=== PATIENT | male | born 1965 | race Caucasian/White ===

== ENCOUNTER 2018-05-16 11:17 | Day surgery (SDC) | payer OTHER, SELFPAY ==
[2018-05-16 11:58] VITALS: BP 144/80; PULSE 53; RESP 16; TEMP 36.6; O2SAT 100
--- NOTE | 2018-05-16 12:20 | HPE_ITS ---
Date of service: 05/16/18 Time of Service: :18 Assessment and Plan (1) Bladder cancer: Current visit: Yes Status: Acute We will plan on cystoscopy with transurethral resection of any visible bladder tumor. Given his reaction to mitomycin-C, we will not plan on instilling the medication postop. As long as there is no tumor near the left ureteral orifice, we will do flexible ureteroscopy and address his stone as well. (2) Calculus of left kidney: Current visit: Yes Status: Acute History of Present Illness Chief Complaint: Bladder cancer Narrative: This is a 53-year-old gentleman who has a history of noninvasive urothelial cell carcinoma. Some of his lesions have been high-grade but no muscularis invasion has been identified. He presents for surveillance cystoscopy and possible transurethral resection of any visible tumor. He has been unable to tolerate postoperative mitomycin being instilled into the bladder. He does have a history of kidney stones. He has a known nonobstructing stone up in the left kidney he is interested in having the stone treated ureteroscopically if possible. He has occasional left-sided flank pain. He has no gross hematuria. He has no fever or chills. Review of Systems Constitutional Denies chills and Denies fever(s) Eyes Denies change in vision ENT Denies dysphagia Cardiovascular Denies chest pain, Denies syncope and Denies irregular heart rhythm Respiratory Denies cough Gastrointestinal Denies dysphagia, Denies nausea and Denies vomiting Musculoskeletal Reports arthralgias Neurologic Denies syncope Hematologic/Lymphatic Denies easy bleeding and Denies easy bruising PFSH Medical History Dysuria Hesitancy of micturition History of testicular cancer Malignant neoplasm of posterior wall of urinary bladder Social History Smoking/Tobacco Use Status: Current every day Surgical History Status post radical unilateral orchiectomy (Acute) Meds Home Medications Medication Instructions Recorded Confirmed Type aspirin 81 mg PO HS tab-cap 07/24/16 05/16/18 History atorvastatin 20 mg PO HS tab-cap 07/24/16 05/16/18 History metoprolol succinate 100 mg PO HS tab-cap 07/24/16 05/16/18 History Allergies Allergy/AdvReac Type Severity Reaction Status Date / Time sildenafil citrate Allergy Severe Anaphylaxsi Verified 05/16/18 11:54 [From Viagra] s ciprofloxacin [From Cipro] Allergy Intermediate Other (See Verified 05/16/18 11: 54 Comment) Penicillins Allergy Intermediate Rash, Verified 05/16/18 11:54 itching, hives mitomycin AdvReac Severe Pain, Verified 05/16/18 11:54 created bladder stones per pt. oxybutynin AdvReac Severe dry mouth, Verified 05/16/18 11:54 mouth sores, pain oxycodone HCl [From Percocet] AdvReac Intermediate Mood Verified 05/16/18 11:54 behavior Exam Narrative Exam Narrative: He is in no current distress. He does not appear septic or toxic. His neck is supple. His chest wall motion is normal. He does not appear short of breath at rest. His lungs are clear. His heart is regular with no murmurs. His abdomen is soft. There is a left inguinal incision that is well-healed. He has no guarding or rebound tenderness. There is no edema in the lower extremities. No amputations or deformities are found. He is awake, alert and oriented.
[2018-05-16] MEDS: Lactated Ringers 1,000 ML 80 ML IV (12:23)
--- NOTE | 2018-05-16 13:21 | DI.RAD_ITS ---
SYMPTOMS/DIAGNOSIS: LEFT KIDNEY STONE RETROGRADE IN THE OR: Fluoroscopy Time: 16.3 sec Fluoroscopy was utilized by Dr. Quintero during the retrograde evaluation of the left renal collecting system. Please refer to the procedure report for complete details.
[2018-05-16] MEDS: GENTAMICIN 120 MG in Normal Saline 100 ML 200 MG IVPB (13:44)
[2018-05-16] MEDS: Bupivacaine LIPOSOME/PF 133 MG/10 ML VIAL IJ (13:50)
[2018-05-16] MEDS: Bupivacaine 0.25% Pres-Free 30 ML VIAL (13:50)
[2018-05-16] MEDS: IOHEXOL 50 ML (14:18)
--- NOTE | 2018-05-16 14:38 | BLADDER_PTH ---
PATIENT: Florentin Castillo LOC: [facility] U#:[id number] AGE/SX: 53/M ROOM: RE05/16/[address]: Jeremy Quintero MD : 1965 BED: DIS: 05/16/2018 SPEC #: [id number] RECD: 05/16/18 18:23 STATUS: BRANDI REQ #: [id number] RICO: 05/16/18 14:[address]: Jeremy Quintero DEPT: Surgical Specimen RECD BY: Yusra Malik ENTERED: 05/16/18 18:24 SP TYPE: Bladder OTHR DR: Sanjeev Wei Tissues: 1 - BLADDER BIOPSY Procedures: GROSS AND MICRO LEVEL 4 Comments: [id number]
[2018-05-16] MEDS: Lidocaine 2% Jelly 6 ML SYR (15:00)
--- NOTE | 2018-05-16 15:07 | W.PM.DSUDISC ---
Discharge Plan Disposition Patient Disposition: HOME Condition: Stable Discharge Details Reason For Visit: (L) BLADDER CA /(L) KIDNEY STONE Attending Provider: Jeremy Quintero Primary Care Provider: Sanjeev Wei Home Meds and New Rx's Prescriptions: New ketorolac 10 mg tablet 10 mg PO Q6H PRN (Reason: pain) Qty: 12 RF: 0 Continue atorvastatin 40 MG tablet 20 mg PO HS RF: 0 metoprolol succinate 100 MG tablet extended release 24 hr 100 mg PO HS RF: 0 aspirin 81 MG tablet,chewable 81 mg PO HS RF: 0 Discharge Instructions Additional Instructions: No straining/lifting over 10 pounds for 48 hours OK to shower No followup appt needed but ask pt and to call in 1 to 2 weeks for pathology results - his F/U will depend on pathology No need to strain urine Activity:: Activity as Tolerated Diet:: As Tolerated Discharge Orders Discharge Orders: Discharge Order (Routine); Ordered 05/16/18 Ordered By: Jreemy Quintero DS: Diagnosis Discharge Diagnosis (1) Bladder cancer: Status: Acute (2) Calculus of left kidney: Status: Acute
[2018-05-16 15:25] VITALS: BP 168/72; PULSE 61; RESP 20; TEMP 35.3; O2SAT 95
[2018-05-16] MEDS: Phenazopyridine 200 MG TAB PO (15:55)
[2018-05-16 15:59] VITALS: BP 178/79; PULSE 62; RESP 20; TEMP 35.1; O2SAT 96
[2018-05-16 16:18] VITALS: BP 180/86; PULSE 64; TEMP 35; O2SAT 96
--- NOTE | 2018-05-16 16:28 | ROE_ITS ---
DATE OF PROCEDURE: May 16, 2018 PREOPERATIVE DIAGNOSIS: 1. Bladder cancer. 2. Left kidney stone. POSTOPERATIVE DIAGNOSIS: Same. PROCEDURE: Cystoscopy; bladder biopsy with fulguration of biopsy sites; left flexible ureteroscopy w ith holmium laser of stone and stone evacuation. SURGEON: Jeremy Quintero M.D. ANESTHESIA: General. ESTIMATED BLOOD LOSS: Minimal. COMPLICATIONS: None. HISTORY: This is a 53-year-old gentleman who has a history of urothelial cell carcinoma of the blad kannan. He has not had any signs of invasion, but he's not been able to tolerate instillations of chemo therapy into the bladder. He presents for a cystoscopy with possible transurethral resection. He has been identified as having a nonobstructing stone in the left kidney. He will have intermitten t symptoms on that side. He would like to have that stone addressed as well. OPERATIVE REPORT: The patient was brought to the operating room on 05/16/18. After successful induct ion of general anesthesia he was placed in the dorsal lithotomy position. His genitalia was prepped and draped sterilely. A 22 Georgian rigid cystoscope was passed through the urethra into the bladder. The urethra and bladde r were inspected with a 30-degree lens. The pendulous, bulbous and membranous urethras all appeared normal with no strictures. The prostatic urethra showed lateral lobe enlargement. The bladder neck was entered and the bladder mucosa was in spected. Both ureteral orifices appeared normal. No blood was seen coming from either side. There were a total of five <2 cm papillary lesions on the left side of the bladder. These had the ty pical appearance of a low-grade, noninvasive urothelial cell carcinoma. Each of these areas was biop sied using the cold cup biopsy forceps. The biopsy sites were then cauterized with the bipolar Bugbe e. Once hemostasis had been obtained, we turned our attention to the left renal stone. We passed a 6 Fr ench access catheter through the cystoscope and maneuvered it into the left ureteral orifice. A retr ograde film was obtained by injecting Omnipaque through the access catheter under fluoroscopic guidan ce. This allowed us to outline the upper pole calyx where the stone had been identified. We placed a guidewire up through the access catheter and removed the catheter and cystoscope. We then passed a dual-lumen catheter over the wire and positioned a second wire. We chose one of the wires as a working wire and the other as a safety wire. We passed a ureteral access sheath over the working wire, leaving the safety wire in place. We then passed the flexible ureteroscope up through the ureteral access sheath. We were able to visu harjinder the stone in the upper pole calyx. The stone was treated with the 272 micron holmium laser fib er. We used dusting settings of a rate of 8 and a power of 200. Once the stones were fragmented int o small enough pieces, we switched to a ZeroTip stone basket and removed the fragments and sent them for chemical analysis. Prior to the surgery he had expressed concern about having a ureteral stent in place. We honored his wishes and left the stent out. All wires and scopes were then removed. Mr. Castillo tolerated this procedure well with no complications. There was no appreciable blood loss. cc: Sanjeev Wei M.D.
[2018-05-16] MEDS: fentaNYL 100 MCG/2 ML VIAL 50 MCG IVP (16:38)
[2018-05-16] MEDS: Normal Saline Flush 10 ML SYR IV (16:41)
[2018-05-16] MEDS: traMADol 50 MG TAB 100 MG PO (16:43)
[2018-05-16 16:44] VITALS: BP 163/91; PULSE 74; RESP 20; TEMP 35.9; O2SAT 97
[2018-05-16 16:58] VITALS: BP 145/81; PULSE 73; RESP 18; TEMP 35.8; O2SAT 97
[2018-05-20 08:24] LABS: Source: Left Kidney
== END 2018-05-16 17:26 | disposition home or self-care (01) ==
PROVIDERS: PCP Family Medicine; Visit Provider Urology
PROC: 0TBB8ZZ Excision of Bladder, Via Natural or Artificial Opening Endoscopic (ICD-10-PCS; CPT 52234; principal; 2018-05-16 12:45)
PROC: (CPT 52234; 2018-05-16 12:45)
DX: C67.9 Malignant neoplasm of bladder, unspecified (principal); N20.0 Calculus of kidney; I10 Essential (primary) hypertension
CPT/HCPCS: 52234; 52353; 76942; 88305; NC; 74420; 82360; J0131; J1100; J1580; J1885; J2250; J3010; Q9967

== ENCOUNTER 2018-06-20 00:33 | Outpatient (CLI) | payer OTHER, SELFPAY ==
--- NOTE | 2018-06-20 08:56 | DI.US_ITS ---
SYMPTOM/DIAGNOSIS: F/U AFTER PROCEDURE, CALCULUS LT KIDNEY, N20.0 RENAL ULTRASOUND: Routine examination. Comparison CT scan is 08/04/17. The right kidney measures 10.2 cm. long. There is a tiny 0.7 cm. cyst at the anterior mid right kidney. This was present on the CT scan from 2017. No renal calculi or obstruction are identified. There is normal blood flow to the right kidney. The left kidney measures 10.4 cm. long. There is a small 4 mm. echogenic focus with shadowing in the superior pole of the left kidney. This may represent a tiny stone. No hydronephrosis is seen. No solid renal mass is present. There is normal blood flow to the left kidney. The prevoid urinary bladder volume is 250 cc's. There does appear to be mild thickening of the wall of the urinary bladder. No definite discrete mass or intraluminal mass is lizabeth. The postvoid urinary bladder volume is 27 cc's. Both ureteral jets were visualized. There is increased echogenicity of the liver suggesting hepatic steatosis. Prostatic volume is 30 cc's. IMPRESSION: 1. Non obstructing left renal calculus. 2. Mild urinary bladder wall thickening.
== END 2018-06-20 00:53 ==
PROVIDERS: PCP Family Medicine; Visit Provider Urology
DX: N20.0 Calculus of kidney (principal); N32.9 Bladder disorder, unspecified
CPT/HCPCS: 76770

== ENCOUNTER 2018-08-18 08:15 | Day surgery (SDC) | payer OTHER, SELFPAY ==
[2018-08-18 08:33] VITALS: BP 128/68; PULSE 55; RESP 16; TEMP 36.2; O2SAT 99
[2018-08-18] MEDS: Lactated Ringers 1,000 ML 80 ML IV (09:02)
--- NOTE | 2018-08-18 09:25 | W.PM.HP.N ---
Date of service: 08/18/18 Time of Service: 09:25 Assessment and Plan (1) Malignant neoplasm of posterior wall of urinary bladder: Current visit: No Status: Acute For surveillance cystoscopy and possible TURBT^ History of Present Illness Chief Complaint: Bladder cancer Narrative: This is a 53-year-old gentleman who has a history of urothelial cell carcinoma of the bladder. His last cystoscopy was 3 months ago. At that time, he had a lesion of low malignant potential. He comes in for surveillance cystoscopy. He has no gross hematuria. He does have a history of kidney stones. He is not having any flank pain at this point in time Review of Systems Constitutional Denies chills and Denies fever(s) Eyes Denies loss of vision ENT Denies sore throat Cardiovascular Denies chest pain, Denies syncope and Denies irregular heart rhythm Respiratory Denies cough Gastrointestinal Denies nausea and Denies vomiting Musculoskeletal Reports arthralgias Neurologic Denies syncope and Denies loss of vision Hematologic/Lymphatic Denies easy bleeding and Denies easy bruising PFSH Medical History Dysuria Hesitancy of micturition History of testicular cancer Malignant neoplasm of posterior wall of urinary bladder Surgical History Status post radical unilateral orchiectomy (Acute) Social History Smoking/Tobacco Use Status: Current every day Meds Home Medications Medication Instructions Recorded Confirmed Type aspirin 81 mg PO HS tab-cap 07/24/16 08/18/18 History atorvastatin 20 mg PO HS tab-cap 07/24/16 08/18/18 History metoprolol succinate 100 mg PO HS tab-cap 07/24/16 08/18/18 History Allergies Allergy/AdvReac Type Severity Reaction Status Date / Time sildenafil citrate Allergy Severe Anaphylaxsi Verified 08/18/18 08:27 [From Viagra] s ciprofloxacin [From Cipro] Allergy Intermediate Other (See Verified 08/18/18 08:27 Comment) Penicillins Allergy Intermediate Rash, Verified 08/18/18 08:27 itching, hives mitomycin AdvReac Severe Pain, Verified 08/18/18 08:27 created bladder stones per pt. oxybutynin AdvReac Severe dry mouth, Verified 08/18/18 08:27 mouth sores, pain oxycodone HCl [From Percocet] AdvReac Intermediate Mood Verified 08/18/18 08:27 behavior Exam Const General: cooperative, comfortable, no acute distress and well developed Neck Neck: supple Resp Auscultation: clear to auscultation bilaterally Cardio Rate: regular rate Rhythm: regular rhythm GI Palpation: soft and no masses Neuro General: alert, awake and oriented x3 Results Last Vital Signs Temp 36.2 C L 08/18/18 08:33 Pulse 55 L 08/18/18 08:33 Resp 16 08/18/18 08:33 BP 128/68 08/18/18 08:33 Pulse Ox 99 08/18/18 08:33
[2018-08-18] MEDS: GENTAMICIN 120 MG in Normal Saline 100 ML 206 MG IVPB (09:32)
[2018-08-18] MEDS: Lidocaine 2% Jelly 6 ML SYR (10:00)
--- NOTE | 2018-08-18 10:03 | BLADDER_PTH ---
PATIENT: Florentin Castillo LOC: [facility] U#:[id number] AGE/SX: 53/M ROOM: RE08/18/[address]: Jeremy Quintero MD : 1965 BED: DIS: 08/18/2018 SPEC #: [id number] RECD: 08/18/18 12:08 STATUS: BRANDI REMaricarmen #: [id number] RICO: 08/18/18 10:[address]: Jeremy Quintero DEPT: Surgical Specimen RECD BY: Yusra Malik ENTERED: 08/18/18 12:09 SP TYPE: Bladder OTHR DR: Sanjeev Wei Tissues: 1 - BLADDER BIOPSY Procedures: GROSS AND MICRO LEVEL 4 Comments: [id number]
--- NOTE | 2018-08-18 10:12 | W.PM.DSUDISC ---
Discharge Plan Disposition Patient Disposition: HOME Condition: Stable Discharge Details Reason For Visit: BLADDER CA Attending Provider: Jeremy Quintero Primary Care Provider: Sanjeev Wei Home Meds and New Rx's Prescriptions: No Action atorvastatin 40 MG tablet 20 mg PO HS RF: 0 metoprolol succinate 100 MG tablet extended release 24 hr 100 mg PO HS RF: 0 aspirin 81 MG tablet,chewable 81 mg PO HS RF: 0 Discharge Instructions Additional Instructions: call 1 to 2 weeks for pathology results - his next cystoscopy (3 versus 6 months) will depend on his pathology findings Stand Alone Forms: [facility] Buffy Smith ([facility]) Activity:: Activity as Tolerated Diet:: As Tolerated Discharge Orders Discharge Orders: Discharge Order (Routine); Ordered 08/18/18 Ordered By: Jeremy Quintero DS: Diagnosis Discharge Diagnosis (1) Malignant neoplasm of posterior wall of urinary bladder: Status: Acute
[2018-08-18 10:17] VITALS: BP 142/82; PULSE 50; RESP 13; TEMP 36.4; O2SAT 97
[2018-08-18 10:22] VITALS: BP 144/74; PULSE 49; RESP 10; TEMP 36.5; O2SAT 99
[2018-08-18 10:27] VITALS: BP 136/79; PULSE 52; RESP 14; TEMP 36.4; O2SAT 99
[2018-08-18 10:41] VITALS: BP 144/78; PULSE 50; RESP 12; TEMP 36.4; O2SAT 97
[2018-08-18] MEDS: Phenazopyridine 200 MG TAB PO (11:02)
[2018-08-18 11:20] VITALS: BP 134/77; PULSE 54; RESP 18; TEMP 36; O2SAT 98
--- NOTE | 2018-08-18 17:48 | ROE_ITS ---
DATE OF OPERATION: August 18, 2018 PREOPERATIVE DIAGNOSIS: Bladder cancer. POSTOPERATIVE DIAGNOSIS: Bladder cancer with pathology pending. PROCEDURE: Cystoscopy, transurethral resection of small bladder tumor. SURGEON: Jeremy Quintero M.D. ANESTHESIA: General. COMPLICATIONS: None. ESTIMATED BLOOD LOSS: Minimal. HISTORY: This is a 55-year-old gentleman who has a history of bladder cancer. He comes in for surve illance cystoscopy and possible transurethral resection. OPERATIVE REPORT: The patient was brought to the Operating Room on 08/18/18. He was given general a nesthesia and placed in the dorsal lithotomy position. His genitalia was prepped and draped. A 22 Djiboutian rigid cystoscope was passed through the urethra into the bladder. The urethra and bladde r were inspected using the 30-degree lens. The pendulous, bulbous, and membranous urethras all appeared normal. The prostatic urethra appeared normal as well. The bladder neck was then entered. The right ureteral orifice and right bladder wall appeared normal. The left orifice appeared normal but just behind the orifice there was a less than 2-cm papillary lesion. There was a scar up toward the dome in the bladder but no additional lesions were seen. We then switched to a 24 Djiboutian resectoscope sheath and resected the visible lesion. That lesion was sent to pathology for permanent section. The surrounding area was then cauterized using the coagula tion current. The patient tolerated this procedure well, with no complications. His follow-up will depend on his s urgical pathology. cc: Sanjeev Wei M.D.
== END 2018-08-18 11:35 | disposition home or self-care (01) ==
PROVIDERS: PCP Family Medicine; Visit Provider Urology
PROC: 0TBB8ZZ Excision of Bladder, Via Natural or Artificial Opening Endoscopic (ICD-10-PCS; CPT 52234; principal; 2018-08-18 10:30)
DX: C67.4 Malignant neoplasm of posterior wall of bladder (principal)
CPT/HCPCS: 52234; 88305; NC; J1100; J1580; J2405

== ENCOUNTER 2019-02-09 09:00 | Day surgery (SDC) | payer OTHER, SELFPAY ==
[2019-02-09 09:14] VITALS: BP 146/84; PULSE 47; RESP 15; TEMP 36.6; O2SAT 98
[2019-02-09] MEDS: Lactated Ringers 1,000 ML 80 ML IV (09:56)
--- NOTE | 2019-02-09 09:56 | W.PM.HP.N ---
Date of service: 02/09/19 Time of Service: 10:48 Assessment and Plan (1) Bladder cancer: Current visit: No Status: Acute We will proceed with cystoscopy and transurethral resection of any visible tumor oriented we will not be placing intravesical chemotherapy (even if the tumor is resected) given his previous reaction to the intravesical compound. History of Present Illness Chief Complaint: Bladder cancer Narrative: This is a 53-year-old gentleman who has a history of high grade, noninvasive bladder cancer diagnosed in 2016. He has had multiple transurethral resections. He is been unable to tolerate intravesical chemotherapy due to severe pain He comes in for surveillance cystoscopy and possible transurethral resection of any visible tumor. His last tumor recurrence was a low grade tumor of low malignant potential in July of 2018. He has no current gross hematuria. He does have a history of kidney stones. He has no flank pain. Review of Systems Review of Systems No fevers or chills No vision change or dysphasia No diabetes or thyroid dysfunction No shortness of breath, cough or hemoptysis No chest pain or palpitations Recent hospitalization for abdominal pain No seizures, strokes No bleeding disorders or anemia No gout PFSH Social History Smoking/Tobacco Use Status: Current every day Tobacco Type: cigarettes Tobacco: How many years used: 30 Alcohol Intake: former Drug use: Never Substance use type: does not use Do you feel safe at home: Yes Do you feel safe in your relationship?: Yes Meds Home Medications Medication Instructions Recorded Confirmed Type aspirin 81 mg PO HS tab-cap 07/24/16 02/08/19 History atorvastatin 20 mg PO HS tab-cap 07/24/16 02/09/19 History metoprolol succinate 100 mg PO HS tab-cap 07/24/16 02/09/19 History Allergies Allergy/AdvReac Type Severity Reaction Status Date / Time sildenafil citrate Allergy Severe Anaphylaxsi Verified 02/09/19 09:50 [From Viagra] s ciprofloxacin [From Cipro] Allergy Intermediate Other (See Verified 02/09/19 09:50 Comment) Penicillins Allergy Intermediate Rash, Verified 02/09/19 09:50 itching, hives mitomycin AdvReac Severe Pain, Verified 02/09/19 09:50 created bladder stones per pt. oxybutynin AdvReac Severe dry mouth, Verified 02/09/19 09:50 mouth sores, pain oxycodone HCl [From Percocet] AdvReac Intermediate Mood Verified 02/09/19 09:50 behavior Exam Narrative Exam Narrative: He is in no obvious distress. He is cooperative. He does not appear septic or toxic His vital signs are documented elsewhere His neck is supple with no masses His lungs are clear Cardiac exam reveals a regular rate and rhythm His abdomen is soft there is a left lower quadrant scar which is well-healed He is awake, alert and oriented Results Last Vital Signs Temp 36.6 C 02/09/19 09:14 Pulse 47 L 02/09/19 09:14 Resp 15 02/09/19 09:14 BP 146/84 H 02/09/19 09:14 Pulse Ox 98 02/09/19 09:14
[2019-02-09] MEDS: GENTAMICIN 120 MG in Normal Saline 100 ML 200 MG IVPB (11:30)
--- NOTE | 2019-02-09 11:30 | BLADDER_PTH ---
PATIENT: Florentin Castillo LOC: [facility] U#:[id number] AGE/SX: 53/M ROOM: RE02/09/[address]: Jeremy Quintero MD : 1965 BED: DIS: 02/09/2019 SPEC #: [id number] RECD: 02/09/19 13:23 STATUS: BRANDI REQ #: [id number] RICO: 02/09/19 11:[address]: Jeremy Quintero DEPT: Surgical Specimen RECD BY: Yusra Malik ENTERED: 02/09/19 13:23 SP TYPE: Bladder OTHR DR: Sanjeev Wei Tissues: 1 - BLADDER CURRETTINGS Procedures: GROSS AND MICRO LEVEL 5 Comments: [id number]
[2019-02-09] MEDS: Lidocaine 2% Jelly 6 ML SYR (11:45)
[2019-02-09] MEDS: Bupivacaine LIPOSOME/PF 133 MG/10 ML VIAL IJ (12:01)
[2019-02-09] MEDS: Bupivacaine 0.25% Pres-Free 30 ML VIAL (12:01)
--- NOTE | 2019-02-09 12:01 | W.PM.DSUDISC ---
Discharge Plan Disposition Patient Disposition: HOME Condition: Stable Discharge Details Attending Provider: Jeremy Quintero Primary Care Provider: Sanjeev Wei Home Meds and New Rx's Prescriptions: No Action atorvastatin 40 MG tablet 20 mg PO HS RF: 0 metoprolol succinate 100 MG tablet extended release 24 hr 100 mg PO HS RF: 0 aspirin 81 MG tablet,chewable 81 mg PO HS RF: 0 Discharge Instructions Additional Instructions: No followup visit to schedule, but ask pt and to call in 1 week for pathology results - the timing for his next cysto will depend on the pathology Stand Alone Forms: [facility] Post op Instructions, Buffy Crouch ([facility]) Activity:: Activity as Tolerated Shower/Bathe:: 24 hours Diet:: As Tolerated Discharge Orders Discharge Orders: Discharge Order (Routine); Ordered 02/09/19 Ordered By: Jeremy Quintero DS: Diagnosis Discharge Diagnosis (1) Bladder cancer: Status: Acute
[2019-02-09] MEDS: Phenazopyridine 200 MG TAB PO (13:00)
[2019-02-09 13:20] VITALS: BP 157/91; PULSE 55; RESP 14; TEMP 36.3; O2SAT 96
--- NOTE | 2019-02-10 08:45 | ROE_ITS ---
REPORT OF OPERATIVE PROCEDURE DATE OF PROCEDURE February 09, 2019 PREOPERATIVE DIAGNOSIS Bladder cancer. POSTOPERATIVE DIAGNOSIS Bladder cancer. PROCEDURE Cystoscopy with transurethral resection of multiple small bladder tumors. SURGEON Jeremy Quintero M.D. ANESTHESIA General. FINDINGS Multiple small (less than 2-cm papillary lesions throughout the bladder. HISTORY This is a 53-year-old gentleman who has a history of testicular cancer. He was diagnosed with a secon d primary tumor of urothelial cell carcinoma of the bladder back in 2016. At that time, his tumor was high grade. He was treated with transurethral resection. He has never had intravesical BCG. He has multiple recurrences and on at least one of those occurrences, we instilled mitomycin C into h is bladder. He was unable to tolerate the medication so we had not utilized intravesical chemotherapy since then. He presents for surveillance cystoscopy with possible transurethral resection. PROCEDURE DESCRIPTION The patient was brought to the Operating Room on 02/09/2019. After successful induction of General ane sthesia, he was placed in the dorsal lithotomy position. His genitalia was prepped and draped. 2% Xylocaine jelly was instilled into the urethra to act as a local anesthetic. A #24-Jordanian resecto scope sheath was passed through the urethra into the bladder. The urethra and bladder were inspected with the 30-degree lens. The pendulous, bulbous and membranous urethras all appeared normal with no strictures. The bladder ne ck was slightly elevated. No papillary lesions were seen on the prosthetic mucosa. The bladder neck was entered and the bladder mucosa was inspected. We did identify multiple small pap illary lesions throughout the bladder. These locations included on both sides of the trigone, the pos terior bladder wall, the left lateral bladder wall, and the right lateral bladder wall. We then utilized the Idea2 resectoscope to excise some of these lesions. The excised tissue was se nt to Pathology for permanent section. We then switched to a plasma button and cauterized the resecti on sites and cauterized any remaining visible tumors. At the completion of the procedure, no active bleeding was seen. The bladder was emptied and the cyst oscope was withdrawn. The patient tolerated the procedure well. There were no complications. CC: Sanjeev Wei M.D.
== END 2019-02-09 13:50 | disposition home or self-care (01) ==
PROVIDERS: PCP Family Medicine; Visit Provider Urology
PROC: 0TBB8ZZ Excision of Bladder, Via Natural or Artificial Opening Endoscopic (ICD-10-PCS; CPT 52234; principal; 2019-02-09 11:30)
DX: C67.0 Malignant neoplasm of trigone of bladder (principal); C67.4 Malignant neoplasm of posterior wall of bladder; C67.2 Malignant neoplasm of lateral wall of bladder; G89.18 Other acute postprocedural pain; Z85.47 Personal history of malignant neoplasm of testis
CPT/HCPCS: 52234; 76942; 88305; NC; 88307; J1580; J2250; J3010

== ENCOUNTER 2019-04-06 14:36 | Outpatient (REF) | payer OTHER, SELFPAY ==
[2019-04-06 14:39] LABS: Bilirubin Negative (Negative); Blood Negative (Negative); Clarity Clear (Clear); Glucose Negative (Negative); Ketones Negative (Negative); Leukocyte Esterase Negative (Negative); Nitrite Negative (Negative); Specific Gravity 1.015 (1.005-1.025); Urobilinogen 0.2 EU/dL (Up TO 0.2); pH 5.5 (5-8)
== END 2019-04-06 14:56 ==
LOC: LBN 14:36
PROVIDERS: PCP Family Medicine; Visit Provider Urology
DX: C67.9 Malignant neoplasm of bladder, unspecified (principal); R31.0 Gross hematuria
CPT/HCPCS: 81003; 87086

== ENCOUNTER 2019-05-22 10:46 | Outpatient (CLI) | payer OTHER, SELFPAY ==
--- NOTE | 2019-05-22 12:00 | DI.US_ITS ---
EXAM: US RENAL CLINICAL HISTORY: flank pain w/ hx of stones, lt kidney calculus, N20.0. TECHNIQUE: Duran scale, color and spectral Doppler were used. COMPARISON: US renal from 06/20/2018 FINDINGS: Renal size in cm: Right: 9.8 cm left: 10.1 cm Echogenicity: Normal Hydronephrosis: No Cyst or mass: No Nephrolithiasis: 0.6 cm shadowing, echogenic focus in the superior pole of the left kidney. This is consistent with a calculus. Bladder:The bladder wall appears smooth. No intraluminal mass is present. The left ureteral jet was visualized. The right ureteral jet was not visualized. Prevoid vol:129 cc Postvoid vol:39 cc DOPPLER FINDINGS: There is normal and symmetric blood flow to the kidneys. IMPRESSION: Left nephrolithiasis. No evidence of obstructive uropathy.
== END 2019-05-22 11:06 ==
PROVIDERS: PCP Family Medicine; Visit Provider Nurse Practitioner Gerontology
DX: N20.0 Calculus of kidney (principal); R10.32 Left lower quadrant pain
CPT/HCPCS: 76770

== ENCOUNTER 2019-05-30 11:59 | Outpatient (CLI) | payer OTHER, SELFPAY ==
--- NOTE | 2019-05-30 09:35 | DI.CT_ITS ---
EXAM: CT ABDOMEN PELVIS WO CLINICAL HISTORY: left abdominal and flank pain, calculus of lt kidney, N20.0. TECHNIQUE: Noncontrast COMPARISON: ABD/PELVIS WO W CONTRAST from 08/04/2017 FINDINGS: Nodules are again noted in the right lung. Non-obstructing left renal calculi are again noted. Ther e are no ureteral calculi or evidence of hydronephrosis. There are surgical clips in the para-aortic region. Prostate is slightly enlarged. Again noted is diffuse bladder wall thickening. No focal bl adder mass or bladder calcification is seen. There is no bowel dilatation or inflammatory change. T he appendix appears normal. IMPRESSION: Nonobstructing left renal calculi. Stable diffuse bladder wall thickening. No acute abnormality.
== END 2019-05-30 12:19 ==
PROVIDERS: PCP Family Medicine; Visit Provider Urology
DX: R10.32 Left lower quadrant pain (principal); N32.89 Other specified disorders of bladder; N20.0 Calculus of kidney; Z85.47 Personal history of malignant neoplasm of testis
CPT/HCPCS: 74176

== ENCOUNTER 2019-06-01 12:52 | Day surgery (SDC) | payer OTHER, SELFPAY ==
[2019-06-01] MEDS: Lactated Ringers 1,000 ML 80 ML IV (13:26)
[2019-06-01 13:39] VITALS: BP 151/79; PULSE 52; RESP 16; TEMP 36; O2SAT 99
--- NOTE | 2019-06-01 14:28 | DI.RAD_ITS ---
EXAM: XR RETROGRADE IN OR INDICATION: Left Kidney Stone. COMPARISON: No exams were available for comparison TECHNIQUE: 2D digital imaging was performed. FINDINGS: C-arm fluoroscopy was used utilized by Dr. Quintero during retrograde cannulation of the upper urinary t ract on left. Please see Dr. uQintero procedure note. IMPRESSION:
[2019-06-01] MEDS: GENTAMICIN 120 MG in Normal Saline 100 ML 206 MG IVPB (14:46)
[2019-06-01] MEDS: Lidocaine 2% Jelly 6 ML SYR (15:00)
[2019-06-01] MEDS: Omnipaque 300 MG/ML 50 ML BTL (15:05)
--- NOTE | 2019-06-01 15:05 | BLADDER_PTH ---
PATIENT: Florentin Castillo LOC: [facility] U#:[id number] AGE/SX: 54/M ROOM: RE06/01/[address]: Jeremy Quintero MD : 1965 BED: DIS: 06/01/2019 SPEC #: [id number] RECD: 06/01/19 18:06 STATUS: BRANDI REMaricarmen #: [id number] RICO: 06/01/19 15:[address]: Jeremy Quintero DEPT: Surgical Specimen RECD BY: Yusra Malik ENTERED: 06/01/19 18:07 SP TYPE: Bladder OTHR DR: Sanjeev Wei Tissues: 1 - BLADDER BIOPSY Procedures: GROSS AND MICRO LEVEL 4 Comments: [id number]
--- NOTE | 2019-06-01 15:33 | W.PM.DSUDISC ---
Discharge Plan Disposition Patient Disposition: HOME Condition: Stable Discharge Details Reason For Visit: (L) KIDNEY STONE Attending Provider: Jeremy Quintero Primary Care Provider: Sanjeev Wei Home Meds and New Rx's Prescriptions: No Action tamsulosin [Flomax] 0.4 mg capsule 0.4 mg PO DAILY Qty: 14 RF: 0 cyclobenzaprine 10 mg tablet 10 mg PO Q8H PRN (Reason: muscle spasm) Qty: 10 RF: 0 ketorolac 10 mg tablet 10 mg PO TID PRN (Reason: pain) 5 Days Qty: 15 RF: 0 atorvastatin 40 MG tablet 20 mg PO HS RF: 0 metoprolol succinate 100 MG tablet extended release 24 hr 100 mg PO HS RF: 0 aspirin 81 MG tablet,chewable 81 mg PO HS RF: 0 Discharge Instructions Additional Instructions: Followup 4 to 6 weeks with renal US Pt has script for Toradol at home already He will not need his scheduled cysto in the OR next month (please cancel if still on the books) No need to strain urine Activity:: Activity as Tolerated Shower/Bathe:: 24 hours Diet:: As Tolerated Discharge Orders Discharge Orders: Discharge Order (Routine); Ordered 06/01/19 Ordered By: Jeremy Quintero Discharge Data Discharge Comment: order for renal US placed DS: Diagnosis Discharge Diagnosis (1) Bladder cancer: Status: Acute (2) Calculus of left kidney: Status: Acute
[2019-06-01 15:40] VITALS: BP 97/53; PULSE 53; RESP 18; TEMP 36.5; O2SAT 95
[2019-06-01 15:45] VITALS: BP 94/50; PULSE 53; RESP 19; TEMP 36.5; O2SAT 95
[2019-06-01 15:50] VITALS: BP 99/51; PULSE 52; RESP 18; TEMP 36.5; O2SAT 96
[2019-06-01 16:04] VITALS: BP 145/70; PULSE 52; RESP 13; TEMP 36.5; O2SAT 98
[2019-06-01] MEDS: Phenazopyridine 200 MG TAB PO (16:26)
[2019-06-01 16:56] VITALS: BP 148/83; PULSE 56; RESP 16; TEMP 36.3; O2SAT 97
[2019-06-01] MEDS: Cyclobenzaprine 10 MG TAB PO (17:08)
--- NOTE | 2019-06-02 10:38 | ROE_ITS ---
DATE OF PROCEDURE: June 01, 2019 PREOPERATIVE DIAGNOSIS: 1. Left kidney stone. 2. History of bladder cancer. POSTOPERATIVE DIAGNOSIS: 1. Left kidney stone. 2. History of bladder cancer. PROCEDURE: Cystoscopy; bladder biopsy with fulguration of bladder lesion; left retrograde pyelogram; left flexible ureteroscopy with stone extraction. SURGEON: Jeremy Quintero M.D. ANESTHESIA: General. COMPLICATIONS: None. ESTIMATED BLOOD LOSS: Minimal. HISTORY: This is a 54-year-old gentleman who has a history of both testicular and bladder cancer. Josefa fernandez also has a history of kidney stones. He recently has been having severe left flank pain. He has been evaluated with a renal ultrasound an d CT scan, which demonstrate an upper pole stone on the left. No hydronephrosis was found, but no ad ditional causes for his pain were identified. He presents now for a cystoscopy, ureteroscopy and sto ne manipulation. With his history of bladder cancer, we decided to do a biopsy or transurethral rese ction should any suspicious areas be identified. OPERATIVE REPORT: The patient was brought to the Operating Room on 06/01/19. He was given a dose of IV Gentamicin. After successful induction of general anesthesia, he was placed in the dorsal lithotomy position. Hi s genitalia was prepped and draped. A 22 Emir[place] rigid cystoscopy was passed through the urethra into the bladder. The urethra and bladde r were inspected with the 30-degree lens. The pendulous, bulbous and membranous urethras all appeared normal. No strictures were identified. The bladder neck was entered and the bladder mucosa was inspected. Both ureteral orifices were ident ified. They appeared normal. Clear urine was seen coming from each side. There was a < 1 cm papill alfred lesion on the right posterior bladder wall. A few small stone particles were adherent to this le marlon. We went ahead and biopsied the lesion using a cold cup biopsy forceps. We then cauterized the biopsy site using bipolar cautery. The remainder of the bladder showed no additional papillary lesions. We then passed a 6 Emir[place] access catheter through the cystoscope into the left ureteral orifice. A r etrograde film was obtained by injecting Omnipaque through the access catheter under fluoroscopic steve dance. No filling defects were identified, but we were able to outline his calyces. We knew that hi s stone was most-recently found in one of the upper pole calyces. I then passed a guidewire through the access catheter and removed the catheter, leaving the wire in p lace. A dual-lumen catheter was then advanced and a second wire was positioned. We chose one of the wires as a working wire and the other as a safety wire. We removed the dual-lumen catheter and pass ed the ureteral access sheath over the working wire, leaving the safety wire in place. The flexible ureteroscope was then introduced through the access sheath up to the renal pelvis. We i nspected the upper pole calyces and were able to visualize a stone in one of the calyces. Initially the stone seemed adherent to the mucosa, but we were able to break it free and grasp it in a Zero Tip stone basket. The stone was then removed in its entirety. We passed the 6 Emirati access catheter back over the safety wire and injected Omnipaque through the a ccess catheter. This ensured there was no ureteral injury during our procedure. Based on the lack o f extravasation and lack of injury, we decided not to place a ureteral stent. All catheters and wires were then removed. The bladder was drained. The bladder biopsy and stone were sent to Pathology separately. The biopsy was sent for permanent se ction. The stone was sent for chemical analysis. At the completion of the procedure the patient was transferred to the recovery room. cc: Sanjeev Wei M.D.
[2019-06-07 18:48] LABS: Source: Kidney
== END 2019-06-01 17:35 | disposition home or self-care (01) ==
PROVIDERS: PCP Family Medicine; Visit Provider Urology
PROC: (CPT 52352; principal; 2019-06-01 14:00)
PROC: 0VT08ZZ Resection of Prostate, Via Natural or Artificial Opening Endoscopic (ICD-10-PCS; CPT 52601; 2019-06-01 14:00)
DX: C67.4 Malignant neoplasm of posterior wall of bladder (principal); N20.0 Calculus of kidney; Z85.51 Personal history of malignant neoplasm of bladder; Z85.47 Personal history of malignant neoplasm of testis; Z87.442 Personal history of urinary calculi; F17.210 Nicotine dependence, cigarettes, uncomplicated
CPT/HCPCS: 52352; 52234; 88305; 74420; 82365; J1580; Q9967

== ENCOUNTER 2019-06-26 01:26 | Outpatient (CLI) | payer OTHER, SELFPAY ==
--- NOTE | 2019-06-26 15:20 | DI.US_ITS ---
EXAM: US RENAL CLINICAL HISTORY: r/o hydronephrosis after ureteroscopy, calculus of lt kidney, N20.0 TECHNIQUE: Ultrasound performed using standard protocol. COMPARISON: CT ABDOMEN PELVIS WO from 05/30/2019 XR RETROGRADE IN OR from 06/01/2019 FINDINGS: The right kidney measures 10.7 cm. In length. The left kidney measures 10.1 cm in length. No stones or hydronephrosis is seen. There is no perinephric collection. The prevoid bladder volume measured 95 cc's. Both ureteral jets were visualized. There is an elevated postvoid residual of 29 cc's. IMPRESSION: No evidence of hydronephrosis. Mildly elevated postvoid residual.
== END 2019-06-26 01:46 ==
PROVIDERS: PCP Family Medicine; Visit Provider Urology
DX: N20.0 Calculus of kidney (principal); R33.9 Retention of urine, unspecified
CPT/HCPCS: 76770

== ENCOUNTER 2019-10-12 08:07 | Day surgery (SDC) | payer OTHER, SELFPAY ==
[2019-10-12 08:22] VITALS: BP 142/89; PULSE 58; RESP 18; TEMP 36.4; O2SAT 99
[2019-10-12] MEDS: Lactated Ringers 1,000 ML 80 ML IV (08:48)
--- NOTE | 2019-10-12 10:24 | W.PM.HP.N ---
Date of service: 10/12/19 Time of Service: 10:24 Assessment and Plan Assessment and plan (1) Bladder cancer: Status: Acute Assessment and plan: We will perform surveillance cystoscopy and remove any visible tumor that is found. History of Present Illness History of Present Illness Chief Complaint: History of bladder cancer Narrative: This is a 54-year-old gentleman who has a history of testicular cancer. He also has a history of urothelial cell carcinoma of the bladder. He presents today for surveillance cystoscopy. He has no gross hematuria. He has no new voiding symptoms. He does have some flank pain but it is not overly suggestive of his previous renal colic pain. Review of Systems Narrative: No fevers or chills No vision change or dysphasia. He complains of a scratchy throat No diabetes or thyroid No shortness of breath, cough or hemoptysis No chest pain or palpitations No nausea, vomiting, hepatitis, ulcers, jaundice, diarrhea or constipation No seizures, strokes or peripheral neuropathy No bleeding disorders or anemia No gout. Has had flareups of flank pain [facility] Medical History Dysuria Hesitancy of micturition High cholesterol (Chronic) History of kidney stones (Acute) History of postoperative nausea and vomiting (Acute) History of retroperitoneal fibrosis (Acute) History of testicular cancer Hypertension (Chronic) Malignant neoplasm of posterior wall of urinary bladder Surgical History (Updated 10/12/19 @ 08:26 by Chapincito Rea) History of ankle surgery (Acute) Left History of arthroscopic knee surgery (Chronic) Right History of colonoscopy (Chronic) Hx of bladder repair surgery (Chronic) 06/01/10: Tumors removed, not bladder repair surgery, per pt. -BR 10/10/19: -BR Hx of lithotripsy (Acute) Hx of transurethral resection of prostate (Acute) 06/01/10: Pt denies dx. -BR 10/10/19: Pt denies dx. -BR 10/11/19-pt. denies dx-JW Status post radical unilateral orchiectomy (Acute) Social History Smoking/Tobacco Use Status: Current every day Tobacco Type: cigarettes Alcohol Intake: former Drug use: Never Substance use type: does not use Do you feel safe at home: Yes Do you feel safe in your relationship?: Yes Meds Home Medications and Allergies Home Medications Medication Instructions Recorded Confirmed Type aspirin 81 mg PO HS tab-cap 07/24/16 10/10/19 History atorvastatin 20 mg PO HS tab-cap 07/24/16 10/10/19 History metoprolol succinate 100 mg PO HS tab-cap 07/24/16 10/10/19 History tamsulosin 0.4 mg capsule 0.4 mg PO DAILY #14 cap 05/22/19 10/10/19 Rx cyclobenzaprine 10 mg tablet 10 mg PO Q8H PRN #10 tab 05/30/19 10/10/19 Rx phenazopyridine 200 mg tablet 200 mg PO TID PRN #10 tab 06/01/19 10/12/19 Rx Allergies Allergy/AdvReac Type Severity Reaction Status Date / Time sildenafil citrate Allergy Severe Anaphylaxsi Verified 10/12/19 08:29 [From Viagra] s ciprofloxacin [From Cipro] Allergy Intermediate Other (See Verified 10/12/19 08:29 Comment) Penicillins Allergy Intermediate Rash, Verified 10/12/19 08:29 itching, hives mitomycin AdvReac Severe Pain, Verified 10/12/19 08:29 created bladder stones per pt. oxybutynin AdvReac Severe dry mouth, Verified 10/12/19 08:29 mouth sores, pain oxycodone HCl [From Percocet] AdvReac Intermediate Mood Verified 10/12/19 08:29 behavior Exam Narrative Exam Narrative: He is in no current distress. He is cooperative. His vital signs are documented elsewhere His chest wall motion is normal. His lungs are clear on auscultation Cardiac exam shows a regular rate and rhythm His abdomen is soft with no masses There is no edema in the lower extremities. No amputations or deformities are found. He is awake and alert Results Last Vital Signs Temp 36.4 C L 10/12/19 08:22 Pulse 58 L 10/12/19 08:22 Resp 18 10/12/19 08:22 BP 142/89 H 10/12/19 08:22 Pulse Ox 99 10/12/19 08:22
[2019-10-12] MEDS: GENTAMICIN 120 MG in Normal Saline 100 ML 206 MG IVPB (10:51)
[2019-10-12] MEDS: Lidocaine 2% Jelly 6 ML SYR (10:59)
--- NOTE | 2019-10-12 11:05 | BLADDER_PTH ---
PATIENT: Florentin Castillo LOC: [facility] U#:[id number] AGE/SX: 54/M ROOM: RE10/12/[address]: Jeremy Quintero MD : 1965 BED: DIS: 10/12/2019 SPEC #: [id number] RECD: 10/12/19 12:17 STATUS: BRANDI REMaricarmen #: [id number] RICO: 10/12/19 11:[address]: Jeremy Quintero DEPT: Surgical Specimen RECD BY: Yusra Malik ENTERED: 10/12/19 12:17 SP TYPE: Bladder OTHR DR: Sanjeev Wei Tissues: 1 - BLADDER BIOPSY Procedures: GROSS AND MICRO LEVEL 4 Comments: [id number]
--- NOTE | 2019-10-12 11:21 | W.PM.DSUDISC ---
Discharge Plan Disposition Patient Disposition: HOME Condition: Stable Discharge Details Attending Provider: Jeremy Quintero Primary Care Provider: Sanjeev Wei Home Meds and New Rx's Prescriptions: No Action tamsulosin [Flomax] 0.4 mg capsule 0.4 mg PO DAILY Qty: 14 RF: 0 cyclobenzaprine 10 mg tablet 10 mg PO Q8H PRN (Reason: muscle spasm) Qty: 10 RF: 0 phenazopyridine [Pyridium] 200 mg tablet 200 mg PO TID PRN (Reason: pain) Qty: 10 RF: 0 atorvastatin 40 MG tablet 20 mg PO HS RF: 0 metoprolol succinate 100 MG tablet extended release 24 hr 100 mg PO HS RF: 0 aspirin 81 MG tablet,chewable 81 mg PO HS RF: 0 Discharge Instructions Additional Instructions: call in 1 to 2 weeks to discuss pathology results depending on biopsy results, we will arrange cystoscopy in either 3 or 6 months Stand Alone Forms: [facility]y Smith ([facility]) Activity:: Activity as Tolerated Shower/Bathe:: 24 hours Diet:: As Tolerated Discharge Orders Discharge Orders: Discharge Order (Routine); Ordered 10/12/19 Ordered By: Jeremy Quintero DS: Diagnosis Discharge Diagnosis (1) Bladder cancer: Status: Acute
[2019-10-12 12:02] VITALS: BP 146/76; PULSE 51; RESP 16; TEMP 35.8; O2SAT 100
--- NOTE | 2019-10-13 07:22 | ROE_ITS ---
REPORT OF OPERATIVE PROCEDURE DATE OF SURGERY October 12, 2019 PREOPERATIVE DIAGNOSIS Bladder cancer. POSTOPERATIVE DIAGNOSIS Bladder cancer with Pathology pending. PROCEDURE Cystoscopy with bladder biopsy and fulguration of biopsy site. SURGEON Jeremy Quintero M.D. ANESTHESIA MAC with local. COMPLICATIONS None. HISTORY This is a 54-year-old gentleman who has a history of urothelial cell carcinoma of the bladder. He has been unable to tolerate intravesical mitomycin in the past and is reluctant to utilize intravesical gemcitabine. He presents for cystoscopy, if bladder tumor is identified, he is agreeable to transurethral resectio n of any visible tumor. OPERATIVE REPORT The patient was brought to the Operating Room on 10/12/2019. He was given Monitored Anesthesia Care an d placed in the dorsal lithotomy position. His genitalia was prepped and draped. 2% Xylocaine jelly was instilled into the urethra to act as a local anesthetic. A #22-Yakut rigid cystoscope was passed through the urethra into the bladder. The urethra and bladd er were inspected with a 30-degree lens. The pendulous, bulbous and membranous urethras appeared normal with no strictures. The prostatic uret hra showed no papillary or nodular lesions. The bladder neck was entered and the bladder mucosa was inspected. We identified three small papillar y lesions in the bladder, the first was on the left posterior bladder wall. There were two additional lesions up toward the dome on the right side of the bladder. Both ureteral orifices appeared normal. No blood was seen coming from either side. No additional lesi ons were seen when the bladder was re-inspected with a 70-degree lens. The visible lesions were then biopsied and removed using a cold cup biopsy forceps. Each of the biop sy sites was then cauterized using bipolar Bugbee. No active bleeding was seen. The patient tolerated this procedure well with no complications. Based on the surgical pathology, we will recommended a followup cystoscopy either in three months or in six months.
== END 2019-10-12 12:40 | disposition home or self-care (01) ==
PROVIDERS: PCP Family Medicine; Visit Provider Urology
PROC: 0TBB8ZZ Excision of Bladder, Via Natural or Artificial Opening Endoscopic (ICD-10-PCS; CPT 52204; principal; 2019-10-12 10:15)
DX: C67.4 Malignant neoplasm of posterior wall of bladder (principal); C67.1 Malignant neoplasm of dome of bladder
CPT/HCPCS: 52204; 88305; NC; J1580; J1885; J2001; J2405

== ENCOUNTER 2020-03-29 08:22 | Outpatient (CLI) | payer OTHER, SELFPAY ==
[2020-03-30 18:30] LABS: COVID-19 RT-PCR Result NEGATIVE (Negative)
== END 2020-03-29 08:42 ==
PROVIDERS: PCP Family Medicine; Visit Provider Urology
DX: Z11.59 Encounter for screening for other viral diseases (principal)
CPT/HCPCS: U0003

== ENCOUNTER 2020-10-17 06:07 | Day surgery (SDC) | payer OTHER, SELFPAY ==
--- NOTE | 2020-10-15 17:22 | ANES_ITS ---
Date of service: 10/15/20 Time of Service: 17:23 Anesthesia Note Report Anesthesia Note: Reviewed Florentin's chart. He had a STEMI in March 2020 complicated by VT with AICD placement. He has had no ICD firings/arrhythmias since 08/05/20. He is 7 months Post NE, He is instructed to hold Plavix, but continue aspirin through procedure. His BP has been poorly controlled and cardiology is working on this (at times 200/95). He has had no chest pain since his STEMI. He is ok to proceed for surgeryas he does have active bladder cancer and has been cleared by [facility] Cardiology Dr. Pulido. We will obtain his cardiac cath and Echo report from [facility].
[2020-10-17 06:17] VITALS: BP 130/62; PULSE 66; RESP 18; TEMP 36.7; O2SAT 97
--- NOTE | 2020-10-17 06:42 | W.PM.HP.N ---
Date of service: 10/17/20 Time of Service: 06:42 Assessment and Plan Assessment and plan (1) Bladder cancer: Status: Acute Assessment and plan: For cystoscopy with possible transurethral resection of any visible bladder tumor. He has not been able to tolerate intravesical treatments in the past, so we will not plan on an instillation of mitomycin-C even if the tumor is identified. History of Present Illness History of Present Illness Chief Complaint: Bladder cancer Narrative: This is a 55-year-old gentleman who has a history of low-grade, noninvasive urothelial cell carcinoma of the bladder. He comes in for surveillance cystoscopy. His routine surveillance has been delayed as he had a myocardial infarction and cardiac intervention. He had a cardiac stent placed as well as a defibrillator. He discontinued his Plavix prior to the surgery. He continues on a low-dose of aspirin. He has not seen any gross hematuria. He does have a history of kidney stones, but has not had any flank pain. Review of Systems Narrative: No fevers or chills No vision change or dysphasia No diabetes or thyroid No shortness of breath, cough or hemoptysis No chest pain or palpitations No hepatitis, ulcers, jaundice, diarrhea or constipation No seizures, strokes or peripheral neuropathy No anemia No gout PFSH Medical History CAD (coronary artery disease) x1 Dysuria Ex-smoker 03/2020 Hesitancy of micturition High cholesterol History of chemotherapy 2017 History of kidney stones History of postoperative nausea and vomiting History of retroperitoneal fibrosis History of ST elevation myocardial infarction (STEMI) History of testicular cancer Hx of ventricular tachycardia Hypertension 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 of posterior wall of urinary bladder SOB (shortness of breath) SOB (shortness of breath) on exertion Surgical History (Updated 10/17/20 @ 06:48 by Jeremy Quintero MD) History of ankle surgery Left History of arthroscopic knee surgery Right History of colonoscopy Hx of lithotripsy S/P bladder tumor excision with fulguration Status post radical unilateral orchiectomy Social History Smoking/Tobacco Use Status: Former Tobacco Use Quit Date: 03/23/20 Smoking risk assessment performed?: Yes Alcohol Intake: former Drug use: Never Substance use type: does not use Do you feel safe at home: Yes Do you feel safe in your relationship?: Yes Meds Home Medications and Allergies Home Medications Medication Instructions Recorded Confirmed Type aspirin 81 mg PO HS tab-cap 07/24/16 10/17/20 History atorvastatin 20 mg PO HS tab-cap 07/24/16 10/17/20 History clopidogrel 75 mg tablet 75 mg PO DAILY 10/04/20 10/17/20 History lisinopril 20 mg tablet 20 mg PO DAILY 10/04/20 10/17/20 History metoprolol succinate 100 mg 50 mg PO DAILY tab-cap 10/04/20 10/17/20 History tablet,extended release 24 hr metoprolol succinate 25 mg 25 mg PO HS 10/04/20 10/17/20 History tablet,extended release 24 hr mirtazapine 15 mg tablet 15 mg PO QHS 10/04/20 10/17/20 History Allergies Allergy/AdvReac Type Severity Reaction Status Date / Time sildenafil citrate Allergy Severe Anaphylaxsi Verified 10/17/20 06:24 [From Viagra] s ciprofloxacin [From Cipro] Allergy Intermediate Other (See Verified 10/17/20 06:24 Comment) Penicillins Allergy Intermediate Rash, Verified 10/17/20 06:24 itching, hives mitomycin AdvReac Severe Pain, Verified 10/17/20 06:24 created bladder stones per pt. oxybutynin AdvReac Severe dry mouth, Verified 10/17/20 06:24 mouth sores, pain oxycodone HCl [From Percocet] AdvReac Intermediate Mood Verified 10/17/20 06:24 behavior Exam Const General: cooperative, comfortable and no acute distress Neck Neck: supple Resp Effort & Inspection: normal respiratory effort Auscultation: clear to auscultation bilaterally Cardio Rate: regular rate Rhythm: regular rhythm GI Palpation: soft and no masses Neuro General: patient alert, patient awake and patient oriented x3 Results Last Vital Signs Temp 36.7 C 10/17/20 06:17 Pulse 66 10/17/20 06:17 Resp 18 10/17/20 06:17 BP 130/62 10/17/20 06:17 Pulse Ox 97 10/17/20 06:17 COVID-19 Screening Have you, or household traveled for leisure in last 14 days?: No Had IN PERSON contact w/suspected or confirmed C-19 person: No
[2020-10-17] MEDS: Lactated Ringers 1,000 ML 80 ML IV (06:56)
[2020-10-17] MEDS: Lidocaine 2% Jelly 6 ML SYR (07:40)
--- NOTE | 2020-10-17 08:00 | BLADDER_PTH ---
PATIENT: Florentin Castillo LOC: [facility] U#:[id number] AGE/SX: 55/M ROOM: RE10/17/[address]: Jeremy Quintero MD : 1965 BED: DIS: 10/17/2020 SPEC #: [id number] RECD: 10/17/20 12:54 STATUS: BRANDI REQ #: [id number] RICO: 10/17/20 08:[address]: Jeremy Quintero DEPT: Surgical Specimen RECD BY: Yusra Malik ENTERED: 10/17/20 12:54 SP TYPE: Bladder OTHR DR: Sanjeev Wei Tissues: 1 - BLADDER CURRETTINGS Procedures: GROSS AND MICRO LEVEL 5 Comments: [id number]
--- NOTE | 2020-10-17 08:02 | W.PM.DSUDISC ---
Discharge Plan Disposition Patient Disposition: HOME Condition: Stable Discharge Details Reason For Visit: bladder cancer Attending Provider: Jeremy Quintero Primary Care Provider: Sanjeev Wei Home Meds and New Rx's Prescriptions: No Action atorvastatin 40 MG tablet 20 mg PO HS RF: 0 aspirin 81 MG tablet,chewable 81 mg PO HS RF: 0 clopidogrel [Plavix] 75 mg tablet 75 mg PO DAILY RF: 0 metoprolol succinate 100 mg tablet extended release 24 hr 50 mg PO DAILY RF: 0 lisinopril 20 mg tablet 20 mg PO DAILY RF: 0 metoprolol succinate 25 mg tablet extended release 24 hr 25 mg PO HS RF: 0 mirtazapine [Remeron] 15 mg tablet 15 mg PO QHS RF: 0 Discharge Instructions Additional Instructions: OK to restart Plavix on 10/18/2020 Followup visit @ 2 weeks for pathology discussion - can be done by phone with this patient and his Activity:: Activity as Tolerated Shower/Bathe:: 24 hours Diet:: As Tolerated Discharge Orders Discharge Orders: Discharge Order (Routine); Ordered 10/17/20 Ordered By: Jeremy Quintero DS: Diagnosis Discharge Diagnosis (1) Bladder cancer: Status: Acute
--- NOTE | 2020-10-17 08:07 | ROE_ITS ---
Date of service: 10/17/20 Time of Service: 08:07 Operative Note Operative Note DATE OF PROCEDURE: 10/17/20 PRE-OP DIAGNOSIS: Bladder cancer POST-OP DIAGNOSIS: same PROCEDURE: cystoscopy, transurethral resection of bladder tumors, fulguration of bladder tumors SURGEON: Jeremy Quintero ANESTHESIA TYPE: General LMA/ETT Refer to Anesthesia Record ESTIMATED BLOOD LOSS: 25 PATHOLOGY: other (bladder tumors) COMPLICATIONS: None Patient was transported to: PACU Patient's condition: stable Indications: This is a 55-year-old gentleman who has a history of low-grade noninvasive urothelial cell carcinoma of the bladder. He has been unable to tolerate intravesical bladder installations. He has been treated with transurethral resection alone. He presents now for surveillance cystoscopy. Findings: multiple small (less than 2 cm) papillary lesions Procedure Description: The patient was brought to the operating room on 10/17/2020. He was given a dose of preoperative IV antibiotics. After successful induction of general anesthesia, he was placed in the dorsal lithotomy position. His genitalia was prepped and draped sterilely. 2% Xylocaine jelly was instilled into the urethra to act as a local anresthetic. A 24 [place]ian resectoscope sheath was passed through the urethra into the bladder. The urethra and bladder were inspected with the 30 degree lens and visual obturator The pendulous, bulbous membranous urethra was all appeared normal with no s trictures. The prostatic urethra showed no papillary lesions. The bladder neck was then entered and the bladder mucosa was inspected. Multiple small papillary lesions were seen on the bladder mucosa. They were predominantly located on the left side of the bladder towards the bladder neck. Some additional lesions were seen anteriorly just inside the bladder neck. No significant tumors were seen on the right lateral wall of the bladder. A small tumor was seen posteriorly. We then used bipolar cautery and an [employer] resectoscope to perform transurethral resection of visible tumor at the bladder neck these tumors that were resected were sent to pathology for permanent section. It continued to be papillary lesions in the bladder but we decided to treat these with fulguration alone. I again used the resectoscope loop with the coagulation current and cauterize all remaining visible tumors. Both ureteral orifice ease remained intact at the completion of the procedure. All resected tissue was evacuated and sent to pathology for permanent section. No active bleeding was seen at the end of the procedure. The bladder was drained and the resectoscope was removed. He will follow up in 2 weeks for a pathology discussion. His follow-up visit/cystoscopy will be decided based on the pathology.
[2020-10-17 08:10] VITALS: BP 129/73; PULSE 62; RESP 16; TEMP 36.6; O2SAT 97
[2020-10-17 08:15] VITALS: BP 136/66; PULSE 60; RESP 15; TEMP 36.6; O2SAT 96
[2020-10-17 08:20] VITALS: BP 140/85; PULSE 62; RESP 19; TEMP 36.6; O2SAT 96
[2020-10-17 08:35] VITALS: BP 130/78; PULSE 57; RESP 12; TEMP 36.6; O2SAT 97
[2020-10-17] MEDS: Phenazopyridine 200 MG TAB PO (08:41)
[2020-10-17 09:24] VITALS: BP 108/70; PULSE 54; RESP 18; TEMP 36.3; O2SAT 96
== END 2020-10-17 10:20 | disposition home or self-care (01) ==
PROVIDERS: PCP Family Medicine; Visit Provider Urology
PROC: 0TBB8ZZ Excision of Bladder, Via Natural or Artificial Opening Endoscopic (ICD-10-PCS; CPT 52234; principal; 2020-10-17 07:30)
DX: C67.9 Malignant neoplasm of bladder, unspecified (principal); I10 Essential (primary) hypertension; I25.10 Atherosclerotic heart disease of native coronary artery without angina pectoris; E78.00 Pure hypercholesterolemia, unspecified; Z87.891 Personal history of nicotine dependence
CPT/HCPCS: 52234; NC; 88307; J1100; J1580; J1885; J2001; J2405

== ENCOUNTER 2021-09-23 01:56 | Outpatient (CLI) | payer BC, SELFPAY ==
[2021-09-23 13:03] LABS: Source Nasal/Nares
[2021-09-23 16:35] LABS: COVID-19 PCR Positive (Negative)
== END 2021-09-23 01:57 | disposition home or self-care (01) ==
PROVIDERS: PCP Family Medicine; Visit Provider Urology
DX: Z20.822 Contact with and (suspected) exposure to COVID-19 (principal)
CPT/HCPCS: 87635

== ENCOUNTER 2021-11-07 01:24 | Outpatient (CLI) | payer BC, SELFPAY ==
[2021-11-09 17:08] LABS: Source Nasal/Nares
[2021-11-09 20:07] LABS: COVID-19 PCR Negative (Negative)
== END 2021-11-07 01:25 | disposition home or self-care (01) ==
LOC: LBO 01:24
PROVIDERS: PCP Family Medicine; Visit Provider Urology
DX: Z20.822 Contact with and (suspected) exposure to COVID-19 (principal)
CPT/HCPCS: 87635

== ENCOUNTER 2021-11-10 06:07 | Day surgery (SDC) | payer BC, SELFPAY ==
[2021-11-10] VITALS (12 sets, daily range): BP systolic 110–144; BP diastolic 58–81; PULSE 54–61; RESP 15–22; TEMP 35.9–36.6; O2SAT 95–100
--- NOTE | 2021-11-10 06:33 | ANES.PREOP_ITS ---
General Info Date of Service Date Performed: 11/10/21 Height: 5 ft 8 in Weight: 89.7 kg Body Mass Index (BMI): 30.0 Surgical Procedure: Operation Date: 11/10/21 07:40 Proposed Procedure Side Surgeon brenda charles, ?Transurethral Resection Bladder Tumor Jeremy Quintero MD Meds Allergies and Home Medications Allergies Allergy/AdvReac Type Severity Reaction Status Date / Time sildenafil citrate Allergy Severe Anaphylaxsi Verified 11/10/21 06:33 [From Viagra] s ciprofloxacin [From Cipro] Allergy Intermediate Other (See Verified 11/10/21 06:33 Comment) Penicillins Allergy Intermediate Rash, Verified 11/10/21 06:33 itching, hives mitomycin AdvReac Severe Pain, Verified 11/10/21 06:33 created bladder stones per pt. oxybutynin AdvReac Severe dry mouth, Verified 11/10/21 06:33 mouth sores, pain oxycodone HCl [From Percocet] AdvReac Intermediate Mood Verified 11/10/21 06:33 behavior Home Medication Medication Instructions Recorded aspirin 81 mg chewable tablet 81 mg PO HS tab-cap 07/24/16 atorvastatin 40 mg tablet 20 mg PO HS tab-cap 07/24/16 clopidogrel 75 mg tablet (Plavix) 75 mg PO DAILY 10/04/20 lisinopril 20 mg tablet 20 mg PO DAILY 10/04/20 metoprolol succinate 100 mg 50 mg PO DAILY tab-cap 10/04/20 tablet,extended release 24 hr metoprolol succinate 25 mg 25 mg PO HS 10/04/20 tablet,extended release 24 hr mirtazapine 15 mg tablet (Remeron) 15 mg PO QHS 10/04/20 Current Visit Medications: Current Medications Generic Name Dose Route Start Last Admin Trade Name Freq PRN Reason Stop Dose Admin Gentamicin Sulfate 120 mg/ 103 mls @ 206 mls/hr 11/10/21 06:00 Sodium Chloride IVPB 11/10/21 23:59 PREOP KEYSHAWN Ringer's Solution 1,000 mls @ 80 mls/hr 11/10/21 06:00 IV 12/07/21 23:59 INFUSION KEYSHAWN IV Miscellaneous Supplies 1 each 11/10/21 06:00 Iv Access IV 12/07/21 23:59 DIRECTED KEYSHAWN Sodium Chloride 0 ml 11/10/21 06:00 Normal Saline Flush 10 Ml Syr IV 12/07/21 23:59 PRN PRN Sodium Chloride 0 ml 11/10/21 06:00 Normal Saline 10 Ml Vial IJ 12/07/21 23:59 DIRECTED PRN Sterile Water 0 ml 11/10/21 06:00 Water,Injection,Sterile 10 Ml Vial IJ 12/07/21 23:59 DIRECTED PRN PFSH Active Problems Active Problems: Problem Status Onset Code Bladder mass N32.89 Bladder cancer C67.9 Calculus of left kidney N20.0 Malignant neoplasm of posterior wall of urinary bladder 08/19/16 C67.4 History of testicular cancer 07/24/16 Z85.47 Hesitancy of micturition 08/19/16 R39.11 Dysuria 06/07/17 R30.0 Medical History Medical History CAD (coronary artery disease) x1 Dysuria Ex-smoker 03/2020 Hesitancy of micturition High cholesterol History of chemotherapy 2017 History of kidney stones History of postoperative nausea and vomiting History of retroperitoneal fibrosis History of ST elevation myocardial infarction (STEMI) 03/2020 History of testicular cancer Hx of ventricular tachycardia Hypertension 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 of posterior wall of urinary bladder SOB (shortness of breath) on exertion Surgical History Surgical History H/O cardiac catheterization History of ankle surgery Left History of arthroscopic knee surgery Right History of cardiac radiofrequency ablation 05/30/2020 @ [facility] for V-Tach (status: successful at time of procedure) History of colonoscopy Hx of lithotripsy S/P bladder tumor excision with fulguration Status post radical unilateral orchiectomy Tobacco Smoking/Tobacco Use Status: Former Tobacco Use Alcohol Alcohol Intake: former Substance Use Substance use: Never Substance use type: does not use Vital Signs and Lab Results Vital Signs Most Recent Vital Signs in EMR: Temp Pulse Resp BP Pulse Ox 36.6 C 55 L 16 138/59 L 98 11/10/21 06:33 11/10/21 06:33 11/10/21 06:33 11/10/21 06:33 11/10/21 06:33 Lab Results Blood Type / Crossmatch: No Data to Display Complete Blood Count: No Data to Display Complete Metabolic Panel: No Data to Display Liver Function Panel: No Data to Display Coagulation Panel: No Data to Display Cardiac Panel: No Data to Display Arterial Blood Gas: No Data to Display Venous Blood Gas: No Data to Display Pancreas Panel: No Data to Display Thyroid Panel: No Data to Display Infectious Disease: Coronavirus (COVID-19)(PCR) Negative (Negative) 11/07/21 08:48 11/07/21 Coronavirus 2019 Source Nasal/Nares 11/07/21 08:48 11/07/21 Blood Cultures: No Data to Display Toxicology Panel: No Data to Display Imaging and Studies Imaging and Studies Study information below may be from another EMR and interpreted by another provider. Please see original notes in EMR for more complete details. Echocardiogram Summary: 01/2021: LVEF 45-50%, hypokinesis of the inferolateral wall and inferior wall, mild MR. Anesthesia Assessment and Plan Anesthesia History Personal History: PONV Family History: No Family History of Anesthesia Complications Exercise Tolerance Exercise Tolerance: Metabolic Equivalents>4 Cardiac & Pulmonary Exam Cardiac Exam: Normal S1/S2 Heart Sounds Pulmonary Exam: Clear Bilateral Breath Sounds Implantable Cardiac Device Does patient have a Pacemaker or an ICD?: Yes Device Early Childhood Teacher Assistant:: Reglarea MRI XT [id number] Reason for Placement:: V-TACH Date of Last Device Interrogation:: 09/12/21 Airway Exam Known Difficult Airway: No Mallampati Class: 3 Mouth Opening: Narrow (< 3cm) Thyromental Distance: Greater than 3 cm Neck Range of Motion: Full ROM Neck Circumference: Normal Teeth Condition: Normal Dentition and Removable Dentures/Plates Upper ASA Classification ASA Score: ASA 3 Emergency Case?: No NPO Status NPO Status: NPO Clears >2 hours, Solids >8 hours Anesthesia Plan Resuscitation Status: Full Code Anesthesia Technique: General Anesthesia Airway Planned: LMA Monitors Used: Standard Monitors Preoperative Comments:: 56 yo male for cysto/turbt for bladder CA. Sig PMHx: CAD with left circ stemi 03/2020 with arrest and stent placement (clopidogrel/aspirin), cardioverter defibrillator (last checked 09/12/21), anxiety, DM, SOB/emphesema. Previous Anes: LMA 4, 5, GA no airway, mac 3 grade 1, easy mask.
--- NOTE | 2021-11-10 07:00 | HPE_ITS ---
Date of service: 11/10/21 Time of Service: 07:00 Assessment and Plan Assessment and plan (1) Bladder cancer: Status: Acute Assessment and plan: For surveillance cystoscopy and possible TURBT. The patient has had adverse reactions to intravesical treatments previously, so we have chosen not to instill Mitomycin C or Gemcitabine into the bladder regardless of our cystoscopic findings. History of Present Illness History of Present Illness Chief Complaint: Bladder cancer Narrative: This is a 56-year-old gentleman who has a history of low-grade, noninvasive urothelial cell carcinoma of the bladder.? He comes in for surveillance cystoscopy.? His routine surveillance has been delayed as he had a positive Covid test.? He had no symptoms that would be attributable to Covid 19. He has a previous DC. He had a cardiac stent placed as well as a defibrillator.? He discontinued his Plavix prior to the surgery.? He continues on a low-dose of aspirin. He has not seen any gross hematuria.? He does have a history of kidney stones, but has not had any flank pain. Review of Systems Narrative: No fevers or chills No vision change or dysphasia No diabetes or thyroid No shortness of breath, cough or hemoptysis No chest pain or palpitations No nausea, vomiting, hepatitis, ulcers, jaundice No seizures, strokes or peripheral neuropathy No bleeding disorders or anemia No gout PFSH All Active Problems Bladder mass (Acute) Bladder cancer (Acute) Calculus of left kidney (Acute) Malignant neoplasm of posterior wall of urinary bladder (Acute 08/19/16) History of testicular cancer (Acute 07/24/16) Hesitancy of micturition (Acute 08/19/16) Dysuria (Acute 06/07/17) Medical History CAD (coronary artery disease) x1 Dysuria Ex-smoker 03/2020 Hesitancy of micturition High cholesterol History of chemotherapy 2017 History of kidney stones History of postoperative nausea and vomiting History of retroperitoneal fibrosis History of ST elevation myocardial infarction (STEMI) 03/2020 History of testicular cancer Hx of ventricular tachycardia Hypertension 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 of posterior wall of urinary bladder SOB (shortness of breath) on exertion Surgical History H/O cardiac catheterization History of ankle surgery Left History of arthroscopic knee surgery Right History of cardiac radiofrequency ablation 05/30/2020 @ [facility] for V-Tach (status: successful at time of procedure) History of colonoscopy Hx of lithotripsy S/P bladder tumor excision with fulguration Status post radical unilateral orchiectomy Social History Smoking/Tobacco Use Status: Former Tobacco Use Quit Date: 03/23/20 Smoking risk assessment performed?: Yes Alcohol Intake: former Drug use: Never Substance use type: does not use Do you feel safe at home: Yes Do you feel safe in your relationship?: Yes Meds Allergies and Home Medications Allergies Allergy/AdvReac Type Severity Reaction Status Date / Time sildenafil citrate Allergy Severe Anaphylaxsi Verified 11/10/21 06:33 [From Viagra] s ciprofloxacin [From Cipro] Allergy Intermediate Other (See Verified 11/10/21 06: 33 Comment) Penicillins Allergy Intermediate Rash, Verified 11/10/21 06:33 itching, hives mitomycin AdvReac Severe Pain, Verified 11/10/21 06:33 created bladder stones per pt. oxybutynin AdvReac Severe dry mouth, Verified 11/10/21 06:33 mouth sores, pain oxycodone HCl [From Percocet] AdvReac Intermediate Mood Verified 11/10/21 06:33 behavior Home Medications Medication Instructions Recorded Confirmed Type aspirin 81 mg chewable tablet 81 mg PO HS tab-cap 07/24/16 11/10/21 History atorvastatin 40 mg tablet 20 mg PO HS tab-cap 07/24/16 11/10/21 History clopidogrel 75 mg tablet (Plavix) 75 mg PO DAILY 10/04/20 11/10/21 History lisinopril 20 mg tablet 20 mg PO DAILY 10/04/20 11/10/21 History metoprolol succinate 100 mg 50 mg PO DAILY tab-cap 10/04/20 11/10/21 History tablet,extended release 24 hr metoprolol succinate 25 mg 25 mg PO HS 10/04/20 11/10/21 History tablet,extended release 24 hr mirtazapine 15 mg tablet (Remeron) 15 mg PO QHS 10/04/20 11/10/21 History Exam Const General: cooperative and well developed Neck Neck: supple Resp Effort & Inspection: normal respiratory effort Auscultation: clear to auscultation bilaterally Cardio Rate: regular rate Rhythm: regular rhythm GI Palpation: soft and no masses Neuro General: patient alert, patient awake and patient oriented x3 Results Last Vital Signs Temp 36.6 C 11/10/21 06:33 Pulse 55 L 11/10/21 06:33 Resp 16 11/10/21 06:33 BP 138/59 L 11/10/21 06:33 Pulse Ox 98 11/10/21 06:33
[2021-11-10] MEDS: Lactated Ringers 1,000 ML 80 ML IV (07:27)
[2021-11-10] MEDS: GENTAMICIN 120 MG in Normal Saline 100 ML 206 MG IVPB (07:36)
[2021-11-10] MEDS: Lidocaine 2% Jelly 6 ML SYR (07:55)
--- NOTE | 2021-11-10 08:00 | BLADDER_PTH ---
PATIENT: Florentin Castillo LOC: [facility] U#:[id number] AGE/SX: 56/M ROOM: RE11/10/[address]: Jeremy Quintero MD : [id number] BED: DIS: 11/10/2021 SPEC #: [id number] RECD: 11/10/21 12:49 STATUS: BRANDI REQ #: [id number] RICO: 11/10/21 08:[address]: Jeremy Quintero DEPT: Surgical Specimen RECD BY: Yusra Malik ENTERED: 11/10/21 12:49 SP TYPE: Bladder OTHR DR: Sanjeev Wei Tissues: 1 - BLADDER BIOPSY Procedures: GROSS AND MICRO LEVEL 4 Comments: [id number]
--- NOTE | 2021-11-10 08:20 | W.PM.DSUDISC ---
Discharge Plan Disposition Patient Disposition: HOME Condition: Stable Discharge Details Reason For Visit: bladder cancer Attending Provider: Jeremy Quintero Primary Care Provider: Sanjeev Wei Home Meds and New Rx's Prescriptions: No Action atorvastatin 40 MG tablet 20 mg PO HS 0RF aspirin 81 MG tablet,chewable 81 mg PO HS 0RF clopidogrel [Plavix] 75 mg tablet 75 mg PO DAILY 0RF metoprolol succinate 100 mg tablet extended release 24 hr 50 mg PO DAILY 0RF lisinopril 20 mg tablet 20 mg PO DAILY 0RF metoprolol succinate 25 mg tablet extended release 24 hr 25 mg PO HS 0RF mirtazapine [Remeron] 15 mg tablet 15 mg PO QHS 0RF Discharge Instructions Additional Instructions: may restart Plavix in 24 hours if urine remains clear - if urine still blood tinged, wait until urine clears before restarting Plavix followup @ 2 weeks for pathology results no lifting over 20 pounds for @ 1 week Shower/Bathe:: 24 hours Diet:: As Tolerated Discharge Orders Discharge Orders: Discharge Order (Routine); Ordered 11/10/21 Ordered By: Jeremy Quintero DS: Diagnosis Discharge Diagnosis (1) Bladder cancer: Status: Acute
--- NOTE | 2021-11-10 08:23 | ROE_ITS ---
Date of service: 11/10/21 Time of Service: 08:23 Operative Note Operative Note DATE OF PROCEDURE: 11/10/21 PRE-OP DIAGNOSIS: Bladder cancer PROCEDURE: Cystoscopy, TUR Bladder tumor with fulguration of additional tumors SURGEON: Jeremy Quintero ANESTHESIA TYPE: General LMA/ETT Refer to Anesthesia Record ESTIMATED BLOOD LOSS: 25 PATHOLOGY: other (Bladder biopsies) COMPLICATIONS: None Patient was transported to: PACU Patient's condition: stable Implants: None Indications: This is a 56-year-old gentleman who has a history of noninvasive urothelial cell carcinoma of the bladder. All of his previous tumors have been low-grade. He presents for cystoscopy and possible transurethral resection. Findings: Multiple small papillary bladder tumors, the largest of which measured approximately 2 cm Procedure Description: The patient was given preoperative antibiotics and brought to the operating room on 11/10/2021. After successful induction of general anesthesia, he was placed in the dorsal lithotomy position. His genitalia was prepped and draped sterilely. 2% Xylocaine jelly was instilled into the urethra to act as a local anesthetic. The 22 [place]ian rigid cystoscope was passed through the urethra and into the bladder. The urethra and bladder were inspected with a 30 degree lens. The pendulous, bulbar and membranous urethra's appeared normal with no strictures. The prostatic urethra showed some lateral lobe enlargement as well and has some papillary tissue at the bladder neck. This tissue was most prominent at the 12 o'clock position. The bladder neck was then entered and the bladder mucosa was inspected using both a 30 and 70 degree lens. Multiple small papillary lesions were present on the bladder mucosa. The largest of these lesions was up towards the dome and measured approximately 2 cm. Both ureteral orifices appeared normal. No blood was seen coming from either side. No tumor was adjacent to the orifices. The cystoscope was withdrawn and a 24 [place]ian resectoscope sheath was passed through the urethra into the bladder. We utilized bipolar cautery and an Whitten resectoscope to resect some of the bladder tumor. The resected tissue was evacuated and sent to pathology for permanent section. The remainder of the visible tumor was cauterized using the coagulation current. At the completion of the procedure, no remaining visible tumor was seen. Bimanual examination revealed a mobile bladder with no pelvic wall fixation. The resectoscope was removed. A belladonna and opium suppository was then inserted to help with postop spasms. The patient tolerated the procedure well with no complications. He was taken to the recovery room in stable condition.
--- NOTE | 2021-11-10 08:51 | W.ANESPOSTOP ---
Postoperative Evaluation Date, Time and Location Date Performed: 11/10/21 Time Performed: 08:51 Patient Location: Day Surgery Unit Vital Signs Most Recent Imported Vital Signs: Most Recent Vital Signs Temp Pulse Resp BP Pulse Ox 36.2 C L 57 L 15 141/81 H 95 11/10/21 08:42 11/10/21 08:42 11/10/21 08:42 11/10/21 08:42 11/10/21 08:42 Pain Score Most Recent Pain Score: Most Recent Pain Score Pain Level 0 11/10/21 08:38 Assessment Mental Status: Awake (Alert & Oriented to Patient Baseline) Airway and Respiratory Function: Patent airway with normal (patient baseline) respiratory exam Cardiovascular Function: Hemodynamically Stable Hydration Status: Adequately Hydrated Nausea & Vomiting: No Nausea or Vomiting Pain: Pain is tolerable per patient Peripheral Nerve Block: Patient did not receive a nerve block
[2021-11-10] MEDS: Phenazopyridine 200 MG TAB PO (09:16)
--- NOTE | 2021-11-10 09:33 | W.PM.DSUDISC ---
Discharge Plan Disposition Patient Disposition: HOME Condition: Stable Discharge Details Reason For Visit: bladder cancer Attending Provider: Jeremy Quintero Primary Care Provider: Sanjeev Wei Home Meds and New Rx's Prescriptions: New phenazopyridine [Pyridium] 200 mg tablet 200 mg PO TID PRN (Reason: dysuria) Qty: 20 0RF No Action atorvastatin 40 MG tablet 20 mg PO HS 0RF aspirin 81 MG tablet,chewable 81 mg PO HS 0RF clopidogrel [Plavix] 75 mg tablet 75 mg PO DAILY 0RF metoprolol succinate 100 mg tablet extended release 24 hr 50 mg PO DAILY 0RF lisinopril 20 mg tablet 20 mg PO DAILY 0RF metoprolol succinate 25 mg tablet extended release 24 hr 25 mg PO HS 0RF mirtazapine [Remeron] 15 mg tablet 15 mg PO QHS 0RF Discharge Instructions Additional Instructions: may restart Plavix in 24 hours if urine remains clear - if urine still blood tinged, wait until urine clears before restarting Plavix followup @ 2 weeks for pathology results no lifting over 20 pounds for @ 1 week Shower/Bathe:: 24 hours Diet:: As Tolerated Discharge Orders Discharge Orders: Discharge Order (Routine); Ordered 11/10/21 Ordered By: Jeremy Quintero DS: Diagnosis Discharge Diagnosis (1) Bladder cancer: Status: Acute
[2021-11-10] MEDS: Tamsulosin 0.4 MG CAPCR PO (12:45)
== END 2021-11-10 13:15 | disposition home or self-care (01) ==
PROVIDERS: PCP Family Medicine; Visit Provider Urology
PROC: 0TBB8ZZ Excision of Bladder, Via Natural or Artificial Opening Endoscopic (ICD-10-PCS; CPT 52235; principal; 2021-11-10 07:30)
DX: C67.9 Malignant neoplasm of bladder, unspecified (principal); I25.10 Atherosclerotic heart disease of native coronary artery without angina pectoris; I25.2 Old myocardial infarction; Z95.810 Presence of automatic (implantable) cardiac defibrillator
CPT/HCPCS: 52235; 52224; 88305; J1100; J1580; J1885; J2001; J2405; J2704

== ENCOUNTER 2021-11-30 12:57 | Observation (INO) | payer BC, SELFPAY ==
[2021-11-30 13:15] VITALS: BP 168/82; PULSE 79; RESP 18; TEMP 36.6
--- NOTE | 2021-11-30 13:34 | ED.GENADUL_ITS ---
Discharge Plan Disposition Patient Disposition: [facility] INPATIENT Condition: Stable Discharge Details Chief Complaint: Urinary Clinical Impression: Malignant neoplasm of posterior wall of urinary bladder Primary Care Provider: Sanjeev Wei ED Provider: Luis Harden Home Meds and New Rx's Prescriptions: No Action atorvastatin 40 MG tablet 20 mg PO HS 0RF aspirin 81 MG tablet,chewable 81 mg PO HS 0RF clopidogrel [Plavix] 75 mg tablet 75 mg PO DAILY 0RF metoprolol succinate 100 mg tablet extended release 24 hr 50 mg PO DAILY 0RF lisinopril 20 mg tablet 20 mg PO DAILY 0RF metoprolol succinate 25 mg tablet extended release 24 hr 25 mg PO HS 0RF mirtazapine [Remeron] 15 mg tablet 15 mg PO QHS 0RF Medical Decision Making 56-year-old male presents from home. He has a history of low-grade, noninvasive urothelial cell carcinoma of the bladder.? He has been treated with transurethral resections. He underwent an uneventful transurethral resection of bladder tumor with Dr. Quintero on November 10. He reports he has now had 3 days of stuttering episodes of difficulty initiating a good stream of urine with sense of incomplete voiding. Now with lower abdomen distention and hematuria at home this morning. Patient denies back pain or fever, he has otherwise recently been well. IV access established, screening laboratories and urinalysis obtained. Post void residual obtained at 115 cc. Labs no white count of 8, hematocrit 38, platelets 275. Chemistries reassuring with BUN 18, creatinine 1.3. PT is 10, INR 1.0 . urinalysis with large blood present, microscopic urinalysis obscured by red blood cells. While in the emergency department patient again had urinary obstruction and requested obrien catheter placement. An [address] catheter was placed. CT imaging obtained: There is new hyperdense material within the bladder lumen suggesting acute blood clot. Bladder neoplasm not excluded. There is decrease in size of focal fatty lesion along the left anterior wall of the bladder. No hydronephrosis appreciated. Unable to clear the patient's blood clots and he will require continuous bladder irrigation. HPI General Mode of arrival: ambulatory . Date/Time Provider Initiated Documentation: 11/30/21 12:58 . Limitations to Documentation: no limitations . Information obtained by: patient . History of Present Illness 56 year old M presents to the emergency department with the chief complaint of Urinary hesitancy, retention, hematuria, described as moderate and similar to prior ep isodes, Quality is described as dull and constant, and is localized to the abdomen, pelvis and genitals. Patient reports no radiation. Patient started experiencing this day(s) and it has been intermittent. improves with No relieving factors improve symptom(s), No exacerbating factors reported . Patient notes denies diaphoresis, fever/chills, loss of appetite and nausea/vomiting. Patient did receive the following treatments prior to arrival, none Related Data Home Medications Medication Instructions Recorded Confirmed aspirin 81 mg chewable tablet 81 mg PO HS tab-cap 07/24/16 11/30/21 atorvastatin 40 mg tablet 20 mg PO HS tab-cap 07/24/16 11/30/21 clopidogrel 75 mg tablet (Plavix) 75 mg PO DAILY 10/04/20 11/30/21 lisinopril 20 mg tablet 20 mg PO DAILY 10/04/20 11/30/21 metoprolol succinate 100 mg 50 mg PO DAILY tab-cap 10/04/20 11/30/21 tablet,extended release 24 hr metoprolol succinate 25 mg 25 mg PO HS 10/04/20 11/30/21 tablet,extended release 24 hr mirtazapine 15 mg tablet (Remeron) 15 mg PO QHS 10/04/20 11/30/21 Allergies Allergy/AdvReac Type Severity Reaction Status Date / Time sildenafil citrate Allergy Severe Anaphylaxsi Verified 11/30/21 13:21 [From Viagra] s ciprofloxacin [From Cipro] Allergy Intermediate Other (See Verified 11/30/21 13:21 Comment) Penicillins Allergy Intermediate Rash, Verified 11/30/21 13:21 itching, hives mitomycin AdvReac Severe Pain, Verified 11/30/21 13:21 created bladder stones per pt. oxybutynin AdvReac Severe dry mouth, Verified 11/30/21 13:21 mouth sores, pain oxycodone HCl [From Percocet] AdvReac Intermediate Mood Verified 11/30/21 13:21 behavior General Stated Complaint: Urinary NATALIE: 3 Review of Systems Narrative: No back pain, fever, vomiting. Otherwise well. Follows with Dr. Quintero. 8 systems were reviewed and otherwise negative PFSH All Active Problems (Updated 11/30/21 @ 18:43 by Luis Harden MD) Bladder cancer (Acute) Calculus of left kidney (Acute) Malignant neoplasm of posterior wall of urinary bladder (Acute 08/19/16) History of testicular cancer (Acute 07/24/16) Hesitancy of micturition (Acute 08/19/16) Dysuria (Acute 06/07/17) Medical History CAD (coronary artery disease) x1 Dysuria Ex-smoker 03/2020 Hesitancy of micturition High cholesterol History of chemotherapy 2017 History of kidney stones History of postoperative nausea and vomiting History of retroperitoneal fibrosis History of ST elevation myocardial infarction (STEMI) 03/2020 History of testicular cancer Hx of ventricular tachycardia Hypertension 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 of posterior wall of urinary bladder SOB (shortness of breath) on exertion Surgical History H/O cardiac catheterization History of ankle surgery Left History of arthroscopic knee surgery Right History of cardiac radiofrequency ablation 05/30/2020 @ [facility] for V-Tach (status: successful at time of procedure) History of colonoscopy Hx of lithotripsy S/P bladder tumor excision with fulguration Status post radical unilateral orchiectomy Social History Smoking/Tobacco Use Status: Former Tobacco Use Quit Date: 03/23/20 Smoking risk assessment performed?: Yes Alcohol Intake: former Drug use: Never Substance use type: does not use Do you feel safe at home: Yes Do you feel safe in your relationship?: Yes Exam Narrative Exam Narrative: GEN: awake, alert, oriented 3. Pleasant, well groomed, interactive. HEAD: Normocephalic, atraumatic ENT: Mucous membranes moist, oropharynx unremarkable, External ear exam unremarkable EYES: PERRL, EOMI NECK: Full ROM, no DONALD, no menigismus CHEST/RESP: Nontender, clear to auscultation bilateral, no wheeze/rhonchi/rales CARDIOVASCULAR: RRR, no murmur, rub leilani. 2+ Rad pulse bilateral ABDOMEN: Soft, suprapubic tenderness, no mass. +Bowel sounds EXT: Full ROM, no edema, no rash Neuro: Grossly normal neurologic exam, conversant, interactive. Psych: Speech fluent, thoughts congruent, affect normal Course Vital Signs Vital signs: Vital Signs Temperature 36.6 C 11/30/21 13:15 Pulse 79 11/30/21 13:15 Respiratory Rate 18 11/30/21 13:15 Blood Pressure 168/82 H 11/30/21 13:15 Temperature 36.6 C 11/30/21 13:15 Temperature Source Temporal Artery Scan 11/30/21 13:15 Pulse 79 11/30/21 13:15 Respiratory Rate 18 11/30/21 13:15 Respiratory Effort Non-Labored 11/30/21 13:19 Blood Pressure 168/82 H 11/30/21 13:15 Blood Pressure Position Sitting 11/30/21 13:15 Oxygen Delivery Method Room Air 11/30/21 13:15 Oxygen Flow Rate 0 11/30/21 13:15 Pain Level 7 11/30/21 13:15
--- NOTE | 2021-11-30 13:46 | NUR.NOTE ---
Referral to Urology for Urinary retention and hematuria is needed within 2 days for pt. Noted and faxed.
[2021-11-30 13:53] LABS: Bilirubin Negative (Negative); Blood Large (Negative); Clarity Cloudy (Clear); Glucose 100 mg/dL (Negative); Ketones Negative (Negative); Leukocyte Esterase Negative (Negative); Nitrite Negative (Negative); Specific Gravity >= 1.030 (1.005-1.025); Urobilinogen 0.2 EU/dL (Up TO 0.2)
[2021-11-30 13:55] LABS: RBC >50 HPF (0-2)
[2021-11-30 13:56] LABS: C & S Indicated? No
[2021-11-30 14:00] LABS: Abs Immature Grans 0.02 10^3/uL (0.0-0.06); Absolute Basophil Count 0.06 10^3/uL (0.0-0.2); Absolute Lymphocyte Count 1.53 10^3/uL (1.2-3.4); Absolute Monocyte Count 0.61 10^3/uL (0.1-0.8); Absolute Neutrophil Count 6.07 10^3/uL (1.2-6.7); Basophils % 0.7; Eosinophils % 1.2; HCT 38.4 % (40.0-50.0); Immature Grans % 0.2; Lymphocytes % 18.2; MCH 31.9 pg (27.0-33.0); MCHC 33.9 % (32.0-36.0); MCV 94.1 fL (80-95); MPV 9.4 fL (8.0-11.0); Monocytes % 7.3; Neutrophils % 72.4; Nucleated RBC 0 %; Platelet Count 275 10^3/uL (130-400); RBC 4.08 10^6/uL (4.36-5.78); RDW 12.3 % (11.8-14.1); WBC 8.39 10^3/uL (4.4-10.8)
[2021-11-30 14:07] LABS: Anion Gap 11.8 mmol/L (3-11); BUN 18 mg/dL (7-18); CO2 23.2 mmol/L (21.0-32.0); CREATININE 1.3 mg/dL (0.70-1.30); Chloride 105 mmol/L (98-107); Glucose 126 mg/dL (74-106); Potassium 4.3 mmol/L (3.5-5.1); Sodium 140 mmol/L (136-145)
[2021-11-30 14:19] LABS: Prothrombin Time 10.4 sec (9.3-11.0)
[2021-11-30] MEDS: Lidocaine 2% Jelly 11 ML SYR UR (15:56)
--- NOTE | 2021-11-30 16:15 | DI.CT_ITS ---
Exam(s) CT ABDOMEN PELVIS WO EXAM: CT ABDOMEN PELVIS WO CLINICAL HISTORY: Urinary retention, hx bladder mass, no IV. TECHNIQUE: Imaging Protocol: Axial computed tomography images with coronal and sagittal reformatted images were created and reviewed. Oral: no COMPARISON: CT CT ABDOMEN PELVIS WO from 05/30/2019 FINDINGS: ABDOMEN: Lung Bases: Normal where visualized. Mildly enlarged heart. Pacemaker leads. Stable circumscribed t iny nodules right lung base. Liver: Moderate to severe fatty infiltration. No measurable mass. Gallbladder and biliary tract: No radiodense calculus or dilation. Pancreas: Normal density, no abnormal calcifications or inflammatory process. Spleen: Normal. Kidneys: Normal size, contour and axis. No radiodense stones or obstructive uropathy. No masses seen. Adrenal glands: No masses seen. Lymph nodes: Within normal limits. Abdominal Aorta: Abdominal portion non-dilated. Mild atherosclerotic changes. Surgical clips in the para-aortic region. PELVIS: Bladder: Laguerre catheter seen within the bladder. High-density material consistent with hemorrhage. Bladder mildly distended. Diffuse wall thickening. No focal mass visible. Bowel: Mild diverticulosis junction. Appendix normal. Descending and sigmoid colon. No obstruction or bowel wall thickening. Peritoneal cavity: No ascites, collection or mesenteric inflammatory response. Reproductive organs: Prostate not enlarged. Bones: Within normal limits. IMPRESSION: Laguerre catheter is seen within the bladder. High-density material seen within the bladder consistent with hemorrhage. Diffuse bladder wall thickening. No focal mass or stone is visible. No hydronephr osis or renal calculi. RADIATION DOSE DELIVERED: 804.13mGy.cm Total DLP DATA REPOSITORY: All CT scans at this facility are submitted to the National Radiology Data Registry (NRDR) Dose Index Registry (DIR) with the [employer] (A[employer]). RADIATION OPTIMIZATION: All CT scans at this facility use at least one of these dose optimization te chniques: automated exposure control; mA and/or kV adjustment per patient size (includes targeted exa ms where dose is matched to clinical indication); or iterative reconstruction.
--- NOTE | 2021-11-30 17:37 | DI.VRAD_ITS ---
PROCEDURE INFORMATION: Exam: CT Abdomen And Pelvis Without Contrast Exam date and time: 11/30/2021 4:51 PM Age: 56 years old Clinical indication: Other: Urinary retention, HX bladder mass, no iv TECHNIQUE: Imaging protocol: Computed tomography of the abdomen and pelvis without contrast. COMPARISON: CT ABDOMEN PELVIS WO 05/30/2019 9:29 AM FINDINGS: Lungs: There are 4 small subcentimeter basilar right lower lobe pulmonary nodules, all of which are stable to decreased in size since prior study, consistent with benignity. Liver: The liver parenchyma demonstrates diffusely decreased attenuation, suggesting fatty infiltration. Gallbladder and bile ducts: Normal. No calcified stones. No ductal dilation. Pancreas: The pancreas is mildly atrophic, but otherwise appears unremarkable without focal lesion or evidence of acute inflammation. Spleen: Normal. No splenomegaly. Adrenal glands: Normal. No mass. Kidneys and ureters: No renal or ureteral stones are identified. There is no hydronephrosis or hydroureter. Stomach and bowel: There is no evidence of small or large bowel inflammation. There is no evidence for bowel obstruction. There is mild distal colonic diverticulosis without evidence for acute diverticulitis. There is mild fatty proliferation around the rectum and sigmoid colon which can be seen as sequela of prior inflammation. Appendix: The appendix is well visualized and appears normal. Intraperitoneal space: There is no free intraperitoneal air. There is no evidence of free intraperitoneal fluid. Arteries: The aorta and iliac arteries demonstrate moderate atherosclerotic calcification without aneurysm formation. Lymph nodes: Unremarkable. No enlarged lymph nodes. Urinary bladder: There is a new Laguerre catheter within the bladder. There is new hyperdense material within the bladder lumen suggesting acute blood clot. Findings suggest at least mild irregular diffuse bladder wall thickening, although this is not well evaluated on this exam due to lack of bladder distension as well as hyperdense material within the bladder lumen. There is there is a 1.3 x 1.6 cm fat density lesion with a soft tissue rim along the left anterior wall the bladder on image 691, series 5. On prior study, this lesion measured 2.1 x 1.9 cm. There is increased mild platelike in wedge-shaped soft tissue density within the fat in this region, which may represent fibrosis, but focal tumor infiltration cannot be excluded. No defined bladder stones are identified, although evaluation is limited due to the hyperdense material within the bladder lumen. Reproductive: Unremarkable as visualized. Bones/joints: Unremarkable. No acute fracture. Soft tissues: See Urinary bladder finding. IMPRESSION: 1. New hyperdense material within the bladder lumen suggesting acute blood clot. There appears to be some degree of diffuse irregular bladder wall thickening, although evaluation is limited due to lack of bladder distention. Cannot exclude bladder neoplasm on this exam. Recommend consultation with urology service with correlation with cystoscopy. 2. Decrease in size of focal fatty lesion along the left anterior wall the bladder, may represent sequela of prior fibrosis or fat necrosis. There is increased mild platelike and wedge-shaped soft tissue within the fat adjacent to the bladder wall in this region which could represent fibrosis but focal tumor infiltration cannot be excluded. Recommend clinical correlation. 3. No hydronephrosis. No urinary tract stones identified. 4. Hepatic steatosis. Dictated and Authenticated by: Regis Ching MD. Ordering:DAREN Smith MD
[2021-11-30] MEDS: ACETAMINOPHEN 1,000 MG/100 ML BTL 400 MG IVPB (18:55)
[2021-11-30] MEDS: HYDROmorphone 2 MG/ML VIAL 0.5 MG IVP (18:56)
--- NOTE | 2021-11-30 19:04 | W.PM.HP.N ---
Date of service: 11/30/21 Time of Service: 19:04 Assessment and Plan Assessment and plan (1) Hematuria: Status: Acute Assessment and plan: Hematuria. Most likely related to known bladder CA. No signs infection. Will maintain CBI and await . Will provisionally place NPO after midnight in anticipation of possible OR. Usual meds as is except will hold ASA/Plavix in light of ongoing bleeding. History of Present Illness History of Present Illness Chief Complaint: hematuria Narrative: 56 male with h/o low grade urolthelial carcinoma of bladder, s/p multiple TURB, last 3 weeks [employer] -- here with 1-2 days of progressive urinary urgency, hesitation and then jose hematuria today with inability to void and abdominal discomfort. In ER urinary retention noted, Laguerre placed and irrigation of clot begun. Due to failure to clear he is admitted for continuos bladder irrigation pending urological intervention. Note that not available today but will be here tomorrow. W/u further of note for absence of fever, white count 8, Hct 38,urinalysis showing packed RBC, CT showing clot in bladder and nonspecific bladder wall changes, cannot exclude CA. Patient states he has obtained symptom relief with flushing of bladder. Review of Systems Narrative: per HPI PFSH All Active Problems (Updated 11/30/21 @ 19:13 by Sanjeev Johnson MD) Hematuria (Acute) Bladder cancer (Acute) Calculus of left kidney (Acute) Malignant neoplasm of posterior wall of urinary bladder (Acute 08/19/16) History of testicular cancer (Acute 07/24/16) Hesitancy of micturition (Acute 08/19/16) Dysuria (Acute 06/07/17) Medical History CAD (coronary artery disease) x1 Dysuria Ex-smoker 03/2020 Hesitancy of micturition High cholesterol History of chemotherapy 2017 History of kidney stones History of postoperative nausea and vomiting History of retroperitoneal fibrosis History of ST elevation myocardial infarction (STEMI) 03/2020 History of testicular cancer Hx of ventricular tachycardia Hypertension 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 of posterior wall of urinary bladder SOB (shortness of breath) on exertion Surgical History H/O cardiac catheterization History of ankle surgery Left History of arthroscopic knee surgery Right History of cardiac radiofrequency ablation 05/30/2020 @ [facility] for V-Tach (status: successful at time of procedure) History of colonoscopy Hx of lithotripsy S/P bladder tumor excision with fulguration Status post radical unilateral orchiectomy Social History Smoking/Tobacco Use Status: Former Tobacco Use Quit Date: 03/23/20 Smoking risk assessment performed?: Yes Alcohol Intake: former Drug use: Never Substance use type: does not use Do you feel safe at home: Yes Do you feel safe in your relationship?: Yes Meds Allergies and Home Medications Allergies Allergy/AdvReac Type Severity Reaction Status Date / Time sildenafil citrate Allergy Severe Anaphylaxsi Verified 11/30/21 13:21 [From Viagra] s ciprofloxacin [From Cipro] Allergy Intermediate Other (See Verified 11/30/21 13:21 Comment) Penicillins Allergy Intermediate Rash, Verified 11/30/21 13:21 itching, hives mitomycin AdvReac Severe Pain, Verified 11/30/21 13:21 created bladder stones per pt. oxybutynin AdvReac Severe dry mouth, Verified 11/30/21 13:21 mouth sores, pain oxycodone HCl [From Percocet] AdvReac Intermediate Mood Verified 11/30/21 13:21 behavior Home Medications Medication Instructions Recorded Confirmed Type aspirin 81 mg chewable tablet 81 mg PO HS tab-cap 07/24/16 11/30/21 History atorvastatin 40 mg tablet 20 mg PO HS tab-cap 07/24/16 11/30/21 History clopidogrel 75 mg tablet (Plavix) 75 mg PO DAILY 10/04/20 11/30/21 History lisinopril 20 mg tablet 20 mg PO DAILY 10/04/20 11/30/21 History metoprolol succinate 100 mg 50 mg PO DAILY tab-cap 10/04/20 11/30/21 History tablet,extended release 24 hr metoprolol succinate 25 mg 25 mg PO HS 10/04/20 11/30/21 History tablet,extended release 24 hr mirtazapine 15 mg tablet (Remeron) 15 mg PO QHS 10/04/20 11/30/21 History Exam Narrative Exam Narrative: 166/82, 79, 36.8, 18. HEENT atraumatic; neck supple; lungs clear; heart RRR; back neg CVAT; abdomen soft and NT; s/p left orchiectomy, Laguerre in place draining red blood; extremities w/o edema; neuro Ox3, lucid, moves all 4s Results Labs Result diagrams: 11/30/21 13:49 11/30/21 13:49 Labs: Laboratory Results - last 24 hr 11/30/21 11/30/21 11/30/21 13:29 13:49 13:49 WBC 8.39 RBC 4.08 L Hgb 13.0 L Hct 38.4 L MCV 94.1 MCH 31.9 MCHC 33.9 RDW 12.3 Plt Count 275 MPV 9.4 Immature Gran % 0.2 Neutrophils % 72.4 Lymphocytes % 18.2 Monocytes % 7.3 Eosinophils % 1.2 Basophils % 0.7 Nucleated RBC % 0 Absolute Neutrophils 6.07 Absolute Lymphocytes 1.53 Absolute Monocytes 0.61 Absolute Eosinophils 0.10 Absolute Basophils 0.06 PT INR APTT Sodium 140 Potassium 4.3 Chloride 105 Carbon Dioxide 23.2 Anion Gap 11.8 H BUN 18 Creatinine 1.3 Estimated GFR/1.73 m2 57.10 Glucose 126 H Calcium 9.0 Urine Color Red Urine Clarity Cloudy Urine pH 7.0 Ur Specific [place] >= 1.030 H Urine Protein >=300 H Urine Ketones Negative Urine Blood Large H Urine Nitrite Negative Urine Bilirubin Negative Urine Urobilinogen 0.2 Ur Leukocyte Esterase Negative Urine RBC >50 H Urine WBC Ur Epithelial Cells Urine Crystals Urine Bacteria Urine Casts Urine Mucus Ur Culture Indicated? No Urine Glucose 100 11/30/21 13:49 WBC RBC Hgb Hct MCV MCH MCHC RDW Plt Count MPV Immature Gran % Neutrophils % Lymphocytes % Monocytes % Eosinophils % Basophils % Nucleated RBC % Absolute Neutrophils Absolute Lymphocytes Absolute Monocytes Absolute Eosinophils Absolute Basophils PT 10.4 INR 1.0 APTT 23.0 Sodium Potassium Chloride Carbon Dioxide Anion Gap BUN Creatinine Estimated GFR/1.73 m2 Glucose Calcium Urine Color Urine Clarity Urine pH Ur Specific [place] Urine Protein Urine Ketones Urine Blood Urine Nitrite Urine Bilirubin Urine Urobilinogen Ur Leukocyte Esterase Urine RBC Urine WBC Ur Epithelial Cells Urine Crystals Urine Bacteria Urine Casts Urine Mucus Ur Culture Indicated? Urine Glucose Last Vital Signs Temp 36.6 C 11/30/21 13:15 Pulse 79 11/30/21 13:15 Resp 18 11/30/21 13:15 BP 168/82 H 11/30/21 13:15
[2021-11-30 20:39] VITALS: BP 138/72; PULSE 84; RESP 18; O2SAT 97
--- OUTSIDE RECORDS SUMMARY | 2021-11-30 21:42 | XMS_ITS ---
:1965 Author Care Team Providers Name Role Phone AL QUIGLEY General Surgeon [phone] PEDRO LUIS FLANNERY MD Primary Care Provider [phone] Allergies Code Code Name Reaction Severity Status Onset System 87494 RxNorm Atorvastatin Other ? Active ? 351650 RxNorm Chantix ? ? Active ? 2551 RxNorm Ciprofloxacin Rash Moderate Active ? 2670 RxNorm Codeine ? ? Active ? 64669 RxNorm Oxybutynin ? ? Active ? 7980 RxNorm Penicillin g ? ? Active ? 59394 RxNorm Percocet ? ? Active ? 155795 RxNorm Viagra ? ? Active ? 7407 RxNorm Nicotine ? ? Deactivated ? Medications Name Status Start Date Stop Date ? ? aspirin 81 mg tablet,delayed release Active ? Not available TAKE ONE TABLET BY MOUTH EVERY DAY Asprin Ec Low Dose 81 mg tablet,delayed release Completed 04/15/2020 05/22/2020 Take 1 tablet every day by oral route. atorvastatin 10 mg tablet Completed ? 2019 atorvastatin 40 mg tablet Completed ? 2020 Take 1 tablet every day by oral route for 90 days. azithromycin 250 mg tablet Completed ? 06/26 Bromatapp 12 mg-75 mg tablet,extended release Completed 06/08/2013 1 Tablet ER 12HR: in the morning Cardizem CD 120 mg capsule,extended release Completed 05/2306/08/2013 half - 1 Capsule ER 24HR: daily cefpodoxime 200 mg tablet Completed 11/20/20162016 1 (one) Tablet: every twelve hours Cipro 500 mg tablet Completed 03/05/2016 07/03/2016 1 (one) Tablet: take after Cystoscopy clopidogrel 75 mg tablet Active ? Not lavern ilable TAKE ONE TABLET BY MOUTH EVERY DAY Crestor 20 mg tablet Completed 12/07/2013 12/07/2013 1 (one) Tablet: qd - daily cyclobenzaprine 10 mg tablet Completed ? 11/2018 Cymbalta 30 mg capsule,delayed release Completed 2 07/11/2012 1 Capsule Part: daily dextromethorphan-guaifenesin 20 mg-400 mg tablet Completed 10/02/2015 10/12/2015 1 (one) Tablet: q 6 hours prn cough diazepam 5 mg tablet Completed 01/05/2012 07/11/2012 1 Tablet: Every 4 to 6 hours as needed doxycycline monohydrate 100 mg Completed ? 1 capsule Eliquis 5 mg tablet Completed ? 07/01/2020 folic acid 1 mg tablet Active ? Not avail able Take 5 tablets every day by oral route as directed for 90 days. furosemide 20 mg tablet Completed ? 05/13/20 21 Take 1 tablet every day by oral route. hydrocodone 5 mg-acetaminophen Completed ? 1 08/26/2018 325 mg tablet hydrocodone 5 mg-acetaminophen 500 mg tablet Completed 04/201210/30/2011 half -1 Tablet: as needed after PT & at bedtime hydrocodone 7.5 mg-acetaminophen Completed ? 07/27/2018 325 mg tablet ibuprofen 600 mg tablet Completed 01/05/2012 07/11/20 12 see comments Tablet: See comments isosorbide mononitrate ER 30 mg tablet,extended release 24 hr Co mpleted ? 04/30/2020 Take 1 tablet every day by oral route in the morning for [address] Flannery to write refills ketorolac 10 mg tablet Completed ? 0 take one 10 mg tablet every 6 hours as needed lisinopril 20 mg tablet Active ? Not avai lable Take 1 tablet every day by oral route for 90 days. metoprolol succinate ER 100 mg Completed ? 0 04/04/2020 tablet,extended release 24 hr metoprolol succinate ER 25 mg tablet,extended release 24 hr Acti ve ? Not available Take 1 tablet every day by oral route as directed for 90 days. metoprolol succinate ER 50 mg tablet,extended release 24 hr Acti ve ? Not available Take 1 tablet every day by oral route as directed for 90 days. metoprolol tartrate 50 mg tablet Completed ? 04/15/2020 Take 1 tablet every day by oral route. mirtazapine 15 mg tablet Active ? Not lavern ilable Take 1 tablet every day by oral route at bedtime for 90 days. mometasone 0.1 % topical cream Completed 10/30/2011 1 09/10/2011 apply Cream: tid - three times a day to eczema Nicoderm CQ 14 mg/24 hr daily transdermal patch Completed ? 09/23/2020 Apply 1 patch every day by transdermal route for 28 days. Nicoderm CQ 7 mg/24 hr daily transdermal patch Completed ? 09/23/2020 Apply 1 patch every day by transdermal route for 28 days. nicotine 21 mg/24 hr daily Completed ? 09/23 transdermal patch nitroglycerin 0.4 mg sublingual tablet Active ? Not available Place 1 tablet as needed by sublingual route as directed for 90 days. NOT to exceed 3 tabs in a 15-minute int erval. CALL 911 if a second NTG tab needs to be taken to address chest pain. Dr. Flannery to write refills omeprazole 40 mg capsule,delayed release Completed 011 08/25/[address]: daily prednisone 20 mg tablet Completed ? 06/26/20 19 ProAir HFA 90 mcg/actuation aerosol inhaler Active ? Not available Inhale 2 puffs every 3 hours by inhalation route as needed for 90 days. Pyridium 200 mg tablet Active 11/10/2021 Not avail able Take 1 tablet 3 times a day by oral route as needed. rosuvastatin 40 mg tablet Active ? Not av ailable Take 1 tablet every day by oral route for 90 days. Seroquel 50 mg tablet Completed 01/05/2012 01/05/2012 2 (two) Tablet: daily simvastatin 40 mg tablet Completed ? 020 Take 1 tablet every day by oral route. sulfamethoxazole 800 Completed ? 06/26/2019 mg-trimethoprim 160 mg tablet Symbicort 160 mcg-4.5 mcg/actuation HFA aerosol inhaler Active ? Not available Inhale 2 puffs twice a day by inhalation route as directed for 90 days. tamsulosin 0.4 mg capsule Completed 10/29/20202020 Take 1 capsule every day by oral route for 14 days. terbinafine HCl 1 % topical cream Completed 02/25/2010 09/19/2010 Apply sparingly Cream: two times daily torsemide 20 mg tablet Completed 04/15/2020 0 Take 0.5 tablets every day by oral route. tramadol 50 mg tablet Completed ? 07/27/2018 valsartan 40 mg tablet Completed ? 0 Take 1 tablet every day by oral route as directed for 30 days. Wellbutrin SR 150 mg tablet, 12 hr sustained-release Completed 09/09/2016 11/27/2016 1 (one) Tablet Tablet: daily Zofran 4 mg tablet Completed ? 06/26/2019 Take 1 tablet every 4-6 hours by oral route as needed. Notes: Med Rec updated 1 Problems Name Status Onset Date Source ? Painless Rectal Bleeding Active 07/08/2018 ? Pain in Pelvis Active 06/26/2019 ? Acute ST Segment Elevation Myocardial Active 03/30/2020 ? Infarction History of Cardiac Arrest Active 03/30/2020 ? Anemia Active 04/18/2020 ? Ventricular Tachycardia Active 04/22/2020 ? Angina Pectoris Unknown 04/23/2020 ? Insomnia Active 04/30/2020 ? Fatigue Active 05/13/2021 ? Dyspnea on Exertion Active 05/13/2021 ? Chronic Obstructive Lung Disease Active 06/12/2021 ? Malignant Tumor of Urinary Bladder Active 11/10/2021 ? Primary Malignant Neoplasm of Bladder Active ? History Disorder of Endocrine Testis Active ? His tory Hyperlipidemia Active ? History Impotence Active ? History Tobacco User Active ? History Depressive Disorder Active ? History Essential Hypertension Active ? History Hypertensive Disorder Active ? History Lobar Pneumonia Unknown ? History Calculus of Kidney and Ureter Active ? Hi story Urinary Bladder Stone Active ? History Urinary Tract Obstruction Active ? Histor y Blood in Urine Active ? History Microscopic Hematuria Active ? History Benign Prostatic Hyperplasia Active ? His tory Epididymitis Active ? History Arthralgia of the Ankle And/or Foot Active ? History Chest Pain Active ? History Lower Urinary Tract Symptoms Active ? His tory Impaired Glucose Tolerance Active ? Histo ry David Lesion of Lung Active ? History Traumatic or Non-traumatic Injury Active ? History Adult Health Examination Unknown ? History Procedure by Method Unknown ? History Procedure by Method Unknown ? History Inflammatory Dermatosis Active ? History Primary Malignant Neoplasm of Active ? Hi story Descended Testis Procedures Date Name Performed by ? 11/10/2021 Cystoscopy Information not avai lable Notes: TUR bladder tumor with fulgura tion of additional tumors 10/17/2020 Cystoscopy Information not avai lable 05/30/2020 Ventricular Tachycardia Ablation Informa tion not available 04/23/2020 Implantation of Internal Cardiac Defibri llator Information not available Notes: dual chamber 04/23/2020 Catheterization of Left Heart Informatio n not available 03/30/2020 Catheterization of Left Heart Informatio n not available Notes: with stent 10/12/2019 Cystoscopy Information not avai lable 06/01/2019 Cystoscopy Information not avai lable Notes: Removal left kidney stone. 02/20/2019 Cystoscopy Information not avai lable Notes: with transurethral resection o f multiple small bladder tumors. 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 Retro-peritoneal lymph node dissection. 2cm left georgette-renal lymph node. ? Knee Surgery Information not avai lable Notes: right 06/26/2019 MRI, Pelvis, W/wo Contrast [facility] (Internal) [address] [place] [address] (Work Place) 06/28/2019 MRI, Pelvis, W/o Contrast [facility] (Internal) [address] [place] [id number] (Work Place) 07/05/2019 XR, Eye, for Foreign Body [facility] (Internal) [address] [place] [id number] (Work Place) 04/15/2020 Event Monitor [facility] Cardio pulmonary [address] [place] [address] [id number] (Work Place) 05/13/2021 CT, Chest, W/o Contrast [facility] Rad[facility] (Internal) [address] [place] [id number] (Work Place) 06/12/2021 LDCT, Chest, for Lung Cancer [facility] (Internal) Screening [address] [place] [address] [id number] (Work Place) 07/18/2021 LDCT, Chest, for Lung Cancer [facility] (Internal) Screening [address] [place] [address] (Work Place) Results Lab Results Date Name Specimen Result Interpretation Description Value Range Status Address ? 10/22/2021 CMP, Serum S High g/r 168 mg/dL 74-106 Final [place] or Plasma mg/dL [facility] (Internal) : [address] t ? ? S ? Bun 17 mg/dL 7-18 Final [place] mg/dL [facility] (Internal) : [address] ? ? S ? Crea 1.3 mg/dL 0.7-1.3 Final [place] mg/dL [facility] (Internal) : [address] ? ? S ? Ca 8.7 mg/dL 8.5-10.1 Final [place] mg/dL [facility] (Internal) : [address] ? ? S ? Na 141 mmol/L 136-145 Final [place] mmol/L [facility] (Internal) : [address] ? ? S ? K 4.6 mmol/L 3.5-5.1 Final [place] mmol/L [facility] (Internal) : [address] t ? ? S ? Cl 105 mmol/l 98-107 Final [place] mmol/l [facility] (Internal) : [address] ? ? S ? Tco2 27.8 21.0-32.0 Final [place] mmol/L mmol/L [facility] (Internal) : [address] ? ? S ? Tp 6.9 g/dL 6.4-8.2 Final [place] g/dL [facility] (Internal) : [address] ? ? S ? Alb 3.8 g/dL 3.4-5.0 Final [place] g/dL [facility] (Internal) : [address] ? ? S ? Tbil 0.70 mg/dL 0.20-1.00 Final [place] mg/dL [facility] (Internal) : [address] ? ? S ? Alp 81 U/L 50-136 Final [place] U/L [facility] (Internal) : [address] ? ? S ? Alt 52 U/L 16-63 U/L Final [place] (Sgpt) [facility] (Internal) : [address] ? ? S ? Ast 20 U/L 15-37 U/L Final [place] (Sgot) [facility] (Internal) : [address] 10/22/2021 Lipid Panel, S ? Chol 121 mg/dL 0-200 Sarah l [place] Serum mg/dL [facility] (Internal) : [address] t ? ? S High Trig 193 mg/dL 0-150 Final [place] mg/dL [facility] (Internal) : [address] ? ? S Low Hdl 32 mg/dL 40-60 Final [place] mg/dL [facility] (Internal) : [address] ? ? S ? Ldl 50 mg/dL 0-130 Final [place] mg/dL [facility] (Internal) : [address] 10/22/2021 CBC W/ Auto BLD ? Wbc 9.0 5.0-10.0 Final [place] Diff 10*3/uL 10*3/uL [facility] (Internal) : [address] ? ? BLD Low Rbc 4.27 4.60-6.00 Final [place] 10*6/uL 10*6/uL [facility] (Internal) : [address] ? ? BLD Low Hgb 13.4 g/dL 14.0-18.0 Final Nort h g/dL [facility] (Internal) : [address] ? ? BLD Low Hct 40.2 % 41.0-51.0 Final [place] % [facility] (Internal) : [address] ? ? BLD ? Mcv 94.1 fL 80.0-96.0 Final [place] fL [facility] (Internal) : [address] ? ? BLD ? Mch 31.4 pg 26.0-32.0 Final [place] pg [facility] (Internal) : [address] ? ? BLD ? Mchc 33.3 g/dL 31.0-35.0 Final [place] g/dL [facility] (Internal) : [address] [place] ? ? BLD ? Rdw 12.8 % 11.5-14.5 Final [facility] (Internal) : [address] ? ? BLD ? Plt 217 130-450 Final [place] 10*3/uL 10*3/uL [facility] (Internal) : [address] [place] ? ? BLD ? Anc 5.79 ? Final [place] 10*3/uL [facility] (Internal) : [address] [place] ? ? BLD ? Nlr 2.64 0.00-3.20 Final [facility] ab (Internal) : [address] [place] ? ? BLD ? Neutro 64.3 % 40.0-75.0 Final [facility] (Internal) : [address] [place] ? ? BLD ? Lymph 24.3 % 20.0-50.0 Final [facility] (Internal) : [address] [place] ? ? BLD ? [place] 8.6 % 2.0-10.0 Final [facility] (Internal) : [address] [place] ? ? BLD ? Eos 1.8 % 1.0-6.0 % Final [facility] (Internal) : [address] [place] ? ? BLD ? Baso 0.8 % 0.0-1.0 % Final [facility] (Internal) : [address] [place] ? ? BLD ? Ig 0.2 % 0.0-0.9 % Final [facility] (Internal) : [address] 10/22/2021 Venipuncture ? Location Right ? ? P_nc Primary Antecubita Care l [place] [place]: [address], [place] ? ? ? Needle 21g ? ? P_nc Prim alfred Vacutainer Care [place] [place]: [address], [place] ? ? ? Number 1 ? ? P_nc Prim alfred of Care Attempts [place]: [address], [place] ? ? ? Successf Yes ? ? P_nc Pr imary ul Care [place]: [address], [place] ? ? ? Dressing Pressure ? ? P_nc Primary Band-aid Care Applied [place]: [address], [place] ? ? ? Initials hj ? ? P_nc Pr imary Care [place] [place]: [address], [place] 05/14/2021 Venipuncture ? Location Right ? ? P_nc Primary Antecubita Care l [place]: [address], [place] ? ? ? Needle 21g ? ? P_nc Prim alfred Vacutainer Care [place] [facility]: [address], [place] ? ? ? Number 1 ? ? P_nc Prim alfred of Care Attempts [place] rlea ns: [address], [place] ? ? ? Successf Yes ? ? P_nc Pr imary ul Care [place] [place]: [address], [place] ? ? ? Dressing Pressure ? ? P_nc Primary Band-aid Care Applied [place]: [address], [place] ? ? ? Initials hj ? ? P_nc Pr imary Care [place] ns: [address], [place] 05/13/2021 CBC W/ Auto BLD ? Wbc 9.4 5.0-10.0 Final [place] Diff 10*3/uL 10*3/uL [facility] (Internal) : [address] ? ? BLD Low Rbc 4.00 4.60-6.00 Final [place] 10*6/uL 10*6/uL [facility] (Internal) : [address] ? ? BLD Low Hgb 13.4 g/dL 14.0-18.0 Final Nort h g/dL [facility] (Internal) : [address] ? ? BLD Low Hct 38.0 % 41.0-51.0 Final [facility] (Internal) : [address] ? ? BLD ? Mcv 95.0 fL 80.0-96.0 Final [place] fL [facility] (Internal) : [address] [place] ? ? BLD High Mch 33.5 pg 26.0-32.0 Final [facility] (Internal) : [address] [place] ? ? BLD High Mchc 35.3 g/dL 31.0-35.0 Final Nort h g/dL [facility] (Internal) : [address] [place] ? ? BLD ? Rdw 12.8 % 11.5-14.5 Final [facility] (Internal) : [address] [place] ? ? BLD ? Plt 237 130-450 Final [place] 10*3/uL 10*3/uL [facility] (Internal) : [address] [place] ? ? BLD ? Anc 5.57 ? Final [place] 10*3/uL [facility] (Internal) : [address] [place] ? ? BLD ? Nlr 2.15 0.00-3.20 Final [facility] (Internal) : [address] [place] ? ? BLD ? Neutro 59.7 % 40.0-75.0 Final [facility] (Internal) : [address] [place] ? ? BLD ? Lymph 27.7 % 20.0-50.0 Final [facility] (Internal) : [address] [place] ? ? BLD ? [place] 9.9 % 2.0-10.0 Final [facility] (Internal) : [address] [place] ? ? BLD ? Eos 1.9 % 1.0-6.0 % Final [facility] (Internal) : [address] [place] ? ? BLD ? Baso 0.6 % 0.0-1.0 % Final [facility] (Internal) : [address] [place] ? ? BLD ? Ig 0.2 % 0.0-0.9 % Final [facility] (Internal) : [address] 05/13/2021 HbA1C BLD ? Ha1C 5.8 % 4.0-6.0 % Final [place] (Hemoglobin Count ry a1C), Blood Hospi [facility] Lab (Internal) : [address] t 05/13/2021 BNP (B-type S High Nt-bnp 300 pg/mL 0-125 Sarah l [place] Natriuretic pg/mL Count ry Peptide), Hospita l Lab Prohormone (Inter nal): N-terminal, [address], [place] Immunoassay, Blood 05/13/2021 CMP, Serum S ? g/r 102 mg/dL 74-106 Final [place] or Plasma mg/dL [facility] (Internal) : [address] t ? ? S ? Bun 17 mg/dL 7-18 Final [place] mg/dL [facility] (Internal) : [address] t ? ? S High Crea 1.4 mg/dL 0.7-1.3 Final [place] mg/dL [facility] (Internal) : [address] t ? ? S ? Ca 9.1 mg/dL 8.5-10.1 Final [place] mg/dL [facility] (Internal) : [address] ? ? S ? Na 140 mmol/L 136-145 Final [place] mmol/L [facility] (Internal) : [address] t ? ? S ? K 4.4 mmol/L 3.5-5.1 Final [place] mmol/L [facility] (Internal) : [address] t ? ? S ? Cl 105 mmol/l 98-107 Final [place] mmol/l [facility] (Internal) : [address] t ? ? S ? Tco2 27.9 21.0-32.0 Final [place] mmol/L mmol/L [facility] (Internal) : [address] t ? ? S ? Tp 7.3 g/dL 6.4-8.2 Final [place] g/dL [facility] (Internal) : [address] t ? ? S ? Alb 4.1 g/dL 3.4-5.0 Final [place] g/dL [facility] (Internal) : [address] t ? ? S ? Tbil 0.70 mg/dL 0.20-1.00 Final [place] mg/dL [facility] [address] [facility] ? ? S ? Alp 86 U/L 50-136 Final [place] U/L [facility] (Internal) : [address] t ? ? S ? Alt 41 U/L 16-63 U/L Final [place] (Sgpt) [facility] (Internal) : [address] t ? ? S ? Ast 22 U/L 15-37 U/L Final [place] (Sgot) [facility] (Internal) : [address] [facility] 05/13/2021 ESR BLD ? Esr 4 mm/h 0-20 mm/h Final [place] (Erythrocyte Coun try Sedimentatio Hosp ital Lab n Rate), (Interna l): Blood [address] [facility] 05/13/2021 Iron, Serum SERUM ? Iron 98 ug/dL 65-175 Final [place] ug/dL [facility] (Internal) : [address] [facility] 05/13/2021 Ferritin, S ? Ferr 380 NG/mL 26-388 Final [place] Serum or NG/mL [facility] L ab (Internal) : [address] [facility] 05/13/2021 Folate, S Low Folate 3.90 NG/mL 8.60-58.9 Sarah [facility] Serum 0 NG/mL [facility] ab (Internal) : [address] [facility] 05/13/2021 Thyroid S ? Tsh 1.83 0.36-3.74 Final No rth [place], uIU/mL uIU/mL [facility] Serum [facility] L ab (Internal) : [address] [facility] 05/13/2021 CRP, High S High Rcrp 3.04 mg/L 0.00-3.00 [facility] Sensitivity, mg/L Coun try Serum or Hospital Lab Plasma (Internal) : [address] [facility] 05/13/2021 Vitamin B12, S ? Vit B12 370.0 193.0-986 Fi nal [place] Serum pg/mL .0 pg/mL [facility] (Internal) : [address] 09/12/2020 Lipid Panel, S ? Chol 143 mg/dL 50-200 Sarah l [place] Serum mg/dL [facility] (Internal) : [address] ? ? S High Trig 258 mg/dL 10-150 Final [place] mg/dL [facility] (Internal) : [address] t ? ? S Low Hdl 31 mg/dL 40-60 Final [place] mg/dL [facility] (Internal) : [address] t ? ? S ? Ldl 60 mg/dL 0-130 Final [place] mg/dL [facility] (Internal) : [address] 08/06/2020 CBC W/ Auto BLD ? Wbc 10.0 5.0-10.0 Final [place] Diff 10*3/uL 10*3/uL [facility] (Internal) : [address] ? ? BLD ? Rbc 4.73 4.60-6.00 Final [place] 10*6/uL 10*6/uL [facility] (Internal) : [address] ? ? BLD ? Hgb 14.9 g/dL 14.0-18.0 Final Nort h g/dL [facility] (Internal) : [address] ? ? BLD ? Hct 43.1 % 41.0-51.0 Final [facility] (Internal) : [address] ? ? BLD ? Mcv 91.1 fL 80.0-96.0 Final [facility] (Internal) : [address] ? ? BLD ? Mch 31.5 pg 26.0-32.0 Final [place] pg [facility] (Internal) : [address] ? ? BLD ? Mchc 34.6 g/dL 31.0-35.0 Final Nort h g/dL [facility] (Internal) : [address] ? ? BLD ? Rdw 12.8 % 11.5-14.5 Final [place] % [facility] (Internal) : [address] ? ? BLD ? Plt 241 130-450 Final [place] 10*3/uL 10*3/uL [facility] (Internal) : [address] ? ? BLD ? Anc 5.61 ? Final [place] 10*3/uL [facility] (Internal) : [address] ? ? BLD ? Nlr 1.94 0.00-3.20 Final [facility] (Internal) : [address] ? ? BLD ? Neutro 56.2 % 40.0-75.0 Final [facility] (Internal) : [address] ? ? BLD ? Lymph 29.0 % 20.0-50.0 Final [facility] (Internal) : [address] ? ? BLD High [place] 11.7 % 2.0-10.0 Final [facility] (Internal) : [address] ? ? BLD ? Eos 2.4 % 1.0-6.0 % Final [facility] (Internal) : [address] ? ? BLD ? Baso 0.5 % 0.0-1.0 % Final [facility] (Internal) : [address] ? ? BLD ? Ig 0.2 % 0.0-0.9 % Final [facility] (Internal) : [address] 08/06/2020 CMP, Serum S High g/r 119 mg/dL 74-106 Final [place] or Plasma mg/dL [facility] (Internal) : [address] ? ? S ? Bun 15 mg/dL 9-20 Final [place] mg/dL [facility] (Internal) : [address] ? ? S ? Crea 1.10 mg/dL 0.66-1.25 Final [place] mg/dL [facility] (Internal) : [address] ? ? S ? Ca 9.7 mg/dL 8.4-10.2 Final [place] mg/dL [facility] (Internal) : [address] ? ? S ? Na 142 mmol/L 137-145 Final [place] mmol/L [facility] (Internal) : [address] ? ? S ? K 4.1 mmol/L 3.5-5.1 Final [place] mmol/L [facility] (Internal) : [address] ? ? S ? Cl 105 mmol/L 98-107 Final [place] mmol/L [facility] (Internal) : [address] ? ? S ? Tco2 29.0 22.0-30.0 Final [place] mmol/L mmol/L [facility] (Internal) : [address] ? ? S ? Tp 7.4 g/dL 6.3-8.2 Final [place] g/dL [facility] (Internal) : [address] ? ? S ? Alb 4.6 g/dL 3.5-5.0 Final [place] g/dL [facility] (Internal) : [address] ? ? S ? Tbil 1.0 mg/dL 0.2-1.3 Final [place] mg/dL [facility] (Internal) : [address] ? ? S ? Alp 88 U/L 50-136 Final [place] U/L [facility] (Internal) : [address] ? ? S ? Alt 42 U/L 21-72 U/L Final [place] (Sgpt) [facility] (Internal) : [address] ? ? S ? Ast 36 U/L 17-59 U/L Final [place] (Sgot) [facility] L ab (Internal) : [address] t 08/06/2020 Magnesium, S ? mg 2.0 mg/dL 1.6-2.3 Final [place] QN, Serum or mg/dL [facility] (Internal) : [address] t 08/06/2020 Troponin I, S ? Trop <0.06 0.00-0.06 Final [place] Serum or NG/mL NG/mL [facility] (Internal) : [address] t 08/06/2020 BNP (B-type S High Nt-probn 925 pg/mL 0-125 Fi nal [place] Natriuretic p pg/mL Count ry Peptide), Hospita l Lab Prohormone (Inter nal): N-terminal, [address] [place] Immunoassay, Blood 08/06/2020 EKG Done by ? No ? ? ? [facility] (Parts Sales Advisor al): [address] 08/06/2020 Troponin I, S ? Trop <0.06 0.00-0.06 Final [place] Serum or NG/mL NG/mL [facility] (Internal) : [address] 08/06/2020 EKG Done by ? No ? ? ? [facility]. (Parts Sales Advisor al): [address] 05/21/2020 Iron, Serum SERUM ? Iron 80 ug/dL 49-181 Final [place] ug/dL [facility] (Internal) : [address] 05/21/2020 HbA1C BLD ? Ha1C 5.7 % 4.0-6.0 % Final [place] th (Hemoglobin Count ry a1C), Blood Hospi rachael Lab (Internal) : [address] 05/21/2020 Ferritin, S ? Ferr 196 NG/mL 18-464 Final [place] Serum or NG/mL [facility] (Internal[facility] : [address] [facility] Vitamin B12, S ? Vit B12 414.0 239.0-931 Fi nal [place] Serum pg/mL .0 pg/mL [facility] (Internal) : [address] 05/21/2020 Folate, S ? Folate 4.25 NG/mL 2.76-20.0 Sarah l [place] Serum 0 NG/mL [facility] (Internal) : [address] 05/21/2020 Lipid Panel, S ? Chol 124 mg/dL 50-200 Sarah l [place] Serum mg/dL [facility] (Internal) : [address] t ? ? S ? Trig 142 mg/dL 10-150 Final [place] mg/dL [facility] (Internal) : [address] t ? ? S Low Hdl 32 mg/dL 40-60 Final [place] mg/dL [facility] (Internal) : [address] ? ? S ? Ldl 64 mg/dL 0-130 Final [place] mg/dL [facility] (Internal) : [address] t 05/21/2020 CMP, Serum S High g/r 131 mg/dL 74-106 Final [place] or Plasma mg/dL [facility] (Internal) : [address] t ? ? S ? Bun 16 mg/dL 9-20 Final [place] mg/dL [facility] (Internal) : [address] t ? ? S ? Crea 1.10 mg/dL 0.66-1.25 Final [facility] mg/dL [facility] (Internal) : [address] t ? ? S ? Ca 9.8 mg/dL 8.4-10.2 Final [place] mg/dL [facility] (Internal) : [address] t ? ? S ? Na 144 mmol/L 137-145 Final [place] mmol/L [facility] (Internal) : [address] t ? ? S ? K 4.4 mmol/L 3.5-5.1 Final [place] mmol/L [facility] (Internal) : [address] t ? ? S ? Cl 105 mmol/L 98-107 Final [place] mmol/L [facility] (Internal) : [address] t ? ? S ? Tco2 25.0 22.0-30.0 Final [place] mmol/L mmol/L [facility] (Internal) : [address] t ? ? S ? Tp 6.9 g/dL 6.3-8.2 Final [place] g/dL [facility] (Internal) : [address] t ? ? S ? Alb 4.3 g/dL 3.5-5.0 Final [place] g/dL [facility] (Internal) : [address] t ? ? S ? Tbil 1.0 mg/dL 0.2-1.3 Final [place] mg/dL [facility] (Internal) : [address] t ? ? S ? Alp 92 U/L 50-136 Final [place] U/L [facility] (Internal) : [address] t ? ? S ? Alt 24 U/L 21-72 U/L Final [facility] (Sgpt) [facility] (Internal) : [address] t ? ? S ? Ast 23 U/L 17-59 U/L Final [place] (Sgot) [facility] L [facility] (Internal) : [address] t 04/21/2020 CBC W/ Auto BLD High Wbc 10.3 5.0-10.0 Final [place] Diff 10*3/uL 10*3/uL [facility] L [facility] (Internal) : [address] t ? ? BLD Low Rbc 4.28 4.60-6.00 Final [place] 10*6/uL 10*6/uL [facility] (Internal) : [address] t ? ? BLD ? Hgb 14.0 g/dL 14.0-18.0 Final Nort h g/dL [facility] (Internal) : [address] t ? ? BLD Low Hct 40.6 % 41.0-51.0 Final [facility] L ab (Internal) : [address] t ? ? BLD ? Mcv 94.9 fL 80.0-96.0 Final [facility] L ab (Internal) : [address] t ? ? BLD High Mch 32.7 pg 26.0-32.[address] [facility] L ab (Internal) : [address] t ? ? BLD ? Mchc 34.5 g/dL 31.0-35.0 Final Nort h g/dL [facility] L ab (Internal) : [address] t ? ? BLD ? Rdw 12.6 % 11.5-14.5 Final [facility] L ab (Internal) : [address] t ? ? BLD ? Plt 261 130-450 Final [place] 10*3/uL 10*3/uL [facility] L [facility] (Internal) : [address] t ? ? BLD ? Anc 7.05 ? Final [place] 10*3/uL [facility] L ab (Internal) : [address] t ? ? BLD High Nlr 3.28 0.00-3.20 Final [facility] L ab (Internal) : [address] t ? ? BLD ? Neutro 68.5 % 40.0-75.0 Final [facility] % [facility] (Internal) : [address] ? ? BLD ? Lymph 20.9 % 20.0-50.0 Final [facility] % [facility] (Internal) : [address] ? ? BLD ? [place] 6.9 % 2.0-10.0 Final [facility] % [facility] (Internal) : [address] ? ? BLD ? Eos 2.8 % 1.0-6.0 % Final [facility] L ab (Internal) : [address] ? ? BLD ? Baso 0.6 % 0.0-1.0 % Final [facility] L ab (Internal) : [address] t ? ? BLD ? Ig 0.3 % 0.0-0.9 % Final [facility] L [facility] (Internal) : [address] t 04/21/2020 CMP, Serum S High g/r 153 mg/dL 74-106 Final [place] or Plasma mg/dL [facility] (Internal) : [address] t ? ? S ? Bun 19 mg/dL 9-20 Final [place] mg/dL [facility] (Internal) : [address] t ? ? S ? Crea 1.20 mg/dL 0.66-1.25 Final [facility] mg/dL [facility] (Internal) : [address] t ? ? S ? Ca 10.0 mg/dL 8.4-10.2 Final Nort h mg/dL [facility] (Internal) : [address] t ? ? S ? Na 140 mmol/L 137-145 Final [place] mmol/L [facility] (Internal) : [address] ? ? S ? K 4.2 mmol/L 3.5-5.1 Final [place] mmol/L [facility] (Internal) : [address] ? ? S ? Cl 100 mmol/L 98-107 Final [place] mmol/L [facility] (Internal) : [address] ? ? S ? Tco2 30.0 22.0-30.0 Final [place] mmol/L mmol/L [facility] (Internal) : [address] ? ? S ? Tp 7.6 g/dL 6.3-8.2 Final [place] g/dL [facility] L [facility] (Internal) : [address] ? ? S ? Alb 4.6 g/dL 3.5-5.0 Final [place] g/dL [facility] L [facility] (Internal) : [address] ? ? S ? Tbil 1.0 mg/dL 0.2-1.3 Final [place] mg/dL [facility] (Internal) : [address] ? ? S ? Alp 90 U/L 50-136 Final [place] U/L [facility] (Internal) : [address] t ? ? S ? Alt 27 U/L 21-72 U/L Final [place] (Sgpt) [facility] (Internal) : [address] t ? ? S ? Ast 27 U/L 17-59 U/L Final [place] (Sgot) [facility] (Internal) : [address] 04/21/2020 Troponin I, S High Trop 0.30 NG/mL 0.00-0.06 F inal [place] Serum or NG/mL [facility] (Internal) : [address] 04/21/2020 Magnesium, S ? mg 2.2 mg/dL 1.6-2.3 Final [place] QN, Serum or mg/dL [facility] L [facility] (Internal) : [address] 04/21/2020 EKG Done by ? No ? ? ? N orth ED observati [facility] on Hospital L ab recorded. (Parts Sales Advisor al): [address] 04/15/2020 CBC W/ Auto BLD High Wbc 10.1 5.0-10.0 Final [place] Diff 10*3/uL 10*3/uL [facility] (Internal) : [address] t ? ? BLD Low Rbc 4.10 4.60-6.00 Final [place] 10*6/uL 10*6/uL [facility] L [facility] (Internal) : [address] t ? ? BLD Low Hgb 13.2 g/dL 14.0-18.0 Final Nort h g/dL [facility] L ab (Internal) : [address] ? ? BLD Low Hct 39.6 % 41.0-51.0 Final [facility] Hospital L ab (Internal) : [address] ? ? BLD High Mcv 96.6 fL 80.0-96.0 Final [facility] Hospital L ab (Internal) : [address] ? ? BLD High Mch 32.2 pg 26.0-32.[address] [facility] Hospital L ab (Internal) : [address] ? ? BLD ? Mchc 33.3 g/dL 31.0-35.0 Final Nort h g/dL [facility] L [facility] (Internal) : [address] ? ? BLD ? Rdw 12.2 % 11.5-14.5 Final [facility] L ab (Internal) : [address] ? ? BLD ? Plt 314 130-450 Final [place] 10*3/uL 10*3/uL [facility] L [facility] (Internal) : [address] ? ? BLD ? Anc 6.43 ? Final [place] 10*3/uL [facility] L [facility] (Internal) : [address] ? ? BLD ? Nlr 2.72 0.00-3.20 Final [facility] L ab (Internal) : [address] ? ? BLD ? Neutro 63.8 % 40.0-75.0 Final [facility] L ab (Internal) : [address] ? ? BLD ? Lymph 23.5 % 20.0-50.0 Final [facility] Hospital L ab (Internal) : [address] ? ? BLD ? [place] 7.6 % 2.0-10.0 Final [facility] L ab (Internal) : [address] ? ? BLD ? Eos 3.9 % 1.0-6.0 % Final [facility] L ab (Internal) : [address] ? ? BLD ? Baso 0.9 % 0.0-1.0 % Final [facility] L ab (Internal) : [address] t ? ? BLD ? Ig 0.3 % 0.0-0.9 % Final [facility] L ab (Internal) : [address] 04/15/2020 BMP, Serum S High g/r 119 mg/dL 74-106 Final [place] or Plasma mg/dL [facility] L [facility] (Internal) : [address] t ? ? S ? Bun 17 mg/dL 9-20 Final [place] mg/dL [facility] (Internal) : [address] t ? ? S ? Crea 1.20 mg/dL 0.66-1.25 Final [place] mg/dL [facility] (Internal) : [address] t ? ? S ? Ca 9.0 mg/dL 8.4-10.2 Final [place] mg/dL [facility] L [facility] (Internal) : [address] t ? ? S ? Na 139 mmol/L 137-145 Final [place] mmol/L [facility] (Internal) : [address] t ? ? S High K 5.2 mmol/L 3.5-5.1 Final [place] mmol/L [facility] (Internal) : [address] t ? ? S ? Cl 106 mmol/L 98-107 Final [place] mmol/L [facility] (Internal) : [address] t ? ? S ? Tco2 28.0 22.0-30.0 Final [place] mmol/L mmol/L [facility] (Internal) : [address] [facility] 04/15/2020 Troponin I, S CRITICAL Trop 1.10 NG/mL 0.00-0.06 Final [place] Serum or HIGH NG/mL [facility] L ab (Internal) : [address] [facility] 04/15/2020 Partial BLD ? PTT (Ip) 26 s 22-35 s Final N orth Thromboplast Coun try in Time Hospital Lab (Internal) : [address] [facility] 04/15/2020 Prothrombin BLD ? Pt 10.3 S 9.1-11.7 Final [place] Time [facility] L ab (Internal) : [address] t ? ? BLD ? Inr 1.0 ? Final [facility] L ab (Internal) : [address] 04/15/2020 Troponin I, S CRITICAL Trop 0.92 NG/mL 0.00-0.06 Final [place] Serum or HIGH NG/mL [facility] L [facility] (Internal) : [address] 04/14/2020 CBC W/ Auto BLD High Wbc 10.8 5.0-10.0 Final [place] Diff 10*3/uL 10*3/uL [facility] L [facility] (Internal) : [address] ? ? BLD ? Rbc 4.73 4.60-6.00 Final [place] 10*6/uL 10*6/uL [facility] L ab (Internal) : [address] ? ? BLD ? Hgb 15.6 g/dL 14.0-18.0 Final Nort h g/dL [facility] L [facility] (Internal) : [address] t ? ? BLD ? Hct 45.3 % 41.0-51.0 Final [facility] L ab (Internal) : [address] t ? ? BLD ? Mcv 95.8 fL 80.0-96.0 Final [facility] L ab (Internal) : [address] ? ? BLD High Mch 33.0 pg 26.0-32.0 Final [facility] L ab (Internal) : [address] ? ? BLD ? Mchc 34.4 g/dL 31.0-35.0 Final Nort h g/dL [facility] L ab (Internal) : [address] ? ? BLD ? Rdw 12.0 % 11.5-14.5 Final [facility] L ab (Internal) : [address] ? ? BLD ? Plt 388 130-450 Final [place] 10*3/uL 10*3/uL [facility] L ab (Internal) : [address] ? ? BLD ? Anc 6.89 ? Final [place] 10*3/uL [facility] L [facility] (Internal) : [address] ? ? BLD ? Nlr 2.60 0.00-3.20 Final [facility] L ab (Internal) : [address] ? ? BLD ? Neutro 64.0 % 40.0-75.0 Final [facility] L ab (Internal) : [address] ? ? BLD ? Lymph 24.6 % 20.0-50.0 Final [facility] L ab (Internal) : [address] ? ? BLD ? [place] 7.0 % 2.0-10.0 Final [place] % [facility] L [facility] (Internal) : [address] ? ? BLD ? Eos 3.3 % 1.0-6.0 % Final [facility] L ab (Internal) : [address] ? ? BLD ? Baso 0.8 % 0.0-1.0 % Final [facility] L ab (Internal) : [address] ? ? BLD ? Ig 0.3 % 0.0-0.9 % Final [facility] L ab (Internal) : [address] t 04/14/2020 CMP, Serum S High g/r 129 mg/dL 74-106 Final [place] or Plasma mg/dL [facility] (Internal) : [address] t ? ? S ? Bun 18 mg/dL 9-20 Final [place] mg/dL [facility] (Internal) : [address] t ? ? S High Crea 1.40 mg/dL 0.66-1.25 Final [place] [facility] mg/dL [facility] (Internal) : [address] t ? ? S ? Ca 10.1 mg/dL 8.4-10.2 Final Nort h mg/dL [facility] (Internal) : [address] ? ? S ? Na 142 mmol/L 137-145 Final [facility] mmol/L [facility] (Internal) : [address] ? ? S ? K 4.5 mmol/L 3.5-5.1 Final [place] mmol/L [facility] L [facility] (Internal) : [address] ? ? S ? Cl 100 mmol/L 98-107 Final [place] mmol/L [facility] (Internal) : [address] ? ? S ? Tco2 30.0 22.0-30.0 Final [place] mmol/L mmol/L [facility] (Internal) : [address] ? ? S ? Tp 8.0 g/dL 6.3-8.2 Final [place] g/dL [facility] (Internal) : [address] ? ? S ? Alb 4.5 g/dL 3.5-5.0 Final [place] g/dL [facility] (Internal) : [address] ? ? S ? Tbil 0.6 mg/dL 0.2-1.3 Final [place] mg/dL [facility] (Internal) : [address] ? ? S ? Alp 100 U/L 50-136 Final [place] U/L [facility] L [facility] (Internal) : [address] ? ? S ? Alt 39 U/L 21-72 U/L Final [place] (Sgpt) [facility] L [facility] (Internal) : [address] ? ? S ? Ast 35 U/L 17-59 U/L Final [place] (Sgot) [facility] L [facility] (Internal) : [address] 04/14/2020 BNP (B-type S High Nt-probn 2950 pg/mL 0-125 F inal [place] Natriuretic p pg/mL Count ry Peptide), Hospita l Lab Prohormone (Inter nal): N-terminal, [address] [place] Immunoassay, Blood 04/14/2020 Troponin I, S CRITICAL Trop 1.23 NG/mL 0.00-0.06 Final [place] Serum or HIGH NG/mL [facility] (Internal) : [address] 04/14/2020 Troponin I, S CRITICAL Trop 1.14 NG/mL 0.00-0.06 Final [place] Serum or HIGH NG/mL [facility] L ab (Internal) : [address] 04/14/2020 EKG Done by ? No ? ? ? N orth ED observati [facility] on [facility] L ab recorded. (Parts Sales Advisor al): [address] 04/14/2020 Respiratory FLUID ? Final microbiolo ? Sarah justin [place] Virus Panel gy results C [facility] L ab (Internal) : [address] 04/14/2020 SARS CoV 2 SWAB ? 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 ? SWAB ? Performi the broad ? Final Nort h ng Lab institute [facility] L ab (Internal) : [address] 03/30/2020 CBC W/ Auto BLD High Wbc 13.1 5.0-10.0 Final [place] Diff 10*3/uL 10*3/uL [facility] L ab (Internal) : [address] ? ? BLD ? Rbc 5.10 4.60-6.00 Final [place] 10*6/uL 10*6/uL [facility] L ab (Internal) : [address] ? ? BLD ? Hgb 16.5 g/dL 14.0-18.0 Final Nort h g/dL [facility] L ab (Internal) : [address] ? ? BLD ? Hct 48.3 % 41.0-51.0 Final [facility] L ab (Internal) : [address] ? ? BLD ? Mcv 94.7 fL 80.0-96.0 Final [facility] L ab (Internal) : [address] ? ? BLD High Mch 32.4 pg 26.0-32.0 Final [place] pg [facility] L ab (Internal) : [address] ? ? BLD ? Mchc 34.2 g/dL 31.0-35.0 Final Nort h g/dL [facility] L ab (Internal) : [address] ? ? BLD ? Rdw 12.5 % 11.5-14.5 Final [facility] L ab (Internal) : [address] ? ? BLD ? Plt 280 130-450 Final [place] 10*3/uL 10*3/uL [facility] L ab (Internal) : [address], [place] ? ? BLD ? Anc 6.53 ? Final [place] 10*3/uL [facility] (Internal) : [address] [place] ? ? BLD ? Nlr 1.27 0.00-3.20 Final [facility] L ab (Internal) : [address] [place] ? ? BLD ? Neutro 49.9 % 40.0-75.0 Final [facility] L ab (Internal) : [address] [place] ? ? BLD ? Lymph 39.4 % 20.0-50.0 Final [facility] L ab (Internal) : [address] [place] ? ? BLD ? [place] 8.3 % 2.0-10.0 Final [facility] L ab (Internal) : [address], [place] ? ? BLD ? Eos 1.7 % 1.0-6.0 % Final [facility] L ab (Internal) : [address], [place] ? ? BLD ? Baso 0.5 % 0.0-1.0 % Final [facility] L ab (Internal) : [address], [place] ? ? BLD ? Ig 0.2 % 0.0-0.9 % Final [facility] L ab (Internal) : [address] 03/30/2020 EKG Done by ? No ? ? ? N orth ED observati [facility] on [facility] L ab recorded. (Parts Sales Advisor al): [address] 03/30/2020 EKG Done by ? No ? ? ? N orth ED observati [facility] on Hospital L ab recorded. (Parts Sales Advisor al): [address] 03/30/2020 EKG Done by ? No ? ? ? N orth ED observati [facility] on Hospital L ab recorded. (Parts Sales Advisor al): [address] 03/30/2020 CMP, Serum S High g/r 193 mg/dL 74-106 Final [place] or Plasma mg/dL [facility] (Internal) : [address] ? ? S ? Bun 20 mg/dL 9-20 Final [place] mg/dL [facility] (Internal) : [address] ? ? S High Crea 1.40 mg/dL 0.66-1.25 Final [place] [facility] mg/dL [facility] (Internal) : [address] ? ? S ? Ca 9.9 mg/dL 8.4-10.2 Final [place] mg/dL [facility] (Internal) : [address] t ? ? S ? Na 142 mmol/L 137-145 Final [place] mmol/L [facility] L [facility] (Internal) : [address] t ? ? S ? K 4.7 mmol/L 3.5-5.1 Final [place] mmol/L [facility] L [facility] (Internal) : [address] t ? ? S ? Cl 103 mmol/L 98-107 Final [place] mmol/L [facility] L [facility] (Internal) : [address] t ? ? S ? Tco2 27.0 22.0-30.0 Final [place] mmol/L mmol/L [facility] (Internal) : [address] t ? ? S ? Tp 7.3 g/dL 6.3-8.2 Final [place] g/dL [facility] L [facility] (Internal) : [address] ? ? S ? Alb 4.2 g/dL 3.5-5.0 Final [place] g/dL [facility] L [facility] (Internal) : [address] ? ? S ? Tbil 0.8 mg/dL 0.2-1.3 Final [place] mg/dL [facility] L [facility] (Internal) : [address] t ? ? S ? Alp 100 U/L 50-136 Final [place] U/L [facility] L [facility] (Internal) : [address] t ? ? S ? Alt 55 U/L 21-72 U/L Final [place] (Sgpt) [facility] L [facility] (Internal) : [address] ? ? S High Ast 64 U/L 17-59 U/L Final [place] (Sgot) [facility] L [facility] (Internal) : [address] t 03/30/2020 Troponin I, S ? Trop <0.06 0.00-0.06 Final [place] Serum or NG/mL NG/mL [facility] L [facility] (Internal) : [address], [address] 03/30/2020 Magnesium, S ? mg 2.3 mg/dL 1.6-2.3 Final [place] QN, Serum or mg/dL Coun [facility] L ab (Internal) : [address] 09/12/2019 CBC W/ Auto BLD - Wbc 9.3 5.0-10.0 Final [place] Diff 10*3/uL 10*3/uL [facility] L ab (Internal) : [address] ? ? BLD - Rbc 5.13 4.60-6.00 Final [place] 10*6/uL 10*6/uL [facility] L ab (Internal) : [address] jagdish ? ? BLD - Hgb 16.7 g/dL 14.0-18.0 Final Nort h g/dL [facility] L ab (Internal) : [address] ? ? BLD - Hct 49.0 % 41.0-51.0 Final [facility] L ab (Internal) : [address] ? ? BLD - Mcv 95.5 fL 80.0-96.0 Final [facility] L ab (Internal) : [address] ? ? BLD High Mch 32.6 pg 26.0-32.0 Final [place] pg [facility] L ab (Internal) : [address] jagdish ? ? BLD - Mchc 34.1 g/dL 31.0-35.0 Final Nort h g/dL [facility] L ab (Internal) : [address] ? ? BLD - Rdw 12.2 % 11.5-14.5 Final [facility] L ab (Internal) : [address] ? ? BLD - Plt 258 130-450 Final [place] 10*3/uL 10*3/uL [facility] L ab (Internal) : [address] jagdish ? ? BLD - Anc 6.10 ? Final [place] 10*3/uL [facility] L ab (Internal) : [address] jagdish ? ? BLD - Neutro 65.9 % 40.0-75.0 Final [facility] L ab (Internal) : [address] ? ? BLD - Lymph 23.1 % 20.0-50.0 Final [facility] (Internal) : [address] ? ? BLD - [place] 7.7 % 2.0-10.0 Final [facility] (Internal) : [address] ? ? BLD - Eos 2.2 % 1.0-6.0 % Final [facility] L ab (Internal) : [address] ? ? BLD - Baso 0.9 % 0.0-1.0 % Final [facility] L ab (Internal) : [address] ? ? BLD - Ig 0.2 % 0.0-0.9 % Final [facility] L ab (Internal) : [address] 09/12/2019 Lipid Panel, S - Chol 162 mg/dL 50-200 Sarah l [place] Serum mg/dL [facility] (Internal) : [address] ? ? S High Trig 171 mg/dL 10-150 Final [place] mg/dL [facility] (Internal) : [address] ? ? S Low Hdl 35 mg/dL 40-60 Final [place] mg/dL [facility] (Internal) : [address] ? ? S - Ldl 93 mg/dL 0-130 Final [place] mg/dL [facility] (Internal) : [address] 09/12/2019 CMP, Serum S High g/r 114 mg/dL 74-106 Final [place] or Plasma mg/dL [facility] L [facility] (Internal) : [address] ? ? S - Bun 17 mg/dL 9-20 Final [place] mg/dL [facility] (Internal) : [address] ? ? S - Crea 1.10 mg/dL 0.66-1.25 Final [facility] mg/dL [facility] L [facility] (Internal) : [address] ? ? S - Ca 9.9 mg/dL 8.4-10.2 Final [place] mg/dL [facility] L [facility] (Internal) : [address] ? ? S - Na 141 mmol/L 137-145 Final [place] mmol/L [facility] L ab (Internal) : [address] ? ? S - K 4.5 mmol/L 3.5-5.1 Final [place] mmol/L [facility] L ab (Internal) : [address] ? ? S - Cl 105 mmol/L 98-107 Final [place] mmol/L [facility] L ab (Internal) : [address] ? ? S - Tco2 28.0 22.0-30.0 Final [place] mmol/L mmol/L [facility] L ab (Internal) : [address] ? ? S - Tp 7.7 g/dL 6.3-8.2 Final [place] g/dL [facility] L ab (Internal) : [address] ? ? S - Alb 4.6 g/dL 3.5-5.0 Final [place] g/dL [facility] L ab (Internal) : [address] ? ? S - Tbil 0.7 mg/dL 0.2-1.3 Final [place] mg/dL [facility] L ab (Internal) : [address] ? ? S - Alp 82 U/L 50-136 Final [place] U/L [facility] L ab (Internal) : [address] ? ? S - Alt 31 U/L 21-72 U/L Final [place] (Sgpt) [facility] L ab (Internal) : [address] ? ? S - Ast 28 U/L 17-59 U/L Final [place] (Sgot) [facility] L ab (Internal) : [address] 09/12/2019 TSH, Serum S - Tsh 2.58 0.47-4.68 Final [place] or Plasma u[IU]/mL u[IU]/mL [facility] L ab (Internal) : [address] 09/12/2019 Testosterone S - Testoste 363 NG/dL 229-902 Final [place] , Free + mary lou NG/dL [place] Total, Serum Hosp ital Lab (Internal) : [address] t ? ? S - Sex 44.5 21.6-113. Final [place] Hormone nmol/L 1 nmol/L [facility] Globulin (Interna l): [address] ? ? S - Free 6.0 NG/dL 3.8-13.8 Final [place] Testoster NG/dL [facility] L ab (Internal) : [address] 02/03/2019 CBC W/ Auto BLD - Wbc 9.1 5.0-10.0 Final [place] Diff 10*3/uL 10*3/uL [facility] ab (Internal) : [address] ? ? BLD - Rbc 5.08 4.60-6.00 Final [place] 10*6/uL 10*6/uL [facility] ab (Internal) : [address] jagdish ? ? BLD - Hgb 16.5 g/dL 14.0-18.0 Final [place] g/dL [facility] L ab (Internal) : [address] jagdish ? ? BLD - Hct 48.7 % 41.0-51.0 Final [facility] L ab (Internal) : [address] ? ? BLD - Mcv 95.9 fL 80.0-96.0 Final [facility] L ab (Internal) : [address] ? ? BLD High Mch 32.5 pg 26.0-32.0 Final [facility] L ab (Internal) : [address] ? ? BLD - Mchc 33.9 g/dL 31.0-35.0 Final [place] g/dL [facility] L ab (Internal) : [address] ? ? BLD - Rdw 12.6 % 11.5-14.5 Final [facility] L ab (Internal) : [address] jagdish ? ? BLD - Plt 238 130-450 Final [place] 10*3/uL 10*3/uL [facility] L ab (Internal) : [address] jagdish ? ? BLD - Anc 5.68 ? Final [place] 10*3/uL [facility] L ab (Internal) : [address] t ? ? BLD - Neutro 62.7 % 40.0-75.0 Final [facility] (Internal) : [address] t ? ? BLD - Lymph 28.7 % 20.0-50.0 Final [facility] L ab (Internal) : [address] t ? ? BLD - [place] 6.0 % 2.0-10.0 Final [facility] L ab (Internal) : [address] t ? ? BLD - Eos 1.7 % 1.0-6.0 % Final [facility] L ab (Internal) : [address] t ? ? BLD - Baso 0.7 % 0.0-1.0 % Final [facility] L ab (Internal) : [address] t ? ? BLD - Ig 0.2 % 0.0-0.9 % Final [facility] L ab (Internal) : [address] 02/03/2019 Urinalysis, UR - UA-color yellow pale Final [place] Dipstick, yellow [facility] Lab (Internal) : [address] t ? ? UR - UA-appea clear clear Final [place] r [facility] L [facility] (Internal) : [address] t ? ? UR - UA-spec 1.015 1.003-1.0 Final [place] Grav 35 [facility] L ab (Internal) : [address] t ? ? UR - UA-pH 6.0 [pH] 4.6-8.0 Final [place] [pH] [facility] (Internal) : [address] t ? ? UR - UA-leuk negative negative Final [place] Est [facility] ab (Internal) : [address] t ? ? UR - UA-nitri negative negative Final Nor th te [facility] ab (Internal) : [address] t ? ? UR - UA-prot negative negative Final Nort [facility] ab (Internal) : [address] t ? ? UR - UA-gluc negative negative Final [place] [facility] ab (Internal) : [address] t ? ? UR - UA-keton negative negative Final Nor th e [facility] L ab (Internal) : [address] t ? ? UR - UA-urobi normal normal Final [place] l [facility] ab (Internal) : [address] t ? ? UR - UA-bili negative negative Final Nort h [facility] ab (Internal) : [address] t ? ? UR - UA-blood negative negative Final [facility] L ab (Internal) : [address] 02/03/2019 CMP, Serum S High g/r 136 mg/dL 74-106 Final [place] or Plasma mg/dL [facility] (Internal) : [address] t ? ? S - Bun 12 mg/dL 9-20 Final [place] mg/dL [facility] (Internal) : [address] t ? ? S - Crea 1.00 mg/dL 0.66-1.25 Final [facility] th mg/dL [facility] (Internal) : [address] t ? ? S - Ca 9.6 mg/dL 8.4-10.2 Final [place] mg/dL [facility] (Internal) : [address] t ? ? S - Na 140 mmol/L 137-145 Final [place] mmol/L [facility] (Internal) : [address] t ? ? S - K 4.2 mmol/L 3.5-5.1 Final [place] mmol/L [facility] (Internal) : [address] t ? ? S - Cl 103 mmol/L 98-107 Final [place] mmol/L [facility] (Internal) : [address] t ? ? S High Tco2 32.0 22.0-30.0 Final [place] mmol/L mmol/L [facility] (Internal) : [address] t ? ? S - Tp 7.4 g/dL 6.3-8.2 Final [place] g/dL [facility] (Internal) : [address] t ? ? S - Alb 4.4 g/dL 3.5-5.0 Final [place] g/dL [facility] (Internal) : [address] t ? ? S - Tbil 0.6 mg/dL 0.2-1.3 Final [place] mg/dL [facility] (Internal) : [address] ? ? S - Alp 84 U/L 50-136 Final [place] U/L [facility] (Internal) : [address] ? ? S Low Alt 17 U/L 21-72 U/L Final [place] (Sgpt) [facility] (Internal) : [address] t ? ? S - Ast 26 U/L 17-59 U/L Final [place] (Sgot) [facility] (Internal) : [address] 09/06/2018 Wbc, Auto, ? Wbc ? ? ? Blood 09/06/2018 Wbc, Auto, ? Wbc ? ? ? Blood 09/04/2018 CBC W/ Auto BLD High Wbc 14.0 5.0-10.0 Final [place] Diff 10*3/uL 10*3/uL [facility] (Internal) : [address] t ? ? BLD - Rbc 4.85 4.60-6.00 Final [place] 10*6/uL 10*6/uL [facility] (Internal) : [address] t ? ? BLD - Hgb 15.8 g/dL 14.0-18.0 Final [place] g/dL [facility] (Internal) : [address] ? ? BLD - Hct 45.7 % 41.0-51.0 Final [facility] L ab (Internal) : [address] ? ? BLD - Mcv 94.2 fL 80.0-96.0 Final [facility] L ab (Internal) : [address] ? ? BLD High Mch 32.6 pg 26.0-32.0 Final [place] pg [facility] (Internal) : [address] ? ? BLD - Mchc 34.6 g/dL 31.0-35.0 Final [place] g/dL [facility] (Internal) : [address] ? ? BLD - Rdw 12.2 % 11.5-14.5 Final [facility] L ab (Internal) : [address] t ? ? BLD - Plt 238 130-450 Final [place] 10*3/uL 10*3/uL [facility] (Internal) : [address] jagdish ? ? BLD - Anc 9.45 ? Final [place] 10*3/uL [facility] ab (Internal) : [address] ? ? BLD - Neutro 67.4 % 40.0-75.0 Final [facility] L ab (Internal) : [address] ? ? BLD - Lymph 23.9 % 20.0-50.0 Final [facility] L ab (Internal) : [address] ? ? BLD - [place] 6.3 % 2.0-10.0 Final [facility] L ab (Internal) : [address] t ? ? BLD - Eos 1.6 % 1.0-6.0 % Final [facility] L ab (Internal) : [address] ? ? BLD - Baso 0.4 % 0.0-1.0 % Final [facility] L ab (Internal) : [address] jagdish ? ? BLD - Ig 0.4 % 0.0-0.9 % Final [facility] L ab (Internal) : [address] 09/04/2018 CMP, Serum S High g/r 109 mg/dL 74-106 Final [place] or Plasma mg/dL [facility] ab (Internal) : [address] ? ? S High Bun 23 mg/dL 9-20 Final [place] mg/dL [facility] ab (Internal) : [address] ? ? S - Crea 1.20 mg/dL 0.66-1.25 Final [place] mg/dL [facility] (Internal) : [address] ? ? S - Ca 9.4 mg/dL 8.4-10.2 Final [place] mg/dL [facility] ab (Internal) : [address] ? ? S - Na 141 mmol/L 137-145 Final [place] mmol/L [facility] ab (Internal) : [address] ? ? S - K 4.2 mmol/L 3.5-5.1 Final [place] mmol/L [facility] (Internal) : [address] t ? ? S - Cl 105 mmol/L 98-107 Final [place] mmol/L [facility] (Internal) : [address] t ? ? S - Tco2 25.0 22.0-30.0 Final [place] mmol/L mmol/L [facility] (Internal) : [address] t ? ? S - Tp 7.0 g/dL 6.3-8.2 Final [place] g/dL [facility] (Internal) : [address] t ? ? S - Alb 4.1 g/dL 3.5-5.0 Final [place] g/dL [facility] (Internal) : [address] ? ? S - Tbil 0.5 mg/dL 0.2-1.3 Final [place] mg/dL [facility] (Internal) : [address] ? ? S - Alp 74 U/L 50-136 Final [place] U/L [facility] (Internal) : [address] ? ? S - Alt 26 U/L 21-72 U/L Final [place] (Sgpt) [facility] (Internal) : [address] ? ? S - Ast 29 U/L 17-59 U/L Final [place] (Sgot) [facility] (Internal) : [address] 09/04/2018 Troponin I, S - Trop <0.06 0.00-0.06 Final [place] Serum or NG/mL NG/mL [facility] L ab (Internal) : [address] 09/04/2018 Rapid Flu NASAL - Final microbiolo ? Final [place] (A+B) gy results [facility] (Internal) : [address] 08/22/2018 Venipuncture ? Location Left ? ? P_nc Primary [facility] l [place] [place]: [address], [place] ? ? ? Needle 21g ? ? P_nc Prim alfred Vacutainer Care [place]: [address], [place] ? ? ? Number 1 ? ? P_nc Prim alfred of Care Attempts [place]: [address], [place] ? ? ? Successf Yes ? ? P_nc Pr imary ul Care [place] [place]: [address], [place] ? ? ? Dressing Pressure ? ? P_nc Primary Band-aid Care Applied [place]: [address], [place] ? ? ? Initials kk ? ? P_nc Pr imary Care [place]: [address], [place] 08/03/2018 Pathology TISS - Report results ? Final N orth Study below [facility] L ab (Internal) : [address] 07/08/2018 CBC W/ Auto BLD High Wbc 10.3 5.0-10.0 Final [place] Diff 10*3/uL 10*3/uL [facility] ab (Internal) : [address] ? ? BLD - Rbc 5.05 4.60-6.00 Final [place] 10*6/uL 10*6/uL [facility] (Internal) : [address] ? ? BLD - Hgb 16.6 g/dL 14.0-18.0 Final [place] g/dL [facility] L ab (Internal) : [address] ? ? BLD - Hct 47.9 % 41.0-51.0 Final [facility] L ab (Internal) : [address] ? ? BLD - Mcv 94.9 fL 80.0-96.0 Final [facility] L ab (Internal) : [address] ? ? BLD High Mch 32.9 pg 26.0-32.0 Final [place] pg [facility] L ab (Internal) : [address] ? ? BLD - Mchc 34.7 g/dL 31.0-35.0 Final [place] g/dL [facility] L ab (Internal) : [address] ? ? BLD - Rdw 12.4 % 11.5-14.5 Final [facility] L ab (Internal) : [address] ? ? BLD - Plt 254 130-450 Final [place] 10*3/uL 10*3/uL [facility] (Internal) : [address] ? ? BLD - Anc 6.67 ? Final [place] 10*3/uL [facility] (Internal) : [address] ? ? BLD - Neutro 64.9 % 40.0-75.0 Final [facility] L ab (Internal) : [address] t ? ? BLD - Lymph 24.4 % 20.0-50.0 Final [facility] L ab (Internal) : [address], Leah t ? ? BLD - [place] 7.4 % 2.0-10.0 Final [facility] L ab (Internal) : [address], Leah t ? ? BLD - Eos 2.4 % 1.0-6.0 % Final [facility] L ab (Internal) : [address], [place] jagdish ? ? BLD - Baso 0.7 % 0.0-1.0 % Final [facility] L ab (Internal) : [address], Leah t ? ? BLD - Ig 0.2 % 0.0-0.9 % Final [facility] L ab (Internal) : [address] 07/08/2018 Prothrombin BLD - Pt 9.9 S 9.1-11.7 Final [place] Time S [facility] ab (Internal) : [address] ? ? BLD - Inr 1.0 ? Final [facility] L ab (Internal) : [address] 07/08/2018 CMP, Serum S High g/r 121 mg/dL 74-106 Final [place] or Plasma mg/dL [facility] ab (Internal) : [address] t ? ? S - Bun 13 mg/dL 9-20 Final [place] mg/dL [facility] ab (Internal) : [address] t ? ? S - Crea 1.00 mg/dL 0.66-1.25 Final [place] mg/dL [facility] ab (Internal) : [address] t ? ? S - Ca 9.6 mg/dL 8.4-10.2 Final [place] mg/dL [facility] (Internal) : [address] ? ? S - Na 144 mmol/L 137-145 Final [place] mmol/L [facility] (Internal) : [address] ? ? S - K 3.9 mmol/L 3.5-5.1 Final [place] mmol/L [facility] (Internal) : [address] ? ? S - Cl 105 mmol/L 98-107 Final [place] mmol/L [facility] (Internal) : [address] t ? ? S - Tco2 29.0 22.0-30.0 Final [place] mmol/L mmol/L [facility] (Internal) : [address] ? ? S - Tp 7.3 g/dL 6.3-8.2 Final [place] g/dL [facility] (Internal) : [address] ? ? S - Alb 4.2 g/dL 3.5-5.0 Final [place] g/dL [facility] (Internal) : [address] ? ? S - Tbil 0.5 mg/dL 0.2-1.3 Final [place] mg/dL [facility] (Internal) : [address] ? ? S - Alp 88 U/L 50-136 Final [place] U/L [facility] ab (Internal) : [address] ? ? S - Alt 26 U/L 21-72 U/L Final [place] (Sgpt) [facility] (Internal) : [address] ? ? S - Ast 32 U/L 17-59 U/L Final [place] (Sgot) [facility] (Internal) : [address] 08/12/2017 Culture, UR ? Final microbiolo ? Final [place] Urine gy results [facility] (Internal) : [address] 07/20/2017 Culture, UR ? Final microbiolo ? Final [place] Urine gy results [facility] (Internal) : [address] 07/20/2017 Urinalysis, UR ABNORMAL UA-WBC 25-50 0-3 [hpf] Fi nal [place] Microscopic [hpf] [facility] (Internal) : [address] ? ? UR ABNORMAL UA-RBC 3-5 [hpf] 0-2 [hpf] Final N orth [facility] ab (Internal) : [address] ? ? UR ABNORMAL UA-bacte few [hpf] none seen Final [place] jeanette [hpf] [facility] ab (Internal) : [address] ? ? UR ? UA-epith rare [hpf] none seen Final [place] elial [hpf] [facility] ab (Internal) : [address] ? ? UR ABNORMAL UA-mucus few [hpf] none seen Final [place] [hpf] [facility] ab (Internal) : [address] ? ? UR ? Ca Ox rare [hpf] ? Final [place] Cryst [facility] ab (Internal) : [address] 07/20/2017 Urinalysis, UR ? UA-color yellow pale Final [place] Dipstick, yellow [facility] (Internal) : [address] ? ? UR ABNORMAL UA-appea hazy clear Final [facility] ab (Internal) : [address] t ? ? UR ? UA-spec >=1.030 1.003-1.0 Final Nort h Grav 35 [facility] ab (Internal) : [address] ? ? UR ? UA-pH 6.0 [pH] 4.6-8.0 Final [place] [pH] [facility] ab (Internal) : [address] ? ? UR ABNORMAL UA-leuk small negative Final Nort [place] Est [facility] ab (Internal) : [address] ? ? UR ? UA-nitri negative negative Final Nor th te [facility] ab (Internal) : [address] ? ? UR ABNORMAL UA-prot trace negative Final Nort h [facility] ab (Internal) : [address] ? ? UR ? UA-gluc negative negative Final Nort h [facility] ab (Internal) : [address] ? ? UR ? UA-keton negative negative Final Nor th e [facility] ab (Internal) : [address] ? ? UR ? UA-urobi normal normal Final [place] l [facility] ab (Internal) : [address] ? ? UR ? UA-bili negative negative Final Nort h [facility] ab (Internal) : [address] ? ? UR ABNORMAL UA-blood moderate negative Final [facility] orth [facility] (Internal) : [address] t 07/20/2017 CMP, Serum S High g/r 113 mg/dL 74-106 Final [place] or Plasma mg/dL [facility] (Internal) : [address] ? ? S ? Bun 20 mg/dL 9-20 Final [place] mg/dL [facility] (Internal) : [address] ? ? S ? Crea 0.90 mg/dL 0.66-1.25 Final [place] mg/dL [facility] (Internal) : [address] t ? ? S ? Ca 9.6 mg/dL 8.4-10.2 Final [place] mg/dL [facility] (Internal) : [address] ? ? S ? Na 140 mmol/L 137-145 Final [place] mmol/L [facility] (Internal) : [address] ? ? S ? K 3.9 mmol/L 3.5-5.1 Final [place] mmol/L [facility] (Internal) : [address] ? ? S ? Cl 105 mmol/L 98-107 Final [place] mmol/L [facility] (Internal) : [address] ? ? S ? Tco2 25.0 22.0-30.0 Final [place] mmol/L mmol/L [facility] (Internal) : [address] t ? ? S ? Tp 7.0 g/dL 6.3-8.2 Final [place] g/dL [facility] (Internal) : [address] t ? ? S ? Alb 4.2 g/dL 3.5-5.0 Final [place] g/dL [facility] (Internal) : [address] ? ? S ? Tbil 0.5 mg/dL 0.2-1.3 Final [place] mg/dL [facility] ab (Internal) : [address] ? ? S ? Alp 93 U/L 50-136 Final [place] U/L [facility] (Internal) : [address] ? ? S ? Alt 39 U/L 21-72 U/L Final [place] (Sgpt) [facility] (Internal) : [address] ? ? S ? Ast 25 U/L 17-59 U/L Final [place] (Sgot) [facility] (Internal) : [address] t 07/20/2017 CBC W/ Auto BLD High Wbc 12.1 5.0-10.0 Final [place] Diff 10*3/uL 10*3/uL [facility] (Internal) : [address] ? ? BLD Low Rbc 4.59 4.60-6.00 Final [place] 10*6/uL 10*6/uL [facility] (Internal) : [address] ? ? BLD ? Hgb 14.9 g/dL 14.0-18.0 Final Nort [facility] g/dL [facility] (Internal) : [address] ? ? BLD ? Hct 43.2 % 41.0-51.0 Final [facility] L ab (Internal) : [address] ? ? BLD ? Mcv 94.1 fL 80.0-96.0 Final [facility] L ab (Internal) : [address] ? ? BLD High Mch 32.5 pg 26.0-32.0 Final [place] pg [facility] ab (Internal) : [address] ? ? BLD ? Mchc 34.5 g/dL 31.0-35.0 Final Nort [place] g/dL [facility] ab (Internal) : [address] ? ? BLD ? Rdw 12.3 % 11.5-14.5 Final [facility] L ab (Internal) : [address] ? ? BLD ? Plt 309 130-450 Final [place] 10*3/uL 10*3/uL [facility] (Internal) : [address], [place] ? ? BLD ? Anc 7.18 ? Final [place] 10*3/uL [facility] ab (Internal) : [address], [place] ? ? BLD ? Neutro 59.2 % 40.0-75.0 Final [facility] ab (Internal) : [address], [place] ? ? BLD ? Lymph 28.4 % 20.0-50.0 Final [facility] ab (Internal) : [address], [place] ? ? BLD ? [place] 8.2 % 2.0-10.0 Final [facility] ab (Internal) : [address], [place] ? ? BLD ? Eos 3.5 % 1.0-6.0 % Final [facility] ab (Internal) : [address], [place] ? ? BLD ? Baso 0.5 % 0.0-1.0 % Final [facility] ab (Internal) : [address], [place] ? ? BLD ? Ig 0.2 % 0.0-0.9 % Final [facility] ab (Internal) : [address] 07/20/2017 Culture, UR ? Final microbiolo ? Final [place] Urine gy results [facility] ab (Internal) : [address] 07/20/2017 Urinalysis, UR ABNORMAL UA-WBC 5-10 [hpf] 0-3 [hpf ] Final [place] Microscopic Count [facility] ab (Internal) : [address] ? ? UR ? UA-RBC 0-2 [hpf] 0-2 [hpf] Final [facility] ab (Internal) : [address], [place] ? ? UR ? UA-bacte rare [hpf] none seen Final [place] jeanette [hpf] [facility] ab (Internal) : [address], [place] ? ? UR ? UA-epith none seen none seen Final N nina elial [hpf] [hpf] [facility] ab (Internal) : [address], [place] ? ? UR ? UA-mucus none seen none seen Final N orth [hpf] [hpf] [facility] ab (Internal) : [address] ? ? UR ? Amorph many [hpf] ? Final [facility] ab (Internal) : [address] ? ? UR ? Ca Ox few [hpf] ? Final [facility] ab (Internal) : [address] 07/20/2017 Urinalysis, UR ? UA-color yellow pale Final [place] Dipstick, yellow [facility] (Internal) : [address] ? ? UR ABNORMAL UA-appea cloudy clear Final [facility] ab (Internal) : [address] ? ? UR ? UA-spec >=1.030 1.003-1.[address] ab (Internal) : [address] ? ? UR ? UA-pH 5.5 [pH] 4.6-8.0 Final [place] [pH] [facility] ab (Internal) : [address] ? ? UR ABNORMAL UA-leuk small negative Final [facility] ab (Internal) : [address] ? ? UR ? UA-nitri negative negative Final [facility] ab (Internal) : [address] ? ? UR ABNORMAL UA-prot trace negative Final [facility] ab (Internal) : [address] ? ? UR ? UA-gluc negative negative Final [facility] ab (Internal) : [address] ? ? UR ? UA-keton negative negative Final [facility] (Internal) : [address] ? ? UR ? UA-urobi normal normal Final [facility] ab (Internal) : [address] ? ? UR ? UA-bili negative negative Final [facility] ab (Internal) : [address] ? ? UR ABNORMAL UA-blood large negative Final [facility] ab (Internal) : [address] t 07/02/2017 Venipuncture BLD ? Venpn* ? ? Final [facility] ab (Internal) : [address] 07/02/2017 Culture, UR ? Final microbiolo ? Final [place] Urine gy results [facility] (Internal) : [address] 07/02/2017 Urinalysis, UR ABNORMAL UA-WBC 5-10 [hpf] 0-3 [hpf ] Final [place] Microscopic Count [facility] ab (Internal) : [address] ? ? UR ABNORMAL UA-RBC 10-25 0-2 [hpf] Final Nort h [hpf] [facility] ab (Internal) : [address] ? ? UR ABNORMAL UA-bacte few [hpf] none seen Final [place] jeanette [hpf] [facility] (Internal) : [address] ? ? UR ABNORMAL UA-epith few [hpf] none seen Final [place] elial [hpf] [facility] (Internal) : [address] ? ? UR ABNORMAL UA-mucus few [hpf] none seen Final [place] [hpf] [facility] ab (Internal) : [address] ? ? UR ? Amorph moderate ? Final [place] [facility] [hpf] [facility] (Internal) : [address] 07/02/2017 Urinalysis, UR ABNORMAL UA-color pink pale Fin al [place] Dipstick, yellow [facility] (Internal) : [address] t ? ? UR ABNORMAL UA-appea hazy clear Final [facility] (Internal) : [address] t ? ? UR ? UA-spec <=1.005 1.003-1.0 Final Nort h Grav 35 [facility] (Internal) : [address] t ? ? UR ? UA-pH 6.0 [pH] 4.6-8.0 Final [place] [pH] [facility] (Internal) : [address] t ? ? UR ABNORMAL UA-leuk small negative Final Nort [facility] Est [facility] (Internal) : [address] t ? ? UR ? UA-nitri negative negative Final Nor th te [facility] (Internal) : [address] t ? ? UR ABNORMAL UA-prot 1+ negative Final [facility] ([facility] : [address] t ? ? UR ? UA-gluc negative negative Final Nort h [facility] (Internal) : [address] t ? ? UR ? UA-keton negative negative Final Nor th e [facility] (Internal) : [address] t ? ? UR ? UA-urobi normal normal Final [facility] (Internal) : [address] t ? ? UR ? UA-bili negative negative Final Nort [facility] (Internal) : [address] t ? ? UR ABNORMAL UA-blood large negative Final [facility] (Internal) : [address] 07/02/2017 Culture, BLD ? Final microbiolo ? Final [place] Blood [facility] (Internal) : [address] 07/02/2017 Influenza NASAL ? Final microbiolo ? Final [place] (A+B) Ag, gy results Cou ntry Qual, Rapid, Hosp [facility] N[facility] (Internal) : [address] t 07/02/2017 Culture, BLD ? Final microbiolo ? Final [place] Blood gy results [facility] (Internal) : [address] 07/02/2017 Lactic Acid, S ? La 1.0 mmol/L 0.7-2.1 Fi nal [place] Blood mmol/L [facility] (Internal) : [address] 07/02/2017 CMP, Serum S High g/r 118 mg/dL 74-106 Final [place] or Plasma mg/dL [facility] (Internal) : [address] t ? ? S ? Bun 15 mg/dL 9-20 Final [place] mg/dL [facility] (Internal) : [address] t ? ? S ? Crea 0.90 mg/dL 0.66-1.25 Final [facility] th mg/dL [facility] (Internal) : [address] t ? ? S ? Ca 9.6 mg/dL 8.4-10.2 Final [place] mg/dL [facility] (Internal) : [address] t ? ? S ? Na 138 mmol/L 137-145 Final [place] mmol/L [facility] ([facility]) : [address] t ? ? S ? K 4.2 mmol/L 3.5-5.1 Final [place] mmol/L [facility] (Internal) : [address] t ? ? S ? Cl 101 mmol/L 98-107 Final [place] mmol/L [facility] (Internal) : [address] t ? ? S ? Tco2 26.0 22.0-30.0 Final [place] mmol/L mmol/L [facility] (Internal) : [address] t ? ? S ? Tp 7.6 g/dL 6.3-8.2 Final [place] g/dL [facility] (Internal) : [address] t ? ? S ? Alb 4.6 g/dL 3.5-5.0 Final [place] g/dL [facility] (Internal) : [address] t ? ? S ? Tbil 1.0 mg/dL 0.2-1.3 Final [place] mg/dL [facility] (Internal[facility] : [address] t ? ? S ? Alp 96 U/L 50-136 Final [place] U/L [facility] (Internal) : [address] t ? ? S ? Alt 33 U/L 21-72 U/L Final [place] (Sgpt) [facility] (Internal[facility] : [address] t ? ? S Low Ast 16 U/L 17-59 U/L Final [place] (Sgot) [facility] (Internal) : [address] t 07/02/2017 CBC W/ Auto BLD High Wbc 13.6 5.0-10.0 Final [place] Diff 10*3/uL 10*3/uL [facility] (Internal) : [address] t ? ? BLD ? Rbc 4.77 4.60-6.00 Final [place] 10*6/uL 10*6/uL [facility] (Internal) : [address] t ? ? BLD ? Hgb 15.7 g/dL 14.0-18.0 Final Nort h g/dL [facility] (Internal) : [address] ? ? BLD ? Hct 45.3 % 41.0-51.0 Final [facility] (Internal) : [address] ? ? BLD ? Mcv 95.0 fL 80.0-96.0 Final [facility] (Internal) : [address] ? ? BLD High Mch 32.9 pg 26.0-32.[address] [facility] (Internal) : [address] ? ? BLD ? Mchc 34.7 g/dL 31.0-35.0 Final Nort h g/dL [facility] (Internal) : [address] ? ? BLD ? Rdw 12.3 % 11.5-14.5 Final [facility] (Internal) : [address] ? ? BLD ? Plt 243 130-450 Final [place] 10*3/uL 10*3/uL [facility] (Internal) : [address] ? ? BLD ? Anc 9.76 ? Final [place] 10*3/uL [facility] (Internal) : [address] ? ? BLD ? Neutro 71.8 % 40.0-75.0 Final [facility] (Internal) : [address] ? ? BLD Low Lymph 17.1 % 20.0-50.0 Final [facility] (Internal) : [address] ? ? BLD ? [place] 6.6 % 2.0-10.0 Final [facility] (Internal) : [address] ? ? BLD ? Eos 3.8 % 1.0-6.0 % Final [facility] (Internal) : [address] ? ? BLD ? Baso 0.4 % 0.0-1.0 % Final [facility] (Internal) : [address] ? ? BLD ? Ig 0.3 % 0.0-0.9 % Final [facility] (Internal) : [address] 11/23/2016 Venipuncture BLD ? Venpn* ? ? Final [facility] (Internal) : [address] 11/23/2016 CBC W/ Auto BLD High Wbc 14.7 5.0-10.0 Final [place] Diff 10*3/uL 10*3/uL [facility] (Internal) : [address] t ? ? BLD ? Rbc 5.17 4.60-6.00 Final [place] 10*6/uL 10*6/uL [facility] (Internal) : [address] t ? ? BLD ? Hgb 16.7 g/dL 14.0-18.0 Final Nort h g/dL [facility] (Internal) : [address] t ? ? BLD ? Hct 47.9 % 41.0-51.0 Final [facility] (Internal) : [address] t ? ? BLD ? Mcv 92.6 fL 80.0-96.0 Final [facility] (Internal) : [address] t ? ? BLD High Mch 32.3 pg 26.0-32.0 Final [facility] (Internal) : [address] t ? ? BLD ? Mchc 34.9 g/dL 31.0-35.0 Final Nort h g/dL [facility] (Internal) : [address] t ? ? BLD ? Rdw 12.9 % 11.5-14.5 Final [facility] (Internal) : [address] t ? ? BLD ? Plt 244 130-450 Final [place] 10*3/uL 10*3/uL [facility] (Internal) : [address] t ? ? BLD ? Anc 10.93 ? Final [place] 10*3/uL [facility] (Internal) : [address] t ? ? BLD ? Neutro 74.5 % 40.0-75.0 Final [facility] (Internal) : [address] t ? ? BLD Low Lymph 16.7 % 20.0-50.0 Final [facility] (Internal) : [address], [place] ? ? BLD ? [place] 6.4 % 2.0-10.0 Final [facility] (Internal) : [address], [place] ? ? BLD ? Eos 1.8 % 1.0-6.0 % Final [facility] (Internal) : [address], [place] ? ? BLD ? Baso 0.3 % 0.0-1.0 % Final [facility] (Internal) : [address], [place] ? ? BLD ? Ig 0.3 % 0.0-0.9 % Final [facility] (Internal) : [address], [place] ? Venipuncture ? Location Right ? ? P _nc Primary [facility] [place]: [address], [place] ? ? ? Needle 21g ? ? P_nc Prim alfred [facility] [place]: [address], [place] ? ? ? Number 1 ? ? P_nc Prim alfred of Care Attempts [place]: [address], [place] ? ? ? Successf Yes ? ? P_nc Pr imary ul Care [place]: [address], [place] ? ? ? Dressing Pressure ? ? P_nc Primary Band-aid Care Applied [place]: [address], [place] ? ? ? Initials hj ? ? P_nc Pr imary Care [place]: [address], [place] ? Venipuncture ? Location Right ? ? P _nc Primary [facility] [place] [facility] [place]: [address], [place] ? ? ? Needle 21g ? ? P_nc Prim alfred [facility] [place]: [address], [place] ? ? ? Number 1 ? ? P_nc Prim alfred of Care Attempts [place]: [address], [place] ? ? ? Successf Yes ? ? P_nc Pr imary ul Care [place] [facility]: [address], [place] ? ? ? Dressing Pressure ? ? P_nc Primary Band-aid Care Applied [place]: [address], [place] ? ? ? Initials hj ? ? P_nc Pr imary Care [place] [facility]: [address], [place] ? Venipuncture ? Location Right ? ? P _nc Primary [facility] [place] [facility]: [address], [place] ? ? ? Needle 21g ? ? P_nc Prim alfred [facility]ut[facility] [place] [facility]: [address], [place] ? ? ? Number 1 ? ? P_nc Prim alfred of Care Attempts [place]: [address], [place] ? ? ? Successf Yes ? ? P_nc Pr imary ul Care [place]: [address], [place] ? ? ? Dressing Pressure ? ? P_nc Primary Band-aid Care Applied [place]: [address], [place] ? ? ? Initials hj ? ? P_nc Pr imary Care [place] [facility]: [address], [place] ? Venipuncture ? Location Right ? ? P _nc Primary [facility] [place] [facility]: [address], [place] ? ? ? Needle 21g ? ? P_nc Prim alfred [facility] [place] [facility]: [address], [place] ? ? ? Number 1 ? ? P_nc Prim alfred of Care Attempts [place]: [address], [place] ? ? ? Successf Yes ? ? P_nc Pr imary ul Care [place] [facility]: [address], [place] ? ? ? Dressing Pressure ? ? P_nc Primary Band-aid Care Applied [place]: [address], [place] ? ? ? Initials hj ? ? P_nc Pr imary Care [place] [facility]: [address], [place] Past Encounters 11/04/2021 Insomnia; Acute ST Segment Elevation Tr cardial Infarction; Anemia; Essential Hypertension; Hypertensive Disorder; Chronic Obstructive Lung Disease; Hyperlipidemia Pedro Luis Flannery MD: [address], [place] [address], Ph. 10/22/2021 Anemia; Essential Hypertension; Hyperlip idemia Pedro Luis Flannery MD: [address] [place] [address], [place] [address], Ph. 06/12/2021 Chronic Obstructive Lung Disease; Dyspne a on Exertion; Tobacco User; Anemia; Active or Passive Immunization Pedro Luis Flannery MD: [address] [place] [address], [place] [address], Ph. 05/13/2021 Dyspnea on Exertion; Fatigue; Anemia; Im paired Glucose Tolerance Pedro Luis Flannery MD: [address] [place] [address], [place] [address], Ph. 09/23/2020 Essential Hypertension; Acute ST Segment Elevation Myocardial Infarction; Hyperlipidemia; Insomnia Pedro Luis Flannery MD: [address] [place] [address], [place] [address], Ph. 09/12/2020 Hyperlipidemia Pedro Luis Flannery MD: [address] [place] [address], [place] [address], Ph. 07/01/2020 Ventricular Tachycardia; Insomnia; Tobac co User Pedro Luis Flannery MD: [address] [place] [address], [place] [address], Ph. Social History Tobacco Smoking Status Former Smoker Notes: Quit in March 2020, He is currently using rupa tene patches. Vaccine List Vaccine Type COVID-19, mRNA, LNP-S, PF, 100 mcg/0.5 m L dose (Moderna) 11/11/2020 12/09/2020 influenza, injectable, quadrivalent, pre servative free 07/08/2018?0.5 mL 06/26/2019 05/21/2020 06/12/2021?0.5 mL Tdap 08/23/2007 Plan of Care Patient Instructions Follow-up as scheduled. Follow-up as scheduled. Reminders Provider Appointments None recorded. ? ? Lab None recorded. ? ? Referral None recorded. ? ? Procedures None recorded. ? ? Surgeries None recorded. ? ? Imaging None recorded. ? ? Vitals 11/04/2021 08:00AM Follow Up 20 Height Weight BMI Blood Pressure 172.72 cm 95.93 kg 32.2 kg/m2 124/78 mm[Hg] 06/12/2021 08:20AM Follow Up 20 Height Weight BMI Blood Pressure 172.72 cm 92.49 kg 31 kg/m2 120/68 mm[Hg] 05/13/2021 02:40PM Follow Up 20 Height Weight BMI Blood Pressure 172.72 cm 91.63 kg 30.7 kg/m2 126/72 mm[Hg] 09/23/2020 03:20PM Follow Up 20 Height Weight BMI Blood Pressure 172.72 cm 90.26 kg 30.3 kg/m2 140/80 mm[Hg] 07/01/2020 03:20PM Follow Up 20 Height Weight BMI Blood Pressure 172.72 cm 83.46 kg 28 kg/m2 120/76 mm[Hg] 05/28/2020 11:00AM Follow Up 20 Height Weight BMI Blood Pressure 172.72 cm 78.61 kg 26.4 kg/m2 116/68 mm[Hg] 05/23/2020 01:20PM Acute 20 Height Weight BMI Blood Pressure 172.72 cm 78.61 kg 26.4 kg/m2 126/68 mm[Hg] 04/30/2020 04:00PM Follow Up 20 Height Weight BMI Blood Pressure 172.72 cm 79.38 kg 26.6 kg/m2 130/80 mm[Hg] 04/18/2020 02:40PM Follow Up 20 Height Weight BMI Blood Pressure 172.72 cm 79.49 kg 26.6 kg/m2 110/74 mm[Hg] 09/19/2019 09:40AM Follow Up 20 Height Weight BMI Blood Pressure 172.72 cm 81.19 kg 27.2 kg/m2 148/68 mm[Hg] 06/26/2019 08:40AM Follow Up 20 Height Blood Pressure 172.72 cm 146/86 mm[Hg] 09/07/2018 12:45PM Office 15 Height 172.72 cm 09/01/2018 03:20PM Follow Up 40 Height Weight BMI Blood Pressure 172.72 cm 82.1 kg 27.5 kg/m2 118/62 mm[Hg] 07/08/2018 02:40PM Acute 20 Weight Blood Pressure 81.19 kg 140/70 mm[Hg] 07/19/2017 Weight Blood Pressure 78.47 kg 122/70 mm[Hg] 12/22/2016 Height Weight Blood Pressure 171.45 cm 76.88 kg 126/66 mm[Hg] 11/27/2016 Weight Blood Pressure 76.66 kg 138/78 mm[Hg] 11/20/2016 Height Weight Blood Pressure 170.18 cm 77.11 kg 136/84 mm[Hg] 10/07/2016 Height Weight Blood Pressure 170.18 cm 76.2 kg 138/82 mm[Hg] 09/09/2016 Height Weight Blood Pressure 170.18 cm 77.11 kg 118/76 mm[Hg] 07/03/2016 Weight Blood Pressure 78.93 kg 134/74 mm[Hg] 01/29/2016 Weight Blood Pressure 77.56 kg 120/70 mm[Hg] 12/24/2015 Height Weight Blood Pressure 170.18 cm 77.56 kg 120/70 mm[Hg] 10/02/2015 Height Weight Blood Pressure 170.18 cm 79.83 kg 162/84 mm[Hg] 09/06/2015 Weight Blood Pressure 79.83 kg 130/80 mm[Hg] 07/12/2015 Weight Blood Pressure 78.02 kg 130/80 mm[Hg] 03/16/2014 Height Weight Blood Pressure 170.18 cm 77.56 kg 136/84 mm[Hg] 12/07/2013 Height Weight Blood Pressure 170.18 cm 77.11 kg 152/70 mm[Hg] 06/08/2013 Height Weight Blood Pressure 170.18 cm 78.47 kg 162/76 mm[Hg] 04/19/2013 Blood Pressure 154/76 mm[Hg] 03/30/2013 Height Weight Blood Pressure 170.18 cm 78.47 kg 158/82 mm[Hg] 01/24/2013 Height Weight Blood Pressure 170.18 cm 78.02 kg 166/94 mm[Hg] 11/28/2012 Height Weight Blood Pressure 170.18 cm 77.56 kg 138/78 mm[Hg] 08/29/2012 Height Weight Blood Pressure 170.18 cm 78.02 kg 132/88 mm[Hg] 07/25/2012 Height Weight Blood Pressure 170.18 cm 75.3 kg 160/98 mm[Hg] 07/11/2012 Height Weight Blood Pressure 144.78 cm 71.21 kg 154/80 mm[Hg] 01/05/2012 Weight Blood Pressure 73.03 kg 176/80 mm[Hg] 12/25/2011 Blood Pressure 184/92 mm[Hg] 11/19/2011 Weight Blood Pressure 78.93 kg 130/70 mm[Hg] 10/30/2011 Weight Blood Pressure 78.93 kg 140/82 mm[Hg] 10/27/2011 Height Weight Blood Pressure 172.72 cm 77.11 kg 148/88 mm[Hg] 10/01/2011 Height Weight Blood Pressure 172.72 cm 79.83 kg 118/74 mm[Hg] 09/10/2011 Height Weight Blood Pressure 172.72 cm 79.83 kg 142/86 mm[Hg] 08/25/2011 Height Weight Blood Pressure 172.72 cm 78.93 kg 136/80 mm[Hg] 08/20/2011 Height Weight Blood Pressure 172.72 cm 78.93 kg 138/90 mm[Hg] 09/19/2010 Weight Blood Pressure 80.74 kg 142/84 mm[Hg] 05/19/2010 Weight Blood Pressure 77.56 kg 130/60 mm[Hg] 03/18/2010 Weight Blood Pressure 75.3 kg 138/68 mm[Hg] 02/25/2010 Weight Blood Pressure 75.3 kg 130/78 mm[Hg] 12/17/2009 Weight Blood Pressure 78.02 kg 138/86 mm[Hg] 10/09/2008 Height Weight 172.72 cm 74.84 kg
--- OUTSIDE RECORDS SUMMARY | 2021-11-30 21:42 | XMS_ITS | Encounter Summary ---
:1965 Author Care Team Providers Name Role Phone Sanjeev Wei MD Primary Care Provider [phone] Lucian Haji General Surgeon [phone] Reason for Visit lab follow-up Assessment and Plan 1. Anemia Recent hospitalization reveale d a drop in his hemoglobin and will follow up with anemia profile and supplement as needed. 06/12/2021: Patient does have folate def iciency with mild anemia with folate supplement to be added to his medical regimen. ? CBC w/ auto diff ? venipuncture 2. Essential hypertension Near goal on therapy with melanie ent to work harder on lifestyle changes. His systolic is elevated today. No change in medical therapy. Consider advancing therapy with ARB or REE inhibitor with his insulin resistance. 09/23/2020: Patient stable on present medi mary regimen and will follow up with cardiology at [facility]. His systolic blood pressure could be decreased somewhat he will work on a truncal weight with diet and exer cise to further reduce systolic blood pr essure. Continue lisinopril and follow- up labs. ? CMP, serum or plasma 3. Hyperlipidemia Patient does have worsening of triglycerides and HDL with truncal weight gain and will work on lifestyle changes for truncal weight loss. Continue present medical regimen for now but consider adv ancing. Consider treatment for insulin resistance if needed. ? lipid panel, serum Discussion Note: None recorded.Patient educational handouts: No information available. Plan of Care Reminders Provider Appointments Follow up 20 Deniz Wei, 02/09/2022 8:40AM Lab CBC W/ Auto [place] Diff 10/22/2021 Hospital Lab (Internal) ? CMP, Serum or [facility] Plasma 10/22/2021 Hospital Lab (Internal) ? [facility], [facility] Serum 10/22/2021 Hospital Lab (Internal) ? Venipuncture P_nc Primary 10/22/2021 Care [facility] Referral None recorded. ? ? Procedures None recorded. ? ? Surgeries None recorded. ? ? Imaging None recorded. ? ? Medications Name Start Date ? ? aspirin 81 mg tablet,delayed release ? TAKE ONE TABLET BY MOUTH EVERY DAY clopidogrel 75 mg tablet ? TAKE ONE TABLET BY MOUTH EVERY DAY folic acid 1 mg tablet ? Take 5 tablets every day by oral route as directed fo r 90 days. lisinopril 20 mg tablet ? Take 1 tablet every day by oral route for 90 days. metoprolol succinate ER 25 mg tablet,extended release 24 hr ? Take 1 tablet every day by oral route as directed for 90 days. metoprolol succinate ER 50 mg tablet,extended release 24 hr ? Take 1 tablet every day by oral route as directed for 90 days. mirtazapine 15 mg tablet ? Take 1 tablet every day by oral route at bedtime for 90 days. nitroglycerin 0.4 mg sublingual tablet ? Place 1 tablet as needed by sublingual route as direc eric for 90 days. NOT to exceed 3 tabs in a 15-minute int erval. CALL 911 if a second NTG tab needs to be taken to address chest pain. Dr. Wei to write refills ProAir HFA 90 mcg/actuation aerosol inhaler ? Inhale 2 puffs every 3 hours by inhalation route as n eeded for 90 days. Pyridium 200 mg tablet 11/10/2021 Take 1 tablet 3 times a day by oral route as needed. rosuvastatin 40 mg tablet ? Take 1 tablet every day by oral route for 90 days. Symbicort 160 mcg-4.5 mcg/actuation HFA aerosol inhale r ? Inhale 2 puffs twice a day by inhalation route as dir ected for 90 days. Notes: Med Rec updated Medications Administered None recorded. Vitals None recorded. Results Lab Results Date Name Specimen Result Interpretation Description Value Range Status Address ? 10/22/2021 CMP, Serum or S High g/r 168 mg/dL 74-106 Fin al [place] Plasma mg/dL [facility] (Internal) : [address] ? ? S ? Bun 17 mg/dL 7-18 Final North mg/dL [facility] (Internal) : [address] t ? ? S ? Crea 1.3 mg/dL 0.7-1.3 Final [place] mg/dL [facility] (Internal) : [address] t ? ? S ? Ca 8.7 mg/dL 8.5-10. Final North 1 mg/dL [facility] ([facility]) : [...] t ? ? S ? Tco2 27.8 mmol/L 21.0-32 Final Nort h .0 [facility] mmol/L Hospital [facility] (Internal) : [address] ? ? S ? Tp 6.9 g/dL 6.4-8.2 Final [facility] g/dL [facility] ([facility] : [address] ? ? S ? Alb 3.8 g/dL 3.4-5.0 Final [facility] g/dL [facility] ([facility] : [address] ? ? S ? Tbil 0.70 mg/dL 0.20-1. Final North 00 [facility] mg/dL Hospital L [facility] (Internal) : [address] ? ? S ? Alp 81 U/L 50-136 Final North U/L [facility] (Internal) : [address] ? ? S ? Alt (Sgpt) 52 U/L 16-63 Final North U/L [facility] (Internal) : [address] ? ? S ? Ast (Sgot) 20 U/L 15-37 Final [facility] U/L [facility] ([facility] : [address] 10/22/2021 Lipid Panel, S ? Chol 121 mg/dL 0-200 Sarah l [facility] Serum mg/dL [facility] ([facility] : [address] ? ? S High Trig 193 mg/dL 0-150 Final [facility] mg/dL [facility] ([facility] : [address] ? ? S Low Hdl 32 mg/dL 40-60 Final [facility] mg/dL [facility] ([facility] : [address] [place] ? ? S ? Ldl 50 mg/dL 0-130 Final [facility] mg/dL [facility] ([facility] : [address] 10/22/2021 CBC W/ Auto BLD ? Wbc 9.0 10*3/uL 5.0-10. Fi nal [place] Diff 0 [facility] 10*3/uL Hospital Lab (Internal) : [address] ? ? BLD Low Rbc 4.27 10*6/uL 4.60-6. Final Nor th 00 [facility] 10*6/uL Hospital Lab (Internal) : [address] ? ? BLD Low Hgb 13.4 g/dL 14.0-18 Final North .0 g/dL [facility] ([facility] : [address] ? ? BLD Low Hct 40.2 % 41.0-51 Final North .0 % [facility] (Internal[facility] : [address] ? ? BLD ? Mcv 94.1 fL 80.0-96 Final North .0 fL [facility] ([facility] : [address], [place] ? ? BLD ? Mch 31.4 pg 26.0-32 Final North .0 pg [facility] ([facility] : [address], [place] ? ? BLD ? Mchc 33.3 g/dL 31.0-35 Final North .0 g/dL [facility] ([facility] : [address], [place] ? ? BLD ? Rdw 12.8 % 11.5-14 Final North .5 % [facility] (Internal[facility] : [address] ? ? BLD ? Plt 217 10*3/uL 130-450 Final Nort h 10*3/uL [facility] (Internal[facility] : [address] ? ? BLD ? Anc 5.79 10*3/uL ? Final Nort h [facility] (Internal) : [address] ? ? BLD ? Nlr 2.64 0.00-3. Final North 20 [facility] ([facility] : [address], [place] ? ? BLD ? Neutro 64.3 % 40.0-75 Final North .0 % [facility] ([facility] : [address] [place] ? ? BLD ? Lymph 24.3 % 20.0-50 Final North .0 % [facility] (Internal[facility] : [address] , [place] ? ? BLD ? Rains 8.6 % 2.0-10. Final North 0 % [facility] ([facility] : [address] [place] ? ? BLD ? Eos 1.8 % 1.0-6.0 Final North % [facility] (Internal[facility] : [address] [place] ? ? BLD ? Baso 0.8 % 0.0-1.0 Final North % [facility] (Internal[facility] : [address] , [place] ? ? BLD ? Ig 0.2 % 0.0-0.9 Final North % [facility] ([facility] : [address], [place] 10/22/2021 Venipuncture ? Location Right ? ? P_nc Primary Antecubital [facility]: [address], [place] ? ? ? Needle 21g ? ? P_nc Prim alfred Vacutainer [facility]: [address], [place] ? ? ? Number of 1 ? ? P_nc P rimary Attempts Care [facility]: [address], [place] ? ? ? Successful Yes ? ? P_nc Primary Care [facility]: [address], [place] ? ? ? Dressing Pressure ? ? P_nc Primary Band-aid Care Applied [facility]: [address], [place] ? ? ? Initials hj ? ? P_nc Pr imary Care [facility]: [address], [place] Allergies Code Code System Name Reaction Severity Onset 29434 RxNorm Atorvastatin Other ? ? 505460 RxNorm Chantix ? ? ? 2551 RxNorm Ciprofloxacin Rash Moderate ? 2670 RxNorm Codeine ? ? ? 06800 RxNorm Oxybutynin ? ? ? 7180 RxNorm Penicillin g ? ? ? 39261 RxNorm Percocet ? ? ? 430694 RxNorm Viagra ? ? ? Problems Name Status Onset Date Source ? Painless Rectal Bleeding Active 07/08/2018 ? Pain in Pelvis Active 06/26/2019 ? Acute ST Segment Elevation Myocardial Active 03/30/2020 ? Infarction History of Cardiac Arrest Active 03/30/2020 ? Anemia Active 04/18/2020 ? Ventricular Tachycardia Active 04/22/2020 ? Insomnia Active 04/30/2020 ? Fatigue Active [...] ? History Hypertensive Disorder Active ? History Calculus of Kidney and Ureter [...] Impaired Glucose Tolerance Active ? Histo ry [place] Lesion of Lung Active ? History Traumatic or Non-traumatic Injury Active ? History Inflammatory Dermatosis Active ? History Primary Malignant Neoplasm of Descended Active ? History Testis Procedures Date Name Performed by ? [...] Surgery Information not avai lable Notes: right Vaccine List Vaccine Type COVID-19, mRNA, LNP-S, PF, 100 mcg/0.5 m L dose (Moderna) 11/11/2020 12/09/2020 influenza, injectable, quadrivalent, pre servative free 07/08/2018?0.5 mL 06/26/2019 05/21/2020 06/12/2021?0.5 mL Tdap 08/23/2007 Social History Tobacco Smoking Status Former Smoker Notes: Quit in March 2020, He is currently usin g nicotene patches. What is your code status? 0 How much tobacco do you chew? none Animal exposure? Y Did the fall result in an injury? N What was the date of your most 05/13/2021 recent tobacco screening? Do you have an advanced N directive? What is your exercise level? None Live alone or with others? with others Notes: Wif e Are you currently employed? Y What is your level of alcohol None consumption? Education 8 Are you passively exposed to Y smoke? Have you used IV drugs? N Are you blind or do you have N Notes: r eading glasses difficulty seeing? Do you feel safe at home? Y How many years have you smoked 40 Notes: 1.5 PPD tobacco? Which of your hands is dominant? Right Language Difficulties No Notes: moldovan Hard of hearing or deaf in one or N both ears? What is your level of caffeine Moderate Notes: 4-5 cups of coffee consumption? 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 Functional Status No Impairment. Past Encounters 10/22/2021 Anemia; Essential Hypertension; Hyperlip idemia Sanjeev Wei MD: [address] [place] [phone], Ph. History of Present Illness None recorded. Review of Systems None recorded. Physical Exam None recorded.
--- OUTSIDE RECORDS SUMMARY | 2021-11-30 21:42 | XMS_ITS | Encounter Summary ---
:1965 Author Care Team Providers Name Role Phone Sanjeev Wei MD Primary Care Provider [phone] Lucian Haji General Surgeon [phone] Reason for Visit chronic care management Assessment and Plan Assessment Note This is a 56-year-old gentleman her e for 1 year medication management. Overall things are stable. No change in medical regimen and follow-up specialty care as scheduled. 1. Insomnia Associated with probable chron ic depression now with patient probably more anxious off nicotine. Start Remeron 15 mg each night and could advance to 30 mg for mood as well. Gently increase exe rcise. Consider counseling. Patient has poor insight into his mood disorder. His is concerned about his depression long-term. He is not suicidal but more in denial. He has an adult child of an alco holic which would respond to better insi ght with counseling. I did discuss this with the and the patient. 07/01/2020: Patient states Remeron is hel ping with sleep and he will continue the same with trial of Benadryl 25 mg and or melatonin 10 mg at night to initiate sleep. We will review this as scheduled early 2020. 11/04/2021: Patient doing well with low-d ose Remeron without change. This could be continued indefinitely with patient having history of depression in the past. No need to advance therapy. ? mirtazapine [address] segment elevation my ocardial infarction Acute Inferoposterolateral NJ with left circumflex stented and loss of left ventricular ejection fraction down to ~40% with CHF now stabilizing on diuretics. He had recurrent discomfort with r adiation of chest pain into his left jaw and arm as he had with his initial NJ and reported to the local ED for evaluation. He was found to have a continued elevation of his troponin but thought that th is would be trending down and represente d his initial event.He also has slight elevation in his creatinine and responded to treatment. He was started on Imdur which will be continued until cardiology re evaluation soon. He does have dyspnea wh ich is slightly worsening but also he is anxious. He did stop smoking after this heart attack in early March and does not plan to restart. He will continue on hi s present medical regimen with cardiolog y follow-up and follow-up at this office as scheduled and sooner if needed. He may need to go through cardiac rehab before returning to work. He needs to work on his financial stressors to decrease and needed stress in his recovery. 04/30/2020: Patient not having recurrent i schemic symptoms but has a ventricular dysrhythmia now treated with defibrillator/pacemaker and patient off of valsartan and torsemide. He will follow-up with car diology as scheduled but mostly electrop hysiologist will be seeing him because of his recent sustained ventricular tachycardia 11/04/2021: Continue present medical ther apy with follow-up [facility] cardiology. ? clopidogrel 75 mg tablet ? nitroglycerin 0.4 mg subli ngual tablet 3. Anemia Recent hospitalization reveale d a drop in his hemoglobin and will follow up with anemia profile and supplement as needed. 06/12/2021: Patient does have folate def iciency with mild anemia with folate supplement to be added to his medical regimen. 11/04/2021: Patient continues to have fol ate deficiency and folic acid will be advanced to 5 mg daily. Follow-up level and adjust accordingly and also consider hemoglobin electrophoresis to evaluate for possible thalassemia. ? folic acid 1 mg tablet ? folate, serum 4. Essential hypertension Near goal on therapy with melanie ent to work harder on lifestyle changes. His systolic is elevated today. No change in medical therapy. Consider advancing therapy with ARB or REE inhibitor with his insulin resistance. 09/23/2020: Patient stable on present medi mary regimen and will follow up with cardiology at [facility]. His systolic blood pressure could be decreased somewhat he will work on a truncal weight with diet and exer cise to further reduce systolic blood pr essure. Continue lisinopril and follow- up labs. 11/04/2021: Patient is at goal even with his truncal weight but still could work on exercise and weight loss. No change in medical therapy. ? lisinopril 20 mg tablet 5. Hypertensive disorder At goal on present medical reg imen without change. Follow-up lab. Continue lifestyle maintenance and continue tobacco cessation. 04/30/2020: Patient blood pressure is slig htly elevated today and he will monitor at home with reinitiation of valsartan if his systolic blood pressure is consistently above 130-135 with monitoring afterw ards to at least keep systolic blood pre ssure above 110. He is off torsemide. 11/04/2021: Patient is at goal on present medical regimen with metoprolol alone. He continues off diuretics. ? metoprolol succinate ER 25 mg tablet,extended release 24 hr ? metoprolol succinate ER 50 mg tablet,extended release 24 hr 6. Chronic obstructive lung dise ase Patient is a smoker now at dys pnea with exertion and most likely having emphysema with some elements of COPD which did respond to bronchodilator. He will be started on controller therapy and rescue therapy per refer to pulmonology at [facility]. 11/04/2021: Patient has not smoked for 2 years but continues to follow with pulmonology as needed and continues inhalers. ? ProAir HFA 90 mcg/actuatio n aerosol inhaler ? Symbicort 160 mcg-4.5 mcg/ actuation HFA aerosol inhaler 7. Hyperlipidemia Patient does have worsening of triglycerides and HDL with truncal weight gain and will work on lifestyle changes for truncal weight loss. Continue present medical regimen for now but consider advancing. Consider treatment for insuli n resistance if needed 11/04/2021: Lipids are at goal with eleva eric triglycerides. Continue statin without change but work on truncal obesity and most likely prediabetic state. ? rosuvastatin 40 mg tablet Discussion Note: None recorded.Patient educational handouts: No information available. Plan of Care Reminders Provider Appointments Follow up 02/09/2022 Sanjeev Wei, 20 8:40AM Lab Folate, 11/04/2021 [facility] Lab (Internal) Referral None ? ? recorded. Procedures None ? ? recorded. Surgeries None ? ? recorded. Imaging None ? ? recorded. Medications Name Start Date ? ? aspirin [...] Rec updated Medications Administered None recorded. Vitals Height Weight BMI Blood Pressure 5 ft 8 in 211 lbs 8 oz 32.2 kg/m2 124/78 mm[Hg] Results Lab Results None recorded. Allergies Code Code System Name Reaction Severity Onset 62322 RxNorm Atorvastatin Other ? ? 440241 RxNorm Chantix ? ? ? 2551 RxNorm Ciprofloxacin Rash Moderate ? 2670 RxNorm Codeine ? ? ? 83646 RxNorm Oxybutynin ? ? ? 5880 RxNorm Penicillin g ? ? ? 69582 RxNorm Percocet ? ? ? 010213 RxNorm Viagra ? ? ? Problems Name [...] Impaired Glucose Tolerance Active ? Histo ry [place] Lesion of Lung Active ? History Traumatic [...] He is currently usin g nicotene patches. Are you currently employed? Y Have you used IV drugs? N Are you blind or do you have N Notes: r eading glasses difficulty seeing? What is your code status? 0 How much tobacco do you chew? none What was the date of your most 05/13/2021 recent tobacco screening? Do you have an advanced N directive? Do you feel safe at home? Y What is your exercise level? None How many years have you smoked 40 Notes: 1.5 PPD tobacco? Did the fall result in an injury? N Live alone or with others? with others Notes: Wif e What is your level of alcohol None consumption? Which of your hands is dominant? Right Animal exposure? Y Education 8 Language Difficulties No Notes: greenlandic Hard of hearing or deaf in one or N both ears? Are you passively exposed to Y smoke? What is your level of caffeine Moderate Notes: 4-5 cups of coffee consumption? 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 Functional Status No Impairment. Past Encounters 11/04/2021 Insomnia; Acute ST Segment Elevation Tr cardial Infarction; Anemia; Essential Hypertension; Hypertensive Disorder; Chronic Obstructive Lung Disease; Hyperlipidemia Sanjeev Wei MD: [address] [place] [phone], Ph. 10/22/2021 Anemia; Essential Hypertension; Hyperlip idemia Sanjeev Wei MD: [address] [place] [phone], Ph. History of Present Illness ? Hyperlipidemia Reported By: Patient HPI: Control: worsening. Current Therapy: currently taking:, last cholesterol level: 121 date:, last LDL l evel: 50 date:, last triglyceride level: 193 date:, last HDL level: 32 da te:. Compliance: noncompliant. Risk Factors: positive family history of p remature arteriosclerotic cardiovascular disease ? Hypertension F/U Reported By: Patient HPI: Medications: taking medicati ons as directed, no side effects from medication; gets checked at cardiac rehab every couple of days. Lifestyle: regular exercise, limiting/avoiding salt. Associated Symptoms: no dizziness, no l ightheadedness, no chest pain, no palpitations, no edema, no c armando pain with exertion, no headache, shortness of breath; does weinberg ve ringing in his ears that comes and goes Note: <div>This is a 56-year-old male here to see provider for chronic care management/medication management..</div>Review of Systems: ROS as noted in the HPI Review of Systems ? Notes: <div>13 point review of syst ems otherwise unrevealing or stable.</div> Physical Exam ? Notes: <p>General Mental Status - A lert. General Appearance - Slightly anxious, Not in acute distress. Orientati on - Oriented X3. Build & Nutrition - Muscular, Obese especially over trunk and Well developed. Posture - Stooped posture. Gait - Mildly antalgic. Stre ngth - Uses hands to rise up from chair. Hydration - Well hydrated. Voice - Sumaya rse.</p><p>Skin General Color - Normal color and Red. Moisture - Dry. Tempera ture - Warm. Texture - Rough. Thickness - Normal thickness. Mobility & Turgor - Normal turgor. Rashes - No Rashes.</p><p>HEENT Head Shape - Normocephalic. Eye Eyeball - Bilateral - No Nystagmus. Sclera/Conjunctiva - Bilater al - Conjunctiva are pink, Not Yellow. Pupil - Bilateral - Direct reaction to light normal, Equal and Round. Nose & Sinuses Nose - Normal.</p><p>Neck Ca rotid Arteries - normal upstroke, No Bruits Present. Neck - Non Tender, Supple, No Masses. Thyroid Gland - Normal size and consistency.</p><p>Chest and Lung Exam reveals - normal excursion with symmetric chest nuñez and no rmal resonance, no flatness or dullness. Inspection Shape - Normal. M ovements - Symmetrical. Accessory muscles - No use of accessory muscles in harmony thing. Palpation of the chest reveals - nontender subcutaneous implanted pacem fidelina/defibrillator left upper chest. Auscultation Breath sounds - Decreased - Both Lung Solis. Bronchovesicular - Both Lung Solis. Adventitious sounds - No Adventitious sounds. Normal expiratory phase with no expiratory wheeze.</ p><p>Cardiovascular Auscultation Rhythm - Regular with normal rate. Heart Soun ds - S1 WNL and S2 WNL, No S3, No S4, no Summation Gallop. Murmurs & Other Hear t Sounds - Auscultation of the heart reveals - No Murmurs.</p><p>Abdomen Inspe ction reveals - No Hernias and No distention. Contour - Obese. Palpation/P ercussion Palpation and Percussion of the abdomen reveal - No palpable hernias , Soft, Non-Tender and No hepatosplenomegaly and No Palpable abdominal masses . Auscultation of the abdomen reveals - Bowel sounds normal and No Abdomin al bruits.</p><p>Peripheral Vascular Upper Extremity Inspection - Bilat eral - Normal - No Clubbing, No Cyanosis, No Edema, Pulses Intact. Lower Extremity Inspection - Bilateral - Loss of hair and Shiny atrophic skin, No Ulcerations, No Varicose veins. Palpation - Dorsalis pedis pulse - Bilat eral - 2+. Posterior tibial pulse - Bilateral - 2+. Edema - Bilateral - No e susan.</p><p>Neurologic evaluation reveals - normal coordination, upper and lowe r extremity deep tendon reflexes intact bilaterally, Muscle Strength is normal and Muscle tone is normal. Cranial Nerves II through XII - Mu sly intact. Sensory Limon Julio Monofilament Testing - Intact (L) and Int act (R) previous exam.</p><p>Neuropsychiatric The patient's mood and affec t are described as - Slight anxious, stable and not depressed. Judgment and Insight - the patient displays appropriate judgment regarding every day activities, judgment is appropriate in social situations, there is a lack of insight concerning matters relevant to self. Speech - monotonous and slow . Thought Processes/Cognitive Function - pressured and appropriate fund of know ledge, no impairment of mcfp memory, no impairment of short term mem ory.</p><p>Musculoskeletal General Movements - Patient has adequate range o f motion. Joints and Muscles - Normal joints and muscles.</p><p>Spine - Loss of lordotic curve but full range of motion no tenderness over the lumbar s pine but slight tenderness over the left SI joint area with some crepitus but no effusion.</p><p>Ankle/Foot Ankle - Movements - Bilateral - No pain and full range of motion right with decreased range of motion left. Deformities - L eft - No deformities (surgical scars well healed).</p><p>Lymphatic Gen eral Description - No Generalized lymphadenopathy.</p>
[2021-11-30 21:54] VITALS: BP 116/63; PULSE 62; O2SAT 98
[2021-11-30 21:55] VITALS: O2SAT 98
[2021-11-30 22:51] VITALS: PULSE 62; TEMP 36.5
[2021-11-30 23:00] VITALS: RESP 16; TEMP 36.5
[2021-11-30] MEDS: HYDROmorphone 2 MG/ML SYR 1 MG IVP (23:34)
[2021-12-01] VITALS (16 sets, daily range): BP systolic 111–127; BP diastolic 61–77; PULSE 61–81; RESP 14–120; TEMP 36.3–36.8; O2SAT 94–100; BMI 30.3
[2021-12-01] MEDS: Lactated Ringers 1,000 ML 100 ML IV ×3 (00:26→20:08)
[2021-12-01] MEDS: Atorvastatin 40 MG TAB 20 MG PO ×2 (00:30→21:27)
[2021-12-01] MEDS: Acetaminophen 325 MG TAB 650 MG PO ×2 (00:31→06:06)
[2021-12-01] MEDS: Metoprolol CR 25 MG TABCR PO ×2 (00:31→21:29)
[2021-12-01] MEDS: Ondansetron 4 MG/2 ML VIAL IVP (00:32)
[2021-12-01] MEDS: Mirtazapine 15 MG TAB PO ×2 (00:33→21:29)
[2021-12-01] MEDS: HYDROmorphone 2 MG/ML SYR 1 MG IVP ×4 (01:09→21:29)
[2021-12-01 02:19] LABS: Source Nasal/Nares
[2021-12-01 02:57] LABS: COVID-19 PCR Negative (Negative)
[2021-12-01 06:52] LABS: HCT 34.9 % (40.0-50.0); HGB 11.6 g/dL (13.5-17.5); MCH 32.2 pg (27.0-33.0); MCHC 33.2 % (32.0-36.0); MCV 96.9 fL (80-95); MPV 9.7 fL (8.0-11.0); Platelet Count 246 10^3/uL (130-400); RDW 12.6 % (11.8-14.1); RDW-SD 44.7 fL
[2021-12-01 07:06] LABS: WBC 14.09 10^3/uL (4.4-10.8)
[2021-12-01 07:31] LABS: Anion Gap 5.6 mmol/L (3-11); CO2 28.4 mmol/L (21.0-32.0); CREATININE 1.4 mg/dL (0.70-1.30); Calcium 8.9 mg/dL (8.5-10.1); Chloride 104 mmol/L (98-107); Estimated GFR 52.42 (mL/min/1.73m2); Glucose 154 mg/dL (74-106); Potassium 4.4 mmol/L (3.5-5.1); Sodium 138 mmol/L (136-145)
[2021-12-01 07:32] LABS: BUN 27 mg/dL (7-18)
[2021-12-01] MEDS: Lisinopril 20 MG TAB PO (08:48)
[2021-12-01] MEDS: Metoprolol CR 50 MG TABCR PO (08:48)
--- NOTE | 2021-12-01 09:11 | INITIAL_ITS ---
- If Service Date Differs Date of service: 12/01/21 Time of Service: 09:11 Care Management Initial Assess REASON FOR HOSPITALIZATION:: Hematuria PAST MEDICAL HISTORY/PAST SURGICAL HISTORY:: All Active Problems (Updated 11/30/21 @ 19:13 by Sanjeev Johnson MD). Hematuria (Acute). Bladder cancer (Acute). Calculus of left kidney (Acute). Malignant neoplasm of posterior wall of urinary bladder (Acute 08/19/16). History of testicular cancer (Acute 07/24/16). Hesitancy of micturition (Acute 08/19/16). Dysuria (Acute 06/07/17). Medical History . CAD (coronary artery disease). x1. Dysuria. Ex-smoker. 03/2020. Hesitancy of micturition. High cholesterol. History of chemotherapy. 2017. History of kidney stones. History of postoperative nausea and vomiting. History of retroperitoneal fibrosis. History of ST elevation myocardial infarction (STEMI). 03/2020. History of testicular cancer. Hx of ventricular tachycardia. Hypertension. ICD (implantable cardioverter-defibrillator) in place. Becky gnant neoplasm of posterior wall of urinary bladder. SOB (shortness of breath) on exertion. Surgical History . H/O cardiac catheterization. History of ankle surgery. Left. History of arthroscopic knee surgery. Right. History of cardiac radiofrequency ablation. 05/30/2020 @ [facility] for V-Tach (status: successful at time of procedure). History of colonoscopy. Hx of lithotripsy. S/P bladder tumor excision with fulguration. Status post radical unilateral orchiectomy PREVIOUS FUNCTIONAL STATUS/SOCIAL/FAMILY SUPPORTS:: Florentin lives in [place] with his Mirela. 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 He drives and is independent at baseline. CURRENT FUNCTIONAL STATUS:: Florentin was lying in bed when JOSE met with him. He is planning on going to the OR later today. Florentin shares that he's been out of work for 3 weeks, and today was supposed to be his first day back. His has been in contact with his employer, and he will need a letter for work. JOSE recommended that he contact his employers HR department to discuss FMLA or other leave options, to alleviate some of Florentin's worries for missing work. ADVANCE DIRECTIVES:: None on file, CM will offer forms. Has patient been provided with info about the portal/API?: Yes Did the patient sign up for the portal?: No CODE STATUS:: Full Code INSURANCE COVERAGE / FINANCIAL ISSUES:: [employer] CURRENT HOME/COMMUNITY SERVICES/EQUIPMENT:: None PRIMARY CARE PHYSICIAN:: Sanjeev Wei POTENTIAL DISCHARGE NEEDS:: Outpatient follow up appointments with PCP and Cam devlin PATIENT/FAMILY EDUCATION NEEDS:: Review discharge instructions, medications, limitations and plan to follow up with community providers. ask me three. ANTICIPATED BARRIERS TO DISCHARGE:: None identified at this time. TRANSPORTATION:: via private vehicle with family. PLAN:: Florentin requires inpatient admission for close monitoring, pain management and surgical intervention. Anticipate Florentin will discharge home via private vehicle with family when medically ready. He will follow up with urology and PCP and discharge plan of care as prescribed.
--- NOTE | 2021-12-01 09:13 | UCONE_ITS ---
Date of service: 12/01/21 Time of Service: 09:14 Assessment and Plan Assessment and plan (1) Clot retention of urine: Status: Acute Assessment and plan: His hematuria and clot retention are related to his postoperative state and anticoagulants. We will go to the OR today for clot evacuation and possible fulguration of any bleeding sites. 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 He underwent TURBT about 3 weeks ago. He is on Plavix chronically and restarted his anticoagulant once his urine cleared postoperatively. He presented to the ED yesterday with gross hematuria and an inability to urinate. A CT scan demonstrated a large amount of clot within the bladder. An irrigating catheter was placed and CBI was begun. the catheter has become occluded several times. Review of Systems Constitutional Constitutional: Denies chills and Denies fever(s) Cardiovascular Cardiovascular: Denies chest pain Respiratory Respiratory: Denies cough and Denies hemoptysis Gastrointestinal Gastrointestinal: Reports abdominal pain Neurologic Neurologic: Denies convulsions and Denies seizure-like activity PFSH All Active Problems (Updated 12/01/21 @ 09:21 by Jeremy Quintero MD) Clot retention of urine (Acute) Hematuria (Acute) Bladder cancer (Acute) Calculus of left kidney (Acute) Malignant neoplasm of posterior wall of urinary bladder (Acute 08/19/16) History of testicular cancer (Acute 07/24/16) Hesitancy of micturition (Acute 08/19/16) Dysuria (Acute 06/07/17) Medical History CAD (coronary artery disease) x1 Dysuria Ex-smoker 03/2020 Hesitancy of micturition High cholesterol History of chemotherapy 2017 History of kidney stones History of postoperative nausea and vomiting History of retroperitoneal fibrosis History of ST elevation myocardial infarction (STEMI) 03/2020 History of testicular cancer Hx of ventricular tachycardia Hypertension 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 of posterior wall of urinary bladder SOB (shortness of breath) on exertion Surgical History H/O cardiac catheterization History of ankle surgery Left History of arthroscopic knee surgery Right History of cardiac radiofrequency ablation 05/30/2020 @ [facility] for V-Tach (status: successful at time of procedure) History of colonoscopy Hx of lithotripsy S/P bladder tumor excision with fulguration Status post radical unilateral orchiectomy Social History Smoking/Tobacco Use Status: Former Tobacco Use Quit Date: 03/23/20 Smoking risk assessment performed?: Yes Alcohol Intake: former Drug use: Never Substance use type: does not use Do you feel safe at home: Yes Do you feel safe in your relationship?: Yes Exam Const General: anxious Other: obrien with pink tinged CBI Neuro General: patient alert, patient awake and patient oriented x3 Results Last Vital Signs Temp 36.3 C L 12/01/21 03:24 Pulse 74 12/01/21 03:24 Resp 16 12/01/21 03:24 BP 123/70 12/01/21 03:24 Pulse Ox 96 12/01/21 03:25 Labs Result diagrams: 12/01/21 06:21 12/01/21 06:21 Labs: Laboratory Results - last 24 hr 11/30/21 11/30/21 11/30/21 13:29 13:49 13:49 WBC 8.39 RBC 4.08 L Hgb 13.0 L Hct 38.4 L MCV 94.1 MCH 31.9 MCHC 33.9 RDW 12.3 Plt Count 275 MPV 9.4 Immature Gran % 0.2 Neutrophils % 72.4 Lymphocytes % 18.2 Monocytes % 7.3 Eosinophils % 1.2 Basophils % 0.7 Nucleated RBC % 0 Absolute Neutrophils 6.07 Absolute Lymphocytes 1.53 Absolute Monocytes 0.61 Absolute Eosinophils 0.10 Absolute Basophils 0.06 PT INR APTT Sodium 140 Potassium 4.3 Chloride 105 Carbon Dioxide 23.2 Anion Gap 11.8 H BUN 18 Creatinine 1.3 Estimated GFR/1.73 m2 57.10 Glucose 126 H Calcium 9.0 Urine Color Red Urine Clarity Cloudy Urine pH 7.0 Ur Specific [place] >= 1.030 H Urine Protein >=300 H Urine Ketones Negative Urine Blood Large H Urine Nitrite Negative Urine Bilirubin Negative Urine Urobilinogen 0.2 Ur Leukocyte Esterase Negative Urine RBC >50 H Urine WBC Ur Epithelial Cells Urine Crystals Urine Bacteria Urine Casts Urine Mucus Ur Culture Indicated? No Urine Glucose 100 COVID-19 Source SARS-CoV-2 (PCR) 11/30/21 12/01/21 12/01/21 13:49 01:20 06:21 WBC RBC Hgb Hct MCV MCH MCHC RDW Plt Count MPV Immature Gran % Neutrophils % Lymphocytes % Monocytes % Eosinophils % Basophils % Nucleated RBC % Absolute Neutrophils Absolute Lymphocytes Absolute Monocytes Absolute Eosinophils Absolute Basophils PT 10.4 INR 1.0 APTT 23.0 Sodium 138 Potassium 4.4 Chloride 104 Carbon Dioxide 28.4 Anion Gap 5.6 BUN 27 H D Creatinine 1.4 H Estimated GFR/1.73 m2 52.42 Glucose 154 H Calcium 8.9 Urine Color Urine Clarity Urine pH Ur Specific [place] Urine Protein Urine Ketones Urine Blood Urine Nitrite Urine Bilirubin Urine Urobilinogen Ur Leukocyte Esterase Urine RBC Urine WBC Ur Epithelial Cells Urine Crystals Urine Bacteria Urine Casts Urine Mucus Ur Culture Indicated? Urine Glucose COVID-19 Source Nasal/Nares SARS-CoV-2 (PCR) Negative 12/01/21 06:21 WBC 14.09 H D RBC 3.60 L Hgb 11.6 L Hct 34.9 L MCV 96.9 H MCH 32.2 MCHC 33.2 RDW 12.6 Plt Count 246 MPV 9.7 Immature Gran % Neutrophils % Lymphocytes % Monocytes % Eosinophils % Basophils % Nucleated RBC % Absolute Neutrophils Absolute Lymphocytes Absolute Monocytes Absolute Eosinophils Absolute Basophils PT INR APTT Sodium Potassium Chloride Carbon Dioxide Anion Gap BUN Creatinine Estimated GFR/1.73 m2 Glucose Calcium Urine Color Urine Clarity Urine pH Ur Specific [place] Urine Protein Urine Ketones Urine Blood Urine Nitrite Urine Bilirubin Urine Urobilinogen Ur Leukocyte Esterase Urine RBC Urine WBC Ur Epithelial Cells Urine Crystals Urine Bacteria Urine Casts Urine Mucus Ur Culture Indicated? Urine Glucose COVID-19 Source SARS-CoV-2 (PCR)
--- NOTE | 2021-12-01 11:36 | W.ANESPRE ---
General Info Date of Service Date Performed: 12/01/21 Height: 5 ft 8 in Weight: 90.4 kg Body Mass Index (BMI): 30.3 Surgical Procedure: Operation Date: 12/01/21 11:40 Proposed Procedure Side Surgeon p Cystoscopy? Clot Evacuation/ Poss. Fulgration Jeremy Quintero MD Actual Procedure Side Surgeon p Cystoscopy W/Clot Evacuation Not Applicable Jeremy Quintero MD Pre-Op Diagnosis Post-Op Diagnosis Clot retention of urine Clot retention of urine Meds Allergies and Home Medications Allergies Allergy/AdvReac Type Severity Reaction Status Date / Time sildenafil citrate Allergy Severe Anaphylaxsi Verified 11/30/21 13:21 [From Viagra] s ciprofloxacin [From Cipro] Allergy Intermediate Other (See Verified 11/30/21 13:21 Comment) Penicillins Allergy Intermediate Rash, Verified 11/30/21 13:21 itching, hives mitomycin AdvReac Severe Pain, Verified 11/30/21 13:21 created bladder stones per pt. oxybutynin AdvReac Severe dry mouth, Verified 11/30/21 13:21 mouth sores, pain oxycodone HCl [From Percocet] AdvReac Intermediate Mood Verified 11/30/21 13:21 behavior Home Medication Medication Instructions Recorded aspirin 81 mg chewable tablet 81 mg PO HS tab-cap 07/24/16 atorvastatin 40 mg tablet 20 mg PO HS tab-cap 07/24/16 clopidogrel 75 mg tablet (Plavix) 75 mg PO DAILY 10/04/20 lisinopril 20 mg tablet 20 mg PO DAILY 10/04/20 metoprolol succinate 100 mg 50 mg PO DAILY tab-cap 10/04/20 tablet,extended release 24 hr metoprolol succinate 25 mg 25 mg PO HS 10/04/20 tablet,extended release 24 hr mirtazapine 15 mg tablet (Remeron) 15 mg PO QHS 10/04/20 Current Visit Medications: Current Medications Generic Name Dose Route Start Last Admin Trade Name Freq PRN Reason Stop Dose Admin Acetaminophen 650 mg 11/30/21 19:16 12/01/21 06:06 Acetaminophen 325 Mg Tab PO 650 mg Q4H PRN PRN Administration Atorvastatin Calcium 20 mg 11/30/21 22:00 12/01/21 00:30 Atorvastatin 40 Mg Tab PO 20 mg HS KEYSHAWN Administration Dimethicone/Zinc Oxide 0 gm 11/30/21 19:16 Chavez Protect Cream 142 Gm Tube TP PRN PRN Hydromorphone HCl 1 mg 11/30/21 22:42 12/01/21 09:11 Hydromorphone 2 Mg/Ml Syr IVP 1 mg Q4H PRN PRN Administration Sodium Chloride 500 mls @ 0 mls/hr 11/30/21 13:22 Saline 500ml Bag IV PRN PRN As Directed Sodium Chloride 500 mls @ 0 mls/hr 11/30/21 17:42 Saline 500ml Bag IV PRN PRN As Directed Ringer's Solution 1,000 mls @ 100 mls/hr 11/30/21 19:30 12/01/21 09:11 IV 100 mls/hr INFUSION KEYSHAWN Administration IV Miscellaneous Supplies 1 each 11/30/21 13:30 Iv Access IV DIRECTED KEYSHAWN IV Miscellaneous Supplies 1 each 11/30/21 17:45 Iv Access IV DIRECTED KEYSHAWN Lisinopril 20 mg 12/01/21 08:30 12/01/21 08:48 Lisinopril 20 Mg Tab PO 20 mg DAILY KEYSHAWN Administration Metoprolol Succinate 25 mg 11/30/21 22:00 12/01/21 00:31 Metoprolol Cr 25 Mg Tabcr PO 25 mg HS KEYSHAWN Administration Metoprolol Succinate 50 mg 12/01/21 08:30 12/01/21 08:48 Metoprolol Cr 50 Mg Tabcr PO 50 mg DAILY KEYSHAWN Administration Mirtazapine 15 mg 11/30/21 22:00 12/01/21 00:33 Mirtazapine 15 Mg Tab PO 15 mg HS KEYSHAWN Administration Ondansetron HCl 4 mg 11/30/21 22:44 12/01/21 00:32 Ondansetron 4 Mg/2 Ml Vial IVP 4 mg Q4H PRN PRN Administration Sodium Chloride 0 ml 11/30/21 13:22 Normal Saline Flush 10 Ml Syr IVP PRN PRN Sodium Chloride 0 ml 11/30/21 17:42 Normal Saline Flush 10 Ml Syr IVP PRN PRN Zolpidem Tartrate 5 mg 11/30/21 19:16 Zolpidem 5 Mg Tab PO HS PRN MAY REPEAT X1 PRN PFSH Active Problems Active Problems: Problem Status Onset Code Clot retention of urine R33.8 Hematuria R31.9 Bladder cancer C67.9 Calculus of left kidney N20.0 Malignant neoplasm of posterior wall of urinary bladder 08/19/16 C67.4 History of testicular cancer 07/24/16 Z85.47 Hesitancy of micturition 08/19/16 R39.11 Dysuria 06/07/17 R30.0 Medical History Medical History CAD (coronary artery disease) x1 Dysuria Ex-smoker 03/2020 Hesitancy of micturition High cholesterol History of chemotherapy 2017 History of kidney stones History of postoperative nausea and vomiting History of retroperitoneal fibrosis History of ST elevation myocardial infarction (STEMI) 03/2020 History of testicular cancer Hx of ventricular tachycardia Hypertension 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 of posterior wall of urinary bladder SOB (shortness of breath) on exertion Medical History Comments:: Top full plate. pt will remove prior to surgery. Pt reports he had a delayed recovery from a previous anesthesia. ICD in place Surgical History Surgical History H/O cardiac catheterization History of ankle surgery Left History of arthroscopic knee surgery Right History of cardiac radiofrequency ablation 05/30/2020 @ [facility] for V-Tach (status: successful at time of procedure) History of colonoscopy Hx of lithotripsy S/P bladder tumor excision with fulguration Status post radical unilateral orchiectomy Tobacco Smoking/Tobacco Use Status: Former Tobacco Use Alcohol Alcohol Intake: former Substance Use Substance use: Never Substance use type: does not use Vital Signs and Lab Results Vital Signs Most Recent Vital Signs in EMR: Most Recent Vital Signs Temp Pulse Resp BP Pulse Ox 36.3 C L 74 16 123/70 96 12/01/21 03:24 12/01/21 03:24 12/01/21 03:24 12/01/21 03:24 12/01/21 03:25 Lab Results Result Diagrams: 12/01/21 06:21 12/01/21 06:21 Blood Type / Crossmatch: No Data to Display Complete Blood Count: White Blood Count 14.09 10^3/uL (4.4-10.8) H 12/01/21 06:21 12/01/21 Red Blood Count 3.60 10^6/uL (4.36-5.78) L 12/01/21 06:12/01/21 Hemoglobin 11.6 g/dL (13.5-17.5) L 12/01/21 06:12/01/21 Hematocrit 34.9 % (40.0-50.0) L 12/01/21 06:12/01/21 Platelet Count 246 10^3/uL (130-400) 12/01/21 06:21 12/01/21 Complete Metabolic Panel: Sodium Level 138 mmol/L (136-145) 12/01/21 06:21 12/01/21 Potassium Level 4.4 mmol/L (3.5-5.1) 12/01/21 06:12/01/21 Chloride Level 104 mmol/L (98-107) 12/01/21 06:12/01/21 Carbon Dioxide Level 28.4 mmol/L (21.0-32.0) 12/01/21 06:12/01/21 Blood Urea Nitrogen 27 mg/dL (7-18) H 12/01/21 06:21 12/01/21 Creatinine 1.4 mg/dL (0.70-1.30) H 12/01/21 06:12/01/21 Estimated GFR/1.73 m2 52.42 (mL/min/1.73m2) 12/01/21 06:21 12/01/21 Calcium Level 8.9 mg/dL (8.5-10.1) 12/01/21 06:12/01/21 Glucose Level 154 mg/dL (74-106) H 12/01/21 06:21 12/01/21 Liver Function Panel: No Data to Display Coagulation Panel: INR International Normalized Ratio 1.0 (0.9-1.1) 11/30/21 13:49 11/30/21 Prothrombin Time 10.4 sec (9.3-11.0) 11/30/21 13:49 11/30/21 Activated Partial Thromboplast Time 23.0 sec (21.0-27.5) 11/30/21 13:49 11/30/21 Cardiac Panel: No Data to Display Arterial Blood Gas: No Data to Display Venous Blood Gas: No Data to Display Pancreas Panel: No Data to Display Thyroid Panel: No Data to Display Infectious Disease: Coronavirus (COVID-19)(PCR) Negative (Negative) 12/01/21 01:20 12/01/21 Coronavirus 2019 Source Nasal/Nares 12/01/21 01:20 12/01/21 Blood Cultures: No Data to Display Toxicology Panel: No Data to Display Imaging and Studies Imaging and Studies Study information below may be from another EMR and interpreted by another provider. Please see original notes in EMR for more complete details. Echocardiogram Summary: 01/2021: LVEF 45-50%, hypokinesis of the inferolateral wall and inferior wall, mild MR. Anesthesia Assessment and Plan Anesthesia History Personal History: PONV Family History: No Family History of Anesthesia Complications Exercise Tolerance Exercise Tolerance: Metabolic Equivalents>4 Pertinent Negatives Pertinent Negatives: No Symptoms of GERD, No Major Cardiovascular Symptoms or Complaints, No Major Pulmonary Symptoms or Complaints and No History of CVA/TIA Cardiac & Pulmonary Exam Cardiac Exam: Normal S1/S2 Heart Sounds Pulmonary Exam: Clear Bilateral Breath Sounds Implantable Cardiac Device Does patient have a Pacemaker or an ICD?: Yes Device Shearer Helper:: Intact Medical MRI XT [id number] Reason for Placement:: V tach Date of Last Device Interrogation:: None Airway Exam Known Difficult Airway: No Mallampati Class: 3 Mouth Opening: Narrow (< 3cm) Thyromental Distance: Greater than 3 cm Neck Range of Motion: Full ROM Neck Circumference: Normal Teeth Condition: Normal Dentition and Removable Dentures/Plates Upper ASA Classification ASA Score: ASA 2 Emergency Case?: No NPO Status NPO Status: NPO Clears >2 hours, Solids >8 hours Anesthesia Plan Resuscitation Status: Full Code Anesthesia Technique: General Anesthesia Airway Planned: Natural Airway Monitors Used: Standard Monitors
[2021-12-01] MEDS: GENTAMICIN 120 MG in Normal Saline 100 ML 200 MG IVPB (12:02)
[2021-12-01] MEDS: Lactated Ringers 1,000 ML 30 ML IV (12:02)
[2021-12-01] MEDS: Lidocaine 2% Jelly 6 ML SYR (12:17)
--- NOTE | 2021-12-01 12:36 | W.PM.OP ---
Date of service: 12/01/21 Time of Service: 12:36 Operative Note Operative Note DATE OF PROCEDURE: 12/01/21 PRE-OP DIAGNOSIS: Clot retention POST-OP DIAGNOSIS: same PROCEDURE: cystoscopy with clot evacuation SURGEON: Jeremy Quintero ANESTHESIA TYPE: General:No Airway Refer to Anesthesia Record ESTIMATED BLOOD LOSS: 5 PATHOLOGY: none sent COMPLICATIONS: None Patient was transported to: PACU Patient's condition: stable Implants: 18 Moroccan irrigating catheter with 10 cc sterile water in balloon Indications: This is a 56-year-old gentleman who has a history of low-grade, noninvasive urothelial cell carcinoma of the bladder. He had undergone a cystoscopy and transurethral resection of bladder tumors approximately 4 weeks ago. He is on Plavix chronically and he restarted the Plavix once his urine became clear following the procedure. He presented to the emergency department with urinary retention. On CT scan, he was found to have a large amount of clot within the bladder. The clots could not be cleared with continuous bladder irrigation. He presents for cystoscopy. Findings: large amount of clot in bladder no active bleeding Procedure Description: Philip was brought to the operating room on 12/01/2021. He was given a dose of preoperative IV antibiotics. After successful induction of general anesthesia without intubation, his indwelling catheter was removed. His genitalia was prepped and draped. 2% Xylocaine jelly was instilled into the urethra to act as a local anesthetic. A 24 Moroccan resectoscope sheath was then passed through the urethra into the bladder. We utilized a visual obturator and a 30 degree lens to inspect the urethral and bladder mucosa. The pendulous, bulbar and membranous urethra appeared normal with no strictures and no active bleeding. The prostatic urethra showed some lateral lobe enlargement but again no active bleeding and no prominent blood vessels. The bladder neck was entered and the large amount of clot was seen within the bladder. The clot was evacuated using a Becki syringe. Once the clot was evacuated, we reinspected the bladder. There was an area on the left lateral wall that was healing from his previous transurethral resection. There was some necrotic tissue adherent but no blood product. No active bleeding was seen throughout the remainder of the bladder. Once all clot had been evacuated, the bladder was filled with irrigant. The resectoscope was removed. An 18 Moroccan irrigating catheter was passed through the urethra into the bladder. The catheter balloon was inflated with 10 cc of sterile water. Continuous bladder irrigation with saline was begun. He was taken to the recovery room in stable condition.
--- NOTE | 2021-12-01 13:18 | W.ANESPOSTOP ---
Postoperative Evaluation Date, Time and Location Date Performed: 12/01/21 Time Performed: 13:20 Patient Location: Intensive Care Unit Vital Signs Most Recent Imported Vital Signs: Most Recent Vital Signs Temp Pulse Resp BP Pulse Ox 36.3 C L 61 16 111/64 100 12/01/21 09:00 12/01/21 12:47 12/01/21 09:00 12/01/21 12:47 12/01/21 09:00 Pain Score Most Recent Pain Score: Most Recent Pain Score Pain Level [bladder spasms\] 6 11/30/21 23:00 Pain Level 7 12/01/21 09:11 Assessment Mental Status: Awake (Alert & Oriented to Patient Baseline) Airway and Respiratory Function: Patent airway with normal (patient baseline) respiratory exam Cardiovascular Function: Hemodynamically Stable Hydration Status: Adequately Hydrated Nausea & Vomiting: No Nausea or Vomiting Pain: Pain is Moderate or Severe Postoperative Pain Management: Pain being addressed with medication Peripheral Nerve Block: Patient did not receive a nerve block
--- NOTE | 2021-12-01 13:47 | W.PM.PROGNOT ---
Date of Service Date of service: 12/01/21 Time of Service: 13:48 Assessment and Plan Assessment and plan (1) Hematuria: Status: Acute Assessment and plan: Hematuria with clots; placed on CBI at time of admission Now s/p cystoscopy; no active bleeding noted. Urine now only with slight tinge of pink. (2) Malignant neoplasm of posterior wall of urinary bladder: Status: Acute Assessment and plan: s/p TURB 3 weeks ago. See hematuria. (3) CAD (coronary artery disease): Assessment and plan: Holding ASA and Plavix. Will d/w Urology regarding restarting. No CP reported. Subjective Subjective Patient reports: no new complaints, feels better, pain is less (suprapubic) and afebrile; denies nausea, vomiting or shortness of breath Exam Const General: cooperative and no acute distress Nutritional Appearance: overweight Orientation: alert and oriented x3 Eyes General: appearance normal, both eyes and all related structures Sclera: sclerae normal Resp Effort & Inspection: normal respiratory effort Auscultation: clear to auscultation bilaterally Cardio Rate: regular rate Rhythm: regular rhythm Heart Sounds: S1 normal and S2 normal GI Palpation: soft, not firm, no guarding and nontender Auscultation: normal bowel sounds Extrem General: no pedal edema and no calf tenderness Objective Last Vital Signs Temp 36.3 C L 12/01/21 09:00 Pulse 61 12/01/21 12:47 Resp 16 12/01/21 09:00 BP 111/64 12/01/21 12:47 Pulse Ox 100 12/01/21 09:00 Laboratory Results - last 24 hr 11/30/21 11/30/21 11/30/21 13:29 13:49 13:49 WBC 8.39 RBC 4.08 L Hgb 13.0 L Hct 38.4 L MCV 94.1 MCH 31.9 MCHC 33.9 RDW 12.3 Plt Count 275 MPV 9.4 Immature Gran % 0.2 Neutrophils % 72.4 Lymphocytes % 18.2 Monocytes % 7.3 Eosinophils % 1.2 Basophils % 0.7 Nucleated RBC % 0 Absolute Neutrophils 6.07 Absolute Lymphocytes 1.53 Absolute Monocytes 0.61 Absolute Eosinophils 0.10 Absolute Basophils 0.06 PT INR APTT Sodium 140 Potassium 4.3 Chloride 105 Carbon Dioxide 23.2 Anion Gap 11.8 H BUN 18 Creatinine 1.3 Estimated GFR/1.73 m2 57.10 Glucose 126 H Calcium 9.0 Urine Color Red Urine Clarity Cloudy Urine pH 7.0 Ur Specific [place] >= 1.030 H Urine Protein >=300 H Urine Ketones Negative Urine Blood Large H Urine Nitrite Negative Urine Bilirubin Negative Urine Urobilinogen 0.2 Ur Leukocyte Esterase Negative Urine RBC >50 H Urine WBC Ur Epithelial Cells Urine Crystals Urine Bacteria Urine Casts Urine Mucus Ur Culture Indicated? No Urine Glucose 100 COVID-19 Source SARS-CoV-2 (PCR) 11/30/21 12/01/21 12/01/21 13:49 01:20 06:21 WBC RBC Hgb Hct MCV MCH MCHC RDW Plt Count MPV Immature Gran % Neutrophils % Lymphocytes % Monocytes % Eosinophils % Basophils % Nucleated RBC % Absolute Neutrophils Absolute Lymphocytes Absolute Monocytes Absolute Eosinophils Absolute Basophils PT 10.4 INR 1.0 APTT 23.0 Sodium 138 Potassium 4.4 Chloride 104 Carbon Dioxide 28.4 Anion Gap 5.6 BUN 27 H D Creatinine 1.4 H Estimated GFR/1.73 m2 52.42 Glucose 154 H Calcium 8.9 Urine Color Urine Clarity Urine pH Ur Specific [place] Urine Protein Urine Ketones Urine Blood Urine Nitrite Urine Bilirubin Urine Urobilinogen Ur Leukocyte Esterase Urine RBC Urine WBC Ur Epithelial Cells Urine Crystals Urine Bacteria Urine Casts Urine Mucus Ur Culture Indicated? Urine Glucose COVID-19 Source Nasal/Nares SARS-CoV-2 (PCR) Negative 12/01/21 06:21 WBC 14.09 H D RBC 3.60 L Hgb 11.6 L Hct 34.9 L MCV 96.9 H MCH 32.2 MCHC 33.2 RDW 12.6 Plt Count 246 MPV 9.7 Immature Gran % Neutrophils % Lymphocytes % Monocytes % Eosinophils % Basophils % Nucleated RBC % Absolute Neutrophils Absolute Lymphocytes Absolute Monocytes Absolute Eosinophils Absolute Basophils PT INR APTT Sodium Potassium Chloride Carbon Dioxide Anion Gap BUN Creatinine Estimated GFR/1.73 m2 Glucose Calcium Urine Color Urine Clarity Urine pH Ur Specific [place] Urine Protein Urine Ketones Urine Blood Urine Nitrite Urine Bilirubin Urine Urobilinogen Ur Leukocyte Esterase Urine RBC Urine WBC Ur Epithelial Cells Urine Crystals Urine Bacteria Urine Casts Urine Mucus Ur Culture Indicated? Urine Glucose COVID-19 Source SARS-CoV-2 (PCR)
[2021-12-01] MEDS: Loperamide 2 MG CAP PO (19:53)
[2021-12-02] MEDS: Lactated Ringers 1,000 ML 100 ML IV (01:44)
[2021-12-02 04:19] VITALS: BP 117/66; PULSE 70
[2021-12-02 04:20] VITALS: BP 117/66; PULSE 73; RESP 18; TEMP 36.6; O2SAT 98
--- NOTE | 2021-12-02 07:11 | NUR.NOTE ---
at 2300, pt stated 5/10 relief from the dilaudid given at 2200 hours.he was happy with 5/10 and wanted to go to sleep. urine was lt yellow clot free all night with irrigation running slow. at 0645, pt stated he felt some clots go through his bladder and urine was found to have small blood clot and urine was pink. The irrigation was sped up and urine cleared and irrigation decreased to a slow rate.
[2021-12-02 07:16] VITALS: BP 122/71; PULSE 68
[2021-12-02 07:35] LABS: HCT 32.4 % (40.0-50.0)
[2021-12-02 07:41] LABS: Anion Gap 6.2 mmol/L (3-11); BUN 27 mg/dL (7-18); CO2 26.8 mmol/L (21.0-32.0); CREATININE 1.3 mg/dL (0.70-1.30); Calcium 8.8 mg/dL (8.5-10.1); Chloride 108 mmol/L (98-107); Glucose 154 mg/dL (74-106); Potassium 4.5 mmol/L (3.5-5.1); Sodium 141 mmol/L (136-145)
[2021-12-02 07:43] VITALS: RESP 16; TEMP 36.4; O2SAT 98
--- NOTE | 2021-12-02 08:36 | PDOC.CMPRO ---
- If Service Date Differs Date of service: 12/02/21 Time of Service: 08:36 Care Management Progress Note S/O: A: 56 year old male admitted to [facility] for Hematuria with surgical intervention P: Florentin requires inpatient admission for close monitoring, pain management and surgical intervention. Anticipate Florentin will discharge home via private vehicle with family when medically ready. He will follow up with urology and PCP and discharge plan of care as prescribed.
[2021-12-02 09:00] VITALS: TEMP 36.2
[2021-12-02] MEDS: Lisinopril 20 MG TAB PO (09:07)
[2021-12-02] MEDS: Metoprolol CR 50 MG TABCR PO (09:07)
[2021-12-02] MEDS: Normal Saline Flush 10 ML SYR IVP (09:08)
[2021-12-02] MEDS: HYDROmorphone 2 MG/ML SYR 1 MG IVP (09:08)
--- NOTE | 2021-12-02 09:15 | NUR.NOTE ---
Nursing Note: Patient reports feeling cold and shaky and tired this morning. This nurse checked glucose level, it was 156 and patient's temperature was 36.2.
--- NOTE | 2021-12-02 09:20 | NUR.NOTE ---
Nursing Note: Patient was covered with several blankets, shade was pull, lights off and door closed so he could get some rest.
--- NOTE | 2021-12-02 10:22 | W.PM.PROGNOT ---
Date of Service Date of service: 12/02/21 Time of Service: 10:23 Assessment and Plan Assessment and plan (1) Clot retention of urine: Status: Acute Assessment and plan: His urine is now clear. I went ahead and removed his catheter to give him a voiding trial. As long as he is able to void, I would expect that he can go home later today. I will ask our hospitalist colleagues to double check and make sure there are no cardiac issues causing his morning jitteriness Subjective Subjective Interval history since last seen: The patient tells me that he feels jittery this morning. He is not having any chest pain or shortness of breath. Exam Narrative Exam Narrative: He is not febrile. His vital signs are stable His irrigation is clear, so I discontinued the irrigant and removed his Laguerre catheter He is awake and alert Objective Last Vital Signs Temp 36.2 C L 12/02/21 09:00 Pulse 68 12/02/21 07:16 Resp 16 12/02/21 07:43 BP 122/71 12/02/21 07:16 Pulse Ox 98 12/02/21 07:43 Laboratory Results - last 24 hr 12/02/21 12/02/21 07:30 07:30 Hgb 11.0 L Hct 32.4 L Sodium 141 Potassium 4.5 Chloride 108 H Carbon Dioxide 26.8 Anion Gap 6.2 BUN 27 H Creatinine 1.3 Estimated GFR/1.73 m2 57.10 Glucose 154 H Calcium 8.8
--- NOTE | 2021-12-02 10:32 | DSE_ITS ---
Date of service: 12/02/21 Time of Service: 10:33 DS: Diagnosis Discharge Diagnosis (1) Clot retention of urine: Status: Acute Discharge Plan Disposition Patient Disposition: HOME Condition: Stable Discharge Details Reason For Visit: Hematuria Admit Date/Time: 11/30/21 19:17 Admit Provider: Sanjeev Johnson Attending Provider: Jeremy Quintero Primary Care Provider: Sanjeev Wei Hospital Course Hospital Course: The patient was admitted with clot retention. Initially, an irrigating catheter was placed and continuous bladder irrigation was maintained. We were unable to clear his clots with bladder irrigation, so he was taken to the operating room on 12/01/2021. He underwent cystoscopy and clot evacuation. No active bleeding was seen. Once the clots were evacuated, and the catheter was replaced and bladder irrigation was maintained overnight. By the following morning, his irrigant remained clear and his catheter was removed. He will be discharged to home as long as he is voiding with no difficulty. Home Meds and New Rx's Prescriptions: New hydromorphone [Dilaudid] 2 mg tablet 2 - 4 mg PO Q6H MDD 8 PRN (Reason: pain) Qty: 15 0RF phenazopyridine [Pyridium] 200 mg tablet 200 mg PO TID PRN (Reason: pain) Qty: 15 0RF No Action atorvastatin 40 MG tablet 20 mg PO HS 0RF aspirin 81 MG tablet,chewable 81 mg PO HS 0RF clopidogrel [Plavix] 75 mg tablet 75 mg PO DAILY 0RF metoprolol succinate 100 mg tablet extended release 24 hr 50 mg PO DAILY 0RF lisinopril 20 mg tablet 20 mg PO DAILY 0RF metoprolol succinate 25 mg tablet extended release 24 hr 25 mg PO HS 0RF mirtazapine [Remeron] 15 mg tablet 15 mg PO QHS 0RF Discharge Instructions Additional Instructions: hold Plavix for 1 to 2 days to make sure urine remains clear - then restart Plavix at previous dose no lifting over 10 pounds for 1 week call my office with progress report in @ 2 weeks - no in person appt needed Activity:: no lifting over 10 pounds Equipment/Supplies:: No Equipment Needed Diet:: As Tolerated Discharge Orders Discharge Orders: Discharge Order (Routine); Ordered 12/02/21 Ordered By: Jeremy Quintero Discharge Data Discharge Comment: please make sure discharge is OK with hospitalists DS: Summary Time Spent with Patient providing and/or coordinating discharge services: Greater than 30 minutes Status at Discharge Functional status at discharge: independent ambulation Overall status at discharge: patient is progressing back to baseline Mental Status: mental status grossly normal Speech and Movement: speech and movement normal Mood: congruent mood Affect: normal affect Exam Narrative Exam Narrative: On the morning of discharge, the patient does not appear septic or toxic His vital signs are documented elsewhere His lungs are clear His abdomen is soft with no guarding or rebound tenderness He is awake and alert His catheter is been successfully removed. Psych Mental Status: mental status grossly normal Speech and Movement: speech and movement normal Mood: congruent mood Affect: normal affect DS: Data Vitals/I&O Vitals and I&O: Vital Signs Temperature 36.2 C L 12/02/21 09:00 Temperature Source Temporal Artery Scan 12/02/21 09:00 Pulse 68 12/02/21 07:16 Pulse Rhythm Regular 12/02/21 07:30 Respiratory Rate 16 12/02/21 07:43 Respiratory Effort Non-Labored 12/02/21 07:30 Respiratory Depth Normal 12/02/21 07:30 Respiratory Pattern Normal 12/02/21 07:30 Blood Pressure 122/71 12/02/21 07:16 Blood Pressure Mean 83 12/02/21 07:16 Blood Pressure Position Supine 12/01/21 19:00 Pulse Oximetry 98 12/02/21 07:43 Oxygen Delivery Method Room Air 12/02/21 07:43 Oxygen Flow Rate 0 12/02/21 07:43 Pain Level 4 12/02/21 10:08 Intake & Output 12/01/21 12/01/21 12/02/21 11:59 23:59 11:59 Intake Total 1183.333 / 2470.000 1286.667 / 2470.000 1652 / 1652 Output Total 575 / 1500 925 / 1500 1775 / 1775 Balance 608.333 / 970.000 361.667 / 970.000 -123 / -123 Weight 90.4 kg 84.7 kg Intake: IV 1123.333 / 2410.000 1286.667 / 2410.000 1412 / 1412 Oral 60 / 60 240 / 240 Output: Urine 575 / 1500 925 / 1500 1775 / 1775 Other: Urine Color Cesar [place]avez Pale Cesar [place] Yellow Urine Appearance Clear Clear Hematuria Clots Comment pain controlled with Dilaudid 2mg two very small (approx 0.25cm) clots noted in bag Patient did care by himself due to pain. Stool Occult Blood Negative Stool Size Moderate Stool Characteristics Liquid Data Completed and Pending Labs on day of discharge: Labs from last 24 hours 12/02/21 12/02/21 07:30 07:30 Hgb 11.0 L Hct 32.4 L Sodium 141 Potassium 4.5 Chloride 108 H Carbon Dioxide 26.8 Anion Gap 6.2 BUN 27 H Creatinine 1.3 Estimated GFR/1.73 m2 57.10 Glucose 154 H Calcium 8.8 PFSH All Active Problems Clot retention of urine (Acute) Hematuria (Acute) Bladder cancer (Acute) Calculus of left kidney (Acute) Malignant neoplasm of posterior wall of urinary bladder (Acute 08/19/16) History of testicular cancer (Acute 07/24/16) Hesitancy of micturition (Acute 08/19/16) Dysuria (Acute 06/07/17) Medical History CAD (coronary artery disease) x1 Dysuria Ex-smoker 03/2020 Hesitancy of micturition High cholesterol History of chemotherapy 2017 History of kidney stones History of postoperative nausea and vomiting History of retroperitoneal fibrosis History of ST elevation myocardial infarction (STEMI) 03/2020 History of testicular cancer Hx of ventricular tachycardia Hypertension 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 of posterior wall of urinary bladder SOB (shortness of breath) on exertion Surgical History H/O cardiac catheterization History of ankle surgery Left History of arthroscopic knee surgery Right History of cardiac radiofrequency ablation 05/30/2020 @ [facility] for V-Tach (status: successful at time of procedure) History of colonoscopy Hx of lithotripsy S/P bladder tumor excision with fulguration Status post radical unilateral orchiectomy Social History Smoking/Tobacco Use Status: Former Tobacco Use Quit Date: 03/23/20 Smoking risk assessment performed?: Yes Alcohol Intake: former Drug use: Never Substance use type: does not use Do you feel safe at home: Yes Do you feel safe in your relationship?: Yes
--- NOTE | 2021-12-02 11:12 | PDOC.CMDIS ---
- If Service Date Differs Date of service: 12/02/21 Time of Service: 11:12 LACE Index Scoring Tool - Questions: Length of Stay (in days): 2 Acuity (Admit via E.D.?): Yes Comorbidities: Previous M.I., Any Tumor, Metastatic Solid Tumor E.D. Visits: 1 - Answers: Total Score: 11 Risk of Readmission: High Risk Care Management Discharge Reason for Hospitalization: Hematuria Discharge Plan: Discharge home via private vehicle with family. Follow up with community providers and discharge plan of care as prescribed. Dr. Quintero provided pt with a return to work letter, which outlines return to work date, limitations and restrictions. No [facility] services are indicated at this time. Patient/Family Education Needs: Review discharge instructions, limitations, medications and plan to follow up with PCP and Urology. ask me three.
== END 2021-12-02 13:55 | disposition home or self-care (01) ==
LOC: ER 18:43 → ICU 22:27
PROVIDERS: Family Medicine; Admitting Provider General Practice; Emergency Provider Emergency Medicine; PCP Family Medicine; Visit Provider Urology
PROC: 0TBB8ZZ Excision of Bladder, Via Natural or Artificial Opening Endoscopic (ICD-10-PCS; CPT 52001; principal; 2021-12-01 11:30)
DX: R31.0 Gross hematuria; R33.9 Retention of urine, unspecified; N32.89 Other specified disorders of bladder; C67.4 Malignant neoplasm of posterior wall of bladder; Z20.822 Contact with and (suspected) exposure to COVID-19; Z85.47 Personal history of malignant neoplasm of testis; I25.10 Atherosclerotic heart disease of native coronary artery without angina pectoris; Z87.891 Personal history of nicotine dependence; E78.00 Pure hypercholesterolemia, unspecified; N20.0 Calculus of kidney; I10 Essential (primary) hypertension; Z95.810 Presence of automatic (implantable) cardiac defibrillator; Z79.01 Long term (current) use of anticoagulants
CPT/HCPCS: 52001; 36415; 36416; 51701; 80048; 82962; 85027; 87635; 96365; 96366; 96374; 96375; 96376; 99285; 74176; 81003; 81015; 85014; 85018; 85025; 85610; 85730; 99219; 99225; G0378; J0131; J1100; J1170; J1580; J1885; J2001; J2405

== ENCOUNTER 2021-12-30 19:54 | Outpatient (REF) | payer BC, SELFPAY | END 2021-12-30 19:55 | disposition home or self-care (01) | LOC: LBN 19:54 | PROVIDERS: PCP Family Medicine; Visit Provider Urology | DX: R30.0 Dysuria (principal); C67.9 Malignant neoplasm of bladder, unspecified | CPT/HCPCS: 87086 ==

== ENCOUNTER 2022-08-10 07:15 | Day surgery (SDC) | payer BC, SELFPAY ==
[2022-08-10 07:32] VITALS: BP 142/78; PULSE 53; RESP 18; TEMP 36.6; O2SAT 98
--- NOTE | 2022-08-10 07:57 | ANES.PREOP_ITS ---
General Info Date of Service Date Performed: 08/10/22 Height: 5 ft 8 in Weight: 93.9 kg Body Mass Index (BMI): 31.4 Surgical Procedure: Operation Date: 08/10/22 08:55 Proposed Procedure Side Surgeon p Cystoscopy w/Transurethral Resection Bladder Tumor Jeremy Quintero MD Meds Allergies and Home Medications Allergies Allergy/AdvReac Type Severity Reaction Status Date / Time sildenafil citrate Allergy Severe Anaphylaxsi Verified 08/10/22 07:26 [From Viagra] s ciprofloxacin [From Cipro] Allergy Intermediate Other (See Verified 08/10/22 07:26 Comment) Penicillins Allergy Intermediate Rash, Verified 08/10/22 07:26 itching, hives mitomycin AdvReac Severe Pain, Verified 08/10/22 07:26 created bladder stones per pt. oxybutynin AdvReac Severe dry mouth, Verified 08/10/22 07:26 mouth sores, pain oxycodone HCl [From Percocet] AdvReac Intermediate Mood Verified 08/10/22 07:26 behavior Home Medication Medication Instructions Recorded aspirin 81 mg chewable tablet 81 mg PO HS 07/24/16 clopidogrel 75 mg tablet (Plavix) 75 mg PO DAILY 10/04/20 lisinopril 20 mg tablet 20 mg PO DAILY 10/04/20 metoprolol succinate 100 mg 50 mg PO DAILY 10/04/20 tablet,extended release 24 hr metoprolol succinate 25 mg 25 mg PO HS 10/04/20 tablet,extended release 24 hr mirtazapine 15 mg tablet (Remeron) 15 mg PO QHS 10/04/20 mirabegron 25 mg tablet,extended 25 mg PO DAILY #28 tabs 12/30/21 release 24 hr (Myrbetriq) sulfamethoxazole 800 1 tab PO Q12H #14 tabs 12/30/21 mg-trimethoprim 160 mg tablet rosuvastatin 40 mg tablet 40 tab PO DAILY 08/06/22 Current Visit Medications: Current Medications Generic Name Dose Route Start Last Admin Trade Name Freq PRN Reason Stop Dose Admin Ringer's Solution 1,000 mls @ 80 mls/hr 08/10/22 06:00 IV 09/06/22 23:59 INFUSION KEYSHAWN Gentamicin Sulfate 120 mg/ 103 mls @ 206 mls/hr 08/10/22 06:00 Sodium Chloride IVPB 08/10/22 18:00 PREOP KEYSHAWN IV Miscellaneous Supplies 1 each 08/10/22 06:00 Iv Access IV 09/06/22 23:59 DIRECTED KEYSHAWN Sodium Chloride 0 ml 08/10/22 06:00 Normal Saline Flush 10 Ml Syr IV 09/06/22 23:59 PRN PRN Sodium Chloride 0 ml 08/10/22 06:00 Normal Saline 10 Ml Vial IJ 09/06/22 23:59 DIRECTED PRN Sterile Water 0 ml 08/10/22 06:00 Water,Injection,Sterile 10 Ml Vial IJ 09/06/22 23:59 DIRECTED PRN PFSH Active Problems Active Problems: Problem Status Onset Code Bladder cancer C67.9 Calculus of left kidney N20.0 History of testicular cancer 07/24/16 Z85.47 Hesitancy of micturition 08/19/16 R39.11 Dysuria 06/07/17 R30.0 Medical History Medical History CAD (coronary artery disease) x1 Dysuria Ex-smoker 03/2020 Hesitancy of micturition High cholesterol History of chemotherapy 2017 History of kidney stones History of postoperative nausea and vomiting History of retroperitoneal fibrosis History of ST elevation myocardial infarction (STEMI) 03/2020 History of testicular cancer Hx of ventricular tachycardia Hypertension 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 of posterior wall of urinary bladder SOB (shortness of breath) on exertion Medical History Comments:: Top full plate. pt will remove prior to surgery. Pt reports he had a delayed recovery from a previous anesthesia. ICD in place Surgical History Surgical History H/O cardiac catheterization History of ankle surgery Left History of arthroscopic knee surgery Right History of cardiac radiofrequency ablation 05/30/2020 @ [facility] for V-Tach (status: successful at time of procedure) History of colonoscopy Hx of lithotripsy S/P bladder tumor excision with fulguration Status post radical unilateral orchiectomy Tobacco Smoking/Tobacco Use Status: Former Tobacco Use Alcohol Alcohol Intake: former Substance Use Substance use: Never Substance use type: does not use Vital Signs and Lab Results Vital Signs Most Recent Vital Signs in EMR: Most Recent Vital Signs Temp Pulse Resp BP Pulse Ox 36.6 C 53 L 18 142/78 H 98 08/10/22 07:32 08/10/22 07:32 08/10/22 07:32 08/10/22 07:32 08/10/22 07:32 Lab Results Blood Type / Crossmatch: No Data to Display Complete Blood Count: No Data to Display Complete Metabolic Panel: No Data to Display Liver Function Panel: No Data to Display Coagulation Panel: No Data to Display Cardiac Panel: No Data to Display Arterial Blood Gas: No Data to Display Venous Blood Gas: No Data to Display Pancreas Panel: No Data to Display Thyroid Panel: No Data to Display Infectious Disease: No Data to Display Blood Cultures: No Data to Display Toxicology Panel: No Data to Display Imaging and Studies Imaging and Studies Study information below may be from another EMR and interpreted by another provider. Please see original notes in EMR for more complete details. Echocardiogram Summary: 01/2021: LVEF 45-50%, hypokinesis of the inferolateral wall and inferior wall, mild MR. Anesthesia Assessment and Plan Anesthesia History Personal History: PONV Family History: No Family History of Anesthesia Complications Exercise Tolerance Exercise Tolerance: Metabolic Equivalents>4 Pertinent Negatives Pertinent Negatives: No Symptoms of GERD, No Major Cardiovascular Symptoms or Complaints, No Major Pulmonary Symptoms or Complaints and No History of CVA/TIA Cardiac & Pulmonary Exam Cardiac Exam: Normal S1/S2 Heart Sounds Pulmonary Exam: Clear Bilateral Breath Sounds Implantable Cardiac Device Does patient have a Pacemaker or an ICD?: Yes Device Public Aid Eligibility Assistant:: [employer] Reason for Placement:: [employer] Date of Last Device Interrogation:: 07/2021 Airway Exam Known Difficult Airway: No Mallampati Class: 3 Mouth Opening: Narrow (< 3cm) Thyromental Distance: Greater than 3 cm Neck Range of Motion: Full ROM Neck Circumference: Normal Teeth Condition: Normal Dentition and Removable Dentures/Plates Upper ASA Classification ASA Score: ASA 2 Emergency Case?: No NPO Status NPO Status: NPO Clears >2 hours, Solids >8 hours Anesthesia Plan Resuscitation Status: Full Code Anesthesia Technique: General Anesthesia Airway Planned: Natural Airway Monitors Used: Standard Monitors Preoperative Comments:: Hx of chronic pain post procedures. Occasionally requires left TAP block for post op pain. Consented for rescue block PRN
--- NOTE | 2022-08-10 08:24 | HPE_ITS ---
Date of service: 08/10/22 Time of Service: 08:24 Assessment and Plan Assessment and plan (1) Bladder cancer: Status: Acute Assessment and plan: We will plan a cystoscopy and TUR bladder tumor. We will no instill chemotherapy as he has been unable to tolerate these treatments previously. History of Present Illness History of Present Illness Chief Complaint: Bladder cancer Narrative: This is a 57 year old man who has a history of urothelial cell carcinoma of the bladder. His initial diagnosis was made in 2016. His tumors have been noninvasive. Most recently, his tumors have been low- grade. He has been unable to tolerate intravesical chemotherapy. He presents f or cystoscopy with transurethral resection of any visible tumor. He has no dysuria or gross hematuria. Review of Systems Narrative: No fevers or chills No vision change or dysphasia No diabetes or thyroid No shortness of breath, cough or hemoptysis No chest pain or palpitations No nausea, vomiting, hepatitis, ulcers, jaundice, diarrhea or constipation No seizures, strokes or peripheral neuropathy No bleeding disorders or anemia No gout PFSH All Active Problems Bladder cancer (Acute) Calculus of left kidney (Acute) History of testicular cancer (Acute 07/24/16) Hesitancy of micturition (Acute 08/19/16) Dysuria (Acute 06/07/17) Medical History CAD (coronary artery disease) x1 Dysuria Ex-smoker 03/2020 Hesitancy of micturition High cholesterol History of chemotherapy 2017 History of kidney stones History of postoperative nausea and vomiting History of retroperitoneal fibrosis History of ST elevation myocardial infarction (STEMI) 03/2020 History of testicular cancer Hx of ventricular tachycardia Hypertension 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 of posterior wall of urinary bladder SOB (shortness of breath) on exertion Surgical History H/O cardiac catheterization History of ankle surgery Left History of arthroscopic knee surgery Right History of cardiac radiofrequency ablation 05/30/2020 @ [facility] for V-Tach (status: successful at time of procedure) History of colonoscopy Hx of lithotripsy S/P bladder tumor excision with fulguration Status post radical unilateral orchiectomy Social History Smoking/Tobacco Use Status: Former Tobacco Use Quit Date: 03/23/20 Smoking risk assessment performed?: Yes Alcohol Intake: former Drug use: Never Substance use type: does not use Do you feel safe at home: Yes Do you feel safe in your relationship?: Yes Meds Allergies and Home Medications Allergies Allergy/AdvReac Type Severity Reaction Status Date / Time sildenafil citrate Allergy Severe Anaphylaxsi Verified 08/10/22 07:26 [From Viagra] s ciprofloxacin [From Cipro] Allergy Intermediate Other (See Verified 08/10/22 07:26 Comment) Penicillins Allergy Intermediate Rash, Verified 08/10/22 07:26 itching, hives mitomycin AdvReac Severe Pain, Verified 08/10/22 07:26 created bladder stones per pt. oxybutynin AdvReac Severe dry mouth, Verified 08/10/22 07:26 mouth sores, pain oxycodone HCl [From Percocet] AdvReac Intermediate Mood Verified 08/10/22 07:26 behavior Home Medications Medication Instructions Recorded Confirmed Type aspirin 81 mg chewable tablet 81 mg PO HS 07/24/16 08/10/22 History clopidogrel 75 mg tablet (Plavix) 75 mg PO DAILY 10/04/20 08/10/22 History lisinopril 20 mg tablet 20 mg PO DAILY 10/04/20 08/10/22 History metoprolol succinate 100 mg 50 mg PO DAILY 10/04/20 08/10/22 History tablet,extended release 24 hr metoprolol succinate 25 mg 25 mg PO HS 10/04/20 08/10/22 History tablet,extended release 24 hr mirtazapine 15 mg tablet (Remeron) 15 mg PO QHS 10/04/20 08/10/22 History mirabegron 25 mg tablet,extended 25 mg PO DAILY #28 tabs 12/30/21 12/30/21 Rx release 24 hr (Myrbetriq) sulfamethoxazole 800 1 tab PO Q12H #14 tabs 22 12/30/21 Rx mg-trimethoprim 160 mg tablet rosuvastatin 40 mg tablet 40 tab PO DAILY 08/06/22 08/10/22 History Exam Const General: cooperative Neck Neck: supple Resp Effort & Inspection: normal respiratory effort Auscultation: clear to auscultation bilaterally Cardio Rate: regular rate Rhythm: regular rhythm GI Inspection: normal to inspection Palpation: soft Neuro General: patient alert, patient awake and patient oriented x3 Results Last Vital Signs Temp 36.6 C 08/10/22 07:32 Pulse 53 L 08/10/22 07:32 Resp 18 08/10/22 07:32 BP 142/78 H 08/10/22 07:32 Pulse Ox 98 08/10/22 07:32
[2022-08-10] MEDS: Lactated Ringers 1,000 ML 80 ML IV (08:35)
[2022-08-10] MEDS: GENTAMICIN 120 MG in Normal Saline 100 ML 206 MG IVPB (08:58)
[2022-08-10] MEDS: Lidocaine 2% Jelly 6 ML SYR (09:00)
[2022-08-10 09:10] VITALS: BMI 31.4
--- NOTE | 2022-08-10 09:15 | BLADDER_PTH ---
PATIENT: Florentin Castillo LOC: [facility] U#:[id number] AGE/SX: 57/M ROOM: RE08/10/[address]: Jeremy Quintero MD : 1965 BED: DIS: 08/10/2022 SPEC #: [id number] RECD: 08/10/22 12:15 STATUS: BRANDI REQ #: [id number] RICO: 08/10/22 09:[address]: Jeremy Quintero DEPT: Surgical Specimen RECD BY: Yusra Malik ENTERED: 08/10/22 12:16 SP TYPE: Bladder OTHR DR: Sanjeev Wei Tissues: 1 - BLADDER BIOPSY Procedures: GROSS AND MICRO LEVEL 4 Comments: [id number]
--- NOTE | 2022-08-10 09:24 | W.PM.DSUDISC ---
Date of service: 08/10/22 Time of Service: 09:25 Discharge Plan Disposition Patient Disposition: Home Condition: Good Discharge Details Reason For Visit: cystoscopy Attending Provider: Jeremy Quintero Primary Care Provider: Sanjeev Wei Home Meds and New Rx's Prescriptions: No Action sulfamethoxazole-trimethoprim 800-160 mg tablet 1 tab PO Q12H Qty: 14 0RF Myrbetriq 25 mg tablet extended release 24 hr 25 mg PO DAILY Qty: 28 0RF aspirin 81 MG tablet,chewable 81 mg PO HS clopidogrel [Plavix] 75 mg tablet 75 mg PO DAILY metoprolol succinate 100 mg tablet extended release 24 hr 50 mg PO DAILY lisinopril 20 mg tablet 20 mg PO DAILY metoprolol succinate 25 mg tablet extended release 24 hr 25 mg PO HS mirtazapine [Remeron] 15 mg tablet 15 mg PO QHS rosuvastatin 40 mg tablet 40 tab PO DAILY Label Comments: TAKE ONE TABLET BY MOUTH EVERY DAY Discharge Instructions Additional Instructions: followup 1 to 2 weeks for pathology result (can be done by phone) OK to restart all home meds 08/11 Activity:: Activity as Tolerated Shower/Bathe:: 24 hours Diet:: As Tolerated Discharge Orders Discharge Orders: Discharge Order (Routine); Ordered 08/10/22 Ordered By: Jeremy Quintero DS: Diagnosis Discharge Diagnosis (1) Bladder cancer: Status: Acute
--- NOTE | 2022-08-10 09:26 | ROE_ITS ---
Date of service: 08/10/22 Time of Service: 09:27 Operative Note Operative Note DATE OF PROCEDURE: 08/10/22 PRE-OP DIAGNOSIS: Bladder cancer POST-OP DIAGNOSIS: same PROCEDURE: cystoscopy, TUR bladder tumor SURGEON: Jeremy Quintero ANESTHESIA TYPE: General:No Airway Refer to Anesthesia Record ESTIMATED BLOOD LOSS: 10 PATHOLOGY: other (bladder tumor) COMPLICATIONS: None Patient was transported to: same day Patient's condition: stable Indications: This is a 57-year-old gentleman who has a history of noninvasive urothelial cell carcinoma of the bladder. His most recent lesions have been low-grade. He presents for surveillance cystoscopy Findings: multiple papillary bladder tumors up toward dome of bladder Procedure Description: The patient was given preoperative IV antibiotics. He was brought to the operating room on 08/10/2022. After successful induction of general anesthesia, he was placed in the dorsal lithotomy position. His genitalia was prepped and draped. A 24 [place] resectoscope sheath was passed through the urethra into the bladder. The urethra and bladder were inspected using the visual obturator and a 30 degree lens. The pendulous, bulbar and membranous urethra's appeared normal with no strictures. The prostatic urethra appeared normal with no papillary lesions on the mucosa. The bladder neck was entered and the bladder mucosa was inspected. Multiple scars were seen throughout the bladder from previous resections. Up toward the dome of the bladder, multiple papillary lesions were seen. These areas were resected using an Whitten resectoscope and bipolar cautery. The resected tissue was evacuated and sent to pathology for permanent section. Any remaining papillary lesions were treated with bipolar cautery. Once all lesions had been addressed, the bladder was emptied. The patient tolerated this procedure well with no complications. As long as his pathology shows low-grade, noninvasive urothelial cell carcinoma, we will plan on a surveillance cystoscopy in 1 year.
[2022-08-10 09:35] VITALS: BP 117/69; PULSE 57; RESP 12; TEMP 36.3; O2SAT 97
[2022-08-10 10:02] VITALS: BP 118/68; PULSE 52; RESP 18; TEMP 36.3; O2SAT 98
[2022-08-10 10:34] VITALS: BP 118/71; PULSE 52; RESP 18; TEMP 36.3; O2SAT 100
--- NOTE | 2022-08-10 10:38 | W.ANESPOSTOP ---
Postoperative Evaluation Date, Time and Location Date Performed: 08/10/22 Time Performed: 10:17 Patient Location: Day Surgery Unit Vital Signs Most Recent Imported Vital Signs: Most Recent Vital Signs Temp Pulse Resp BP Pulse Ox 36.3 C L 52 L 18 118/68 98 08/10/22 10:02 08/10/22 10:02 08/10/22 10:02 08/10/22 10:02 08/10/22 10:02 Pain Score Most Recent Pain Score: Most Recent Pain Score Pain Level 2 08/10/22 10:18 Assessment Mental Status: Awake (Alert & Oriented to Patient Baseline) Airway and Respiratory Function: Patent airway with normal (patient baseline) respiratory exam Cardiovascular Function: Hemodynamically Stable Hydration Status: Adequately Hydrated Nausea & Vomiting: No Nausea or Vomiting Pain: Pain is tolerable per patient Peripheral Nerve Block: Patient did not receive a nerve block
[2022-08-10 11:16] VITALS: BP 110/60; PULSE 54; RESP 17; TEMP 36.4; O2SAT 100
[2022-08-10 12:04] VITALS: BP 128/71; PULSE 59; RESP 18; TEMP 36.3; O2SAT 100
== END 2022-08-10 07:16 | disposition home or self-care (01) ==
PROVIDERS: PCP Family Medicine; Visit Provider Urology
PROC: 0TBB8ZZ Excision of Bladder, Via Natural or Artificial Opening Endoscopic (ICD-10-PCS; CPT 52235; principal; 2022-08-10 08:45)
DX: C67.1 Malignant neoplasm of dome of bladder (principal)
CPT/HCPCS: 52235; 88305; J1100; J1580; J1885; J2405

== ENCOUNTER 2023-03-20 10:34 | Emergency (ER) | payer BC, SELFPAY ==
[2023-03-20 10:38] VITALS: BP 179/77; PULSE 63; RESP 18; TEMP 37.4; O2SAT 96
[2023-03-20 11:21] LABS: Bilirubin Negative (Negative); Blood Large (Negative); Clarity Sl Cloudy (Clear); Glucose Negative (Negative); Ketones Negative (Negative); Leukocyte Esterase Small (Negative); Nitrite Positive (Negative); Specific Gravity >= 1.030 (1.005-1.025)
[2023-03-20 11:38] LABS: Bacteria Moderate HPF (Negative); C & S Indicated? Yes; Casts 3-5 Hyaline LPF (Negative); Crystals Negative HPF (Negative); Epithelial Cells Few HPF (Negative); Mucus Negative (Negative); WBC >50 HPF (0-5)
[2023-03-20 11:52] LABS: Abs Immature Grans 0.03 10^3/uL (0.0-0.06); Absolute Eosinophil Count 0.05 10^3/uL (0.0-0.7); Absolute Lymphocyte Count 1.52 10^3/uL (1.2-3.4); Absolute Monocyte Count 1.27 10^3/uL (0.1-0.8); Basophils % 0.4; Eosinophils % 0.3; HCT 37.8 % (40.0-50.0); HGB 13.4 g/dL (13.5-17.5); Immature Grans % 0.2; Lymphocytes % 9.3; MCH 33.3 pg (27.0-33.0); MCHC 35.4 % (32.0-36.0); MCV 94 fL (80-95); MPV 9.7 fL (8.0-11.0); Monocytes % 7.8; Platelet Count 199 10^3/uL (130-400); RBC 4.03 10^6/uL (4.36-5.78); RDW 12.6 % (11.8-14.1); RDW-SD 43.4 fL; WBC 16.34 10^3/uL (4.4-10.8)
[2023-03-20 11:55] LABS: Absolute Basophil Count 0.07 10^3/uL (0.0-0.2)
--- NOTE | 2023-03-20 11:58 | W.ED.GENAD ---
Discharge Plan Disposition Patient Disposition: Home Discharge Details Clinical Impression: Urinary tract infection, Dehydration Primary Care Provider: Jeremy Quintero ED Provider: Davian Beltrán Home Meds and New Rx's Prescriptions: New sulfamethoxazole-trimethoprim [Bactrim DS] 800-160 mg tablet 1 tab PO BID Qty: 10 0RF phenazopyridine [Pyridium] 100 mg tablet 100 mg PO TID PRNQty: 6 0RF Continued aspirin 81 MG tablet,chewable 81 mg PO HS clopidogrel [Plavix] 75 mg tablet 75 mg PO DAILY metoprolol succinate 100 mg tablet extended release 24 hr 50 mg PO DAILY lisinopril 20 mg tablet 20 mg PO DAILY metoprolol succinate 25 mg tablet extended release 24 hr 25 mg PO HS mirtazapine [Remeron] 15 mg tablet 15 mg PO QHS rosuvastatin 40 mg tablet 20 tab PO DAILY Patient Comments: TAKE ONE TABLET BY MOUTH EVERY DAY Discontinued sulfamethoxazole-trimethoprim 800-160 mg tablet 1 tab PO BID Qty: 20 0RF Patient Comments: finished script Myrbetriq 25 mg tablet extended release 24 hr 25 mg PO DAILY Qty: 28 0RF Patient Comments: does not take anymore Discharge Instructions Instructions: Dehydration (ED), Urinary Tract Infection in Men (ED) Additional Instructions: Please continue to stay well-hydrated as I do feel this is contributing to some of your symptoms. Take antibiotic as prescribed and please follow-up with the urology office especially if you are not improving after being on the antibiotics for greater than 72 hours. If you have any new or significant worsening of symptoms please return to the emergency department for reassessment and further testing as needed. Referrals: [facility] [Provider Group] - 5 days Discharge Data Discharge Date/Time-TO BE ENTERED AT DEPARTURE: 03/20/23 13:59 Medical Decision Making Patient presenting the emergency department for urinary frequency urgency and difficulty urinating. Patient does state some bladder pressure. Denies fever chills, states mild headache that started today but does state that he has been dehydrated not drinking much water. Physical exam is unremarkable except for mild suprapubic tenderness. Patient does have history of bladder cancer. We will check patient's urinalysis and labs. Patient denies any need of medication pending results as he just took acetaminophen. Review of urinalysis does show that patient is positive for nitrites he has high specific gravity, protein, blood and 10-20 RBCs with greater than 50 WBCs. Also noted was moderate bacteria. Reflexive culture was ordered. I am concerned for urinary tract infection. Review of CBC also does show leukocytosis with anemia that does seem to be improved from patient's baseline, there is elevated neutrophils and monocytes as well. All other labs are nondiagnostic. Discussed findings with patient and high suspicion of urinary tract infection. We will start patient on Bactrim given that he has used this in the past and does have pretty significant allergies to medications. Informed patient that if culture shows resistance we would have to change medication. I am also concerned due to BUN and creatinine that patient may have some dehydration so 1 L of fluids was given along with Pyridium. Given patient's history of bladder cancer did discussed CT imaging versus watchful waiting. After full discussion of risk versus benefit patient states he would prefer to see if the antibiotic clears up the infection before he proceeds with further imaging or investigation if needed. We will plan on referring patient to urology for recheck of bladder discomfort given his history. After discussion of diagnosis and plan of care patient has no further needs, questions, or concerns and states clear understanding to return to the emergency department for any worsening symptoms. This documentation was generated using Wildcard dictation system, please disregard any oddities of phrase or misspellings. Lab Data Lab results reviewed: Yes I reviewed the patient's lab results. HPI General Mode of arrival: ambulatory. Date/Time Provider Initiated Documentation: 03/20/23 10:42. Limitations to Documentation: no limitations. Information obtained by: patient and RN notes reviewed. History of Present Illness 57 year old M presents to the emergency department with the chief complaint of Urinary frequency and difficulty, described as moderate and similar to prior episodes, Quality is described as aching, and is localized to the pelvis. Patient started experiencing this day(s) (1) and it has been constant. No relieving factors improve symptom(s), No exacerbating factors reported . Patient did receive the following treatments prior to arrival, none Related Data Home Medications Medication Instructions Recorded Confirmed aspirin 81 mg chewable tablet 81 mg PO HS 07/24/16 03/20/23 clopidogrel 75 mg tablet (Plavix) 75 mg PO DAILY 10/04/20 03/20/23 lisinopril 20 mg tablet 20 mg PO DAILY 10/04/20 03/20/23 metoprolol succinate 100 mg 50 mg PO DAILY 10/04/20 03/20/23 tablet,extended release 24 hr metoprolol succinate 25 mg 25 mg PO HS 10/04/20 03/20/23 tablet,extended release 24 hr mirtazapine 15 mg tablet (Remeron) 15 mg PO QHS 10/04/20 03/20/23 rosuvastatin 40 mg tablet 20 tab PO DAILY 08/06/22 03/20/23 phenazopyridine 100 mg tablet 100 mg PO TID PRN 6 doses #6 tabs 03/20/23 (Pyridium) sulfamethoxazole 800 1 tab PO BID #10 tabs 03/20/23 mg-trimethoprim 160 mg tablet (Bactrim DS) Previous Rx's Medication Instructions Recorded phenazopyridine 100 mg tablet 100 mg PO TID PRN 6 doses #6 tabs 03/20/23 (Pyridium) sulfamethoxazole 800 1 tab PO BID #10 tabs 03/20/23 mg-trimethoprim 160 mg tablet (Bactrim DS) Allergies Allergy/AdvReac Type Severity Reaction Status Date / Time sildenafil citrate Allergy Severe Anaphylaxsi Verified 03/20/23 10:41 [From Viagra] s ciprofloxacin [From Cipro] Allergy Intermediate Other (See Verified 03/20/23 10:41 Comment) Penicillins Allergy Intermediate Rash, Verified 03/20/23 10:41 itching, hives mitomycin AdvReac Severe Pain, Verified 03/20/23 10:41 created bladder stones per pt. oxybutynin AdvReac Severe dry mouth, Verified 03/20/23 10:41 mouth sores, pain oxycodone HCl [From Percocet] AdvReac Intermediate Mood Verified 03/20/23 10:41 behavior General Stated Complaint: Urinary NATALIE: 3 Review of Systems Constitutional Constitutional: Denies body ache(s), Denies chills, Denies fever(s), Denies malaise and Denies weakness Cardiovascular Cardiovascular: Denies chest pain Respiratory Respiratory: Reports system reviewed and no additional complaints, except as documented Gastrointestinal Gastrointestinal: Denies abdominal pain, Denies nausea and Denies vomiting Genitourinary Genitourinary: Reports as per HPI, Denies hematuria, Reports difficulty urinating, Reports dysuria and Reports urinary urgency Neurologic Neurologic: Denies confusion and Denies weakness Psychiatric Psychiatric: Denies confusion PFSH All Active Problems Urinary tract infection (Acute) Dehydration (Acute) Bladder cancer (Acute) Calculus of left kidney (Acute) History of testicular cancer (Acute 07/24/16) Hesitancy of micturition (Acute 08/19/16) Dysuria (Acute 06/07/17) Medical History CAD (coronary artery disease) x1 Clot retention of urine Dysuria Ex-smoker 03/2020 Hesitancy of micturition High cholesterol History of chemotherapy 2017 History of kidney stones History of postoperative nausea and vomiting History of retroperitoneal fibrosis History of ST elevation myocardial infarction (STEMI) 03/2020 History of testicular cancer Hx of ventricular tachycardia Hypertension 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 of posterior wall of urinary bladder Malignant neoplasm of posterior wall of urinary bladder (08/19/16) SOB (shortness of breath) on exertion Surgical History H/O cardiac catheterization History of ankle surgery Left History of arthroscopic knee surgery Right History of cardiac radiofrequency ablation 05/30/2020 @ [facility] for V-Tach (status: successful at time of procedure) History of colonoscopy Hx of lithotripsy S/P bladder tumor excision with fulguration Status post radical unilateral orchiectomy Social History Smoking/Tobacco Use Status: Former Tobacco Use Quit Date: 03/23/20 Smoking risk assessment performed?: Yes Alcohol Intake: former Drug use: Never Substance use type: does not use Housing: house Do you feel safe at home: Yes Do you feel safe in your relationship?: Yes Exam Const General: cooperative and no acute distress Orientation: alert, awake and oriented x3 Resp Effort & Inspection: normal respiratory effort and able to speak in complete sentences Auscultation: clear to auscultation bilaterally Cardio Rate: regular rate Rhythm: regular rhythm Heart Sounds: S1 normal and S2 normal GI Palpation: tender suprapubicly Back/Spine/Pelvis Back: no CVA tenderness Neuro General: patient alert, patient awake and patient oriented x3 Extrem General: capillary refill normal Course Vital Signs Vital signs: Vital Signs Temperature 37.4 C 03/20/23 10:38 Pulse 63 03/20/23 10:38 Respiratory Rate 18 03/20/23 10:38 Blood Pressure 179/77 H 03/20/23 10:38 Pulse Oximetry 96 03/20/23 10:38 Temperature 37.4 C 03/20/23 10:38 Temperature Source Oral 03/20/23 10:38 Pulse 63 03/20/23 10:38 Respiratory Rate 18 03/20/23 10:38 Respiratory Effort Normal, Non-Labored 03/20/23 11:11 Blood Pressure 179/77 H 03/20/23 10:38 Blood Pressure Position Sitting 03/20/23 10:38 Pulse Oximetry 96 03/20/23 10:38 Oxygen Delivery Method Room Air 03/20/23 10:38 Oxygen Flow Rate 0 03/20/23 10:38 Pain Level 8 03/20/23 11:11 Lab/Test Results Lab/Test Results: 03/20/23 10:45 Urine - Reflex from Ua Urine Culture - Pending Laboratory Tests Range/Units 03/20/23 03/20/23 10:45 11:40 WBC (4.4-10.8) 10^3/uL 16.34 H RBC (4.36-5.78) 10^6/uL 4.03 L Hgb (13.5-17.5) g/dL 13.4 L Hct (40.0-50.0) % 37.8 L MCV (80-95) fL 94 MCH (27.0-33.0) pg 33.3 H MCHC (32.0-36.0) % 35.4 RDW (11.8-14.1) % 12.6 Plt Count (130-400) 10^3/uL 199 MPV (8.0-11.0) fL 9.7 Immature Gran % 0.2 Neutrophils % 82.0 Lymphocytes % 9.3 Monocytes % 7.8 Eosinophils % 0.3 Basophils % 0.4 Nucleated RBC % (0.0-0.3) % 0.0 Absolute Neutrophils (1.2-6.7) 10^3/uL 13.40 H Absolute Lymphocytes (1.2-3.4) 10^3/uL 1.52 Absolute Monocytes (0.1-0.8) 10^3/uL 1.27 H Absolute Eosinophils (0.0-0.7) 10^3/uL 0.05 Absolute Basophils (0.0-0.2) 10^3/uL 0.07 Urine Color (Yellow) Yellow Urine Clarity (Clear) Sl Cloudy Urine pH (5-8) 6.0 Ur Specific [place] (1.005-1.025) >= 1.030 H Urine Protein (Negative) mg/dL >=300 H Urine Ketones (Negative) mg/dL Negative Urine Blood (Negative) Large H Urine Nitrite (Negative) Positive H Urine Bilirubin (Negative) Negative Urine Urobilinogen (Up to 0.2) mg/dL 1.0 H Ur Leukocyte Esterase (Negative) Small H Urine RBC (0-2) HPF 10-20 H Urine WBC (0-5) HPF >50 H Ur Epithelial Cells (Negative) HPF Few Urine Crystals (Negative) HPF Negative Urine Bacteria (Negative) HPF Moderate Urine Casts (Negative) LPF 3-5 Hyaline Urine Mucus (Negative) Negative Ur Culture Indicated? Yes Urine Glucose (Negative) mg/dL Negative
[2023-03-20 12:09] LABS: ALT 54 U/L (16-63); AST 21 U/L (15-37); Albumin 3.9 g/dL (3.4-5.0); Alkaline Phosphatase 84 U/L (46-116); BUN 24 mg/dL (7-18); Bilirubin, Total 1.1 mg/dL (0.2-1.0); CREATININE 1.8 mg/dL (0.70-1.30); Chloride 104 mmol/L (98-107); Estimated GFR 43.36 (mL/min/1.73m2); Glucose 153 mg/dL (74-106); Potassium 4.4 mmol/L (3.5-5.1); Sodium 139 mmol/L (136-145); Total Protein 7.2 g/dL (6.4-8.2)
[2023-03-20] MEDS: Sulfameth/Trimeth DS TAB 1 TAB PO (12:24)
[2023-03-20] MEDS: Phenazopyridine 100 MG TAB PO (12:24)
--- NOTE | 2023-03-20 13:06 | NUR.NOTE ---
Referral to Urology per Néstor Beltrán in 3-4 days in person or by phone is fine per the provider. The patient has a history of bladder cancer and needs to be rechecked for UTI and bladder pain. Nursing Note:
[2023-03-20] MEDS: Normal Saline 1,000 ML 1000 ML IV (13:15)
--- NOTE | 2023-03-22 08:00 | NUR.NOTE ---
Accessed chart to find antibiotic. Nursing Note:
== END 2023-03-20 13:59 | disposition home or self-care (01) ==
PROVIDERS: Emergency Provider Nurse Practitioner Family; PCP Urology
DX: N39.0 Urinary tract infection, site not specified (principal); E86.0 Dehydration; R10.30 Lower abdominal pain, unspecified; I25.10 Atherosclerotic heart disease of native coronary artery without angina pectoris; I25.2 Old myocardial infarction; Z95.810 Presence of automatic (implantable) cardiac defibrillator; C67.9 Malignant neoplasm of bladder, unspecified; Z87.891 Personal history of nicotine dependence
CPT/HCPCS: 36415; 80053; 87077; 99283; 81003; 81015; 83735; 85025; 87086; 87186

== ENCOUNTER 2023-04-02 13:42 | Outpatient (REF) | payer BC, SELFPAY | END 2023-04-02 13:43 | disposition home or self-care (01) | LOC: LBN 13:42 | PROVIDERS: PCP Urology; Visit Provider Urology | DX: N39.0 Urinary tract infection, site not specified (principal) | CPT/HCPCS: 87077; 87086; 87186 ==

== ENCOUNTER 2023-04-30 16:26 | Outpatient (REF) | payer BC, SELFPAY ==
[2023-04-30 17:32] LABS: Bilirubin Negative (Negative); Blood Small (Negative); Clarity Clear (Clear); Glucose 100 mg/dL (Negative); Ketones Negative (Negative); Leukocyte Esterase Negative (Negative); Nitrite Negative (Negative); Specific Gravity >= 1.030 (1.005-1.025); Urobilinogen 0.2 mg/dL (Up to 0.2); pH 5.5 (5-8)
[2023-04-30 18:20] LABS: Bacteria Negative HPF (Negative); C & S Indicated? No; Casts 3-5 Fine Granular LPF (Negative); Crystals Negative HPF (Negative); Epithelial Cells Rare HPF (Negative); Mucus Moderate (Negative); Other Cells Negative (Negative); RBC 0-2 HPF (0-2); WBC 0-2 HPF (0-5)
== END 2023-04-30 16:27 | disposition home or self-care (01) ==
LOC: LBN 16:26
PROVIDERS: PCP Urology; Visit Provider Urology
DX: R31.9 Hematuria, unspecified (principal); N39.0 Urinary tract infection, site not specified; C67.9 Malignant neoplasm of bladder, unspecified
CPT/HCPCS: 81003; 81015; 87086

== ENCOUNTER 2023-08-19 06:14 | Day surgery (SDC) | payer BC, SELFPAY ==
[2023-08-19 06:20] VITALS: BP 143/80; PULSE 53; RESP 16; TEMP 36.6; O2SAT 98
--- NOTE | 2023-08-19 06:49 | W.PM.HP.N ---
Date of service: 08/19/23 Time of Service: 06:49 Assessment and Plan Assessment and plan (1) Bladder cancer: Status: Acute Assessment and plan: For cystoscopy with possible TUR Bladder tumor History of Present Illness History of Present Illness Chief Complaint: Bladder Cancer Narrative: This is a 58 year old man who has a history of urothelial cell carcinoma of the bladder. His initial diagnosis was made in 2015. His most recent occurrance was 07/2022. His tumors have been noninvasive. Most recently, his tumors have been low-grade. He has been unable to tolerate intravesical chemotherapy. He presents for cystoscopy with transurethral resection of any visible tumor. He has no dysuria or gross hematuria. He has had urinary tract infections following some of his invasive procedures. His most recent positive urine culture grew E. coli that was pansensitive. He does have a history of kidney stones, but is not having any flank pain at this time. Review of Systems Narrative: No fevers or chills No vision change or dysphasia No diabetes or thyroid dysfunction Recent pneumonia treated and resolved. SOB with exertion. No cough or hemoptysis Has pacemaker/defibrillator. No chest pain or palpitations No hepatitis, ulcers, jaundice No seizures, strokes or peripheral neuropathy Anticoagulated chronically - stopped Eliquis ahead of this procedure No gout PFSH All Active Problems Dysuria (Acute 06/07/17) Hesitancy of micturition (Acute 08/19/16) History of testicular cancer (Acute 07/24/16) Calculus of left kidney (Acute) Bladder cancer (Acute) Medical History A-fib Clot retention of urine Ex-smoker 03/2020 SOB (shortness of breath) on exertion ICD (implantable cardioverter-defibrillator) in place Med[employer]onic [id number] [facility] XT DR Romeo of ventricular tachycardia History of ST elevation myocardial infarction (STEMI) 03/2020 CAD (coronary artery disease) x1 History of chemotherapy 2016 Hypertension History of postoperative nausea and vomiting History of kidney stones High cholesterol History of retroperitoneal fibrosis Malignant neoplasm of posterior wall of urinary bladder (08/19/16) Hesitancy of micturition Dysuria Malignant neoplasm of posterior wall of urinary bladder History of testicular cancer Surgical History History of cardiac radiofrequency ablation 05/30/2020 @ [facility] for V-Tach (status: successful at time of procedure) H/O cardiac catheterization S/P bladder tumor excision with fulguration History of colonoscopy History of arthroscopic knee surgery Right History of ankle surgery Left Hx of lithotripsy Status post radical unilateral orchiectomy Social History Smoking/Tobacco Use Status: Former Tobacco Use Quit Date: 03/23/20 Smoking risk assessment performed?: Yes Alcohol Intake: former Drug use: Never Substance use type: does not use Housing: house Do you feel safe at home: Yes Additional Social history: unable to assess privately Meds Allergies and Home Medications Allergies Allergy/AdvReac Type Severity Reaction Status Date / Time sildenafil citrate Allergy Severe Anaphylaxsi Verified 08/19/23 06:26 [From Viagra] s ciprofloxacin [From Cipro] Allergy Intermediate Other (See Verified 08/19/23 06:26 Comment) Penicillins Allergy Intermediate Rash, Verified 08/19/23 06:26 itching, hives mitomycin AdvReac Severe Pain, Verified 08/19/23 06:26 created bladder stones per pt. oxybutynin AdvReac Severe dry mouth, Verified 08/19/23 06:26 mouth sores, pain oxycodone HCl [From Percocet] AdvReac Intermediate Mood Verified 08/19/23 06:26 behavior Home Medications Medication Instructions Recorded Confirmed Type aspirin 81 mg chewable tablet 81 mg PO HS 07/24/16 08/19/23 History clopidogrel 75 mg tablet (Plavix) 75 mg PO DAILY 10/04/20 08/18/23 History lisinopril 20 mg tablet 20 mg PO DAILY 10/04/20 08/19/23 History metoprolol succinate 100 mg 50 mg PO DAILY 10/04/20 08/19/23 History tablet,extended release 24 hr metoprolol succinate 25 mg 25 mg PO HS 10/04/20 08/19/23 History tablet,extended release 24 hr mirtazapine 15 mg tablet (Remeron) 15 mg PO QHS 10/04/20 08/19/23 History rosuvastatin 40 mg tablet 20 tab PO DAILY 08/06/22 08/19/23 History acetaminophen 500 mg tablet 500 mg PO Q6H PRN 08/19/23 08/19/23 History (Tylenol Extra Strength) Exam Const General: cooperative Neck Neck: supple Resp Effort & Inspection: normal respiratory effort Auscultation: clear to auscultation bilaterally Cardio Rate: regular rate Rhythm: regular rhythm GI Inspection: normal to inspection Palpation: soft and no masses Neuro General: patient alert, patient awake and patient oriented x3 Results Last Vital Signs Temp 36.6 C 08/19/23 06:20 Pulse 53 L 08/19/23 06:20 Resp 16 08/19/23 06:20 BP 143/80 H 08/19/23 06:20 Pulse Ox 98 08/19/23 06:20 Time Spent Time spent with Patient: <40 minutes Time was spent: other
--- NOTE | 2023-08-19 07:10 | ANES.PREOP_ITS ---
General Info Date of Service Date Performed: 08/19/23 Height: 5 ft 8 in Weight: 97.2 kg Body Mass Index (BMI): 32.5 Surgical Procedure: Operation Date: 08/19/23 07:40 Proposed Procedure Side Surgeon p Cystoscopy w/Possible Transurethral Resection Bladder Tumor Jeremy Quintero MD Meds Allergies and Home Medications Allergies Allergy/AdvReac Type Severity Reaction Status Date / Time sildenafil citrate Allergy Severe Anaphylaxsi Verified 08/19/23 06:26 [From Viagra] s ciprofloxacin [From Cipro] Allergy Intermediate Other (See Verified 08/19/23 06:26 Comment) Penicillins Allergy Intermediate Rash, Verified 08/19/23 06:26 itching, hives mitomycin AdvReac Severe Pain, Verified 08/19/23 06:26 created bladder stones per pt. oxybutynin AdvReac Severe dry mouth, Verified 08/19/23 06:26 mouth sores, pain oxycodone HCl [From Percocet] AdvReac Intermediate Mood Verified 08/19/23 06:26 behavior Home Medication Medication Instructions Recorded aspirin 81 mg chewable tablet 81 mg PO HS 07/24/16 clopidogrel 75 mg tablet (Plavix) 75 mg PO DAILY 10/04/20 lisinopril 20 mg tablet 20 mg PO DAILY 10/04/20 metoprolol succinate 100 mg 50 mg PO DAILY 10/04/20 tablet,extended release 24 hr metoprolol succinate 25 mg 25 mg PO HS 10/04/20 tablet,extended release 24 hr mirtazapine 15 mg tablet (Remeron) 15 mg PO QHS 10/04/20 rosuvastatin 40 mg tablet 20 tab PO DAILY 08/06/22 acetaminophen 500 mg tablet 500 mg PO Q6H PRN 08/19/23 (Tylenol Extra Strength) Current Visit Medications: Current Medications Generic Name Dose Route Start Last Admin Trade Name Freq PRN Reason Stop Dose Admin Gentamicin Sulfate 120 mg/ 103 mls @ 206 mls/hr 08/19/23 06:00 Sodium Chloride IVPB 08/19/23 16:00 PREOP KEYSHAWN Ringer's Solution 1,000 mls @ 80 mls/hr 08/19/23 06:30 IV 09/18/23 06:29 INFUSION [facility] IV Miscellaneous Supplies 1 each 08/19/23 06:00 Iv Access IV 08/22/23 23:59 DIRECTED KEYSHAWN Sodium Chloride 0 ml 08/19/23 06:00 Normal Saline Flush 10 Ml Syr IV 08/22/23 23:59 PRN PRN Sodium Chloride 0 ml 08/19/23 06:00 Normal Saline 10 Ml Vial IJ 08/22/23 23:59 DIRECTED PRN Sterile Water 0 ml 08/19/23 06:00 Water,Injection,Sterile 10 Ml Vial IJ 08/22/23 23:59 DIRECTED PRN PFSH Active Problems Active Problems: Problem Status Onset Code Dysuria 06/07/17 R30.0 Hesitancy of micturition 08/19/16 R39.11 History of testicular cancer 07/24/16 Z85.47 Calculus of left kidney N20.0 Bladder cancer C67.9 Medical History Medical History A-fib Clot retention of urine Ex-smoker 03/2020 SOB (shortness of breath) on exertion ICD (implantable cardioverter-defibrillator) in place [employer] [id number] [facility] XT Hx of ventricular tachycardia History of ST elevation myocardial infarction (STEMI) 03/2020 CAD (coronary artery disease) x1 History of chemotherapy 2016 Hypertension History of postoperative nausea and vomiting History of kidney stones High cholesterol History of retroperitoneal fibrosis Malignant neoplasm of posterior wall of urinary bladder (08/19/16) Hesitancy of micturition Dysuria Malignant neoplasm of posterior wall of urinary bladder History of testicular cancer Medical History Comments:: Top full plate. pt will remove prior to surgery. Pt reports he had a delayed recovery from a previous anesthesia; one time. ICD in place Surgical History Surgical History History of cardiac radiofrequency ablation 05/30/2020 @ [facility] for V-Tach (status: successful at time of procedure) H/O cardiac catheterization S/P bladder tumor excision with fulguration History of colonoscopy History of arthroscopic knee surgery Right History of ankle surgery Left Hx of lithotripsy Status post radical unilateral orchiectomy Tobacco Smoking/Tobacco Use Status: Former Tobacco Use Alcohol Alcohol Intake: former Substance Use Substance use: Never Substance use type: does not use Vital Signs and Lab Results Vital Signs Most Recent Vital Signs in EMR: Most Recent Vital Signs Temp Pulse Resp BP Pulse Ox 36.6 C 53 L 16 143/80 H 98 08/19/23 06:20 08/19/23 06:20 08/19/23 06:20 08/19/23 06:20 08/19/23 06:20 Lab Results Blood Type / Crossmatch: No Data to Display Complete Blood Count: No Data to Display Complete Metabolic Panel: No Data to Display Liver Function Panel: No Data to Display Coagulation Panel: No Data to Display Cardiac Panel: No Data to Display Arterial Blood Gas: No Data to Display Venous Blood Gas: No Data to Display Pancreas Panel: No Data to Display Thyroid Panel: No Data to Display Infectious Disease: No Data to Display Blood Cultures: No Data to Display Toxicology Panel: No Data to Display Imaging and Studies Imaging and Studies Study information below may be from another EMR and interpreted by another provider. Please see original notes in EMR for more complete details. Echocardiogram Summary: 01/2021: LVEF 45-50%, hypokinesis of the inferolateral wall and inferior wall, mild MR. Anesthesia Assessment and Plan Anesthesia History Personal History: PONV Family History: No Family History of Anesthesia Complications and Malignant Hyperthermia Exercise Tolerance Exercise Tolerance: Metabolic Equivalents>4 Pertinent Negatives Pertinent Negatives: No Symptoms of GERD, No Major Cardiovascular Symptoms or Complaints, No Major Pulmonary Symptoms or Complaints and No History of CVA/TIA Cardiac & Pulmonary Exam Cardiac Exam: Normal S1/S2 Heart Sounds Pulmonary Exam: Clear Bilateral Breath Sounds Implantable Cardiac Device Does patient have a Pacemaker or an ICD?: Yes Device [employer] 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:: [employer] Reason for Placement:: Afib/Vtach Date of Last Device Interrogation:: 03/05/23 Airway Exam Known Difficult Airway: No Mallampati Class: 3 Mouth Opening: Narrow (< 3cm) Thyromental Distance: Greater than 3 cm Neck Range of Motion: Full ROM Neck Circumference: Normal Teeth Condition: Normal Dentition and Removable Dentures/Plates Upper ASA Classification ASA Score: ASA 2 Emergency Case?: No NPO Status NPO Status: NPO Clears >2 hours, Solids >8 hours and NPO Formula >6 hours Anesthesia Plan Resuscitation Status: Full Code Anesthesia Technique: General Anesthesia Airway Planned: Natural Airway Pain Management: Surgeon and patient request nerve block (as needed post op) Monitors Used: Standard Monitors Preoperative Comments:: History of post-procedural chronic pain, consented for rescue TAP block prn
[2023-08-19] MEDS: Lactated Ringers 1,000 ML 80 ML IV (07:20)
[2023-08-19 07:25] VITALS: BMI 32.5
[2023-08-19] MEDS: GENTAMICIN 120 MG in Normal Saline 100 ML 206 MG IVPB (07:30)
[2023-08-19] MEDS: Lidocaine 2% Jelly 6 ML SYR (07:45)
--- NOTE | 2023-08-19 07:50 | BLADDER_PTH ---
PATIENT: Florentin Castillo LOC: [facility] U#:[id number] AGE/SX: 58/M ROOM: RE08/19/[address]: Jeremy Quintero MD : 1965 BED: DIS: 08/19/2023 SPEC #: [id number] RECD: 08/19/23 12:50 STATUS: BRANDI REMaricarmen #: [id number] RICO: 08/19/23 07:[address]: Jeremy Quintero DEPT: Surgical Specimen RECD BY: Yusra Malik Tissues: 1 - BLADDER BIOPSY Procedures: GROSS AND MICRO LEVEL 4 Comments: [id number]
--- NOTE | 2023-08-19 08:04 | W.PM.DSUDISC ---
Date of service: 08/19/23 Time of Service: 08:04 Discharge Plan Disposition Condition: Stable Discharge Details Attending Provider: Jeremy Quintero Primary Care Provider: Jeremy Quintero Home Meds and New Rx's Prescriptions: No Action aspirin 81 MG tablet,chewable 81 mg PO HS clopidogrel [Plavix] 75 mg tablet 75 mg PO DAILY metoprolol succinate 100 mg tablet extended release 24 hr 50 mg PO DAILY lisinopril 20 mg tablet 20 mg PO DAILY metoprolol succinate 25 mg tablet extended release 24 hr 25 mg PO HS mirtazapine [Remeron] 15 mg tablet 15 mg PO QHS acetaminophen [Tylenol Extra Strength] 500 mg tablet 500 mg PO Q6H PRN rosuvastatin 40 mg tablet 20 tab PO DAILY Patient Comments: TAKE ONE TABLET BY MOUTH EVERY DAY Discharge Instructions Additional Instructions: May resume Plavix 06/20 followup appt (telehealth is fine) to review surgical pathology @ 2 weeks Activity:: Activity as Tolerated Shower/Bathe:: 24 hours Diet:: As Tolerated DS: Diagnosis Discharge Diagnosis (1) Bladder cancer: Status: Acute
--- NOTE | 2023-08-19 08:09 | ROE_ITS ---
Date of service: 08/19/23 Time of Service: 08:09 Operative Note Operative Note DATE OF PROCEDURE: 08/19/23 PRE-OP DIAGNOSIS: Bladder Cancer POST-OP DIAGNOSIS: same PROCEDURE: cystoscopy, bladder biopsy and fulguration of bladder tumors SURGEON: Jeremy Quintero ANESTHESIA TYPE: Local By Surgeon and General:No Airway Refer to Anesthesia Record ESTIMATED BLOOD LOSS: 5 PATHOLOGY: other (bladder tumors) COMPLICATIONS: None Patient was transported to: same day Patient's condition: stable Implants: none Indications: This is a 58-year-old gentleman who has a history of low-grade, noninvasive urothelial cell carcinomas of the bladder. He is not able to tolerate intravesical chemotherapy and immunotherapy treatments. He presents now for his surveillance cystoscopy and possible transurethral resection of any visible tumors Findings: multiple small papillary bladder tumors Procedure Description: The patient was given preoperative antibiotics and brought to the operating room on 08/19/2023. After successful induction of general anesthesia without intubation, he was placed in the dorsal lithotomy position. His genitalia was prepped and draped. 2% Xylocaine jelly was instilled into the urethra to act as a local anesthetic. A 22 Setswana rigid cystoscope was then passed through the urethra into the bladder. The urethra and bladder were inspected with the 30 degree lens. The pendulous, bulbar and membranous urethra all appeared normal with no strictures. The bladder neck was entered and the bladder mucosa was inspected. Both ureteral orifices appeared normal. No blood was seen coming from either side. In the midline, between the 2 orifices, there was a papillary lesion consistent with recurrent low-grade urothelial cell carcinoma. The lesion measured less than 1 cm in largest dimension. In addition to the lesion along the trigone, 2 additional lesions on the right anterior bladder wall were identified. Each of these clinically had the appearance of a low-grade urothelial cell carcinoma and also measured less than 1 cm in largest dimension. The bladder was reexamined with a 70 degree lens. No additional areas of concern were identified. We then utilized cold cup biopsy forceps to biopsy each area with abnormal mucosa. The biopsies were sent together to the lab for permanent section. Each of the biopsy sites and any remaining abnormal appearing mucosa was cauteri zed using a bipolar Bugbee The patient tolerated this procedure well with no complications. He was taken to the recovery room in stable condition.
[2023-08-19 08:11] VITALS: BP 111/61; PULSE 57; RESP 18; TEMP 36; O2SAT 97
--- NOTE | 2023-08-19 08:31 | W.ANESPOSTOP ---
Postoperative Evaluation Date, Time and Location Date Performed: 08/19/23 Time Performed: 08:31 Patient Location: Day Surgery Unit Vital Signs Most Recent Imported Vital Signs: Most Recent Vital Signs Temp Pulse Resp BP Pulse Ox 36 C L 57 L 18 111/61 97 08/19/23 08:11 08/19/23 08:11 08/19/23 08:11 08/19/23 08:11 08/19/23 08:11 Pain Score Most Recent Pain Score: Most Recent Pain Score Pain Level 0 08/19/23 06:20 Assessment Mental Status: Awake (Alert & Oriented to Patient Baseline) Airway and Respiratory Function: Patent airway with normal (patient baseline) respiratory exam Cardiovascular Function: Hemodynamically Stable Hydration Status: Adequately Hydrated Nausea & Vomiting: No Nausea or Vomiting Pain: Pt. Denies Any Pain Peripheral Nerve Block: Patient did not receive a nerve block
[2023-08-19] MEDS: Phenazopyridine 200 MG TAB PO (08:32)
[2023-08-19 08:42] VITALS: BP 104/65; PULSE 55; RESP 17; TEMP 36.2; O2SAT 97
== END 2023-08-19 09:10 | disposition home or self-care (01) ==
PROVIDERS: PCP Urology; Visit Provider Urology
PROC: 0TBB8ZZ Excision of Bladder, Via Natural or Artificial Opening Endoscopic (ICD-10-PCS; CPT 52234; principal; 2023-08-19 07:30)
DX: C67.9 Malignant neoplasm of bladder, unspecified (principal)
CPT/HCPCS: 52234; 88305; J1100; J1580; J1885; J2001; J2405

== ENCOUNTER 2024-08-21 07:57 | Day surgery (SDC) | payer BC, SELFPAY ==
[2024-08-21] VITALS (20 sets, daily range): BP systolic 108–149; BP diastolic 57–76; PULSE 54–62; RESP 14–24; TEMP 36–36.5; O2SAT 95–99; BMI 31.1
--- NOTE | 2024-08-21 09:23 | W.ANESVAS ---
Peripheral IV Placement Date Performed: 08/21/24 Procedure Time: 09:18 Requesting Provider: Jeremy Quintero Procedure Location: Day Surgery Unit Sedation Given (Indicate Dose Given): No Sedation given Patient Mental Status: Awake Laterality: Left Insertion Site: Cephalic Size & Type: 20 ga. Dressing: IV Dressing Placed and Statlock Applied Ultrasound: Sterile probe cover and gel used Ultrasound Image Saved?: No Number of Attempts (See previous attempts in note section): 2 Procedure Tolerated: No Complications Procedure Outcome: Successful Procedure Comment: attempted top of hand with good blood return, but vessel blew on cath advancement (likely over advanced needle). US US due to mostly just small caliber vessels seen and now 3 attempts. 10 mc 20 ga cath placed left cephalic without difficulty. Lidocaine 1% 0.5 mL utilized. Performed By: Tung Santoyo
[2024-08-21] MEDS: Lactated Ringers 1,000 ML 80 ML IV (09:27)
--- NOTE | 2024-08-21 09:39 | W.ANESPRE ---
General Info Date of Service Date Performed: 08/21/24 Height: 5 ft 8 in Weight: 92.9 kg Body Mass Index (BMI): 31.1 Surgical Procedure: Operation Date: 08/21/24 10:25 Proposed Procedure Side Surgeon p Cystoscopy w/Possible Transurethral Resection Bladder Tumor Jeremy Quintero MD Meds Allergies and Home Medications Allergies Allergy/AdvReac Type Severity Reaction Status Date / Time sildenafil citrate (From Allergy Severe Anaphylaxsi Verified 08/21/24 08:17 Viagra) s ciprofloxacin (From Cipro) Allergy Intermediate Other (See Verified 08/21/24 08:17 Comment) Penicillins Allergy Intermediate Rash, Verified 08/21/24 08:17 itching, hives mitomycin AdvReac Severe Pain, Verified 08/21/24 08:17 created bladder stones per pt. oxybutynin AdvReac Severe dry mouth, Verified 08/21/24 08:17 mouth sores, pain oxycodone HCl (From Percocet) AdvReac Intermediate Mood Verified 08/21/24 08:17 behavior Home Medication ?Medication ?Instructions ?Recorded clopidogrel 75 mg tablet (Plavix) 75 mg PO DAILY 10/04/20 lisinopril 20 mg tablet 20 mg PO DAILY 10/04/20 mirtazapine 15 mg tablet (Remeron) 15 mg PO QHS 10/04/20 acetaminophen 500 mg tablet 500 mg PO Q6H PRN 08/19/23 (Tylenol Extra Strength) apixaban 5 mg tablet (Eliquis) 5 mg PO BID 12/06/23 metoprolol succinate 100 mg 100 mg PO BID 12/06/23 tablet,extended release 24 hr pantoprazole 40 mg tablet,delayed 40 mg PO DAILY 12/06/23 release rosuvastatin 40 mg tablet 40 mg PO DAILY 12/06/23 Current Visit Medications: Current Medications Generic Name Dose Route Start Last Admin Trade Name Freq PRN Reason Stop Dose Admin Ringer's Solution 1,000 mls @ 80 mls/hr 08/21/24 06:00 08/21/24 09:27 IV 08/21/24 23:59 80 mls/hr INFUSION KEYSHAWN Administration Gentamicin Sulfate 120 mg/ 103 mls @ 206 mls/hr 08/21/24 06:00 Sodium Chloride IVPB 08/21/24 23:59 PREOP KEYSHAWN IV Miscellaneous Supplies 1 each 08/21/24 06:00 Iv Access IV 08/21/24 23:59 DIRECTED KEYSHAWN Sodium Chloride 0 ml 08/21/24 06:00 Normal Saline Flush 10 Ml Syr IV 08/21/24 23:59 PRN PRN Sodium Chloride 0 ml 08/21/24 06:00 Normal Saline 10 Ml Vial IJ 08/21/24 23:59 DIRECTED PRN Sterile Water 0 ml 08/21/24 06:00 Water,Injection,Sterile 10 Ml Vial IJ 08/21/24 23:59 DIRECTED PRN PFSH Active Problems Active Problems: Problem Status Onset Code Dysuria Acute 06/07/17 R30.0 Hesitancy of micturition Acute 08/19/16 R39.11 History of testicular cancer Acute 07/24/16 Z85.47 Calculus of left kidney Acute N20.0 Bladder cancer Acute C67.9 Medical History Medical History A-fib Clot retention of urine Ex-smoker 03/2020 SOB (shortness of breath) on exertion ICD (implantable cardioverter-defibrillator) in place [employer] [id number] [facility] XT DR Hx of ventricular tachycardia History of ST elevation myocardial infarction (STEMI) 03/2020 CAD (coronary artery disease) x1 History of chemotherapy 2016 Hypertension History of postoperative nausea and vomiting History of kidney stones High cholesterol History of retroperitoneal fibrosis Malignant neoplasm of posterior wall of urinary bladder (08/19/16) Hesitancy of micturition Dysuria Malignant neoplasm of posterior wall of urinary bladder History of testicular cancer Medical History Comments:: Pt reports he had a delayed recovery from a previous anesthesia; one time. ICD in place Surgical History Surgical History History of cardiac radiofrequency ablation 05/30/2020 @ [facility] for V-Tach (status: successful at time of procedure) H/O cardiac catheterization S/P bladder tumor excision with fulguration History of colonoscopy History of arthroscopic knee surgery Right History of ankle surgery Left Hx of lithotripsy Status post radical unilateral orchiectomy Tobacco Smoking/Tobacco Use Status: Former Tobacco Use Alcohol Alcohol Intake: former Substance Use Substance use: Never Substance use type: does not use Vital Signs and Lab Results Vital Signs Most Recent Vital Signs in EMR: Most Recent Vital Signs Temp Pulse Resp BP Pulse Ox 36.5 C 62 18 149/69 H 99 08/21/24 08:21 08/21/24 08:21 08/21/24 08:21 08/21/24 08:21 08/21/24 08:21 Lab Results Blood Type / Crossmatch: No Data to Display Complete Blood Count: No Data to Display Complete Metabolic Panel: No Data to Display Liver Function Panel: No Data to Display Coagulation Panel: No Data to Display Cardiac Panel: No Data to Display Arterial Blood Gas: No Data to Display Venous Blood Gas: No Data to Display Pancreas Panel: No Data to Display Thyroid Panel: No Data to Display Infectious Disease: No Data to Display Blood Cultures: No Data to Display Toxicology Panel: No Data to Display Imaging and Studies Imaging and Studies Study information below may be from another EMR and interpreted by another provider. Please see original notes in EMR for more complete details. Echocardiogram Summary: 01/2021: LVEF 45-50%, hypokinesis of the inferolateral wall and inferior wall, mild MR. 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:: [employer] Reason for Placement:: [facility] Date of Last Device Interrogation:: 08/07/24 Airway Exam Known Difficult Airway: No Mallampati Class: 3 Mouth Opening: Narrow (< 3cm) Thyromental Distance: Greater than 3 cm Neck Range of Motion: Full ROM Neck Circumference: Normal Teeth Condition: Normal Dentition and Removable Dentures/Plates Upper ASA Classification ASA Score: ASA 2 Emergency Case?: No NPO Status NPO Status: NPO Clears >2 hours, Solids >8 hours Anesthesia Plan Resuscitation Status: Full Code Anesthesia Technique: General Anesthesia Airway Planned: Natural Airway Pain Management: Surgeon and patient request nerve block (hx of post-procedural chronic pain, consented for postop rescue TAP block prn) Monitors Used: Standard Monitors Preoperative Comments:: Pepcid 20mg IV given preop at 1005 due to terrible GERD after last procedure.
--- NOTE | 2024-08-21 10:10 | W.PM.HP.N ---
Date of service: 08/21/24 Time of Service: 10:11 Assessment and Plan Assessment and plan (1) Bladder cancer: Status: Acute Assessment and plan: For cystoscopy with possible TUR bladder tumor (if a bladder tumor is visible) History of Present Illness History of Present Illness Chief Complaint: Bladder cancer Narrative: This is a 59 year old man who has a history of urothelial cell carcinoma of the bladder. His initial diagnosis was made in 2015. His most recent occurrance was 07/2023. His tumors have been noninvasive. Most recently, his tumors have been low-grade. He has been unable to tolerate intravesical chemotherapy. He presents for cystoscopy with transurethral resection of any visible tumor. He has no dysuria or gross hematuria. He has had urinary tract infections following some of his invasive procedures. His most recent positive urine culture grew E. coli that was pansensitive. He does have a history of kidney stones, but is not having any flank pain at this time. Review of Systems Narrative: No fevers or chills No vision change or dysphasia No diabetes or thyroid dysfunction No shortness of breath, cough or hemoptysis Has defibrillator implant. No chest pain or palpitations No hepatitis, ulcers, jaundice No seizures, strokes or peripheral neuropathy Chronically anticoagulated. No gout PFSH All Active Problems Dysuria (Acute 06/07/17) Hesitancy of micturition (Acute 08/19/16) History of testicular cancer (Acute 07/24/16) Calculus of left kidney (Acute) Bladder cancer (Acute) Medical History A-fib Clot retention of urine Ex-smoker 03/2020 SOB (shortness of breath) on exertion ICD (implantable cardioverter-defibrillator) in place Med[employer] [id number] [facility] XT DR Romeo of ventricular tachycardia History of ST elevation myocardial infarction (STEMI) 03/2020 CAD (coronary artery disease) x1 History of chemotherapy 2016 Hypertension History of postoperative nausea and vomiting History of kidney stones High cholesterol History of retroperitoneal fibrosis Malignant neoplasm of posterior wall of urinary bladder (08/19/16) Hesitancy of micturition Dysuria Malignant neoplasm of posterior wall of urinary bladder History of testicular cancer Surgical History History of cardiac radiofrequency ablation 05/30/2020 @ [facility] for V-Tach (status: successful at time of procedure) H/O cardiac catheterization S/P bladder tumor excision with fulguration History of colonoscopy History of arthroscopic knee surgery Right History of ankle surgery Left Hx of lithotripsy Status post radical unilateral orchiectomy Social History Smoking/Tobacco Use Status: Former Tobacco Use Quit Date: 03/23/20 Smoking risk assessment performed?: Yes Alcohol Intake: former Drug use: Never Substance use type: does not use Housing: house Do you feel safe at home: Yes Do you feel safe in your relationship?: Yes Meds Allergies and Home Medications Allergies Allergy/AdvReac Type Severity Reaction Status Date / Time sildenafil citrate (From Allergy Severe Anaphylaxsi Verified 08/21/24 08:17 Viagra) s ciprofloxacin (From Cipro) Allergy Intermediate Other (See Verified 08/21/24 08:17 Comment) Penicillins Allergy Intermediate Rash, Verified 08/21/24 08:17 itching, hives mitomycin AdvReac Severe Pain, Verified 08/21/24 08:17 created bladder stones per pt. oxybutynin AdvReac Severe dry mouth, Verified 08/21/24 08:17 mouth sores, pain oxycodone HCl (From Percocet) AdvReac Intermediate Mood Verified 08/21/24 08:17 behavior Home Medications ?Medication ?Instructions ?Recorded ?Confirmed ?Type clopidogrel 75 mg tablet (Plavix) 75 mg PO DAILY 10/04/20 08/18/24 History lisinopril 20 mg tablet 20 mg PO DAILY 10/04/20 08/21/24 History mirtazapine 15 mg tablet (Remeron) 15 mg PO QHS 10/04/20 08/21/24 History acetaminophen 500 mg tablet 500 mg PO Q6H PRN 08/19/23 08/18/24 History (Tylenol Extra Strength) apixaban 5 mg tablet (Eliquis) 5 mg PO BID 12/06/23 08/18/24 History metoprolol succinate 100 mg 100 mg PO BID 12/06/23 08/21/24 History tablet,extended release 24 hr pantoprazole 40 mg tablet,delayed 40 mg PO DAILY 12/06/23 08/21/24 History release rosuvastatin 40 mg tablet 40 mg PO DAILY 12/06/23 08/21/24 History Exam Const General: cooperative Neck Neck: supple Resp Effort & Inspection: normal respiratory effort Auscultation: clear to auscultation bilaterally Cardio Rate: regular rate Rhythm: regular rhythm GI Palpation: soft and no masses Neuro General: patient alert, patient awake and patient oriented x3 Results Last Vital Signs Temp 36.5 C 08/21/24 08:21 Pulse 62 08/21/24 08:21 Resp 18 08/21/24 08:21 BP 149/69 H 08/21/24 08:21 Pulse Ox 99 08/21/24 08:21 Time Spent Time spent with Patient: <40 minutes Time was spent: other
[2024-08-21] MEDS: GENTAMICIN 120 MG in Normal Saline 100 ML 206 MG IVPB (10:36)
[2024-08-21] MEDS: Lidocaine 2% Jelly 6 ML SYR (10:56)
--- NOTE | 2024-08-21 11:00 | BLADDER_PTH ---
PATIENT: Florentin Castillo LOC: [facility] U#:[id number] AGE/SX: 59/M ROOM: RE08/21/[address]: Jeremy Quintero MD : 1965 BED: DIS: 08/21/2024 SPEC #: [id number] RECD: 08/21/24 13:07 STATUS: BRANDI REMaricarmen #: [id number] RICO: 08/21/24 11:[address]: Jeremy Quintero DEPT: Surgical Specimen RECD BY: Yusra Malik Tissues: 1 - BLADDER BIOPSY Procedures: GROSS AND MICRO LEVEL 5 Comments: [id number]
--- NOTE | 2024-08-21 11:35 | W.PM.DSUDISC ---
Date of service: 08/21/24 Discharge Plan Disposition Patient Disposition: Home Discharge Details Reason For Visit: cystoscopy Attending Provider: Jeremy Quintero Primary Care Provider: Jeremy Quintero Home Meds and New Rx's Prescriptions: No Action Eliquis 5 mg tablet 5 mg PO BID pantoprazole 40 mg tablet,delayed release (DR/EC) 40 mg PO DAILY clopidogrel [Plavix] 75 mg tablet 75 mg PO DAILY lisinopril 20 mg tablet 20 mg PO DAILY mirtazapine [Remeron] 15 mg tablet 15 mg PO QHS metoprolol succinate 100 mg tablet extended release 24 hr 100 mg PO BID acetaminophen [Tylenol Extra Strength] 500 mg tablet 500 mg PO Q6H PRN rosuvastatin 40 mg tablet 40 mg PO DAILY Patient Comments: TAKE ONE TABLET BY MOUTH EVERY DAY Discharge Instructions Additional Instructions: may restart Plavix and Eliquis in 3 days (as long as urine is visibly clear) followup 1 to 2 weeks for pathology results - can be phone visit if easier for patient Discharge Orders Discharge Orders: Discharge Order (Routine); Ordered 08/21/24 Ordered By: Jeremy Quintero DS: Diagnosis Discharge Diagnosis (1) Bladder cancer: Status: Acute
--- NOTE | 2024-08-21 11:37 | W.PM.OP ---
Operative Note Operative Note PRE-OP DIAGNOSIS: Bladder cancer POST-OP DIAGNOSIS: same PROCEDURE: cystoscopy with TUR Bladder tumor SURGEON: Jeremy Quintero ANESTHESIA TYPE: Local By Surgeon and General:No Airway Refer to Anesthesia Record ESTIMATED BLOOD LOSS: 5 PATHOLOGY: other (bladder tumor) COMPLICATIONS: None Patient was transported to: PACU Patient's condition: stable Implants: none Indications: This is a 59-year-old gentleman who has a history of low-grade, noninvasive urothelial cell carcinoma of the bladder. He presents for surveillance cystoscopy and possible transurethral resection of any visible tumor. His last recurrence was about a year ago. Findings: papillary bladder tumors up toward dome of bladder Procedure Description: The patient was given antibiotics and brought to the operating room on 08/21/2024. After successful induction of general anesthesia, he was placed in the dorsal lithotomy position. His genitalia is prepped and draped. 2% Xylocaine jelly was instilled into the urethra to act as a local anesthetic. A 22 Vincentian rigid cystoscope was passed through the urethra into the bladder. The urethra and bladder were inspected with the 30 degree lens. The pendulous, bulbar and membranous urethra's appeared normal with no strictures. The prostatic urethra showed lateral lobe enlargement but no papillary lesions seen along the mucosa. The bladder neck was entered and the bladder mucosa was inspected. Multiple areas of papillary growth was identified. A few small areas were seen on the posterior bladder wall and down towards the trigone. The majority of tumor was seen up toward the dome of the bladder. We then removed the cystoscope and passed a 24 Vincentian resectoscope sheath through the urethra into the bladder. Transurethral resection of the visible tumor was accomplished using an [employer] resectoscope. I then switched to a button electrode to cauterize all the resection site. All resected tumor was evacuated and sent to pathology for permanent section. I did not identify any active bleeding from the surgical site, so I elected not to place a urethral catheter in this gentleman. The bladder was emptied and the cystoscope was withdrawn. The patient tolerated the procedure well with no complications. Date of Procedure: 08/21/24
[2024-08-21] MEDS: Phenazopyridine 200 MG TAB PO (11:57)
[2024-08-21] MEDS: HYDROmorphone 2 MG TAB 4 MG PO (12:42)
--- NOTE | 2024-08-21 12:43 | W.ANESPOSTOP ---
Postoperative Evaluation Date, Time and Location Date Performed: 08/21/24 Time Performed: 12:31 Patient Location: Day Surgery Unit Vital Signs Most Recent Imported Vital Signs: Most Recent Vital Signs Temp Pulse Resp BP Pulse Ox 36.4 C L 54 L 18 111/75 99 08/21/24 12:22 08/21/24 12:22 08/21/24 12:22 08/21/24 11:50 08/21/24 12:22 Pain Score Most Recent Pain Score: Most Recent Pain Score Pain Level 8 08/21/24 12:22 Assessment Mental Status: Awake (Alert & Oriented to Patient Baseline) Airway and Respiratory Function: Patent airway with normal (patient baseline) respiratory exam Cardiovascular Function: Hemodynamically Stable Hydration Status: Adequately Hydrated Nausea & Vomiting: No Nausea or Vomiting Pain: Pain is Moderate or Severe Postoperative Pain Management: Pain being addressed with medication Peripheral Nerve Block: Patient did not receive a nerve block
== END 2024-08-21 14:28 | disposition home or self-care (01) ==
PROVIDERS: PCP Urology; Visit Provider Urology
PROC: 0TBB8ZZ Excision of Bladder, Via Natural or Artificial Opening Endoscopic (ICD-10-PCS; CPT 52234; principal; 2024-08-21 10:15)
DX: C67.1 Malignant neoplasm of dome of bladder (principal); Z85.47 Personal history of malignant neoplasm of testis; I48.91 Unspecified atrial fibrillation; Z95.810 Presence of automatic (implantable) cardiac defibrillator; I10 Essential (primary) hypertension
CPT/HCPCS: 52234; 36410; 88305; 88307; J1100; J1580; J1885; J2405; J2704

== ENCOUNTER 2024-10-05 10:10 | Outpatient (REF) | payer BC, SELFPAY | END 2024-10-05 10:11 | disposition home or self-care (01) | LOC: LBN 10:10 | PROVIDERS: PCP Urology; Visit Provider Urology | DX: N20.0 Calculus of kidney (principal); R30.0 Dysuria; R39.11 Hesitancy of micturition | CPT/HCPCS: 87086 ==

== ENCOUNTER 2024-10-09 06:59 | Day surgery (SDC) | payer BC, SELFPAY ==
[2024-10-09] VITALS (14 sets, daily range): BP systolic 103–141; BP diastolic 54–88; PULSE 55–63; RESP 13–23; TEMP 36–36.6; O2SAT 96–99; BMI 31.4
[2024-10-09] MEDS: Lactated Ringers 1,000 ML 80 ML IV (07:52)
--- NOTE | 2024-10-09 08:11 | HPE_ITS ---
Date of service: 10/09/24 Time of Service: 08:11 Assessment and Plan Assessment and plan (1) Bladder cancer: Status: Acute Assessment and plan: We will plan to do cystoscopy and evacuate any residual debris within the bladder. History of Present Illness History of Present Illness Chief Complaint: Bladder cancer Narrative: This is a 59-year-old gentleman who has a history of noninvasive urothelial cell carcinoma of the bladder. He had a transurethral resection of a large amount of tumor about 6 weeks ago. He is now passing some necrotic tissue and clots and presents for cystoscopy with evacuation of that tissue. He had a urine culture which showed gram-positive wendy and no uropathogens. Review of Systems Narrative: No fevers or chills No vision change or dysphasia No diabetes or thyroid dysfunction No shortness of breath, cough or hemoptysis No chest pain GERD. No nausea, vomiting, hepatitis, ulcers, jaundice No seizures, strokes or peripheral neuropathy On anticoagulants. No gout PFSH All Active Problems Dysuria (Acute 06/07/17) Hesitancy of micturition (Acute 08/19/16) History of testicular cancer (Acute 07/24/16) Calculus of left kidney (Acute) Bladder cancer (Acute) Medical History A-fib Clot retention of urine Ex-smoker 03/2020 SOB (shortness of breath) on exertion ICD (implantable cardioverter-defibrillator) in place [employer] [id number] [facility] MRI XT DR Hx of ventricular tachycardia History of ST elevation myocardial infarction (STEMI) 03/2020 CAD (coronary artery disease) x1 History of chemotherapy 2016 Hypertension History of postoperative nausea and vomiting History of kidney stones High cholesterol History of retroperitoneal fibrosis Malignant neoplasm of posterior wall of urinary bladder (08/19/16) Hesitancy of micturition Dysuria Malignant neoplasm of posterior wall of urinary bladder History of testicular cancer Surgical History History of cardiac radiofrequency ablation 05/30/2020 @ [facility] for V-Tach (status: successful at time of procedure) H/O cardiac catheterization S/P bladder tumor excision with fulguration History of colonoscopy History of arthroscopic knee surgery Right History of ankle surgery Left Hx of lithotripsy Status post radical unilateral orchiectomy Social History Smoking/Tobacco Use Status: Former Tobacco Use Quit Date: 03/23/20 Smoking risk assessment performed?: Yes Alcohol Intake: former Drug use: Never Substance use type: does not use Housing: house Do you feel safe at home: Yes Do you feel safe in your relationship?: Yes Meds Allergies and Home Medications Allergies Allergy/AdvReac Type Severity Reaction Status Date / Time sildenafil citrate (From Allergy Severe Anaphylaxsi Verified 10/09/24 07:34 Viagra) s ciprofloxacin (From Cipro) Allergy Intermediate Other (See Verified 10/09/24 07:34 Comment) Penicillins Allergy Intermediate Rash, Verified 10/09/24 07:34 itching, hives mitomycin AdvReac Severe Pain, Verified 10/09/24 07:34 created bladder stones per pt. oxybutynin AdvReac Severe dry mouth, Verified 10/09/24 07:34 mouth sores, pain oxycodone HCl (From Percocet) AdvReac Intermediate Mood Verified 10/09/24 07:34 behavior Home Medications ?Medication ?Instructions ?Recorded ?Confirmed ?Type clopidogrel 75 mg tablet (Plavix) 75 mg PO DAILY 10/04/20 10/09/24 History lisinopril 20 mg tablet 20 mg PO DAILY 10/04/20 10/09/24 History acetaminophen 500 mg tablet 500 mg PO Q6H PRN 08/19/23 10/09/24 History (Tylenol Extra Strength) apixaban 5 mg tablet (Eliquis) 5 mg PO BID 12/06/23 10/09/24 History metoprolol succinate 100 mg 100 mg PO BID 12/06/23 10/09/24 History tablet,extended release 24 hr pantoprazole 40 mg tablet,delayed 40 mg PO DAILY 12/06/23 10/09/24 History release rosuvastatin 40 mg tablet 40 mg PO DAILY 12/06/23 10/09/24 History hydromorphone 4 mg tablet 4 mg PO Q6H PRN pain #15 tabs 08/21/24 10/09/24 Rx (Dilaudid) mirabegron 50 mg tablet,extended 50 mg PO DAILY #30 tabs 09/04/24 10/09/24 Rx release 24 hr (Myrbetriq) Exam Const General: cooperative Neck Neck: supple Resp Effort & Inspection: normal respiratory effort Auscultation: clear to auscultation bilaterally Cardio Rate: regular rate Rhythm: regular rhythm GI Palpation: no masses Neuro General: patient alert, patient awake and patient oriented x3 Results Last Vital Signs Temp 36.6 C 10/09/24 07:41 Pulse 61 10/09/24 07:41 Resp 16 10/09/24 07:41 BP 141/80 H 10/09/24 07:41 Pulse Ox 99 10/09/24 07:41 Time Spent Time spent with Patient: <40 minutes Time was spent: other
--- NOTE | 2024-10-09 08:22 | W.ANESPRE ---
General Info Date of Service Date Performed: 10/09/24 Height: 5 ft 8 in Weight: 93.9 kg Body Mass Index (BMI): 31.4 Surgical Procedure: Operation Date: 10/09/24 09:10 Proposed Procedure Side Surgeon p Cystoscopy w/Clot Evacuation Jeremy Quintero MD Meds Allergies and Home Medications Allergies Allergy/AdvReac Type Severity Reaction Status Date / Time sildenafil citrate (From Allergy Severe Anaphylaxsi Verified 10/09/24 07:34 Viagra) s ciprofloxacin (From Cipro) Allergy Intermediate Other (See Verified 10/09/24 07:34 Comment) Penicillins Allergy Intermediate Rash, Verified 10/09/24 07:34 itching, hives mitomycin AdvReac Severe Pain, Verified 10/09/24 07:34 created bladder stones per pt. oxybutynin AdvReac Severe dry mouth, Verified 10/09/24 07:34 mouth sores, pain oxycodone HCl (From Percocet) AdvReac Intermediate Mood Verified 10/09/24 07:34 behavior Home Medication ?Medication ?Instructions ?Recorded clopidogrel 75 mg tablet (Plavix) 75 mg PO DAILY 10/04/20 lisinopril 20 mg tablet 20 mg PO DAILY 10/04/20 acetaminophen 500 mg tablet 500 mg PO Q6H PRN 08/19/23 (Tylenol Extra Strength) apixaban 5 mg tablet (Eliquis) 5 mg PO BID 12/06/23 metoprolol succinate 100 mg 100 mg PO BID 12/06/23 tablet,extended release 24 hr pantoprazole 40 mg tablet,delayed 40 mg PO DAILY 12/06/23 release rosuvastatin 40 mg tablet 40 mg PO DAILY 12/06/23 hydromorphone 4 mg tablet 4 mg PO Q6H PRN pain #15 tabs 08/21/24 (Dilaudid) mirabegron 50 mg tablet,extended 50 mg PO DAILY #30 tabs 09/04/24 release 24 hr (Myrbetriq) Current Visit Medications: Current Medications Generic Name Dose Route Start Last Admin Trade Name Freq PRN Reason Stop Dose Admin Ringer's Solution 1,000 mls @ 80 mls/hr 10/09/24 06:00 10/09/24 07:52 IV 10/09/24 23:59 80 mls/hr INFUSION KEYSHAWN Administration Gentamicin Sulfate 160 mg/ 104 mls @ 208 mls/hr 10/09/24 06:00 Sodium Chloride IVPB 10/09/24 23:59 PREOP KEYSHAWN IV Miscellaneous Supplies 1 each 10/09/24 06:00 Iv Access IV 10/09/24 23:59 DIRECTED KEYSHAWN Sodium Chloride 0 ml 10/09/24 06:00 Normal Saline Flush 10 Ml Syr IV 10/09/24 23:59 PRN PRN Sodium Chloride 0 ml 10/09/24 06:00 Normal Saline 10 Ml Vial IJ 10/09/24 23:59 DIRECTED PRN Sterile Water 0 ml 10/09/24 06:00 Water,Injection,Sterile 10 Ml Vial IJ 10/09/24 23:59 DIRECTED PRN PFSH Active Problems Active Problems: Problem Status Onset Code Dysuria Acute 06/07/17 R30.0 Hesitancy of micturition Acute 08/19/16 R39.11 History of testicular cancer Acute 07/24/16 Z85.47 Calculus of left kidney Acute N20.0 Bladder cancer Acute C67.9 Medical History Medical History A-fib Clot retention of urine Ex-smoker 03/2020 SOB (shortness of breath) on exertion ICD (implantable cardioverter-defibrillator) in place [employer] [id number] [facility] MRI XT DR Hx of ventricular tachycardia History of ST elevation myocardial infarction (STEMI) 03/2020 CAD (coronary artery disease) x1 History of chemotherapy 2016 Hypertension History of postoperative nausea and vomiting History of kidney stones High cholesterol History of retroperitoneal fibrosis Malignant neoplasm of posterior wall of urinary bladder (08/19/16) Hesitancy of micturition Dysuria Malignant neoplasm of posterior wall of urinary bladder History of testicular cancer Surgical History Surgical History History of cardiac radiofrequency ablation 05/30/2020 @ [facility] for V-Tach (status: successful at time of procedure) H/O cardiac catheterization S/P bladder tumor excision with fulguration History of colonoscopy History of arthroscopic knee surgery Right History of ankle surgery Left Hx of lithotripsy Status post radical unilateral orchiectomy Tobacco Smoking/Tobacco Use Status: Former Tobacco Use Alcohol Alcohol Intake: former Substance Use Substance use: Never Substance use type: does not use Vital Signs and Lab Results Vital Signs Most Recent Vital Signs in EMR: Most Recent Vital Signs Temp Pulse Resp BP Pulse Ox 36.6 C 61 16 141/80 H 99 10/09/24 07:41 10/09/24 07:41 10/09/24 07:41 10/09/24 07:41 10/09/24 07:41 Lab Results Blood Type / Crossmatch: No Data to Display Complete Blood Count: No Data to Display Complete Metabolic Panel: No Data to Display Liver Function Panel: No Data to Display Coagulation Panel: No Data to Display Cardiac Panel: No Data to Display Arterial Blood Gas: No Data to Display Venous Blood Gas: No Data to Display Pancreas Panel: No Data to Display Thyroid Panel: No Data to Display Infectious Disease: No Data to Display Blood Cultures: No Data to Display Toxicology Panel: No Data to Display Imaging and Studies Imaging and Studies Study information below may be from another EMR and interpreted by another provider. Please see original notes in EMR for more complete details. Echocardiogram Summary: 01/2021: LVEF 45-50%, hypokinesis of the inferolateral wall and inferior wall, mild MR. Anesthesia Assessment and Plan Anesthesia History Personal History: PONV and Delayed Emergence Family History: No Family History of Anesthesia Complications Exercise Tolerance Exercise Tolerance: Metabolic Equivalents>4 Pertinent Negatives Pertinent Negatives: No Symptoms of GERD (Active Heartburn, Pantoprazole BID) Cardiac & Pulmonary Exam Cardiac Exam: Normal S1/S2 Heart Sounds Pulmonary Exam: Clear Bilateral Breath Sounds Implantable Cardiac Device Does patient have a Pacemaker or an ICD?: Yes Device Creative Lead:: [facility] Reason for Placement:: V-tach Date of Last Device Interrogation:: 05/05/24 Airway Exam Known Difficult Airway: No Mallampati Class: 3 Mouth Opening: Narrow (< 3cm) Thyromental Distance: Greater than 3 cm Neck Range of Motion: Full ROM Neck Circumference: Normal Teeth Condition: Normal Dentition and Removable Dentures/Plates Upper ASA Classification ASA Score: ASA 3 Emergency Case?: No NPO Status NPO Status: NPO Clears >2 hours, Solids >8 hours Anesthesia Plan Resuscitation Status: Full Code Anesthesia Technique: General Anesthesia Airway Planned: Endotracheal Tube Monitors Used: Standard Monitors
[2024-10-09] MEDS: GENTAMICIN 160 MG in Normal Saline 100 ML 208 MG IVPB (08:55)
[2024-10-09] MEDS: Lidocaine 2% Jelly 11 ML SYR (09:20)
--- NOTE | 2024-10-09 09:28 | W.PM.DSUDISC ---
Date of service: 10/09/24 Discharge Plan Disposition Patient Disposition: Home Discharge Details Reason For Visit: cystoscopy and clot evacuation Attending Provider: Jeremy Quintero Primary Care Provider: Jeremy Quintero Home Meds and New Rx's Prescriptions: No Action hydromorphone [Dilaudid] 4 mg tablet 4 mg PO Q6H MDD 4 PRN (Reason: pain) Qty: 15 0RF mirabegron [Myrbetriq] 50 mg tablet extended release 24 hr 50 mg PO DAILY Qty: 30 0RF Eliquis 5 mg tablet 5 mg PO BID pantoprazole 40 mg tablet,delayed release (DR/EC) 40 mg PO DAILY clopidogrel [Plavix] 75 mg tablet 75 mg PO DAILY lisinopril 20 mg tablet 20 mg PO DAILY metoprolol succinate 100 mg tablet extended release 24 hr 100 mg PO BID acetaminophen [Tylenol Extra Strength] 500 mg tablet 500 mg PO Q6H PRN rosuvastatin 40 mg tablet 40 mg PO DAILY Patient Comments: TAKE ONE TABLET BY MOUTH EVERY DAY Discharge Instructions Additional Instructions: OK to restart anticoagulants 10/10 followup as previously scheduled Discharge Orders Discharge Orders: Discharge Order (Routine); Ordered 10/09/24 Ordered By: Jeremy Quintero DS: Diagnosis Discharge Diagnosis (1) Bladder cancer: Status: Acute
--- NOTE | 2024-10-09 09:31 | W.PM.OP ---
Operative Note Operative Note PRE-OP DIAGNOSIS: Bladder Cancer POST-OP DIAGNOSIS: same PROCEDURE: Cystoscopy, evacuation of clots, fulguration of bladder tumor SURGEON: Jeremy Quintero ANESTHESIA TYPE: Local By Surgeon and General LMA/ETT Refer to Anesthesia Record ESTIMATED BLOOD LOSS: 5 PATHOLOGY: none sent COMPLICATIONS: None Patient was transported to: PACU Patient's condition: stable Implants: none Indications: This is a 59-year-old gentleman who has a history of urothelial cell carcinoma of the bladder. He underwent a transurethral resection of the large bladder tumor approximately 6 weeks ago. He has recently been passing necrotic debris in the urine. He presents for cystoscopy with clot evacuation. Findings: Necrotic debris within the bladder 2 small papillary lesions in the bladder (less than 2 cm in largest dimension) Procedure Description: The patient was given an IV antibiotics and brought to the operating room on 10/09/2023. After successful induction of general anesthesia, he was placed in the dorsal lithotomy position. His genitalia was prepped and draped. 2% Xylocaine jelly was instilled into the urethra to act as a local anesthetic. The 22 Czech rigid cystoscope was passed through the urethra into the bladder. The urethra and bladder were inspected using a 30 degree lens. The pendulous, bulbar and membranous urethra appeared normal with no strictures. The prostatic urethra showed some lateral lobe enlargement but no significant median lobe. The bladder neck was entered and the bladder mucosa was inspected. A moderate amount of necrotic debris was floating within the lumen of the bladder. The debris was evacuated using a Becki syringe. There appeared to be 1 point of attachment for the debris to the bladder wall up in the right anterior portion of the bladder. I was able to remove the debris from the wall and evacuated in its entirety. I then inspected the remainder of the bladder and identified 2 small papillary lesions up at the left anterior bladder wall. These lesions were cauterized using bipolar Bugbee electrode. The patient tolerated the procedure well with no complications. He was taken to the recovery room in stable condition. Date of Procedure: 10/09/24
[2024-10-09] MEDS: Phenazopyridine 200 MG TAB PO (10:03)
--- NOTE | 2024-10-09 10:31 | W.ANESPOSTOP ---
Postoperative Evaluation Date, Time and Location Date Performed: 10/09/24 Time Performed: 10:36 Patient Location: Day Surgery Unit Vital Signs Most Recent Imported Vital Signs: Most Recent Vital Signs Temp Pulse Resp BP Pulse Ox 36 C L 56 L 16 113/88 98 10/09/24 09:58 10/09/24 09:58 10/09/24 09:58 10/09/24 09:58 10/09/24 09:58 Pain Score Most Recent Pain Score: Most Recent Pain Score Pain Level 0 10/09/24 09:58 Assessment Mental Status: Awake (Alert & Oriented to Patient Baseline) Airway and Respiratory Function: Patent airway with normal (patient baseline) respiratory exam Cardiovascular Function: Hemodynamically Stable Hydration Status: Adequately Hydrated Nausea & Vomiting: No Nausea or Vomiting Pain: Pt. Denies Any Pain Peripheral Nerve Block: Patient did not receive a nerve block
--- NOTE | 2024-10-09 11:13 | W.ANESPOSTOP ---
Postoperative Evaluation Date, Time and Location Date Performed: 10/09/24 Time Performed: 11:13 Patient Location: Day Surgery Unit Vital Signs Most Recent Imported Vital Signs: Most Recent Vital Signs Temp Pulse Resp BP Pulse Ox 36.4 C L 55 L 16 103/70 99 10/09/24 10:30 10/09/24 10:30 10/09/24 10:30 10/09/24 10:30 10/09/24 10:30 Most Recent Vital Signs Temp Pulse Resp BP Pulse Ox 36 C L 56 L 16 113/88 98 10/09/24 09:58 10/09/24 09:58 10/09/24 09:58 10/09/24 09:58 10/09/24 09:58 Pain Score Most Recent Pain Score: Most Recent Pain Score Pain Level 0 10/09/24 10:30 Assessment Mental Status: Awake (Alert & Oriented to Patient Baseline) Airway and Respiratory Function: Patent airway with normal (patient baseline) respiratory exam Cardiovascular Function: Hemodynamically Stable Hydration Status: Adequately Hydrated Nausea & Vomiting: No Nausea or Vomiting Pain: Pt. Denies Any Pain Peripheral Nerve Block: Patient did not receive a nerve block Postoperative Comments:: Sore throat from suctioning. Pharyngeal tissue red and inflamed prior to induction... ? chronic gastric reflux. 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
--- NOTE | 2024-10-12 06:32 | NUR.NOTE ---
Referral placed in chart.
== END 2024-10-09 11:18 | disposition home or self-care (01) ==
PROVIDERS: PCP Urology; Visit Provider Urology
PROC: 0TJB8ZZ Inspection of Bladder, Via Natural or Artificial Opening Endoscopic (ICD-10-PCS; CPT 52000; principal; 2024-10-09 09:00)
DX: C67.3 Malignant neoplasm of anterior wall of bladder (principal); N32.89 Other specified disorders of bladder
CPT/HCPCS: 52234; 52001; J0131; J1100; J1580; J1885; J2003; J2405; J2704; J3010

== ENCOUNTER 2024-10-11 22:32 | Emergency (ER) | payer BC, SELFPAY ==
[2024-10-11 22:35] VITALS: BP 172/84; PULSE 64; RESP 20; O2SAT 98
--- NOTE | 2024-10-11 22:44 | W.EDPROG ---
Medical Decision Making IMPRESSION: Bilateral lower lobe subsegmental atelectatic changes Quality:SDOH Health Related Social Needs: No Data to Display Discharge Plan Discharge Details Chief Complaint: Urinary Primary Care Provider: Jeremy Quintero ED Provider: Sera Jolley Home Meds and New Rx's Prescriptions: No Action hydromorphone [Dilaudid] 4 mg tablet 4 mg PO Q6H MDD 4 PRN (Reason: pain) Qty: 15 0RF mirabegron [Myrbetriq] 50 mg tablet extended release 24 hr 50 mg PO DAILY Qty: 30 0RF Eliquis 5 mg tablet 5 mg PO BID pantoprazole 40 mg tablet,delayed release (DR/EC) 40 mg PO DAILY phenazopyridine [Pyridium] 200 mg tablet 200 mg PO TID PRN (Reason: pain) Qty: 30 0RF clopidogrel [Plavix] 75 mg tablet 75 mg PO DAILY lisinopril 20 mg tablet 20 mg PO DAILY metoprolol succinate 100 mg tablet extended release 24 hr 100 mg PO BID acetaminophen [Tylenol Extra Strength] 500 mg tablet 500 mg PO Q6H PRN Rybelsus 3 mg tablet 3 mg PO Patient Comments: TAKE 1 TABLET BY MOUTH ONCE DAILY. TAKE AT LEAST 30 MINUTES BEFORE FIRST FOOD, BEVERAGE, OR OTHER ORAL MEDS rosuvastatin 40 mg tablet 40 mg PO DAILY Patient Comments: TAKE ONE TABLET BY MOUTH EVERY DAY
--- NOTE | 2024-10-11 23:00 | W.ED.GENAD ---
Discharge Plan Disposition Patient Disposition: Home Condition: Good Discharge Details Clinical Impression: Hematuria Primary Care Provider: Jeremy Quintero ED Provider: Sera Jolley Home Meds and New Rx's Prescriptions: Continued mirabegron [Myrbetriq] 50 mg tablet extended release 24 hr 50 mg PO DAILY Qty: 30 0RF Eliquis 5 mg tablet 5 mg PO BID pantoprazole 40 mg tablet,delayed release (DR/EC) 40 mg PO DAILY phenazopyridine [Pyridium] 200 mg tablet 200 mg PO TID PRN (Reason: pain) Qty: 30 0RF clopidogrel [Plavix] 75 mg tablet 75 mg PO DAILY lisinopril 20 mg tablet 20 mg PO DAILY metoprolol succinate 100 mg tablet extended release 24 hr 100 mg PO BID acetaminophen [Tylenol Extra Strength] 500 mg tablet 500 mg PO Q6H PRN Rybelsus 3 mg tablet 3 mg PO Patient Comments: TAKE 1 TABLET BY MOUTH ONCE DAILY. TAKE AT LEAST 30 MINUTES BEFORE FIRST FOOD, BEVERAGE, OR OTHER ORAL MEDS rosuvastatin 40 mg tablet 40 mg PO DAILY Patient Comments: TAKE ONE TABLET BY MOUTH EVERY DAY Discontinued hydromorphone [Dilaudid] 4 mg tablet 4 mg PO Q6H MDD 4 PRN (Reason: pain) Qty: 15 0RF Discharge Instructions Instructions: Blood in Urine (Hematuria), Adult ED Additional Instructions: -Call Dr. Quintero in the morning to schedule an appointment to be seen (ideally today) to followup on your visit here. Discuss with him whether you should hold your anticoagulants or not. -Your blood pressure is high here in the ED; please schedule an appointment with your primary care doctor to discuss this. -Return to the emergency department for new or worsening symptoms including if you are unable to urinate, have abdominal pain, feel lightheaded or like you are going to pass out, or if you have any other concerns. Referrals: Jeremy Quintero MD [Primary Care Provider] - HPI General Mode of arrival: ambulatory. Date/Time Provider Initiated Documentation: 10/11/24 22:33. Limitations to Documentation: no limitations. Information obtained by: patient. HPI Narrative: 59yo M with hx bladder cancer, on AC, recent cytoscopy on 10/09 with cauterization, resumed blood thinners on 10/10, presenting for hematuria. This afternoon lifted something heavy; a few hours after that noted blood in his urine. Blood has been increasing and now has some clots. Has had issues with hematuria in the past with resultant urinary blockage. Able to void currently. Otherwise in his usual state of health with no fevers, abdominal/suprapubic pain, back pain, dysuria, or other concerns. Related Data Home Medications ?Medication ?Instructions ?Recorded ?Confirmed clopidogrel 75 mg tablet (Plavix) 75 mg PO DAILY 10/04/20 10/11/24 lisinopril 20 mg tablet 20 mg PO DAILY 10/04/20 10/11/24 acetaminophen 500 mg tablet 500 mg PO Q6H PRN 08/19/23 10/11/24 (Tylenol Extra Strength) apixaban 5 mg tablet (Eliquis) 5 mg PO BID 12/06/23 10/11/24 metoprolol succinate 100 mg 100 mg PO BID 12/06/23 10/11/24 tablet,extended release 24 hr pantoprazole 40 mg tablet,delayed 40 mg PO DAILY 12/06/23 10/11/24 release rosuvastatin 40 mg tablet 40 mg PO DAILY 12/06/23 10/11/24 mirabegron 50 mg tablet,extended 50 mg PO DAILY #30 tabs 09/04/24 10/11/24 release 24 hr (Myrbetriq) phenazopyridine 200 mg tablet 200 mg PO TID PRN pain #30 tabs 10/09/24 10/11/24 (Pyridium) semaglutide 3 mg tablet (Rybelsus) 3 mg PO 10/11/24 Previous Rx's ?Medication ?Instructions ?Recorded mirabegron 50 mg tablet,extended 50 mg PO DAILY #30 tabs 09/04/24 release 24 hr (Myrbetriq) phenazopyridine 200 mg tablet 200 mg PO TID PRN pain #30 tabs 10/09/24 (Pyridium) Allergies Allergy/AdvReac Type Severity Reaction Status Date / Time sildenafil citrate (From Allergy Severe Anaphylaxsi Verified 10/11/24 22:41 Viagra) s ciprofloxacin (From Cipro) Allergy Intermediate Other (See Verified 10/11/24 22:41 Comment) Penicillins Allergy Intermediate Rash, Verified 10/11/24 22:41 itching, hives mitomycin AdvReac Severe Pain, Verified 10/11/24 22:41 created bladder stones per pt. oxybutynin AdvReac Severe dry mouth, Verified 10/11/24 22:41 mouth sores, pain oxycodone HCl (From Percocet) AdvReac Intermediate Mood Verified 10/11/24 22:41 behavior General Stated Complaint: Urinary NATALIE: 3 Review of Systems Narrative: see HPI Exam Narrative Exam Narrative: General: Alert, well appearing, well nourished, in no acute distress. Head: Normocephalic, atraumatic Neck: Trachea midline, ?Neck supple. Cardiac: ?No cyanosis. Resp: No respiratory distress. Speaking in full sentences. Abd: ?Soft, non-distended, nontender : ?No suprapubic tenderness. Extremities: ?No deformities.? No peripheral edema. Neurologic: GCS 15. ? Moves all extremities freely against gravity Course Vital Signs Vital signs: Vital Signs Pulse 64 10/11/24 22:35 Respiratory Rate 20 10/11/24 22:35 Blood Pressure 172/84 H 10/11/24 22:35 Pulse Oximetry 98 10/11/24 22:35 Pulse 64 10/11/24 22:35 Respiratory Rate 20 10/11/24 22:35 Blood Pressure 172/84 H 10/11/24 22:35 Blood Pressure Position Sitting 10/11/24 22:35 Pulse Oximetry 98 10/11/24 22:35 Oxygen Delivery Method Room Air 10/11/24 22:35 Oxygen Flow Rate 0 10/11/24 22:35 Medical Decision Making 59yo M with hx bladder cancer, on AC, recent cytoscopy on 10/09 for hematuria with cauterization performed, resumed blood thinners on 10/10, presenting for hematuria. This afternoon lifted something heavy; since then has had increasing blood and clots in his urine. Able to void. Hypertensive on arrival, vital signs otherwise reassuring. No suprapubic tenderness or fullness. Given AC, will check CBC for anemia. UA sent, plan to place obrien and irrigate bladder. UA with hematuria. Obrien placed and bladder irrigated, currently some tiny clots and dark pink urine. Will continue irrigation; if urine continues to clear would discharge home to followup with Dr. Quintero from urology. Pt requesting tyelnol for foot pain which was given. Planned EMR downtime occurring soon; further events will be noted on paper work. Tentative discharge instructions will be written now and printed from EMR. Lab Data Lab results reviewed: Yes I reviewed the patient's lab results. Labs: Laboratory Tests Range/Units 10/11/24 10/11/24 22:47 23:35 WBC (4.4-10.8) 10^3/uL 12.18 H RBC (4.36-5.78) 10^6/uL 4.73 Hgb (13.5-17.5) g/dL 14.5 Hct (40.0-50.0) % 43.6 MCV (80-95) fL 92 MCH (27.0-33.0) pg 30.7 MCHC (32.0-36.0) % 33.3 RDW (11.8-14.1) % 13.2 Plt Count (130-400) 10^3/uL 258 MPV (8.0-11.0) fL 9.8 Urine Color (Yellow) Red Urine Clarity (Clear) Turbid Urine pH (5-8) Ur Specific [place] (1.005-1.025) 1.023 Urine Protein (Neg-Trace) mg/dL Urine Ketones (Negative) mg/dL Urine Blood (Negative) Urine Nitrite (Negative) Urine Bilirubin (Negative) Urine Urobilinogen (Up to 0.2) mg/dL Ur Leukocyte Esterase (Negative) Urine RBC (0-2) HPF >50 H Urine WBC Not Applicable Ur Epithelial Cells Not Applicable Urine Crystals Not Applicable Urine Bacteria Not Applicable Urine Mucus Not Applicable Ur Culture Indicated? No Urine Glucose (Negative) mg/dL Quality:SDOH Health Related Social Needs: No Data to Display PFSH All Active Problems (Updated 10/12/24 @ 01:04 by Srea Jolley MD) Hematuria (Acute) Dysuria (Acute 06/07/17) Hesitancy of micturition (Acute 08/19/16) History of testicular cancer (Acute 07/24/16) Calculus of left kidney (Acute) Bladder cancer (Acute) Medical History (Updated 10/12/24 @ 01:04 by Sera Jolley MD) A-fib Clot retention of urine Ex-smoker 03/2020 SOB (shortness of breath) on exertion ICD (implantable cardioverter-defibrillator) in place [employer] [id number] [facility] XT DR Romeo of ventricular tachycardia History of ST elevation myocardial infarction (STEMI) 03/2020 CAD (coronary artery disease) x1 History of chemotherapy 2016 Hypertension History of postoperative nausea and vomiting History of kidney stones High cholesterol History of retroperitoneal fibrosis Malignant neoplasm of posterior wall of urinary bladder (08/19/16) Hesitancy of micturition Dysuria Malignant neoplasm of posterior wall of urinary bladder History of testicular cancer Surgical History History of cardiac radiofrequency ablation 05/30/2020 @ [facility] for V-Tach (status: successful at time of procedure) H/O cardiac catheterization S/P bladder tumor excision with fulguration History of colonoscopy History of arthroscopic knee surgery Right History of ankle surgery Left Hx of lithotripsy Status post radical unilateral orchiectomy Social History Smoking/Tobacco Use Status: Former Tobacco Use Quit Date: 03/23/20 Smoking risk assessment performed?: Yes Alcohol Intake: former Drug use: Never Substance use type: does not use Housing: house Do you feel safe at home: Yes Do you feel safe in your relationship?: Yes
[2024-10-11 23:04] VITALS: TEMP 36.8
[2024-10-11 23:10] LABS: Clarity Turbid (Clear)
[2024-10-11 23:18] LABS: Specific Gravity 1.023 (1.005-1.025)
[2024-10-11 23:21] LABS: RBC >50 HPF (0-2)
[2024-10-11 23:22] LABS: C & S Indicated? No
[2024-10-11 23:43] LABS: HCT 43.6 % (40.0-50.0); HGB 14.5 g/dL (13.5-17.5); MCH 30.7 pg (27.0-33.0); MCHC 33.3 % (32.0-36.0); MCV 92 fL (80-95); MPV 9.8 fL (8.0-11.0); Platelet Count 258 10^3/uL (130-400); RBC 4.73 10^6/uL (4.36-5.78); RDW 13.2 % (11.8-14.1); RDW-SD 44.9 fL; WBC 12.18 10^3/uL (4.4-10.8)
[2024-10-12] MEDS: Acetaminophen 500 MG TAB 1000 MG PO (00:59)
== END 2024-10-12 05:06 | disposition home or self-care (01) ==
PROVIDERS: Emergency Provider Student in an Organized Health Care Education/Training Program; PCP Urology
DX: R31.9 Hematuria, unspecified (principal); I48.91 Unspecified atrial fibrillation; I25.10 Atherosclerotic heart disease of native coronary artery without angina pectoris; I10 Essential (primary) hypertension; E78.5 Hyperlipidemia, unspecified; Z98.890 Other specified postprocedural states; Z86.73 Personal history of transient ischemic attack (TIA), and cerebral infarction without residual deficits; Z79.01 Long term (current) use of anticoagulants; Z79.02 Long term (current) use of antithrombotics/antiplatelets; Z79.899 Other long term (current) drug therapy; Z87.891 Personal history of nicotine dependence
CPT/HCPCS: 85027; 99284; 81003; 81015

== ENCOUNTER 2025-04-09 07:00 | Day surgery (SDC) | payer BC, SELFPAY ==
[2025-04-09] VITALS (15 sets, daily range): BP systolic 100–167; BP diastolic 51–90; PULSE 53–63; RESP 10–19; TEMP 35.8–36.5; O2SAT 93–100; BMI 30.7
--- NOTE | 2025-04-09 07:50 | W.ANESPRE ---
General Info Date of Service Date Performed: 04/09/25 Height: 5 ft 8 in Weight: 91.8 kg Body Mass Index (BMI): 30.7 Surgical Procedure: Operation Date: 04/09/25 08:40 Proposed Procedure Side Surgeon p Cystoscopy w/Transurethral Resection Bladder Tumor Jeremy Quintero MD Meds Allergies and Home Medications Allergies Allergy/AdvReac Type Severity Reaction Status Date / Time sildenafil citrate (From Allergy Severe Anaphylaxsi Verified 04/09/25 07:15 Viagra) s ciprofloxacin (From Cipro) Allergy Intermediate Other (See Verified 04/09/25 07:15 Comment) Penicillins Allergy Intermediate Rash, Verified 04/09/25 07:15 itching, hives mitomycin AdvReac Severe Pain, Verified 04/09/25 07:15 created bladder stones per pt. oxybutynin AdvReac Severe dry mouth, Verified 04/09/25 07:15 mouth sores, pain oxycodone HCl (From Percocet) AdvReac Intermediate Mood Verified 04/09/25 07:15 behavior Home Medication ?Medication ?Instructions ?Recorded clopidogrel 75 mg tablet (Plavix) 75 mg PO DAILY 10/04/20 lisinopril 20 mg tablet 20 mg PO DAILY 10/04/20 acetaminophen 500 mg tablet 500 mg PO Q6H PRN 08/19/23 (Tylenol Extra Strength) apixaban 5 mg tablet (Eliquis) 5 mg PO BID 12/06/23 metoprolol succinate 100 mg 100 mg PO BID 12/06/23 tablet,extended release 24 hr pantoprazole 40 mg tablet,delayed 40 mg PO DAILY 12/06/23 release rosuvastatin 40 mg tablet 40 mg PO DAILY 12/06/23 phenazopyridine 200 mg tablet 200 mg PO TID PRN pain #30 tabs 10/09/24 (Pyridium) albuterol 90 mcg/actuation aerosol mcg inhalation PRN SOB 04/09/25 inhaler fluticasone furoate 50 inhalation DAILY 04/09/25 mcg-vilanterol 25 mcg/dose inhalation powder (Breo Ellipta) Current Visit Medications: Current Medications Generic Name Dose Route Start Last Admin Trade Name Freq PRN Reason Stop Dose Admin Gentamicin Sulfate 120 mg/ 103 mls @ 206 mls/hr 04/09/25 06:00 Sodium Chloride IVPB 04/09/25 23:59 PREOP KEYSHAWN Ringer's Solution 1,000 mls @ 30 mls/hr 04/09/25 07:10 IV 05/09/25 07:09 IN[facility]ION [facility] IV Miscellaneous Supplies 1 each 04/09/25 06:00 Iv Access IV 04/09/25 23:59 DIRECTED KEYSHAWN Sodium Chloride 0 ml 04/09/25 06:00 Normal Saline Flush 10 Ml Syr IV 04/09/25 23:59 PRN PRN Sodium Chloride 0 ml 04/09/25 06:00 Normal Saline 10 Ml Vial IJ 04/09/25 23:59 DIRECTED PRN Sterile Water 0 ml 04/09/25 06:00 Water,Injection,Sterile 10 Ml Vial IJ 04/09/25 23:59 DIRECTED PRN PFSH Active Problems Active Problems: Problem Status Onset Code Dysuria Acute 06/07/17 R30.0 Hesitancy of micturition Acute 08/19/16 R39.11 History of testicular cancer Acute 07/24/16 Z85.47 Calculus of left kidney Acute N20.0 Bladder cancer Acute C67.9 Medical History Medical History A-fib Clot retention of urine Ex-smoker 03/2020 SOB (shortness of breath) on exertion ICD (implantable cardioverter-defibrillator) in place [employer] [id number] [facility] XT Rohit Hx of ventricular tachycardia History of ST elevation myocardial infarction (STEMI) 03/2020 CAD (coronary artery disease) x1 History of chemotherapy 2016 Hypertension History of postoperative nausea and vomiting History of kidney stones High cholesterol History of retroperitoneal fibrosis Malignant neoplasm of posterior wall of urinary bladder (08/19/16) Hesitancy of micturition Dysuria Malignant neoplasm of posterior wall of urinary bladder History of testicular cancer Surgical History Surgical History History of cardiac radiofrequency ablation 05/30/2020 @ [facility] for V-Tach (status: successful at time of procedure) H/O cardiac catheterization S/P bladder tumor excision with fulguration History of colonoscopy History of arthroscopic knee surgery Right History of ankle surgery Left Hx of lithotripsy Status post radical unilateral orchiectomy Tobacco Smoking/Tobacco Use Status: Former Tobacco Use Passive smoking exposure: No Alcohol Alcohol Intake: former Substance Use Substance use: Never Substance use type: does not use Vital Signs and Lab Results Vital Signs Most Recent Vital Signs in EMR: Most Recent Vital Signs Temp Pulse Resp BP Pulse Ox 36.4 C L 63 16 167/90 H 98 04/09/25 07:25 04/09/25 07:25 04/09/25 07:25 04/09/25 07:25 04/09/25 07:25 Point of Care Results Point of Care Results: Finger Stick Blood Glucose 228 04/09/25 07:32 Imaging and Studies Imaging and Studies Study information below may be from another EMR and interpreted by another provider. Please see original notes in EMR for more complete details. Echocardiogram Summary: 01/2021: LVEF 45-50%, hypokinesis of the inferolateral wall and inferior wall, mild MR. 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:: [employer] Reason for Placement:: afib Date of Last Device Interrogation:: 12/22/24, states also int in AUG Airway Exam Known Difficult Airway: No Mallampati Class: 3 Mouth Opening: Narrow (< 3cm) Thyromental Distance: Greater than 3 cm Neck Range of Motion: Full ROM Neck Circumference: Normal Teeth Condition: Normal Dentition and Removable Dentures/Plates Upper ASA Classification ASA Score: ASA 3 Emergency Case?: No NPO Status NPO Status: NPO Clears >2 hours, Solids >8 hours Anesthesia Plan Resuscitation Status: Full Code Anesthesia Technique: General Anesthesia Airway Planned: Natural Airway Pain Management: Surgeon and patient request nerve block (PRN left sided TAP block) Monitors Used: Standard Monitors Preoperative Comments:: No GERD symptoms today, reports well controlled on his pantoprazole. Pepcid has worked well for him in the past, I have ordered for today as well. Discussed KEMAR and need for evaluation based on current symptoms, patient and family member report will follow up with PCP. Reports a ...black and blue throat... last visit. Discussed potential for trauma during intubation, OETT will be ready but planning natural airway this case.
[2025-04-09] MEDS: Lactated Ringers 1,000 ML 30 ML IV (08:00)
--- NOTE | 2025-04-09 08:25 | W.PM.HP.N ---
Date of service: 04/09/25 Time of Service: 08:26 Assessment and Plan Assessment and plan (1) Bladder cancer: Status: Acute Assessment and plan: We will perform cystoscopy and be prepared to do transurethral resection of any bladder tumor that we identify. We will not instill any chemotherapy into his bladder given his previous adverse reactions. History of Present Illness History of Present Illness Chief Complaint: bladder cancer Narrative: This is a 60 year old man who has a history of urothelial cell carcinoma of the bladder. His initial diagnosis was made in 2016. His tumors have been noninvasive. Most recently, his tumors have been low-grade. He has been unable to tolerate intravesical chemotherapy. He presents for cystoscopy with transurethral resection of any visible tumor. He has no dysuria or gross hematuria. He has had urinary tract infections following some of his invasive procedures. His most recent positive urine culture grew E. coli that was pansensitive. He does have a history of kidney stones, but is not having any flank pain at this time. His most recent occurrence was about 8 months ago. At that time, he had high-grade, noninvasive urothelial cell carcinoma. Review of Systems Narrative: No fevers or chills No vision change or dysphasia Diabetes. No thyroid dysfunction No hemoptysis No chest pain or palpitations GERD. No nausea, vomiting, hepatitis, ulcers, jaundice No seizures, strokes or peripheral neuropathy On anticoagulants routinely. No bleeding disorders or anemia No gout PFSH All Active Problems Dysuria (Acute 06/07/17) Hesitancy of micturition (Acute 08/19/16) History of testicular cancer (Acute 07/24/16) Calculus of left kidney (Acute) Bladder cancer (Acute) Medical History A-fib Clot retention of urine Ex-smoker 03/2020 SOB (shortness of breath) on exertion ICD (implantable cardioverter-defibrillator) in place [employer] [id number] [facility] MRI XT DR-Afdebbie Hx of ventricular tachycardia History of ST elevation myocardial infarction (STEMI) 03/2020 CAD (coronary artery disease) x1 History of chemotherapy 2016 Hypertension History of postoperative nausea and vomiting History of kidney stones High cholesterol History of retroperitoneal fibrosis Malignant neoplasm of posterior wall of urinary bladder (08/19/16) Hesitancy of micturition Dysuria Malignant neoplasm of posterior wall of urinary bladder History of testicular cancer Surgical History History of cardiac radiofrequency ablation 05/30/2020 @ [facility] for V-Tach (status: successful at time of procedure) H/O cardiac catheterization S/P bladder tumor excision with fulguration History of colonoscopy History of arthroscopic knee surgery Right History of ankle surgery Left Hx of lithotripsy Status post radical unilateral orchiectomy Social History Smoking/Tobacco Use Status: Former Tobacco Use Quit Date: 03/23/20 Smoking risk assessment performed?: Yes Alcohol Intake: former Drug use: Never Substance use type: does not use Housing: house Do you feel safe at home: Yes Do you feel safe in your relationship?: Yes Meds Allergies and Home Medications Allergies Allergy/AdvReac Type Severity Reaction Status Date / Time sildenafil citrate (From Allergy Severe Anaphylaxsi Verified 04/09/25 07:15 Viagra) s ciprofloxacin (From Cipro) Allergy Intermediate Other (See Verified 04/09/25 07:15 Comment) Penicillins Allergy Intermediate Rash, Verified 04/09/25 07:15 itching, hives mitomycin AdvReac Severe Pain, Verified 04/09/25 07:15 created bladder stones per pt. oxybutynin AdvReac Severe dry mouth, Verified 04/09/25 07:15 mouth sores, pain oxycodone HCl (From Percocet) AdvReac Intermediate Mood Verified 04/09/25 07:15 behavior Home Medications ?Medication ?Instructions ?Recorded ?Confirmed ?Type clopidogrel 75 mg tablet (Plavix) 75 mg PO DAILY 10/04/20 04/06/25 History lisinopril 20 mg tablet 20 mg PO DAILY 10/04/20 04/09/25 History acetaminophen 500 mg tablet 500 mg PO Q6H PRN 08/19/23 04/09/25 History (Tylenol Extra Strength) apixaban 5 mg tablet (Eliquis) 5 mg PO BID 12/06/23 04/06/25 History metoprolol succinate 100 mg 100 mg PO BID 12/06/23 04/09/25 History tablet,extended release 24 hr pantoprazole 40 mg tablet,delayed 40 mg PO DAILY 12/06/23 04/09/25 History release rosuvastatin 40 mg tablet 40 mg PO DAILY 12/06/23 04/09/25 History phenazopyridine 200 mg tablet 200 mg PO TID PRN pain #30 tabs 10/09/24 04/09/25 Rx (Pyridium) albuterol 90 mcg/actuation aerosol mcg inhalation PRN SOB 04/09/25 History inhaler fluticasone furoate 50 inhalation DAILY 04/09/25 History mcg-vilanterol 25 mcg/dose inhalation powder (Breo Ellipta) Exam Const General: cooperative Neck Neck: supple Resp Effort & Inspection: normal respiratory effort Auscultation: clear to auscultation bilaterally Cardio Rate: regular rate Rhythm: regular rhythm GI Inspection: normal to inspection Neuro General: patient alert, patient awake and patient oriented x3 Results Last Vital Signs Temp 36.4 C L 04/09/25 07:25 Pulse 63 04/09/25 07:25 Resp 16 04/09/25 07:25 BP 167/90 H 04/09/25 07:25 Pulse Ox 98 04/09/25 07:25 Time Spent Time spent with Patient: <40 minutes Time was spent: other
[2025-04-09] MEDS: Famotidine 20 MG/2 ML VIAL IVP (08:47)
[2025-04-09] MEDS: GENTAMICIN 120 MG in Normal Saline 100 ML 206 MG IVPB (09:12)
[2025-04-09] MEDS: Lidocaine 2% Jelly 11 ML SYR (09:51)
--- NOTE | 2025-04-09 09:55 | BLADDER_PTH ---
PATIENT: Florentin Castillo LOC: [facility] U#:[id number] AGE/SX: 60/M ROOM: RE04/09/[address]: Jeremy Quintero MD : 1965 BED: DIS: 04/09/2025 SPEC #: [id number] RECD: 04/09/25 12:37 STATUS: BRANDI REQ #: [id number] RICO: 04/09/25 09:[address]: Jeremy Quintero DEPT: Surgical Specimen RECD BY: Yusra Malik ENTERED: 04/09/25 12:38 SP TYPE: Bladder OTHR DR: Albin Workman MD Tissues: 1 - BLADDER BIOPSY Procedures: GROSS AND MICRO LEVEL 4 Comments: [id number]
--- NOTE | 2025-04-09 10:00 | W.PM.DSUDISC ---
Date of service: 04/09/25 Discharge Plan Disposition Patient Disposition: Home Condition: Stable Discharge Details Attending Provider: Jeremy Quintero Primary Care Provider: Albin Workman Home Meds and New Rx's Prescriptions: No Action Eliquis 5 mg tablet 5 mg PO BID pantoprazole 40 mg tablet,delayed release (DR/EC) 40 mg PO DAILY phenazopyridine [Pyridium] 200 mg tablet 200 mg PO TID PRN (Reason: pain) Qty: 30 0RF clopidogrel [Plavix] 75 mg tablet 75 mg PO DAILY lisinopril 20 mg tablet 20 mg PO DAILY metoprolol succinate 100 mg tablet extended release 24 hr 100 mg PO BID acetaminophen [Tylenol Extra Strength] 500 mg tablet 500 mg PO Q6H PRN rosuvastatin 40 mg tablet 40 mg PO DAILY Patient Comments: TAKE ONE TABLET BY MOUTH EVERY DAY albuterol 90 mcg/actuation aerosol inhalation PRN (Reason: SOB) Breo Ellipta 50-25 mcg/dose blister with device inhalation DAILY Discharge Instructions Additional Instructions: May restart your anticoagulants on Wednesday as long as there is no obvious blood in the urine Follow-up appointment in 1 to 2 weeks to discuss the pathology results. This follow-up appointment can be done by phone. Activity:: No lifting over 10 pounds for about 48 hours Shower/Bathe:: 24 hours Diet:: As Tolerated Discharge Orders Discharge Orders: Discharge Order (Routine); Ordered 04/09/25 Ordered By: Jeremy Quintero DS: Diagnosis Discharge Diagnosis (1) Bladder cancer: Status: Acute
--- NOTE | 2025-04-09 10:04 | W.PM.OP ---
Operative Note Operative Note PRE-OP DIAGNOSIS: Bladder cancer POST-OP DIAGNOSIS: same PROCEDURE: cystoscopy with transurethral resection of bladder tumors (both less than 2 cm) SURGEON: Jeremy Quintero ANESTHESIA TYPE: Local By Surgeon and General:No Airway Refer to Anesthesia Record ESTIMATED BLOOD LOSS: 5 PATHOLOGY: other (bladder tumors) COMPLICATIONS: None Patient was transported to: PACU Patient's condition: stable Implants: none Indications: This is a 60-year-old gentleman who has a history of high-grade, noninvasive urothelial cell carcinoma of the bladder. He has been unable to tolerate intravesical treatments. He presents for surveillance cystoscopy Findings: 2 small papillary lesions (less than 2 cm): first at left dome second left posterior bladder wall papillary tissue at bladder neck Procedure Description: The patient was given antibiotics and brought to the operating room on 04/09/2025. After successful induction of general anesthesia, he was placed in the dorsal lithotomy position. His genitalia was prepped and draped. 2% Xylocaine jelly was instilled into the urethra to act as a local anesthetic. The 22 Egyptian rigid cystoscope was passed through the urethra into the bladder. The urethra and bladder were inspected with the 30 degree lens. The pendulous, bulbar membranous urethra appeared normal with no strictures. The prostatic urethra showed no papillary or nodular lesions. There were some small papillary areas of mucosa just at the bladder neck. The bladder neck was entered and the bladder mucosa was inspected. Multiple surgical scars were seen. There were 2 discrete papillary areas of mucosa visible. Each of these areas measured less than 2 cm in largest dimension. One of the areas was on the left posterior bladder wall. The other was up toward the left dome of the bladder. We then removed the cystoscope and passed a 24 Egyptian resectoscope sheath through the urethra into the bladder. Each of the visible tumors were resected using bipolar cautery and the Whitten resectoscope. Any other hyperemic areas were cauterized with the bipolar coagulation current. The papillary mucosa at the bladder neck was resected and cauterized as well. All resected tissue was evacuated and sent to pathology for permanent section. There was no active bleeding seen, so a Laguerre catheter was not inserted at the completion of the procedure. The bladder was emptied and the scope was removed. The patient tolerated the procedure well with no complications. Date of Procedure: 04/09/25
--- NOTE | 2025-04-09 10:17 | W.ANESNERVE ---
Nerve Block Single Injection Procedure Date and Time Date Performed: 04/09/25 Procedure Start: 10:02 Location Where Procedure Performed Procedure Location: Operating Room Procedure Stop: 10:05 Reason Performed: Postoperative Analgesia Requesting Provider: Jeremy Quintero Timeout Performed Timeout Performed: Yes Monitoring Used ECG, Blood Pressure, SpO2, ETCO2 and See EMR for corresponding vital signs Sterility Sterility: Hand Hygiene, Surgical Cap, Surgical Mask, Sterile Gloves and Chlorhexidine Sedation Given During Procedure Sedation Given (Indicate Dose Given): No Sedation given Patient Mental Status Patient Mental Status: Performed under general anesthesia Nerve Block 1st Nerve Block: Laterality: Left Block Type: TAP Unilateral Ultrasound Image Saved?: Yes Needle / Catheter Used: 100mm SonoPlex II Local Anesthetic Bolus (Indicate Dose Given): Injected in 3-5ml increments after negative blood aspiration, Bupivacaine 0.25% Dose:: 20 ml and Exparel Dose:: 10 ml Additives (Indicate Dose Given): None Ultrasound: Sterile probe cover and gel used Nerve Stimulator: Not Used Paresthesia: None Procedure Tolerated: No Complications and Patient tolerated well Procedure Outcome: Successful Performed By: Sanjeev Edwards
[2025-04-09] MEDS: Phenazopyridine 200 MG TAB PO (10:57)
--- NOTE | 2025-04-09 11:07 | W.ANESPOSTOP ---
Postoperative Evaluation Date, Time and Location Date Performed: 04/09/25 Time Performed: 10:42 Patient Location: PACU Vital Signs Most Recent Imported Vital Signs: Most Recent Vital Signs Temp Pulse Resp BP Pulse Ox 35.8 C L 58 L 14 113/69 96 04/09/25 10:53 04/09/25 10:53 04/09/25 10:53 04/09/25 10:53 04/09/25 10:53 Pain Score Most Recent Pain Score: Most Recent Pain Score Pain Level 0 04/09/25 10:53 Assessment Mental Status: Awake (Alert & Oriented to Patient Baseline) Airway and Respiratory Function: Patent airway with normal (patient baseline) respiratory exam Cardiovascular Function: Hemodynamically Stable Hydration Status: Adequately Hydrated Nausea & Vomiting: No Nausea or Vomiting Pain: Pt. Denies Any Pain Peripheral Nerve Block: Regional nerve block not resolved at time of post operative discharge Teaching Patient Teaching: Advised to seek followup for the following concerns (See explanation) Concerns: Poorly Controlled Diabetes and Other (Obstructive sleep apnea workup)
== END 2025-04-09 11:54 | disposition home or self-care (01) ==
PROVIDERS: PCP Family Medicine; Visit Provider Urology
PROC: 0TBB8ZZ Excision of Bladder, Via Natural or Artificial Opening Endoscopic (ICD-10-PCS; CPT 52234; principal; 2025-04-09 08:30)
DX: C67.1 Malignant neoplasm of dome of bladder (principal); C67.4 Malignant neoplasm of posterior wall of bladder
CPT/HCPCS: 52234; 64486; 88305; J0131; J0665; J0666; J1100; J1580; J1885; J2405; J2704; J3010

== ENCOUNTER 2025-04-19 06:18 | Emergency (ER) | payer BC, SELFPAY ==
[2025-04-19 06:21] VITALS: BP 178/83; PULSE 68; RESP 18; TEMP 36.6; O2SAT 97
[2025-04-19 06:23] VITALS: BP 178/83; PULSE 68; RESP 18; O2SAT 97
--- NOTE | 2025-04-19 06:32 | W.ED.GENAD ---
Discharge Plan Disposition Patient Disposition: Home Condition: Good Discharge Details Clinical Impression: Acute UTI Primary Care Provider: Albin Workman ED Provider: Sera Jolley Home Meds and New Rx's Prescriptions: New nitrofurantoin macrocrystal 100 mg capsule 100 mg PO BID 5 Days Qty: 10 0RF Rx Instructions: must administer with a meal/food hyoscyamine sulfate 0.125 mg tablet, sublingual 0.125 mg sublingual QID PRN PRNQty: 20 0RF Continued hydromorphone [Dilaudid] 4 mg tablet 4 - 8 mg PO Q6H MDD 8 tab PRN (Reason: pain) Qty: 20 0RF Eliquis 5 mg tablet 5 mg PO BID pantoprazole 40 mg tablet,delayed release (DR/EC) 40 mg PO DAILY phenazopyridine [Pyridium] 200 mg tablet 200 mg PO TID PRN (Reason: pain) Qty: 30 0RF clopidogrel [Plavix] 75 mg tablet 75 mg PO DAILY lisinopril 20 mg tablet 20 mg PO DAILY metoprolol succinate 100 mg tablet extended release 24 hr 100 mg PO BID acetaminophen [Tylenol Extra Strength] 500 mg tablet 500 mg PO Q6H PRN rosuvastatin 40 mg tablet 40 mg PO DAILY Patient Comments: TAKE ONE TABLET BY MOUTH EVERY DAY albuterol 90 mcg/actuation aerosol 90 mcg inhalation .puff PRN (Reason: SOB) Breo Ellipta 50-25 mcg/dose blister with device 1 inh inhalation DAILY Discharge Instructions Instructions: Urinary Tract Infection, Adult ED Additional Instructions: Antibiotic twice a day for the next 5 days. Hyoscyamine every 6 hours as needed for pain and bladder spasm. Call your urologist in the morning to schedule an appointment to followup on your visit here. Call your primary care doctor to schedule an appointment to followup on your blood pressure which is high here in the ED. Return to the emergency department for new or worsening symptoms including fever, flank pain, vomiting, or if you have any other concerns. HPI General Mode of arrival: ambulatory. Date/Time Provider Initiated Documentation: 04/19/25 06:21. Limitations to Documentation: no limitations. Information obtained by: patient and old records reviewed. HPI Narrative: 60yo M with hx bladder cancer s/p tumor removal 03/30/25, HTN, DM, COPD, presenting for urinary frequency and suprapubic pain. No hematuria however urine cloudy overnight. No flank pain. No fevers. Feels similar to prior UTIs. Pain is not entirely relieved by home pyridium, though it does help a little. Otherwise in his usual state of health with no chills, rash, nausea, vomiting, or other concerns. Related Data Home Medications ?Medication ?Instructions ?Recorded ?Confirmed clopidogrel 75 mg tablet (Plavix) 75 mg PO DAILY 10/04/20 04/19/25 lisinopril 20 mg tablet 20 mg PO DAILY 10/04/20 04/19/25 acetaminophen 500 mg tablet 500 mg PO Q6H PRN 08/19/23 04/19/25 (Tylenol Extra Strength) apixaban 5 mg tablet (Eliquis) 5 mg PO BID 12/06/23 04/19/25 metoprolol succinate 100 mg 100 mg PO BID 12/06/23 04/19/25 tablet,extended release 24 hr pantoprazole 40 mg tablet,delayed 40 mg PO DAILY 12/06/23 04/19/25 release rosuvastatin 40 mg tablet 40 mg PO DAILY 12/06/23 04/19/25 phenazopyridine 200 mg tablet 200 mg PO TID PRN pain #30 tabs 10/09/24 04/19/25 (Pyridium) albuterol 90 mcg/actuation aerosol 90 mcg inhalation .puff PRN SOB 04/09/25 04/19/25 inhaler fluticasone furoate 50 1 inh inhalation DAILY 04/09/25 04/19/25 mcg-vilanterol 25 mcg/dose inhalation powder (Breo Ellipta) hydromorphone 4 mg tablet 4 - 8 mg (1 - 2 x 4 mg) PO Q6H PRN 04/13/25 04/19/25 (Dilaudid) pain #20 tabs hyoscyamine sulfate 0.125 mg 0.125 mg sublingual QID PRN PRN 04/19/25 sublingual tablet #20 tabs nitrofurantoin macrocrystal 100 mg 100 mg PO BID 5 days #10 caps 04/19/25 capsule Previous Rx's ?Medication ?Instructions ?Recorded phenazopyridine 200 mg tablet 200 mg PO TID PRN pain #30 tabs 10/09/24 (Pyridium) hydromorphone 4 mg tablet 4 - 8 mg (1 - 2 x 4 mg) PO Q6H PRN 04/13/25 (Dilaudid) pain #20 tabs hyoscyamine sulfate 0.125 mg 0.125 mg sublingual QID PRN PRN 04/19/25 sublingual tablet #20 tabs nitrofurantoin macrocrystal 100 mg 100 mg PO BID 5 days #10 caps 04/19/25 capsule Allergies Allergy/AdvReac Type Severity Reaction Status Date / Time sildenafil citrate (From Allergy Severe Anaphylaxsi Verified 04/19/25 06:25 Viagra) s ciprofloxacin (From Cipro) Allergy Intermediate Other (See Verified 04/19/25 06:25 Comment) Penicillins Allergy Intermediate Rash, Verified 04/19/25 06:25 itching, hives mitomycin AdvReac Severe Pain, Verified 04/19/25 06:25 created bladder stones per pt. oxybutynin AdvReac Severe dry mouth, Verified 04/19/25 06:25 mouth sores, pain oxycodone HCl (From Percocet) AdvReac Intermediate Mood Verified 04/19/25 06:25 behavior General Stated Complaint: Urinary NATALIE: 3 Review of Systems Narrative: see HPI Exam Narrative Exam Narrative: General: Alert, well appearing, well nourished, in no acute distress. Head: Normocephalic, atraumatic Neck: Trachea midline, ?Neck supple. Cardiac: ?RRR, no murmurs appreciated Resp: No respiratory distress. CTAB. Abd: ?Soft, non-distended, nontender : ?+ suprapubic tenderness. No CVA tenderness. Extremities: ?No deformities.? No peripheral edema. Neurologic: GCS 15. ? Moves all extremities freely against gravity Course Vital Signs Vital signs: Vital Signs Temperature 36.6 C 04/19/25 06:21 Pulse 68 04/19/25 06:21 Respiratory Rate 18 04/19/25 06:21 Blood Pressure 178/83 H 04/19/25 06:21 Pulse Oximetry 97 04/19/25 06:21 Temperature 36.6 C 04/19/25 06:21 Pulse 68 04/19/25 06:23 Respiratory Rate 18 04/19/25 06:23 Blood Pressure 178/83 H 04/19/25 06:23 Pulse Oximetry 97 04/19/25 06:23 Oxygen Delivery Method Room Air 04/19/25 06:23 Oxygen Flow Rate 0 04/19/25 06:21 Pain Level 5 04/19/25 06:21 Medical Decision Making 60yo M with hx bladder cancer s/p tumor removal 03/30/25, HTN, DM, COPD, presenting for urinary frequency and suprapubic pain. Systemically well. Hypertensive on arrival, vital signs otherwise reassuring. Suprapubic tenderness on exam, no CVA tenderness to suggest pyelonephritits. Not septic. Will get UA to eval for UTI. Prior urine micro reviewed, has grown pansensitive e-coli in the past. UA with hematuria, not overly suggestive of infection. Discussed with Dr. Quintero regarding whether patient should be treated emprically based on his history; advised nitrofurantoin for 5 days while culture pending as well as hyoscyamine 0.125mg q6 hours for pain. Discharged home; discharge instructions and return precautions were reviewed with patient who verbalized understanding. All questions were answered and he is in full agreement with the plan. PFSH All Active Problems (Updated 04/19/25 @ 06:58 by Sera Jolley MD) Acute UTI (Acute) Dysuria (Acute 06/07/17) Hesitancy of micturition (Acute 08/19/16) History of testicular cancer (Acute 07/24/16) Calculus of left kidney (Acute) Bladder cancer (Acute) Medical History (Updated 04/19/25 @ 06:58 by Sera Jolley MD) A-fib Clot retention of urine Ex-smoker 03/2020 SOB (shortness of breath) on exertion ICD (implantable cardioverter-defibrillator) in place Medtronic [id number] [facility] MRI XT -[facility] Hx of ventricular tachycardia History of ST elevation myocardial infarction (STEMI) 03/2020 CAD (coronary artery disease) x1 History of chemotherapy 2016 Hypertension History of postoperative nausea and vomiting History of kidney stones High cholesterol History of retroperitoneal fibrosis Malignant neoplasm of posterior wall of urinary bladder (08/19/16) Hesitancy of micturition Dysuria Malignant neoplasm of posterior wall of urinary bladder History of testicular cancer Surgical History History of cardiac radiofrequency ablation 05/30/2020 @ [facility] for V-Tach (status: successful at time of procedure) H/O cardiac catheterization S/P bladder tumor excision with fulguration History of colonoscopy History of arthroscopic knee surgery Right History of ankle surgery Left Hx of lithotripsy Status post radical unilateral orchiectomy Social History Smoking/Tobacco Use Status: Former Tobacco Use Quit Date: 03/23/20 Smoking risk assessment performed?: Yes Alcohol Intake: former Drug use: Never Substance use type: does not use Housing: house Do you feel safe at home: Yes Do you feel safe in your relationship?: Yes
[2025-04-19 06:41] LABS: Glucose 100 mg/dL (Negative)
[2025-04-19 06:49] LABS: C & S Indicated? No; RBC >50 HPF (0-2)
--- NOTE | 2025-04-21 09:13 | NUR.NOTE ---
Access chart to get the dishcarge antibiotic for a urine culture. Given to Dr Hickman. Nursing Note:
--- NOTE | 2025-04-21 09:23 | W.ED.FU ---
Date of service: 04/21/25 Time of Service: 09:23 Follow Up Plan: This patient had urine results return on my shift. In brief this is a 60-year-old male with recently cystoscopy and transurethral resection of bladder tumors earlier this month. He was seen in the emergency department 2 days ago in the setting of urinary frequency and suprapubic pain. He was discharged on nitrofurantoin in setting of a urinalysis with large blood small leuk esterase but nitrite negative with no bacteriuria. His final urine culture was growing gram-positive wendy that was mixed with less than 10,000 colony-forming units per mL. I called the patient at home. He was feeling slightly improved. He had seen his primary care provider. He had not yet had follow-up with Dr. Quintero. I advised that he finish his course of antibiotics as previously scheduled given his symptoms and leuk esterase positive urinalysis. Of note in 2022 he did have a urinalysis showing greater than 100,000 colony-forming units per mL of E. coli which was pansensitive. In the event that there may be some component of persistent E. coli I felt that the benefits of antibiotics outweighed the benefits. We discussed that he should return to the ED if he felt worse did not feel improved or if he has any other concerns.
== END 2025-04-19 07:42 | disposition home or self-care (01) ==
LOC: ER 07:01
PROVIDERS: Emergency Provider Student in an Organized Health Care Education/Training Program; PCP Family Medicine
DX: N39.0 Urinary tract infection, site not specified (principal)
CPT/HCPCS: 99283; 81003; 81015; 87086

== ENCOUNTER 2025-05-06 09:29 | Emergency (ER) | payer BC, SELFPAY ==
--- NOTE | 2025-05-06 09:30 | RT.EKG_ITS ---
APPROVED REPORT Exam: Resting ECG Reason for Exam: syncope Patient Location: E HR:64 bpm ECG Measurements Heart Rate 64 AXIS AR 186 P 51 QRSd 87 QRS 60 QT 453 T 48 QTc 469 Conclusion Sinus rhythm, rate 64 No interval abnormalities No STEMI No priors available for comparison
[2025-05-06 09:37] VITALS: BP 177/77; PULSE 65; RESP 10; TEMP 36.7; O2SAT 97
--- NOTE | 2025-05-06 10:00 | DI.CT_ITS ---
Exam(s) CT BRAIN NECK CTA EXAM: CT BRAIN NECK CTA CLINICAL HISTORY: dizziness, R. sensorineural hearing loss. TECHNIQUE: Imaging Protocol: Axial CT angiography was performed with multi- slice acquisition and multi-planar and/or 3D reconstructions. CONTRAST MATERIAL: Intravenous: Omnipaque 350 Contrast volume:75 mL COMPARISON: No exams were available for comparison FINDINGS: CTA Neck W: Aortic arch anatomy: There is independent origin left vertebral artery off of the aortic arch. It does not arise in conventional fashion off of the left subclavian artery. This is a common variant. Anterior circulation: There is noncalcified plaque in the anterior wall of the mid right common carotid artery resulting in approximately 40 percent stenosis. There is no dissection at this level nor elsewhere in the vessel. The left common carotid artery exhibits no significant stenosis. At the level the right carotid bulb and proximal right ICA there is minimal if any significant plaque and no significant stenosis. Similar findings on the left side at the left carotid bulb and proximal left ICA. Both internal carotid arteries are also demonstrated be patent in the upper neck and skull base- carotid canals. Posterior circulation: The left vertebral artery originates as an independent vessel off the aortic arch. It ascends in the foramen transverse area in with a luminal diameter of 3.5 mm. No stenosis nor dissection. The thinner right vertebral artery originates in conventional fashion off of the right subclavian artery without significant stenosis at its origin and ascends in the foramen transverse area with luminal diameter of 2 mm. Both vertebral arteries contribute to the formation of the basilar artery at the skull base. CTA Brain W: Anterior circulation: Both internal carotid arteries are patent in the skull base-carotid canals as well as within the cavernous sinuses. The supraclinoid aspects of the ICAs are patent. Both A1 segments are patent as are the anterior cerebral arteries and there is no evidence of aneurysm at the level of the anterior communicating artery. Both middle cerebral arteries are patent with no evidence of significant stenosis nor intraluminal thrombus. There also no aneurysms of these vessels. Posterior circulation: Basilar artery ascends without significant focal stenosis. Distally gives off superior cerebellar arteries. Above this level it terminates as patent left posterior cerebral artery. The right posterior cerebral artery is fed by posterior communicating artery on the right side of the [id number]. There is no evidence of aneurysm at the tip of the basilar artery nor elsewhere in the [id number]. CT BRAIN: There is no evidence of intracranial hemorrhage, mass effect, or shift of midline structures. There are no extra-axial fluid collections. Ventricles are not enlarged or shifted. There are no ring enhancing lesions in the brain and no abnormal meningeal enhancement. No evidence of obvious mass in the cerebellopontine angles, given the history here. IMPRESSION: 1. There is approximately 40 percent stenosis in the mid aspect of the right common carotid artery. Left common carotid artery is unremarkable. There is minimal plaque and no significant stenosis at the carotid bulbs and proximal ICAs in the neck. Also no evidence of dissection. 2. Patent vertebral arteries. The left vertebral artery is dominant and originates as an independent vessel off the aortic arch. Both vertebral arteries contribute to the formation of the basilar artery at the skull base. No evidence of vertebral artery thrombosis nor dissection. 3. Patent intracranial arteries. There is a posterior communicating artery on the right side of the [id number] which feeds the right posterior cerebral artery. 4. No significant focal findings in the brain. No hemorrhage nor ring-enhancing lesions. No obvious infarct. 5. If clinically indicated further study with MRI can be performed. Preliminary virtual Radiology report was reviewed. RADIATION DOSE DELIVERED: 2,266.52mGy.cm Total DLP DATA REPOSITORY: All CT scans at this facility are submitted to the National Radiology Data Registry (NRDR) Dose Index Registry (DIR) with the [employer] (A[employer]). RADIATION OPTIMIZATION: All CT scans at this facility use at least one of these dose optimization techniques: automated exposure control; mA and/or kV adjustment per patient size (includes targeted exams where dose is matched to clinical indication); or iterative reconstruction.
--- NOTE | 2025-05-06 10:38 | W.ED.GENAD ---
Discharge Plan Disposition Patient Disposition: Home Condition: Stable Discharge Details Clinical Impression: Sensorineural hearing loss, Urinary frequency Primary Care Provider: Albin Workman ED Provider: Suellen Godinez Home Meds and New Rx's Prescriptions: No Action hydromorphone [Dilaudid] 4 mg tablet 4 - 8 mg PO Q6H MDD 8 tab PRN (Reason: pain) Qty: 20 0RF Eliquis 5 mg tablet 5 mg PO BID pantoprazole 40 mg tablet,delayed release (DR/EC) 40 mg PO DAILY phenazopyridine [Pyridium] 200 mg tablet 200 mg PO TID PRN (Reason: pain) Qty: 30 0RF clopidogrel [Plavix] 75 mg tablet 75 mg PO DAILY lisinopril 20 mg tablet 20 mg PO DAILY metoprolol succinate 100 mg tablet extended release 24 hr 100 mg PO BID acetaminophen [Tylenol Extra Strength] 500 mg tablet 500 mg PO Q6H PRN rosuvastatin 40 mg tablet 40 mg PO DAILY Patient Comments: TAKE ONE TABLET BY MOUTH EVERY DAY albuterol 90 mcg/actuation aerosol 90 mcg inhalation .puff PRN (Reason: SOB) Breo Ellipta 50-25 mcg/dose blister with device 1 inh inhalation DAILY hyoscyamine sulfate 0.125 mg tablet, sublingual 0.125 mg sublingual QID PRN PRNQty: 20 0RF Discharge Instructions Instructions: Hearing Loss in Adults Additional Instructions: You were seen in the emergency department today for evaluation of right sided hearing loss likely due to a nerve/inner ear problem. In our department a full physical examination performed, had a CT scan of your brain that did not show any sign of stroke, and had reassuring laboratory studies with no sign of urinary tract infection. You met with a member of the neurology team, and at this time we are recommending that you have follow-up within the next few days with the ear nose and throat doctors to discuss this symptom. Additionally, I want you to call your urologist to discuss your urinary frequency. If you start to feel any new or different symptoms, especially if you have changes in vision, weakness, numbness, or tingling on one side of your body or the other, or develop fevers you should return to the emergency department for reevaluation. Please follow-up with your primary care provider in the next few days to discuss this visit and any symptoms that change, worsen, or persist. Thank you for allowing us to be part of your care. Referrals: Ben Holt MD [ [facility], ENT Surgical] - 2 days Discharge Data Discharge Date/Time-TO BE ENTERED AT DEPARTURE: 05/06/25 11:50 HPI General Mode of arrival: ambulatory. Date/Time Provider Initiated Documentation: 05/06/25 09:31. Limitations to Documentation: no limitations. Information obtained by: patient and old records reviewed. HPI Narrative: This is a 60-year-old male patient with a past medical history significant for atrial fibrillation on Eliquis, ICD in place, bladder cancer, presenting for evaluation of dizziness and right sided hearing loss. The patient reports that yesterday he became dizzy several times throughout the day, these episodes did not seem to be dependent on position such as sitting to standing. States that his vision seems slightly blurry compared to his baseline. This morning he woke up and had hearing loss of the right ear, states that he cannot hear anything on that side. He reports that when he went to bed last night his hearing was typical for him. No trauma or injury, endorses a several week history of left hand tingling, but no new numbness, weakness, or difficulty with walking. Has never had an issue like this before. No fevers or chills, nausea or vomiting. He does have a history of diabetes, states that he has noted some urinary frequency, has baseline urinary burning since his bladder procedure. Related Data Home Medications ?Medication ?Instructions ?Recorded ?Confirmed clopidogrel 75 mg tablet (Plavix) 75 mg PO DAILY 10/04/20 05/06/25 lisinopril 20 mg tablet 20 mg PO DAILY 10/04/20 05/06/25 acetaminophen 500 mg tablet 500 mg PO Q6H PRN 08/19/23 05/06/25 (Tylenol Extra Strength) apixaban 5 mg tablet (Eliquis) 5 mg PO BID 12/06/23 05/06/25 metoprolol succinate 100 mg 100 mg PO BID 12/06/23 05/06/25 tablet,extended release 24 hr pantoprazole 40 mg tablet,delayed 40 mg PO DAILY 12/06/23 05/06/25 release rosuvastatin 40 mg tablet 40 mg PO DAILY 12/06/23 05/06/25 phenazopyridine 200 mg tablet 200 mg PO TID PRN pain #30 tabs 10/09/24 05/06/25 (Pyridium) albuterol 90 mcg/actuation aerosol 90 mcg inhalation .puff PRN SOB 04/09/25 05/06/25 inhaler fluticasone furoate 50 1 inh inhalation DAILY 04/09/25 05/06/25 mcg-vilanterol 25 mcg/dose inhalation powder (Breo Ellipta) hydromorphone 4 mg tablet 4 - 8 mg (1 - 2 x 4 mg) PO Q6H PRN 04/13/25 05/06/25 (Dilaudid) pain #20 tabs hyoscyamine sulfate 0.125 mg 0.125 mg sublingual QID PRN PRN 04/19/25 05/06/25 sublingual tablet #20 tabs Previous Rx's ?Medication ?Instructions ?Recorded phenazopyridine 200 mg tablet 200 mg PO TID PRN pain #30 tabs 10/09/24 (Pyridium) hydromorphone 4 mg tablet 4 - 8 mg (1 - 2 x 4 mg) PO Q6H PRN 04/13/25 (Dilaudid) pain #20 tabs hyoscyamine sulfate 0.125 mg 0.125 mg sublingual QID PRN PRN 04/19/25 sublingual tablet #20 tabs Allergies Allergy/AdvReac Type Severity Reaction Status Date / Time sildenafil citrate (From Allergy Severe Anaphylaxsi Verified 05/06/25 09:39 Viagra) s ciprofloxacin (From Cipro) Allergy Intermediate Other (See Verified 05/06/25 09:39 Comment) Penicillins Allergy Intermediate Rash, Verified 05/06/25 09:39 itching, hives mitomycin AdvReac Severe Pain, Verified 05/06/25 09:39 created bladder stones per pt. oxybutynin AdvReac Severe dry mouth, Verified 05/06/25 09:39 mouth sores, pain oxycodone HCl (From Percocet) AdvReac Intermediate Mood Verified 05/06/25 09:39 behavior General Stated Complaint: Dizzy/Sync NATALIE: 3 Exam Narrative Exam Narrative: Gen: awake and alert, in no apparent distress. Appears well nourished. HEENT: PERRL, EOMs full and without nystagmus. External ears and nose normal, bilateral TMs clear without obstructing wax or evidence of otitis externa. Mucous membranes moist. Neck: Supple, full range of motion, no observable masses Lungs: No increased work of breathing CV: Heart with regular rate and rhythm. Strong and symmetrical radial pulses. Abdomen: Soft, nondistended, non-tender to palpation. No rigidity, rebound tenderness, or guarding. MSK: No joint swelling, no redness. Full ROM without limitation, no external traumatic findings. Skin: No rashes or lesions to visualized skin. Normal color, warm, and dry. Neuro: Cranial nerves II-XII intact and symmetrical bilaterally with the exception of the right sided hearing loss, which is presumed sensorineural given that the [place] test lateralizes to the unaffected [facility] left side, and he does not have air conduction greater than bone conduction on the affected left side. 5/5 strength in all muscle groups x4 extremities. No sensory deficits. Ambulates with steady gait. Psych: Appropriate for situation. Course Vital Signs Vital signs: Vital Signs Temperature 36.7 C 05/06/25 09:37 Pulse 65 05/06/25 09:37 Respiratory Rate 10 L 05/06/25 09:37 Blood Pressure 177/77 H 05/06/25 09:37 Pulse Oximetry 97 05/06/25 09:37 Temperature 36.7 C 05/06/25 09:37 Temperature Source Oral 05/06/25 09:37 Pulse 65 05/06/25 09:37 Respiratory Rate 10 L 05/06/25 09:37 Blood Pressure 177/77 H 05/06/25 09:37 Blood Pressure Position Sitting 05/06/25 09:37 Pulse Oximetry 97 05/06/25 09:37 Oxygen Delivery Method Room Air 05/06/25 09:37 Oxygen Flow Rate 0 05/06/25 09:37 Medical Decision Making This is a 60-year-old male patient presenting for evaluation of right sided sensorineural hearing loss and dizziness. Differential includes but is not limited to stroke, certainly considered conductive hearing loss though the patient's exam is less suggestive of same and he has no evidence of cerumen impaction or TM rupture. No vertiginous symptoms to suggest labyrinthitis, vestibular neuritis or M?ni?re's disease, no fever to suggest meningitis. Certainly considered intracranial mass, demyelinating diseases such as MS. Regarding the urinary frequency certainly considered UTI, hematuria, hyperglycemia/DKA. EKG obtained which shows a sinus rhythm without evidence of ischemia, interval abnormality or ectopy. We obtained a fingerstick blood glucose which was 180s, we will obtain labs to include CBC, CMP, magnesium, troponin, INR, and urinalysis. The patient is not a candidate for thrombolytics, but is within 24 hours and would be a candidate for thrombectomy in the setting of an LVO. Will obtain a CTA of the brain and neck and a teleneuro consult. -I reviewed the patient's laboratory studies, which show no leukocytosis, anemia or thrombocytopenia. No electrolyte derangements, kidney function is at his baseline at 1.4, no evidence of anion gap elevation or bicarb changes to suggest acidosis. No liver enzyme abnormalities, troponin is negative. Urinalysis with trace blood and leukocyte esterase but no significant pyuria or bacteria to increase my concern for urinary tract infection given the lack of dysuria. CTA reviewed by myself, radiology notes no evidence of acute stroke or vascular abnormality. I did discuss the patient's case with teleneuro, who feel reassured that this represents a inner ear problem/sensorineural hearing loss, rather than a stroke given the lack of other neurodeficits. They do not recommend admission or MRI and the patient is already on appropriate medications such as Plavix, apixaban, and rosuvastatin. They recommend ear nose and throat referral, which I clarified cannot be done during this emergency department visit and they states that that is appropriate for this to be done within the next few days. This referral was sent, the neurology team does not recommend initiation of steroids given the history of diabetes, nor antivirals given the lack of evidence of rash. I discussed this with the patient, recommended close outpatient follow-up with his urologist for his urinary frequency not due to urinary tract infection, nor diabetic ketoacidosis. I recommended rapid ear nose and throat follow-up in the outpatient environment for his sensorineural hearing loss. At this time, the patient has had a full medical evaluation and is safe for discharge to home. They are hemodynamically stable, ambulatory, and tolerating PO. They are understanding of the follow-up plan and return precautions. They left our facility without incident. Suellen Godinez MD [facility] All Active Problems (Updated 05/06/25 @ 11:44 by Suellen Godinez MD) Urinary frequency (Acute) Sensorineural hearing loss (Acute) Acute UTI (Acute) Dysuria (Acute 06/07/17) Hesitancy of micturition (Acute 08/19/16) History of testicular cancer (Acute 07/24/16) Calculus of left kidney (Acute) Bladder cancer (Acute) Medical History (Updated 05/06/25 @ 11:44 by Suellen Godinez MD) A-fib Clot retention of urine Ex-smoker 03/2020 SOB (shortness of breath) on exertion ICD (implantable cardioverter-defibrillator) in place [employer] [id number] [place] [facility] XT [place]it Hx of ventricular tachycardia History of ST elevation myocardial infarction (STEMI) 03/2020 CAD (coronary artery disease) x1 History of chemotherapy 2016 Hypertension History of postoperative nausea and vomiting History of kidney stones High cholesterol History of retroperitoneal fibrosis Malignant neoplasm of posterior wall of urinary bladder (08/19/16) Hesitancy of micturition Dysuria Malignant neoplasm of posterior wall of urinary bladder History of testicular cancer Surgical History History of cardiac radiofrequency ablation 05/30/2020 @ [facility] for V-Tach (status: successful at time of procedure) H/O cardiac catheterization S/P bladder tumor excision with fulguration History of colonoscopy History of arthroscopic knee surgery Right History of ankle surgery Left Hx of lithotripsy Status post radical unilateral orchiectomy Social History Smoking/Tobacco Use Status: Former Tobacco Use Quit Date: 03/23/20 Smoking risk assessment performed?: Yes Alcohol Intake: former Drug use: Never Substance use type: does not use Housing: house Do you feel safe at home: Yes Do you feel safe in your relationship?: Yes
[2025-05-06] MEDS: Omnipaque 350 MG/ML 100 ML BTL 75 ML IJ (10:45)
[2025-05-06 10:47] LABS: Abs Immature Grans 0.02 10^3/uL (0.0-0.06); HCT 42.7 % (40.0-50.0); HGB 14.3 g/dL (13.5-17.5); Immature Grans % 0.2 %; MCH 29.7 pg (27.0-33.0); MCHC 33.5 % (32.0-36.0); MCV 89 fL (80-95); MPV 9.9 fL (8.0-11.0); Platelet Count 234 10^3/uL (130-400); RBC 4.82 10^6/uL (4.36-5.78); RDW 13.1 % (11.8-14.1); RDW-SD 42.5 fL; WBC 8.29 10^3/uL (4.4-10.8)
[2025-05-06 10:57] LABS: Glucose Negative (Negative)
--- NOTE | 2025-05-06 11:14 | DI.VRAD_ITS ---
PROCEDURE INFORMATION: Exam: CTA Head Without And With Contrast, Arteriography Exam date and time: 05/06/2025 10:32 AM Age: 60 years old Clinical indication: Stroke-like symptoms; Dizziness/giddiness and other: R. Snl hearing loss TECHNIQUE: Imaging protocol: Computed tomographic angiography of the head without and with contrast. Exam focused on the arteries. 3D rendering (Not supervised by radiologist): MIP and/or 3D reconstructed images were created by the technologist. Contrast material: OMNIPAQUE 350; Contrast volume: 70 ml; Contrast route: INTRAVENOUS (IV); Other technique: STROKE PROTOCOL was implemented. COMPARISON: No relevant prior studies available. FINDINGS: ANTERIOR CIRCULATION: Right internal carotid artery: Intracranial segment is patent with no significant stenosis. No aneurysm. Right middle cerebral artery: No occlusion or significant stenosis. No aneurysm. Right anterior cerebral artery: No occlusion or significant stenosis. No aneurysm. Left internal carotid artery: Intracranial segment is patent with no significant stenosis. No aneurysm. Left middle cerebral artery: No occlusion or significant stenosis. No aneurysm. Left anterior cerebral artery: No occlusion or significant stenosis. No aneurysm. POSTERIOR CIRCULATION: Right vertebral artery: No occlusion or significant stenosis. No aneurysm. Left vertebral artery: No occlusion or significant stenosis. No aneurysm. Basilar artery: No occlusion or significant stenosis. No aneurysm. Right posterior cerebral artery: No occlusion or significant stenosis. No aneurysm. Left posterior cerebral artery: No occlusion or significant stenosis. No aneurysm. HEAD: Brain: Normal. No hemorrhage. Unremarkable white matter. No mass effect. Cerebral ventricles: Normal. No ventriculomegaly. Bones: Unremarkable. No acute fracture. Paranasal sinuses: Visualized sinuses are normal. No fluid levels. Mastoid air cells: Visualized mastoids are normal. No mastoid effusion. Soft tissues: Unremarkable. IMPRESSION: 1. No large vessel occlusion. 2. Unremarkable CT head. ASSESSMENT: ASPECTS ([place] Stroke Program Early CT Score) is 10. PROCEDURE INFORMATION: Exam: CTA Neck Without And With Contrast Exam date and time: 05/06/2025 10:32 AM Age: 60 years old Clinical indication: Stroke-like symptoms; Dizziness/giddiness and other: R. Snl hearing loss TECHNIQUE: Imaging protocol: Computed tomographic angiography of the neck without and with contrast. Exam focused on the cervical segments of the vasculature. 3D rendering (Not supervised by radiologist): MIP and/or 3D reconstructed images were created by the technologist. Contrast material: OMNIPAQUE 350; Contrast volume: 70 ml; Contrast route: INTRAVENOUS (IV); COMPARISON: No relevant prior studies available. FINDINGS: Right common carotid artery: 50% stenosis mid right common carotid artery, extending approximately 1.2 cm. No dissection or occlusion. Right internal carotid artery: No stenosis of the extracranial segment. No dissection or occlusion. Right external carotid artery: No occlusion or stenosis of the origin. Left common carotid artery: No stenosis. No dissection or occlusion. Left internal carotid artery: No stenosis of the extracranial segment. No dissection or occlusion. Left external carotid artery: No occlusion or stenosis of the origin. Right vertebral artery: No stenosis. No dissection or occlusion. Left vertebral artery: No stenosis. No dissection or occlusion. Soft tissues: Normal. No significant soft tissue swelling. Bones/joints: No acute fracture. IMPRESSION: 50% stenosis mid right common carotid artery, extending approximately 1.2 cm. No stenosis within the internal carotid arteries bilaterally. REFERENCES: NASCET CRITERIA. The degree of stenosis in the cervical segment of the internal carotid artery is based on NASCET criteria. Normal is no stenosis. Mild is less than 50% stenosis. Moderate is 50-69% stenosis. Severe is 70% to 99% stenosis. Total occlusion is no detectable patent lumen. Dictated and Authenticated by: Whitney Lucio MD. Orderin St. Shyam Ken MD
[2025-05-06 11:16] LABS: RBC 0-2 HPF (0-2)
[2025-05-06 11:17] LABS: C & S Indicated? No
[2025-05-06 11:21] VITALS: BP 144/82; PULSE 64; O2SAT 98
[2025-05-06 11:24] VITALS: RESP 18
[2025-05-06 11:24] LABS: ALT 28 U/L (16-63); AST 15 U/L (15-37); Albumin 4.0 g/dL (3.4-5.0); Alkaline Phosphatase 83 U/L (46-116); Anion Gap 4.5 mmol/L (3-11); BUN 19 mg/dL (7-18); Bilirubin, Total 1.1 mg/dL (0.2-1.0); CO2 31.5 mmol/L (21.0-32.0); Calcium 9.5 mg/dL (8.5-10.1); Chloride 104 mmol/L (98-107); Estimated GFR 57.54 (mL/min/1.73m2); Glucose 203 mg/dL (74-106); Magnesium 2.2 mg/dL (1.8-2.4); Potassium 5.0 mmol/L (3.5-5.1); Sodium 140 mmol/L (136-145); Total Protein 7.3 g/dL (6.4-8.2); Troponin I 7 ng/L (<or=76)
[2025-05-06 11:26] VITALS: BP 144/82; PULSE 64; RESP 64; O2SAT 98
[2025-05-06 11:27] LABS: INR 1.1 (0.9-1.1); Prothrombin Time 10.7 sec (9.1-11.1)
[2025-05-06 11:56] LABS: Troponin I 7 ng/L (<or=76)
== END 2025-05-06 11:50 | disposition home or self-care (01) ==
PROVIDERS: Emergency Provider Emergency Medicine; PCP Family Medicine
DX: H90.41 Sensorineural hearing loss, unilateral, right ear, with unrestricted hearing on the contralateral side (principal); R35.0 Frequency of micturition; I10 Essential (primary) hypertension; I25.10 Atherosclerotic heart disease of native coronary artery without angina pectoris; I48.0 Paroxysmal atrial fibrillation; E11.9 Type 2 diabetes mellitus without complications; Z79.01 Long term (current) use of anticoagulants; Z79.02 Long term (current) use of antithrombotics/antiplatelets; Z87.891 Personal history of nicotine dependence
CPT/HCPCS: 36415; 70496; 70498; 80053; 82962; 93005; 99285; 81003; 81015; 83735; 84484; 85025; 85610; 93010; J3490

== ENCOUNTER 2025-05-07 16:44 | Outpatient (CLI) | payer BC, SELFPAY ==
[2025-05-08 10:16] LABS: Lyme Ab w Rflx to Lyme Confirm Negative (Negative)
[2025-05-09 21:37] LABS: B. miyamotoi PCR Negative (Negative); Babesia divergens/MO-1 Negative (Negative); Ehrlichia muris eauclairensis Negative (Negative)
== END 2025-05-07 16:45 | disposition home or self-care (01) ==
LOC: LBO 16:45
PROVIDERS: PCP Family Medicine; Visit Provider Otolaryngology
DX: H91.21 Sudden idiopathic hearing loss, right ear (principal)
CPT/HCPCS: 36415; 87798; 86618